=== PATIENT | male | born 1955 | race Two or more races ===

== ENCOUNTER 2024-05-22 17:10 | Inpatient (IN) | payer OTHER ==
[~2024-05-22] VITALS: Ht 193 cm; Wt 73.3 kg
[2024-05-22] MEDS: SODIUM CHLORIDE 0.9% 1,000 ML IV ONE (17:58)
[2024-05-22] MEDS: PANTOPRAZOLE 40 MG/10 ML VIAL INJ IV ONE (18:03)
[2024-05-22 18:17] LABS: Urine Bacteria None Seen /hpf (None Seen)
[2024-05-22 18:29] LABS: Basophils # (auto) 0.1 10 ^3/uL (0-0.2); Eosinophils # (auto) 0.1 10 ^3/uL (0-0.8); Eosinophils % (auto) 1.8 % (0.0-7.0); Hematocrit 46.2 % (41.0-53.0); Hemoglobin 15.9 g/dL (13.5-17.5); Lymphocytes # (auto) 2.6 10 ^3/uL (0.4-5.4); Lymphocytes % (auto) 34.4 % (10.0-50.0); Mean Corpuscular Hemoglobin 32.2 pg (28.0-32.0); Mean Corpuscular Hgb Conc. 34.4 g/dL (32.0-36.0); Mean Corpuscular Volume 93.8 fL (80.0-100.0); Monocytes # (auto) 0.4 10 ^3/uL (0-1.3); Neutrophils # (auto) 4.4 10 ^3/uL (1.6-8.6); Neutrophils % (auto) 57.8 % (37.0-80.0); Nucleated Red Blood Cells % 0.2 %; Platelet Count (auto) 154 10^3/uL (140-450); Red Blood Cells 4.93 10^6/uL (4.5-5.90); Red Cell Distribution Width 13.5 % (11.8-14.3); White Blood Cell 7.6 10^3/uL (4.4-10.8)
[2024-05-22 18:53] LABS: Alanine Aminotransferase 10 U/L (7-40); Albumin 4.5 g/dL (3.2-4.8); Alkaline Phosphatase 85 U/L (46-116); Anion Gap 8 (5-15); Aspartate Aminotransferase 12 U/L (13-40); BUN/Creatinine Ratio 10.8 (10.0-20.0); Blood Urea Nitrogen 8 mg/dL (9-23); Calcium 9.8 mg/dL (8.7-10.4); Carbon Dioxide 28 mmol/L (20-31); Chloride 107 mmol/L (98-107); Glucose 94 mg/dL (74-106); INR 1.11 (0.9-1.15); Lipase 29 U/L (12-53); Partial Thromboplastin Time 28.8 SEC (24.5-34.5); Potassium 3.6 mmol/L (3.5-5.1); Prothrombin Time 11.7 sec (9.3-11.8); Sodium 143 mmol/L (136-145)
[2024-05-22 18:54] LABS: Bilirubin, Total 0.4 mg/dL (0.2-1.0); Total Protein 7.1 g/dL (5.7-8.2)
[2024-05-22 19:06] LABS: Urine Blood Negative /uL (Negative); Urine Clarity Clear (Clear); Urine Color Colorless (Yellow); Urine Protein, UAD Negative (Negative); Urine Specific Gravity 1.003 (1.001-1.035); Urine Urobilinogen Normal (Negative); Urine WBC 1 /hpf (0 - 3); Urine pH 6.5 (5.0-9.0)
[2024-05-22] MEDS: fentaNYL CITRATE 100 MCG/2 ML VL IV ONE (19:30)
[2024-05-22] MEDS ORDERED: MORPHINE SULFATE INJ 2 MG/ml SYRG IV PRN (23:30)
[2024-05-22 23:53] LABS: Amphetamine Screen, Urine Neg (NEGATIVE); Barbiturate Scree,Urine Neg (NEGATIVE); Benzodiazephine Screen, Urine Neg (NEGATIVE); Cocaine Screen, Urine Neg (NEGATIVE); Opiate Scree,Urine Neg (NEGATIVE)
[2024-05-22 23:54] LABS: Cannabinoid Screen, Urine Pos (NEGATIVE); Phencyclidine Screen, Urine Neg (NEGATIVE)
[2024-05-23 03:30] VITALS: RESP 18
[2024-05-23 05:00] VITALS: BP 106/55; PULSE 46; RESP 16; TEMP 98.9; O2SAT 98
[2024-05-23] MEDS: PNEUMOCOCCAL VACC POLYS 25 MCG/0.5 ML VIAL IM ONE (05:12)
[2024-05-23] MEDS ORDERED: DEXTROSE (50%) 50ML SYRG IV PRN (08:45)
[2024-05-23] MEDS: SODIUM CHLORIDE 0.9% 1,000 ML IV SCH (08:45)
[2024-05-23 09:00] VITALS: BP 125/54; PULSE 48; RESP 18; TEMP 97.9; O2SAT 98
[2024-05-23 10:57] LABS: Basophils # (auto) 0 10 ^3/uL (0-0.2); Basophils % (auto) 0.8 % (0.0-2.0); Eosinophils # (auto) 0.1 10 ^3/uL (0-0.8); Hematocrit 39.7 % (41.0-53.0); Hemoglobin 13.7 g/dL (13.5-17.5); Lymphocytes # (auto) 1.7 10 ^3/uL (0.4-5.4); Lymphocytes % (auto) 33.2 % (10.0-50.0); Mean Corpuscular Hemoglobin 32.6 pg (28.0-32.0); Mean Corpuscular Hgb Conc. 34.5 g/dL (32.0-36.0); Mean Corpuscular Volume 94.5 fL (80.0-100.0); Monocytes # (auto) 0.3 10 ^3/uL (0-1.3); Monocytes % (auto) 5.7 % (0.0-12.0); Neutrophils % (auto) 58.3 % (37.0-80.0); Platelet Count (auto) 120 10^3/uL (140-450); Red Cell Distribution Width 13.6 % (11.8-14.3); White Blood Cell 5.1 10^3/uL (4.4-10.8)
[2024-05-23 11:07] LABS: Anion Gap 6 (5-15); Carbon Dioxide 27 mmol/L (20-31); Chloride 110 mmol/L (98-107); Potassium 3.8 mmol/L (3.5-5.1); Sodium 143 mmol/L (136-145)
[2024-05-23 11:09] LABS: Calcium 9.3 mg/dL (8.7-10.4)
[2024-05-23 11:13] LABS: Glucose 80 mg/dL (74-106)
[2024-05-23 11:14] LABS: Triglycerides 102 mg/dL (< 150)
[2024-05-23 11:15] LABS: LDL Cholesterol 72 mg/dL (< 100)
[2024-05-23 11:16] LABS: Cholesterol 128 mg/dL (< 200); HDL Cholesterol 38 mg/dL (40-59)
[2024-05-23 11:17] LABS: BUN/Creatinine Ratio 7.6 (10.0-20.0); Blood Urea Nitrogen < 5 mg/dL (9-23)
[2024-05-23] MEDS: PANTOPRAZOLE 40 MG/10 ML VIAL INJ IV SCH (11:19)
[2024-05-23] MEDS: InsuLIN REG 1unit/0.01ml Soln (100units/ml) SC SCH (12:00)
[2024-05-23] MEDS: ACCU-CHEK COMFORT CURVE STRIP VI SCH (12:29)
[2024-05-23 13:00] VITALS: BP 125/56; PULSE 47; RESP 18; TEMP 97.7; O2SAT 93
[2024-05-23 17:00] VITALS: BP 122/72; PULSE 53; RESP 18; TEMP 97.9; O2SAT 98
[2024-05-23 22:00] VITALS: BP 103/38; PULSE 46; RESP 18; TEMP 97.7; O2SAT 100
[2024-05-24 01:00] VITALS: BP 104/55; PULSE 58; RESP 18; TEMP 97.4; O2SAT 97
[2024-05-24 05:00] VITALS: BP 118/61; PULSE 59; RESP 18; TEMP 97.7; O2SAT 97
[2024-05-24 06:52] LABS: Basophils # (auto) 0.1 10 ^3/uL (0-0.2); Basophils % (auto) 0.9 % (0.0-2.0); Eosinophils # (auto) 0.2 10 ^3/uL (0-0.8); Eosinophils % (auto) 2.4 % (0.0-7.0); Hematocrit 42.8 % (41.0-53.0); Hemoglobin 14.6 g/dL (13.5-17.5); Lymphocytes # (auto) 2.1 10 ^3/uL (0.4-5.4); Lymphocytes % (auto) 32.6 % (10.0-50.0); Mean Corpuscular Hemoglobin 32.2 pg (28.0-32.0); Mean Corpuscular Hgb Conc. 34.1 g/dL (32.0-36.0); Mean Corpuscular Volume 94.4 fL (80.0-100.0); Monocytes # (auto) 0.4 10 ^3/uL (0-1.3); Monocytes % (auto) 5.9 % (0.0-12.0); Neutrophils # (auto) 3.7 10 ^3/uL (1.6-8.6); Neutrophils % (auto) 58.2 % (37.0-80.0); Nucleated Red Blood Cells % 0.1 %; Platelet Count (auto) 140 10^3/uL (140-450); Red Blood Cells 4.53 10^6/uL (4.5-5.90); Red Cell Distribution Width 13.5 % (11.8-14.3); White Blood Cell 6.4 10^3/uL (4.4-10.8)
[2024-05-24 08:52] VITALS: BP 115/67; PULSE 67; RESP 17; TEMP 97.7; O2SAT 97
[2024-05-24 13:00] VITALS: BP 123/60; PULSE 48; RESP 17; TEMP 98.3; O2SAT 99
[2024-05-24 17:00] VITALS: BP 93/49; PULSE 49; RESP 17; TEMP 98.7; O2SAT 100
[2024-05-24 21:00] VITALS: BP 102/52; PULSE 48; RESP 16; TEMP 98.2; O2SAT 97
[2024-05-25 01:00] VITALS: BP 82/36; PULSE 98; RESP 17; TEMP 98.1; O2SAT 50
[2024-05-25 05:00] VITALS: BP 96/46; PULSE 60; RESP 17; O2SAT 96
[2024-05-25 08:10] LABS: Basophils # (auto) 0.1 10 ^3/uL (0-0.2); Basophils % (auto) 0.9 % (0.0-2.0); Eosinophils # (auto) 0.1 10 ^3/uL (0-0.8); Eosinophils % (auto) 2.4 % (0.0-7.0); Hemoglobin 14.6 g/dL (13.5-17.5); Lymphocytes # (auto) 2.4 10 ^3/uL (0.4-5.4); Lymphocytes % (auto) 41.6 % (10.0-50.0); Mean Corpuscular Hgb Conc. 33.9 g/dL (32.0-36.0); Mean Corpuscular Volume 94.5 fL (80.0-100.0); Monocytes # (auto) 0.4 10 ^3/uL (0-1.3); Monocytes % (auto) 6.7 % (0.0-12.0); Neutrophils # (auto) 2.7 10 ^3/uL (1.6-8.6); Neutrophils % (auto) 48.4 % (37.0-80.0); Nucleated Red Blood Cells % 0.1 %; Platelet Count (auto) 132 10^3/uL (140-450); Red Blood Cells 4.55 10^6/uL (4.5-5.90); Red Cell Distribution Width 13.5 % (11.8-14.3); White Blood Cell 5.7 10^3/uL (4.4-10.8)
[2024-05-25 09:00] VITALS: BP 108/68; PULSE 56; RESP 18; TEMP 97.9; O2SAT 98
[2024-05-25 13:00] VITALS: BP 110/63; PULSE 64; RESP 21; TEMP 98.4; O2SAT 98
[2024-05-25 13:40] VITALS: BP 110/63; PULSE 64; RESP 19; TEMP 98.4; O2SAT 98
[2024-05-25] MEDS: INFLUENZA TRIVALENT 2024-2025 0.5 ML INJ IM ONE (16:54)
[2024-05-25 17:00] VITALS: BP 102/64; PULSE 83; RESP 20; TEMP 97.6; O2SAT 98
== END 2024-05-25 17:30 | disposition home or self-care (01) | DRG 393 ==
LOC: EDBD 17:10 → ER 17:19 → OVERFLOW 23:28 → CENTRAL 05-23 03:02
PROVIDERS: ADMIT Internal Medicine; ATTEND Internal Medicine
DX: K64.4 Residual hemorrhoidal skin tags (principal); K57.31 Diverticulosis of large intestine without perforation or abscess with bleeding; A08.39 Other viral enteritis; F31.9 Bipolar disorder, unspecified; E11.9 Type 2 diabetes mellitus without complications; I10 Essential (primary) hypertension; E78.5 Hyperlipidemia, unspecified; K80.20 Calculus of gallbladder without cholecystitis without obstruction; Z83.3 Family history of diabetes mellitus
CPT/HCPCS: 36415; 71045; 74176; 80048; 80053; 80061; 80307; 80320; 81001; 82270; 82962; 83036; 83605; 83690; 84484; 85025; 85610; 85730; 86850; 86900; 86901; 87045; 87427; G0378; J1815; J2470

== ENCOUNTER 2024-11-30 10:54 | Inpatient (IN) | payer OTHER, MEDICARE ==
[~2024-11-30] VITALS: Ht 193 cm; Wt 75.4 kg
--- NOTE | 2024-11-30 10:59 | ED.PDOC ---
GI ASSESSMENT HPI Comments 69 y.o male with PMHx of HTN, DM, hyperlipidemia, and bipolar disorder, presents to the ED via EMS for a chief complaint of lower abdominal pain associated with diarrhea that started 1.5 weeks ago. Patient describes pain as a cramping sensation, states it is constant, and rating a 10/10 on the pain scale. Patient denies any nausea, vomiting, fever, chills, melena, dysuria, hematuria. Patient reports tobacco use. Time Seen by MD: 10:53 Reviewed Notes: Nurses Notes, Video Control Operator Notes, Medications, Allergies Allergies: Coded Allergies: Haloperidol (Verified Allergy, Unknown, 05/22/24) Penicillins (Verified Allergy, Unknown, 05/22/24) Quetiapine (Verified Allergy, Unknown, 05/22/24) Home Meds No Active Prescriptions or Reported Meds Information Source: Patient, Emergency Med Personnel Mode of Arrival: EMS Timing: Weeks (1.5) Duration: Since onset Quality: Cramping Vomitus: None Stool: Loose Severity: Moderate Recent: None Recent Hx of: None Pain Location: Diffuse, RLQ, LLQ, Periumbilical Modifying Factors: Nothing Associated sign and symptoms: Diarrhea, Abdominal Pain Past Medical History PAST MEDICAL HISTORY: DM, High Lipids, HTN Past Medical History (Other): Bipolar disorder Surgical History (Other): catartacts, back and left hip replacement Family History Family History: Reviewed,noncontributory to illness Social History Smoker: Cigarettes Alcohol: Denies ETOH Use Drugs: Denies Drug Use Lives In: Home Constitutional: denies: chills, diaphoresis, fatigue, fever, malaise, sweats, weakness, others EENTM: denies: blurred vision, double vision, ear bleeding, ear discharge, ear drainage, ear pain, ear ringing, eye pain, eye redness, hearing loss, mouth pain, mouth swelling, nasal discharge, nose bleeding, nose congestion, nose pain, photophobia, tearing, throat pain, throat swelling, voice changes, others Respiratory: denies: cough, hemoptysis, orthopnea, SOB at rest, shortness of breath, SOB with excertion, stridor, wheezing, others Cardiovascular: denies: chest pain, dizzy spells, diaphoresis, Dyspnea on exertion, edema, irregular heart beat, left arm pain, lightheadedness, palpitations, PND, syncope, others Gastrointestinal: reports: abdominal pain, diarrhea; denies: abdomen distended, blood streaked bowels, constipated, dysphagia, difficulty swallowing, hematemesis, melena, nausea, poor appetite, poor fluid intake, rectal bleeding, rectal pain, vomiting, others Genitourinary: denies: burning, dysuria, flank pain, frequency, hematuria, incontinence, penile discharge, penile sore, pain, testicle pain, testicle swelling, urgency, others Neurological: denies: dizziness, fainting, headache, left sided numbness, left sided weakness, numbness, paresthesia, pre-existing deficit, right sided numbness, right sided weakness, seizure, speech problems, tingling, tremors, weakness, others Musculoskeletal: denies: back pain, gout, joint pain, joint swelling, muscle pain, muscle stiffness, neck pain, others Integumetry: denies: bruises, change in color, change in hair/nails, dryness, laceration, lesions, lumps, rash, wounds, others Allergic/Immunocompromised: denies: Difficulty Healing, Frequent Infections, Hives, Itching, others Hematologic/Lymphatic: denies: anemia, blood clots, easy bleeding, easy bruising, swollen glands, others Endocrine: denies: excessive hunger, excessive sweating, excessive thirst, excessive urination, flushing, intolerance to cold, intolerance to heat, unexplained weight gain, unexplained weight loss, others Psychiatric: denies: anxiety, bipolar disorder, depression, hopeless, panic disorder, schizophrenia, sleepless, suicidal, others All Other Systems: Reviewed and Negative Physical Exam General Appearance: Moderate Distress HEENT: Normal ENT Inspection, Pharynx Normal, TMs Normal Neck: Full Range of Motion, Non-Tender, Normal, Normal Inspection Respiratory: Chest Non-Tender, Lungs Clear, No Accessory Muscle Use, No Respiratory Distress, Normal Breath Sounds Cardiovascular: No Edema, No JVD, No Murmur, No Gallop, Normal Peripheral Pulses, Regular Rate/Rhythm Breast Exam: Deferred Gastrointestinal: Diffuse, No Organomegaly, No Pulsatile Mass, Normal Bowel Sounds, Soft, Tenderness Genitalia: Deferred Pelvic: Deferred Rectal: Deferred Extremities: No calf tenderness, Normal capillary refill, Normal inspection, Normal range of motion, Non-tender, No pedal edema Musculoskeletal : Apperance: Normal Neurologic: Alert, wound care specialist II-XII nml as Tested, No Motor Deficits, Normal Affect, Normal Mood, No Sensory Deficits Cerebellar Function: Normal Reflexes: Normal Skin: Dry, Normal Color, Warm Lymphatic: No Adenopathy Was a procedure done? Was a procedure done?: No GI differential Dx Differential Diagnosis: Diverticular disease, Esophagitis, Gastritis/PUD, Gastroenteritis, Inflammatory BD X-Ray, Labs, Meds, VS Vital Signs Date Time Temp Pulse Resp B/P (MAP) Pulse Ox O2 Delivery O2 Flow Rate FiO2 11/30/24 11:48 70 17 100/67 11/30/24 11:20 98.0 70 16 95/70 (78) 96 98.0 11/30/24 11:18 70 12 95/70 11/30/24 11:15 70 14 96 Room Air* 0 21 11/30/24 10:58 98.6 88 18 132/70 (90) 95 98.6 Lab Test 11/30/24 12:00 11/30/24 11:11 Range/Units Sodium Level 144 136-145 mmol/L Potassium Level 3.4 L 3.5-5.1 mmol/L Chloride Level 109 H 98-107 mmol/L Carbon Dioxide Level 27 20-31 mmol/L Anion Gap 8 5-15 Blood Urea Nitrogen 11 9-23 mg/dL Creatinine 0.70 0.700-1.30 mg/dL Glomerular Filtration Rate Calc 99 >90 mL/min BUN/Creatinine Ratio 15.7 10.0-20.0 Serum Glucose 97 74-106 mg/dL Calcium Level 8.7 8.7-10.4 mg/dL Total Bilirubin 0.5 0.2-1.0 mg/dL Aspartate Amino Transferase (AST) 11 L 13-40 U/L Alanine Aminotransferase (ALT) < 9 7-40 U/L Alkaline Phosphatase 67 46-116 U/L Total Protein 6.4 5.7-8.2 g/dL Albumin 3.8 3.2-4.8 g/dL Lipase 29 12-53 U/L White Blood Count 7.2 4.4-10.8 10^3/uL Red Blood Count 4.98 4.5-5.90 10^6/uL Hemoglobin 15.6 13.5-17.5 g/dL Hematocrit 46.2 41.0-53.0 % Mean Corpuscular Volume 92.7 80.0-100.0 fL Mean Corpuscular Hemoglobin 31.3 28.0-32.0 pg Mean Corpuscular Hemoglobin Concent 33.7 32.0-36.0 g/dL Red Cell Distribution Width 13.2 11.8-14.3 % Platelet Count 145 140-450 10^3/uL Mean Platelet Volume 10.6 6.9-10.8 fL Neutrophils (%) (Auto) 67.2 37.0-80.0 % Lymphocytes (%) (Auto) 25.9 10.0-50.0 % Monocytes (%) (Auto) 5.0 0.0-12.0 % Eosinophils (%) (Auto) 1.0 0.0-7.0 % Basophils (%) (Auto) 0.9 0.0-2.0 % Neutrophils # (Auto) 4.8 1.6-8.6 10 ^3/uL Lymphocytes # (Auto) 1.9 0.4-5.4 10 ^3/uL Monocytes # (Auto) 0.4 0-1.3 10 ^3/uL Eosinophils # (Auto) 0.1 0-0.8 10 ^3/uL Basophils # (Auto) 0.1 0-0.2 10 ^3/uL Nucleated Red Blood Cells 0.2 % Current Medications Medications (Trade) Dose Ordered Sig/Suma Route Start Time Stop Time Status Last Admin Ondansetron HCl (Zofran) 4 mg ONCE ONCE IV 11/30/24 11:00 11/30/24 11:01 DC 11/30/24 11:14 Sodium Chloride 1,000 ml @ 1,000 mls/hr Q1H ONCE IVB 11/30/24 11:00 11/30/24 11:59 DC 11/30/24 11:15 Morphine Sulfate 4 mg ONCE ONCE IV 11/30/24 11:00 11/30/24 11:01 DC 11/30/24 11:18 Pantoprazole Sodium (Protonix) 40 mg ONCE ONCE IV 11/30/24 11:00 11/30/24 11:01 DC 11/30/24 11:14 Exam: CT CT AB PEL WO CON-NO ORAL OR IV IMPRESSION: 1. No acute abdominal or pelvic findings. 2. Cholelithiasis. No evidence of acute cholecystitis. 3. Colonic diverticulosis without evidence of diverticulitis. The patient was given morphine 4 mg IV push for the pain The patient was given Protonix 40 mg IV push The patient was given Zofran 4 mg IV push for the nausea The patient was given a 1 L bolus of normal saline The patient's CBC is within normal limits The chemistry panel is within normal limits At this time, the patient was being admitted to the hospitalist The patient was still having pain The patient was diagnosis is intractable abdominal pain as well as cholelithiasis The patient understands and agrees with the management. Images Reviewed?: Images reviewed and evaluated by me Time of 1ST Reevaluation: 10:56 Reevaluation 1ST: Unchanged Patient Education/Counseling: Diagnosis, Treatment, Prognosis Family Education/Counseling: No Family Present Departure 1 Departure Time of Disposition: 14:51 Impression: Primary Impression: Intractable abdominal pain Additional Impression: Cholelithiasis Qualified Codes: K80.20 - Calculus of gallbladder without cholecystitis without obstruction Disposition: ADMITTED INPATIENT Admit to: Med Surg Condition: Fair e-Prescriptions No Active Prescriptions or Reported Meds Critical Care Note Critical Care Time?: No Stability Stability form required: Yes Unstable for transfer: ED Physician Assesment (Clinical assesment) I personally scribed for ROSALIA RODRIGUEZ MD ([email or web address]) on 11/30/24 at 10:59. Electronically submitted by Carola Espino ([email or web address]). I personally scribed for ROSALIA RODRIGUEZ MD ([email or web address]) on 11/30/24 at 12:46. Electronically submitted by Carola Espino ([email or web address]). ROSALIA RODRIGUEZ MD Nov 30, 2024 10:59
[2024-11-30] MEDS: ONDANSETRON HCL 4 MG/2 ML VIAL IV ONE (11:14)
[2024-11-30] MEDS: PANTOPRAZOLE 40 MG/10 ML VIAL INJ IV ONE (11:14)
[2024-11-30 11:15] VITALS: PULSE 70; RESP 14; O2SAT 96
[2024-11-30] MEDS: SODIUM CHLORIDE 0.9% 1,000 ML IVB ONE (11:15)
[2024-11-30] MEDS: MORPHINE SULFATE 4 MG/ML SYR/VIAL IV ONE (11:18)
[2024-11-30 11:22] LABS: Basophils # (auto) 0.1 10 ^3/uL (0-0.2); Basophils % (auto) 0.9 % (0.0-2.0); Eosinophils # (auto) 0.1 10 ^3/uL (0-0.8); Hematocrit 46.2 % (41.0-53.0); Hemoglobin 15.6 g/dL (13.5-17.5); Lymphocytes # (auto) 1.9 10 ^3/uL (0.4-5.4); Lymphocytes % (auto) 25.9 % (10.0-50.0); Mean Corpuscular Hemoglobin 31.3 pg (28.0-32.0); Mean Corpuscular Hgb Conc. 33.7 g/dL (32.0-36.0); Mean Corpuscular Volume 92.7 fL (80.0-100.0); Monocytes # (auto) 0.4 10 ^3/uL (0-1.3); Neutrophils # (auto) 4.8 10 ^3/uL (1.6-8.6); Neutrophils % (auto) 67.2 % (37.0-80.0); Nucleated Red Blood Cells % 0.2 %; Platelet Count (auto) 145 10^3/uL (140-450); Red Blood Cells 4.98 10^6/uL (4.5-5.90); Red Cell Distribution Width 13.2 % (11.8-14.3); White Blood Cell 7.2 10^3/uL (4.4-10.8)
--- NOTE | 2024-11-30 12:22 | DVH ---
Exam: CT CT AB PEL WO CON-NO ORAL OR IV History: lower abd pain Comparison Study: CT CT AB PEL WO CON-NO ORAL OR IV on DOS: 05/22/24 Technique: Multidetector spiral CT of the abdomen was performed from lung bases to pubic symphysis. I maging was performed without IV contrast. Axial, coronal and sagittal multiplanar reformats were obta ined from the axial data set by the technologist. Radiation Dose : 1. Abdomen/Pelvis: CTDIvol 5.62 mGy, DLP 319.88 mGy*cm. Findings: Evaluation of solid organs is limited due to lack of intravenous contrast use. Lung Bases: Coronary artery calcifications. Liver: Unremarkable Gallbladder and Biliary Tree: Cholelithiasis noted without secondary findings of cholecystitis or anita iary obstruction. Spleen: Unremarkable Pancreas: Unremarkable Adrenal Glands: Similar left adrenal gland thickening. Kidneys: Unremarkable Bladder: Grossly unremarkable for degree of distention. Bowel: Colonic diverticulosis. Normal appendix is visualized in the right lower quadrant without fin dings of appendicitis. Peritoneum and Retroperitoneum: Unremarkable. Lymphadenopathy: No lymphadenopathy. Abdominal Wall: Unremarkable. Vasculature: The visualized abdominal aorta is normal in size and caliber. There is atherosclerotic calcification of the aorta and its branches. Evaluation of abdominal and pelvic vessels is limited du e to lack of intravenous contrast. Pelvic Organs: Unremarkable Musculoskeletal: Degenerative changes. Partially visualized left femoral fixation hardware. IMPRESSION: 1. No acute abdominal or pelvic findings. 2. Cholelithiasis. No evidence of acute cholecystitis. 3. Colonic diverticulosis without evidence of diverticulitis. Radiation optimization: All CT scans at this facility use at least one of these dose optimization yuli hniques: automated exposure control mA and/or kV adjustment per patient size (includes targeted exam s where dose is matched to clinical indication) or iterative reconstruction.
[2024-11-30 12:43] LABS: Albumin 3.8 g/dL (3.2-4.8); Alkaline Phosphatase 67 U/L (46-116); Anion Gap 8 (5-15); BUN/Creatinine Ratio 15.7 (10.0-20.0); Blood Urea Nitrogen 11 mg/dL (9-23); Carbon Dioxide 27 mmol/L (20-31); Glucose 97 mg/dL (74-106); Lipase 29 U/L (12-53); Sodium 144 mmol/L (136-145); Total Protein 6.4 g/dL (5.7-8.2)
[2024-11-30 12:44] LABS: Bilirubin, Total 0.5 mg/dL (0.2-1.0)
[2024-11-30 12:53] LABS: Alanine Aminotransferase < 9 U/L (7-40); Aspartate Aminotransferase 11 U/L (13-40); Calcium 8.7 mg/dL (8.7-10.4); Chloride 109 mmol/L (98-107); Potassium 3.4 mmol/L (3.5-5.1)
[2024-11-30 15:31] VITALS: PULSE 52; RESP 16; O2SAT 98
[2024-11-30 15:53] LABS: Urine Bacteria None Seen /hpf (None Seen)
[2024-11-30 16:15] LABS: Urine Blood 1+ /uL (Negative); Urine Clarity Clear (Clear); Urine Color Yellow (Yellow); Urine Mucus FEW (None Seen); Urine Protein, UAD TRACE (Negative); Urine Specific Gravity 1.029 (1.001-1.035); Urine Squamous Epithelial Cell FEW /hpf (<5); Urine Urobilinogen 3 mg/dL (Negative); Urine WBC 3 /HPF (0-3); Urine pH 5.5 (5.0-9.0)
[2024-11-30] MEDS ORDERED: HYDROmorphone HCL 2 MG/ML VL/or syr IV PRN (17:15)
[2024-11-30] MEDS ORDERED: ONDANSETRON HCL 4 MG/2 ML VIAL IV PRN (17:15)
[2024-11-30] MEDS ORDERED: ACETAMINOPHEN 325 MG TAB PO PRN (17:15)
[2024-11-30] MEDS ORDERED: DOCUSATE SOD 100 MG CAP PO PRN (17:15)
--- NOTE | 2024-11-30 17:17 | DVHHP2 ---
Admitting Diagnosis: Abdominal pain History of Present Illness 69 y.o male with PMHx of HTN, DM, hyperlipidemia, and bipolar disorder, presents to the ED via EMS for a chief complaint of lower abdominal pain associated with diarrhea that started 1.5 weeks ago. Patient describes pain as a cramping sensation, states it is constant, and rating a 10/10 on the pain scale. Patient denies any nausea, vomiting, fever, chills, melena, dysuria, hematuria. Patient reports tobacco use. PAST MEDICAL HISTORY: DM, High Lipids, HTN Past Medical History (Other): Bipolar disorder Surgical History (Other): catartacts, back and left hip replacement Family History Family History: Reviewed,noncontributory to illness Social History Smoker: Cigarettes Alcohol: Denies ETOH Use Drugs: Denies Drug Use Lives In: Home Patient Family History: Diabetes mellitus G8 MOTHER, FH: bipolar disorder G8 FATHER, Allergies: Coded Allergies: Haloperidol (Verified Allergy, Unknown, 05/22/24) Penicillins (Verified Allergy, Unknown, 05/22/24) Quetiapine (Verified Allergy, Unknown, 05/22/24) Home Meds No Active Prescriptions or Reported Meds Current Medications Current Medications Medications (Trade) Dose Ordered Sig/Suma Route PRN Reason Start Time Stop Time Status Last Admin Pantoprazole Sodium (Protonix Tablet) 40 mg DAILY PO 12/01/24 10:00 UNV Sodium Chloride (Saline Lock Ns) 10 ml Q8HR IV 11/30/24 22:00 UNV Docusate Sodium (Colace Capsule) 100 mg BIDPRN PRN PO FOR CONSTIPATION 11/30/24 17:15 UNV Acetaminophen (Tylenol Tablet) 650 mg Q6HP PRN PO PAIN SCALE 1-3 OR TEMP>100.4 11/30/24 17:15 UNV Acetaminophen/ Hydrocodone Bitart ([place] 5/325MG Tab) 1 tab Q4HP PRN PO MODERATE PAIN (4-6 PAIN SCALE) 11/30/24 17:15 UNV Hydromorphone HCl (Dilaudid Injection) 0.5 mg Q4HP PRN IV SEVERE PAIN (7-10 PAIN SCALE) 11/30/24 17:15 UNV Ondansetron HCl (Zofran) 4 mg Q4HP PRN IV NAUSEA / VOMITING 11/30/24 17:15 UNV Enoxaparin Sodium (Lovenox) 40 mg DAILY SC 12/01/24 10:00 UNV Vital Signs Vital Signs Date Time Temp Pulse Resp B/P (MAP) Pulse Ox O2 Delivery O2 Flow Rate FiO2 11/30/24 15:31 52 16 98 Room Air* 0 21 11/30/24 15:24 114/61 (78) 11/30/24 11:20 98.0 98.0 Physical Exam Generally-69 years old male, well nourished well developed. No apparent distress HEENT-atraumatic, normocephalic Heart-regular rate and rhythm Lungs clear to auscultate bilaterally Abdomen soft nontender nondistended Musculoskeletal-no edema cyanosis Neuro-alert and oriented x3 no focal deficits Results Labs Test 11/30/24 15:30 11/30/24 12:00 11/30/24 11:11 Range/Units Urine Color Yellow Yellow Urine Clarity Clear Clear Urine pH 5.5 5.0-9.0 Urine Specific Wesley 1.029 1.001-1.035 Urine Protein Trace H Negative Urine Ketones 2+ H Negative Urine Blood 1+ H Negative /uL Urine Nitrite Negative Negative Urine Bilirubin Negative Negative Urine Urobilinogen 3 H Negative mg/dL Urine Leukocyte Esterase Negative Negative /uL Urine RBC 1 0 - 3 /hpf Urine Microscopic WBC 3 0-3 /HPF Urine Squamous Epithelial Cells Few <5 /hpf Urine Bacteria None seen None Seen /hpf Urine Mucus Few None Seen Urine Glucose Normal Normal mg/dL Sodium Level 144 136-145 mmol/L Potassium Level 3.4 L 3.5-5.1 mmol/L Chloride Level 109 H 98-107 mmol/L Carbon Dioxide Level 27 20-31 mmol/L Anion Gap 8 5-15 Blood Urea Nitrogen 11 9-23 mg/dL Creatinine 0.70 0.700-1.30 mg/dL Glomerular Filtration Rate Calc 99 >90 mL/min BUN/Creatinine Ratio 15.7 10.0-20.0 Serum Glucose 97 74-106 mg/dL Calcium Level 8.7 8.7-10.4 mg/dL Total Bilirubin 0.5 0.2-1.0 mg/dL Aspartate Amino Transferase (AST) 11 L 13-40 U/L Alanine Aminotransferase (ALT) < 9 7-40 U/L Alkaline Phosphatase 67 46-116 U/L Total Protein 6.4 5.7-8.2 g/dL Albumin 3.8 3.2-4.8 g/dL Lipase 29 12-53 U/L White Blood Count 7.2 4.4-10.8 10^3/uL Red Blood Count 4.98 4.5-5.90 10^6/uL Hemoglobin 15.6 13.5-17.5 g/dL Hematocrit 46.2 41.0-53.0 % Mean Corpuscular Volume 92.7 80.0-100.0 fL Mean Corpuscular Hemoglobin 31.3 28.0-32.0 pg Mean Corpuscular Hemoglobin Concent 33.7 32.0-36.0 g/dL Red Cell Distribution Width 13.2 11.8-14.3 % Platelet Count 145 140-450 10^3/uL Mean Platelet Volume 10.6 6.9-10.8 fL Neutrophils (%) (Auto) 67.2 37.0-80.0 % Lymphocytes (%) (Auto) 25.9 10.0-50.0 % Monocytes (%) (Auto) 5.0 0.0-12.0 % Eosinophils (%) (Auto) 1.0 0.0-7.0 % Basophils (%) (Auto) 0.9 0.0-2.0 % Neutrophils # (Auto) 4.8 1.6-8.6 10 ^3/uL Lymphocytes # (Auto) 1.9 0.4-5.4 10 ^3/uL Monocytes # (Auto) 0.4 0-1.3 10 ^3/uL Eosinophils # (Auto) 0.1 0-0.8 10 ^3/uL Basophils # (Auto) 0.1 0-0.2 10 ^3/uL Nucleated Red Blood Cells 0.2 % Primary Diagnosis Patient due to biliary colic Cholelithiasis Plan IV fluids Pain control Clear liquid diet advance as tolerated Antiemetic Full code Lovenox for DVT prophylaxis PPI for GI prophylaxis Plan discussed with: Patient Problems List: (1) Intractable abdominal pain Status: Acute (2) Cholelithiasis Status: Acute Date of Service: Nov 30, 2024 Billing Provider: NARA ORTIZ MD Common Visit Codes: [id number]-[id number] INP/OBS CARE (MOD) NARA ORTIZ MD Nov 30, 2024 17:17
[2024-11-30] MEDS: LACTATED RINGER'S 1,000 ML IV ONE (18:11)
[2024-11-30 19:39] VITALS: PULSE 53; RESP 20; O2SAT 95
[2024-11-30] MEDS: SODIUM CHLOR 0.9% PF (SALINE LOCK) 10ML VIAL/SYR IV SCH (19:58)
[2024-11-30 21:20] VITALS: BP 90/58; PULSE 53; PULSE 86; RESP 16; RESP 18; TEMP 99; O2SAT 98
[2024-11-30 21:30] VITALS: BP 90/58; PULSE 53; RESP 18; TEMP 99.2; O2SAT 98
[2024-12-01] VITALS (8 sets, daily range): BP systolic 99–129; BP diastolic 48–62; PULSE 41–97; RESP 16–18; TEMP 97.6–98.4; O2SAT 90–99
[2024-12-01] MEDS: HYDROcodone-ACET 5/325MG TAB PO PRN (05:04)
[2024-12-01 08:27] LABS: Basophils # (auto) 0 10 ^3/uL (0-0.2); Basophils % (auto) 0.7 % (0.0-2.0); Eosinophils # (auto) 0.1 10 ^3/uL (0-0.8); Eosinophils % (auto) 1.3 % (0.0-7.0); Hematocrit 43.6 % (41.0-53.0); Hemoglobin 14.6 g/dL (13.5-17.5); Lymphocytes # (auto) 2.3 10 ^3/uL (0.4-5.4); Lymphocytes % (auto) 33.6 % (10.0-50.0); Mean Corpuscular Hgb Conc. 33.4 g/dL (32.0-36.0); Mean Corpuscular Volume 92.9 fL (80.0-100.0); Monocytes # (auto) 0.5 10 ^3/uL (0-1.3); Monocytes % (auto) 7.2 % (0.0-12.0); Neutrophils # (auto) 3.9 10 ^3/uL (1.6-8.6); Neutrophils % (auto) 57.2 % (37.0-80.0); Nucleated Red Blood Cells % 0.1 %; Platelet Count (auto) 137 10^3/uL (140-450); White Blood Cell 6.8 10^3/uL (4.4-10.8)
[2024-12-01 08:47] LABS: Albumin 4.2 g/dL (3.2-4.8); Alkaline Phosphatase 80 U/L (46-116); Anion Gap 9 (5-15); BUN/Creatinine Ratio 13.3 (10.0-20.0); Bilirubin, Total 0.4 mg/dL (0.2-1.0); Blood Urea Nitrogen 11 mg/dL (9-23); Calcium 9.7 mg/dL (8.7-10.4); Carbon Dioxide 28 mmol/L (20-31); Chloride 104 mmol/L (98-107); Potassium 4.1 mmol/L (3.5-5.1); Sodium 141 mmol/L (136-145); Total Protein 6.9 g/dL (5.7-8.2)
[2024-12-01 08:50] LABS: Alanine Aminotransferase < 9 U/L (7-40); Aspartate Aminotransferase 11 U/L (13-40); Glucose 174 mg/dL (74-106)
[2024-12-01] MEDS ORDERED: DOCUSATE SOD 100 MG CAP PO PRN (10:00)
[2024-12-01] MEDS: POLYETHYLENE GLYCOL 17 GM PWDR PO SCH (10:00)
[2024-12-01] MEDS: ENOXAPARIN SOD 40 MG/0.4 ML SYRINGE SC SCH (10:04)
[2024-12-01] MEDS: PRAZOSIN HCL 1 MG CAP PO ONE (10:05)
[2024-12-01] MEDS: SERTRALINE HCL 50 MG TAB PO ONE (10:05)
[2024-12-01] MEDS: PANTOPRAZOLE 40 MG TAB PO SCH (10:05)
[2024-12-01] MEDS: SODIUM CHLORIDE 0.9% 1,000 ML IV ONE (10:06)
[2024-12-01 10:37] LABS: INR 1.13 (0.9-1.15); Partial Thromboplastin Time 30.4 SEC (24.5-34.5); Prothrombin Time 11.8 sec (9.3-11.8)
--- NOTE | 2024-12-01 17:00 | DVHPNRES ---
Progress Note Date Seen: Dec 01, 2024 Resident Creating Document: MANN ROBERT MOMO Has the PT tested + for MRSA If YES, has PT been informed?: No Medical Necessity Reason Pt with a Central, PICC or Fol: No Subjective Review of Systems This is a 69-year-old male with past medical history of hypertension diabetes, bipolar disorder (currently depressed), coronary artery disease (status post stent), came to the hospital due to abdominal pain since 3 days. Pain is localized at lower abdomen, counseled, 10/10, pressure-like, radiating to upper abdomen, with no clear exacerbating or relieving factor. He also reports constipation with last bowel movement 3 days back. He denies fever, chest pain, shortness of breath, or any recent bowel habit changes. Previous hospitalization: Patient admitted on May 2024 at [facility], due to lower GI bleeding. PMHx: hypertension diabetes, bipolar disorder (currently depressed), coronary artery disease (status post stent) PSHx: Left hip and knee surgery, left knee meniscus tear due to mechanical fall Family history: Noncontributory Social history: Patient is wheelchair-bound due to left-sided traumatic injury Home medication: Prazosin, sertraline, aripiprazole, divalproex, metformin, Protonix, and gabapentin. Since August 2024, the patient does not take any medicine. Allergic history: Haloperidol, penicillin, quetiapine Patient seen and examined at bedside. Patient is still complaining of abdominal pain and constipation. Patient reports: No new complaints Changes from previous H/P or p: No Changes Objective vital signs Vital Sign Date Time Temp Pulse Resp B/P (MAP) Pulse Ox O2 Delivery O2 Flow Rate FiO2 12/01/24 13:00 97.8 57 18 115/58 (77) 99 97.8 12/01/24 08:20 Room Air* 0 21 Total Intake and Output 11/30/24 11/30/24 12/01/24 15:00 23:00 07:00 Intake Total 1000 ml 75 ml 240 ml Output Total 200 ml Balance 1000 ml 75 ml 40 ml medications Current Medications Medications Dose Ordered Sig/Suma Route Start Time Stop Time Status Last Admin Dose Admin Pantoprazole Sodium 40 mg DAILY PO 12/01/24 10:00 12/01/24 10:05 40 MG Sodium Chloride 10 ml Q8HR IV 11/30/24 22:00 12/01/24 05:04 10 ML Acetaminophen 650 mg Q6HP PRN PO 11/30/24 17:15 Acetaminophen/ Hydrocodone Bitart 1 tab Q4HP PRN PO 11/30/24 17:15 12/01/24 05:04 1 TAB Hydromorphone HCl 0.5 mg Q4HP PRN IV 11/30/24 17:15 Ondansetron HCl 4 mg Q4HP PRN IV 11/30/24 17:15 Enoxaparin Sodium 40 mg DAILY SC 12/01/24 10:00 12/01/24 10:04 40 MG Prazosin HCl 2 mg Q12HR PO 12/01/24 22:00 Sertraline HCl 100 mg DAILY PO 12/02/24 10:00 Divalproex Sodium 250 mg BID PO 12/01/24 22:00 Docusate Sodium 200 mg BIDPRN PRN PO 12/01/24 10:00 Polyethylene Glycol 17 gm DAILY PO 12/01/24 10:00 Examination General Appearance: Alert, Oriented X3, Cooperative, No acute distress HEENT: Atraumatic, PERRLA, EOMI, Mucous membrane moist/pink Respiratory: Clear to auscultation, Normal air movement Cardiovascular: Regular rate, Normal S1, Normal S2, No murmurs, no chest wall tenderness Abdominal: Lower abdominal tenderness Extremities: No clubbing, No cyanosis, No edema, Normal pulses, No tenderness/swelling Skin: No rashes, No breakdown, No significant lesion Neuro: Normal gait, Normal speech, Strength at 5/5 X4 ext, Normal tone, Sensation intact, Cranial nerves 3-12 NL, Reflexes 2+ Psych/Mental Status: Mental status NL, Mood NL laboratory and microbiology Laboratory Tests 12/01/24 07:35 Test 12/01/24 07:35 Range/Units Serum Glucose 174 H 74-106 mg/dL Labs and/or images reviewed: Labs reviewed by me, Image(s) reviewed by me Problem List/Assessment/Plan Problem List/Assessment/Plan Intractable abdominal pain, likely due to symptomatic cholelithiasis Cholelithiasis Diverticulosis, with no diverticulitis CT scan showed,Cholelithiasis and colonic diverticulosis with no evidence of diverticulitis Consulted surgery IV fluid Pain management Diabetes mellitus type 2 Hypertension Coronary artery disease (status post PCI) Dyslipidemia Continue home meds Current smoker, with 20 pack year history Patient counseled for the smoking cessation for more than 18 minutes Nicotine patch DIET: Diabetic diet DVT PROPHYLAXIS: Lovenox GI PROPHYLAXIS:: Protonix BOWEL REGIMEN: Colace CODE STATUS: Goal of care discussed for more than 18 minutes, full code DISPOSITION: Med/surge Patient's status and plan discussed with the patient. Case discussed with Dr. Jiménez. Plan discussed with: Patient, Other (RN) My Orders My Orders Orders - MANN ROBERT Procedure Category Date Status Time * Surgical Consult CONS 12/01/24 Transmitted Prazosin Hcl Capsule PHA 12/01/24 In Process (Minipres Capsule) 22:[address] Tablet PHA 12/01/24 In Process (Depakote "Dr" Tabl 22:00 Drug Screen LAB 12/01/24 Logged 09:08 Npo (Nothing By DIET 12/01/24 Transmitted Mouth) Diet Breakfast Sodium Chloride 0.9% PHA 12/01/24 In Process 09:15 Sertraline Hcl PHA 12/02/24 In Process (Zoloft) 10:00 Docusate Sodium PHA 12/01/24 In Process Capsule (Colace 10:00 Polyethylene Glycol PHA 12/01/24 In Process 17g Powder (Miralax 10:00 MANN ROBERT RESDIENT Dec 01, 2024 17:00
[2024-12-01] MEDS: PRAZOSIN HCL 1 MG CAP PO SCH (21:45)
[2024-12-02] VITALS (9 sets, daily range): BP systolic 81–126; BP diastolic 43–158; PULSE 54–69; RESP 17–20; TEMP 97.5–98.4; O2SAT 95–99
[2024-12-02 07:58] LABS: Basophils # (auto) 0 10 ^3/uL (0-0.2); Basophils % (auto) 0.6 % (0.0-2.0); Eosinophils # (auto) 0.1 10 ^3/uL (0-0.8); Eosinophils % (auto) 1.5 % (0.0-7.0); Hematocrit 39.1 % (41.0-53.0); Hemoglobin 13.1 g/dL (13.5-17.5); Lymphocytes % (auto) 36.5 % (10.0-50.0); Mean Corpuscular Hemoglobin 31.6 pg (28.0-32.0); Mean Corpuscular Hgb Conc. 33.6 g/dL (32.0-36.0); Monocytes # (auto) 0.4 10 ^3/uL (0-1.3); Neutrophils # (auto) 2.9 10 ^3/uL (1.6-8.6); Neutrophils % (auto) 54.4 % (37.0-80.0); Nucleated Red Blood Cells % 0.3 %; Platelet Count (auto) 116 10^3/uL (140-450); Red Blood Cells 4.16 10^6/uL (4.5-5.90); White Blood Cell 5.4 10^3/uL (4.4-10.8)
[2024-12-02 08:30] LABS: Albumin 3.6 g/dL (3.2-4.8); Alkaline Phosphatase 66 U/L (46-116); Anion Gap 9 (5-15); Calcium 9.4 mg/dL (8.7-10.4); Carbon Dioxide 25 mmol/L (20-31); Chloride 106 mmol/L (98-107); Glucose 85 mg/dL (74-106); Sodium 140 mmol/L (136-145)
[2024-12-02 08:31] LABS: Bilirubin, Total 0.5 mg/dL (0.2-1.0)
[2024-12-02 08:41] LABS: Alanine Aminotransferase < 9 U/L (7-40); Aspartate Aminotransferase 10 U/L (13-40); BUN/Creatinine Ratio 8.2 (10.0-20.0); Blood Urea Nitrogen < 5 mg/dL (9-23)
--- NOTE | 2024-12-02 09:13 | DVH ---
INDICATION: cholelithiasis TECHNIQUE: Multiple real-time sonographic images were obtained of the right upper quadrant. COMPARISON: None FINDINGS: The liver demonstrates heterogenous echotexture without focal mass lesions. The liver measu res 15cm. There is no intrahepatic or extrahepatic ductal dilatation. The common duct measures 0.5 mm. Gallstones are present. Gallbladder sludge noted. The gallbladder wall measures 0.4 mm and is withi n normal limits. The right kidney measures 11 cm. The right kidney is normal in contour, size, and shape. The echogen icity is normal. There is no hydronephrosis. The pancreas is not well visualized due to overlying bowel gas. IMPRESSION: Gallstones/gallbladder sludge Hepatic steatosis
[2024-12-02] MEDS: SERTRALINE HCL 50 MG TAB PO SCH (09:22)
--- NOTE | 2024-12-02 14:30 | DVHPNRES ---
Progress Note Date Seen: Dec 02, 2024 Resident Creating Document: MANN ROBERT MOMO Has the PT tested + for MRSA If YES, has PT been informed?: No Medical Necessity Reason Pt with a Central, PICC or Fol: No Subjective Review of Systems Patient seen and examined at the bedside. Patient is still complaining of abdominal pain and constipation. Patient reports: No new complaints Changes from previous H/P or p: No Changes Objective vital signs Vital Sign Date Time Temp Pulse Resp B/P (MAP) Pulse Ox O2 Delivery O2 Flow Rate FiO2 12/02/24 13:09 97.9 54 20 115/61 (79) 98 97.9 12/02/24 08:00 Room Air* 0 21 Total Intake and Output 12/01/24 12/01/24 12/02/24 15:00 23:00 07:00 Intake Total 700 ml 1790 ml 0 ml Output Total 250 ml Balance 700 ml 1540 ml 0 ml medications Current Medications Medications Dose Ordered Sig/Suma Route Start Time Stop Time Status Last Admin Dose Admin Pantoprazole Sodium 40 mg DAILY PO 12/01/24 10:00 12/02/24 09:22 40 MG Sodium Chloride 10 ml Q8HR IV 11/30/24 22:00 12/02/24 05:59 10 ML Acetaminophen 650 mg Q6HP PRN PO 11/30/24 17:15 Acetaminophen/ Hydrocodone Bitart 1 tab Q4HP PRN PO 11/30/24 17:15 12/01/24 05:04 1 TAB Hydromorphone HCl 0.5 mg Q4HP PRN IV 11/30/24 17:15 Ondansetron HCl 4 mg Q4HP PRN IV 11/30/24 17:15 Enoxaparin Sodium 40 mg DAILY SC 12/01/24 10:00 12/02/24 09:24 40 MG Prazosin HCl 2 mg Q12HR PO 12/01/24 22:00 12/02/24 09:23 2 MG Sertraline HCl 100 mg DAILY PO 12/02/24 10:00 12/02/24 09:22 100 MG Divalproex Sodium 250 mg BID PO 12/01/24 22:00 12/02/24 09:20 250 MG Docusate Sodium 200 mg BIDPRN PRN PO 12/01/24 10:00 Polyethylene Glycol 17 gm DAILY PO 12/01/24 10:00 12/02/24 09:21 17 GM Examination General Appearance: Alert, Oriented X3, Cooperative, No acute distress HEENT: Atraumatic, PERRLA, EOMI, Mucous membrane moist/pink Respiratory: Clear to auscultation, Normal air movement Cardiovascular: Regular rate, Normal S1, Normal S2, No murmurs, no chest wall tenderness Abdominal: Lower abdominal tenderness Extremities: No clubbing, No cyanosis, No edema, Normal pulses, No tenderness/swelling Skin: No rashes, No breakdown, No significant lesion Neuro: Normal gait, Normal speech, Strength at 5/5 X4 ext, Normal tone, Sensation intact, Cranial nerves 3-12 NL, Reflexes 2+ Psych/Mental Status: Mental status NL, Mood NL laboratory and microbiology Laboratory Tests 12/02/24 07:41 Test 12/02/24 07:41 Range/Units Serum Glucose 85 74-106 mg/dL Labs and/or images reviewed: Labs reviewed by me, Image(s) reviewed by me Problem List/Assessment/Plan Problem List/Assessment/Plan Intractable abdominal pain, likely due to symptomatic cholelithiasis Cholelithiasis Diverticulosis, with no diverticulitis Sirs positive with no end-organ damage Precipitous hemoglobin drop, likely inhalation CT scan showed,Cholelithiasis and colonic diverticulosis with no evidence of diverticulitis Consulted surgery, recommended HIDA scan and GI evaluation GI consulted IV fluid Pain management Diabetes mellitus type 2 Hypertension Coronary artery disease (status post PCI) Dyslipidemia Continue home meds Current smoker, with 20 pack year history Patient counseled for the smoking cessation for more than 18 minutes Nicotine patch Thrombocytopenia, likely drug-induced, valproic acid DIET: NPO after midnight DVT PROPHYLAXIS: Lovenox GI PROPHYLAXIS:: Protonix BOWEL REGIMEN: Colace CODE STATUS: Goal of care discussed for more than 18 minutes, full code DISPOSITION: Med/surge Patient's status and plan discussed with the patient. Case discussed with Dr. Jiménez. Plan discussed with: Patient, Other (RN) My Orders My Orders Orders - MANN ROBERT RESDIMAEVE Procedure Category Date Status Time LIVER US 12/02/24 Resulted 07:31 Clear Liq Diet DIET 12/02/24 Transmitted Breakfast MANN ROBERT RESDIENT Dec 02, 2024 14:30
--- NOTE | 2024-12-02 16:52 | DVHINCON2 ---
Consultation - Surgical Date Seen: Dec 02, 2024 Referring Physician Referring Physician er Reason for Consultation abd pain History of Present Illness History of Present Illness 69 y.o male with PMHx of HTN, DM, hyperlipidemia, and bipolar disorder, presents to the ED via EMS for a chief complaint of lower abdominal pain associated with diarrhea that started 1.5 weeks ago. Patient describes pain as a cramping sensation, states it is constant, and rating a 10/10 on the pain scale. Patient denies any nausea, vomiting, fever, chills, melena, dysuria, hematuria. Patient reports tobacco use. Past Medical/Surgical History Past Medical/Surgical History HTN, DM, hyperlipidemia, and bipolar disorder, Family and Social History Family and Social History non smoker Allergies and medications Allergies: Coded Allergies: Haloperidol (Verified Allergy, Unknown, 05/22/24) Penicillins (Verified Allergy, Unknown, 05/22/24) Quetiapine (Verified Allergy, Unknown, 05/22/24) Home Meds Unable to Obtain Active Prescriptions or Reported Meds Review of systems Review of Systems: HEENT:Normal, CVS:Normal, RESPIRATORY:Normal, GI:Normal, :Normal (diahrea/constipation), MSK:Normal, NEURO:Normal Examination Vital signs Vital Signs Date Time Temp Pulse Resp B/P (MAP) Pulse Ox O2 Delivery O2 Flow Rate FiO2 12/02/24 13:09 97.9 54 20 115/61 (79) 98 97.9 12/02/24 08:00 Room Air* 0 21 Medications Current Medications Medications (Trade) Dose Ordered Sig/Suma Route PRN Reason Start Time Stop Time Status Last Admin Prazosin HCl (Minipres Capsule) 2 mg Q12HR PO 12/01/24 22:00 12/02/24 09:23 Sertraline HCl (Zoloft) 100 mg DAILY PO 12/02/24 10:00 12/02/24 09:22 Divalproex Sodium (Depakote "Dr" Tablet) 250 mg BID PO 12/01/24 22:00 12/02/24 09:20 Laboratory Labs Test 12/02/24 07:41 12/01/24 10:00 11/30/24 15:30 11/30/24 12:00 Range/Units White Blood Count 5.4 4.4-10.8 10^3/uL Red Blood Count 4.16 L 4.5-5.90 10^6/uL Hemoglobin 13.1 L 13.5-17.5 g/dL Hematocrit 39.1 #L 41.0-53.0 % Mean Corpuscular Volume 94.0 80.0-100.0 fL Mean Corpuscular Hemoglobin 31.6 28.0-32.0 pg Mean Corpuscular Hemoglobin Concent 33.6 32.0-36.0 g/dL Red Cell Distribution Width 13.0 11.8-14.3 % Platelet Count 116 L 140-450 10^3/uL Mean Platelet Volume 10.5 6.9-10.8 fL Neutrophils (%) (Auto) 54.4 37.0-80.0 % Lymphocytes (%) (Auto) 36.5 10.0-50.0 % Monocytes (%) (Auto) 7.0 0.0-12.0 % Eosinophils (%) (Auto) 1.5 0.0-7.0 % Basophils (%) (Auto) 0.6 0.0-2.0 % Neutrophils # (Auto) 2.9 1.6-8.6 10 ^3/uL Lymphocytes # (Auto) 2.0 0.4-5.4 10 ^3/uL Monocytes # (Auto) 0.4 0-1.3 10 ^3/uL Eosinophils # (Auto) 0.1 0-0.8 10 ^3/uL Basophils # (Auto) 0 0-0.2 10 ^3/uL Nucleated Red Blood Cells 0.3 % Sodium Level 140 136-145 mmol/L Potassium Level 4.0 3.5-5.1 mmol/L Chloride Level 106 98-107 mmol/L Carbon Dioxide Level 25 20-31 mmol/L Anion Gap 9 5-15 Blood Urea Nitrogen < 5 L 9-23 mg/dL Creatinine 0.61 L 0.700-1.30 mg/dL Glomerular Filtration Rate Calc 103 >90 mL/min BUN/Creatinine Ratio 8.2 L 10.0-20.0 Serum Glucose 85 74-106 mg/dL Calcium Level 9.4 8.7-10.4 mg/dL Total Bilirubin 0.5 0.2-1.0 mg/dL Aspartate Amino Transferase (AST) 10 L 13-40 U/L Alanine Aminotransferase (ALT) < 9 7-40 U/L Alkaline Phosphatase 66 46-116 U/L Total Protein 6.0 5.7-8.2 g/dL Albumin 3.6 3.2-4.8 g/dL Prothrombin Time 11.8 9.3-11.8 sec Prothrombin Time INR 1.13 0.9-1.15 Activated Partial Thromboplast Time 30.4 24.5-34.5 SEC Urine Color Yellow Yellow Urine Clarity Clear Clear Urine pH 5.5 5.0-9.0 Urine Specific [place] 1.029 1.001-1.035 Urine Protein Trace H Negative Urine Ketones 2+ H Negative Urine Blood 1+ H Negative /uL Urine Nitrite Negative Negative Urine Bilirubin Negative Negative Urine Urobilinogen 3 H Negative mg/dL Urine Leukocyte Esterase Negative Negative /uL Urine RBC 1 0 - 3 /hpf Urine Microscopic WBC 3 0-3 /HPF Urine Squamous Epithelial Cells Few <5 /hpf Urine Bacteria None seen None Seen /hpf Urine Mucus Few None Seen Urine Glucose Normal Normal mg/dL Lipase 29 12-53 U/L Exam: CT CT AB PEL WO CON-NO ORAL OR IV History: lower abd pain Comparison Study: CT CT AB PEL WO CON-NO ORAL OR IV on DOS: 05/22/24 Technique: Multidetector spiral CT of the abdomen was performed from lung bases to pubic symphysis. Imaging was performed without IV contrast. Axial, coronal and sagittal multiplanar reformats were obtained from the axial data set by the technologist. Radiation Dose : 1. Abdomen/Pelvis: CTDIvol 5.62 mGy, DLP 319.88 mGy*cm. Findings: Evaluation of solid organs is limited due to lack of intravenous contrast use. Lung Bases: Coronary artery calcifications. Liver: Unremarkable Gallbladder and Biliary Tree: Cholelithiasis noted without secondary findings of cholecystitis or biliary obstruction. Spleen: Unremarkable Pancreas: Unremarkable Adrenal Glands: Similar left adrenal gland thickening. Kidneys: Unremarkable Bladder: Grossly unremarkable for degree of distention. Bowel: Colonic diverticulosis. Normal appendix is visualized in the right lower quadrant without findings of appendicitis. Peritoneum and Retroperitoneum: Unremarkable. Lymphadenopathy: No lymphadenopathy. Abdominal Wall: Unremarkable. Vasculature: The visualized abdominal aorta is normal in size and caliber. There is atherosclerotic calcification of the aorta and its branches. Evaluation of abdominal and pelvic vessels is limited due to lack of intravenous contrast. Pelvic Organs: Unremarkable Musculoskeletal: Degenerative changes. Partially visualized left femoral fixation hardware. IMPRESSION: 1. No acute abdominal or pelvic findings. 2. Cholelithiasis. No evidence of acute cholecystitis. 3. Colonic diverticulosis without evidence of diverticulitis. Examination: GENERAL:Normal, HEENT:Normal, NECK:Normal, LUNGS:Normal, CVS:Normal, ABDOMEN:Abnormal (Abdominal tenderness left lower quadrant), MSK:Normal, SKIN:Normal, NEURO:Normal, :Normal Problem List/Assessment/Plan Problems: (1) Abdominal pain Assessment and Plan 69-year-old male with abnormal bowel habits with diarrhea/constipation and lower quadrant abdominal pain. Has also a gallstone. Recommend GI consultation Recommend HIDA scan Continue to follow Plan discussed with Plan discussed with: Patient Visit Coding Surgery Date of Service if different f: Dec 02, 2024 Billing Provider: SOL BORJAS Jr., MD Surgery Visit Codes: 02218 - INP CONSULT <80 MIN SOL BORJAS Jr., MD Dec 02, 2024 16:52
--- NOTE | 2024-12-02 21:44 | DVHINCON2 ---
Date of service: Dec 02, [address] Mcdaniels Reason for Consultation Abdominal pain History of Present Illness This is a 68-year-old male with a past medical history of diabetes, bipolar, presented to the ED with a 1 day history of rectal bleed. According to the patient, 2 weeks ago, he started having loose bowel and was unable to hold any in his stomach. Yesterday, patient had 5 bowel movement and each stool was mixed with blood. Patient estimated loosing half a cup of blood. Patient expressed fatigue, dizziness but no palpitation or chest pain. He denies any vomiting or any blood in his urine. Patient is currently not on any blood thinning medication. He takes atorvastatin and medication for bipolar. For the diabetes, patient said he is not been compliant.Patient wants to eat food. He has had about three soft bowel movements recorded. Stool for culture were negative. H&H is stable. Stool for occult blood was negative. H&H is stable. Tox screen is positive for marijuana use Patient was admitted with similar symptoms in May 29 and at that time his symptoms resolved spontaneously. Patient had been advised to follow up in my office as an outpatient for elective colonoscopy and my contact information was given however I do not believe the pt made an appointment Past Medical History HTN, DM, hyperlipidemia, and bipolar disorder, Past Surgical History Left hip surgery Family History: Diabetes mellitus G8 MOTHER, FH: bipolar disorder G8 FATHER, Allergies: Coded Allergies: Haloperidol (Verified Allergy, Unknown, 05/22/24) Penicillins (Verified Allergy, Unknown, 05/22/24) Quetiapine (Verified Allergy, Unknown, 05/22/24) Home Meds Unable to Obtain Active Prescriptions or Reported Meds Current Medications Current Medications Medications (Trade) Dose Ordered Sig/Suma Route PRN Reason Start Time Stop Time Status Last Admin Prazosin HCl (Minipres Capsule) 2 mg Q12HR PO 12/01/24 22:00 Hold 12/02/24 09:23 Sertraline HCl (Zoloft) 100 mg DAILY PO 12/02/24 10:00 12/02/24 09:22 Divalproex Sodium (Depakote "Dr" Tablet) 250 mg BID PO 12/01/24 22:00 12/02/24 09:20 Vital Signs Vital Signs Date Time Temp Pulse Resp B/P (MAP) Pulse Ox O2 Delivery O2 Flow Rate FiO2 12/02/24 21:00 97.7 66 18 81/47 (58) 98 97.7 12/02/24 20:00 Room Air* 0 21 Physical Exam GENERAL:Normal, HEENT:Normal, NECK:Normal, LUNGS:Normal, CVS:Normal, ABDOMEN:Abnormal (Abdominal tenderness left lower quadrant), MSK:Normal, SKIN:Normal, NEURO:Normal, :Normal Labs/Diagnostic Data Labs Test 12/02/24 07:41 12/01/24 10:00 11/30/24 15:30 11/30/24 12:00 Range/Units White Blood Count 5.4 4.4-10.8 10^3/uL Red Blood Count 4.16 L 4.5-5.90 10^6/uL Hemoglobin 13.1 L 13.5-17.5 g/dL Hematocrit 39.1 #L 41.0-53.0 % Mean Corpuscular Volume 94.0 80.0-100.0 fL Mean Corpuscular Hemoglobin 31.6 28.0-32.0 pg Mean Corpuscular Hemoglobin Concent 33.6 32.0-36.0 g/dL Red Cell Distribution Width 13.0 11.8-14.3 % Platelet Count 116 L 140-450 10^3/uL Mean Platelet Volume 10.5 6.9-10.8 fL Neutrophils (%) (Auto) 54.4 37.0-80.0 % Lymphocytes (%) (Auto) 36.5 10.0-50.0 % Monocytes (%) (Auto) 7.0 0.0-12.0 % Eosinophils (%) (Auto) 1.5 0.0-7.0 % Basophils (%) (Auto) 0.6 0.0-2.0 % Neutrophils # (Auto) 2.9 1.6-8.6 10 ^3/uL Lymphocytes # (Auto) 2.0 0.4-5.4 10 ^3/uL Monocytes # (Auto) 0.4 0-1.3 10 ^3/uL Eosinophils # (Auto) 0.1 0-0.8 10 ^3/uL Basophils # (Auto) 0 0-0.2 10 ^3/uL Nucleated Red Blood Cells 0.3 % Sodium Level 140 136-145 mmol/L Potassium Level 4.0 3.5-5.1 mmol/L Chloride Level 106 98-107 mmol/L Carbon Dioxide Level 25 20-31 mmol/L Anion Gap 9 5-15 Blood Urea Nitrogen < 5 L 9-23 mg/dL Creatinine 0.61 L 0.700-1.30 mg/dL Glomerular Filtration Rate Calc 103 >90 mL/min BUN/Creatinine Ratio 8.2 L 10.0-20.0 Serum Glucose 85 74-106 mg/dL Calcium Level 9.4 8.7-10.4 mg/dL Total Bilirubin 0.5 0.2-1.0 mg/dL Aspartate Amino Transferase (AST) 10 L 13-40 U/L Alanine Aminotransferase (ALT) < 9 7-40 U/L Alkaline Phosphatase 66 46-116 U/L Total Protein 6.0 5.7-8.2 g/dL Albumin 3.6 3.2-4.8 g/dL Prothrombin Time 11.8 9.3-11.8 sec Prothrombin Time INR 1.13 0.9-1.15 Activated Partial Thromboplast Time 30.4 24.5-34.5 SEC Urine Color Yellow Yellow Urine Clarity Clear Clear Urine pH 5.5 5.0-9.0 Urine Specific [place] 1.029 1.001-1.035 Urine Protein Trace H Negative Urine Ketones 2+ H Negative Urine Blood 1+ H Negative /uL Urine Nitrite Negative Negative Urine Bilirubin Negative Negative Urine Urobilinogen 3 H Negative mg/dL Urine Leukocyte Esterase Negative Negative /uL Urine RBC 1 0 - 3 /hpf Urine Microscopic WBC 3 0-3 /HPF Urine Squamous Epithelial Cells Few <5 /hpf Urine Bacteria None seen None Seen /hpf Urine Mucus Few None Seen Urine Glucose Normal Normal mg/dL Lipase 29 12-53 U/L CT SCAN ABD PELVIS IMPRESSION: 1. No acute abdominal or pelvic findings. 2. Cholelithiasis. No evidence of acute cholecystitis. 3. Colonic diverticulosis without evidence of diverticulitis. Problems(with codes): (1) Abdominal pain (2) Intractable abdominal pain (3) Cholelithiasis (4) Rectal bleeding Plan/Recommendation Plan Surgical consult is appreciated, awaiting HIDA scan Protonix 40 mg IV daily Continue to monitor labs Stool for WBC and bacterial culture This patient will likely benefit from an elective panendoscopy If discharged patient will be advised to follow up in my office as an outpatient to arrange the same I will follow up patient with you Plan discussed with: Other (None) JUD DAS MD Dec 02, 2024 21:44
[2024-12-02] MEDS: SODIUM CHLORIDE 0.9% 500 ML IV ONE (22:10)
[2024-12-03 01:00] VITALS: BP 97/49; PULSE 53; RESP 18; TEMP 98; O2SAT 98
[2024-12-03 05:00] VITALS: BP 120/55; PULSE 63; RESP 18; TEMP 98; O2SAT 97
[2024-12-03 07:37] LABS: Basophils # (auto) 0 10 ^3/uL (0-0.2); Basophils % (auto) 0.9 % (0.0-2.0); Eosinophils # (auto) 0.1 10 ^3/uL (0-0.8); Eosinophils % (auto) 1.8 % (0.0-7.0); Hematocrit 37.2 % (41.0-53.0); Hemoglobin 12.8 g/dL (13.5-17.5); Lymphocytes # (auto) 1.9 10 ^3/uL (0.4-5.4); Lymphocytes % (auto) 40.5 % (10.0-50.0); Mean Corpuscular Hemoglobin 31.3 pg (28.0-32.0); Mean Corpuscular Hgb Conc. 34.2 g/dL (32.0-36.0); Mean Corpuscular Volume 91.5 fL (80.0-100.0); Monocytes # (auto) 0.3 10 ^3/uL (0-1.3); Monocytes % (auto) 6.7 % (0.0-12.0); Neutrophils # (auto) 2.3 10 ^3/uL (1.6-8.6); Neutrophils % (auto) 50.1 % (37.0-80.0); Nucleated Red Blood Cells % 0.1 %; Platelet Count (auto) 109 10^3/uL (140-450); Red Blood Cells 4.07 10^6/uL (4.5-5.90); White Blood Cell 4.6 10^3/uL (4.4-10.8)
[2024-12-03 07:49] LABS: Albumin 3.5 g/dL (3.2-4.8); Alkaline Phosphatase 64 U/L (46-116); Anion Gap 7 (5-15); Calcium 9.4 mg/dL (8.7-10.4); Carbon Dioxide 27 mmol/L (20-31); Glucose 81 mg/dL (74-106); Potassium 3.8 mmol/L (3.5-5.1); Sodium 143 mmol/L (136-145); Total Protein 5.8 g/dL (5.7-8.2)
[2024-12-03 07:50] LABS: Bilirubin, Total 0.4 mg/dL (0.2-1.0)
[2024-12-03 07:55] LABS: Alanine Aminotransferase < 9 U/L (7-40); Aspartate Aminotransferase 10 U/L (13-40); BUN/Creatinine Ratio 8.3 (10.0-20.0); Blood Urea Nitrogen < 5 mg/dL (9-23); Chloride 109 mmol/L (98-107)
[2024-12-03 08:30] VITALS: PULSE 63; RESP 20; O2SAT 96
--- NOTE | 2024-12-03 09:51 | DVH ---
CLINICAL INFORMATION: 69 years old, Male; Cholelithiasis. TECHNIQUE: 5 mCi of Choletec were administered intravenously. Images of the upper abdomen were obta ined at 1 minute intervals up to a total time of 40 minutes. COMPARISON: None FINDINGS: There is prompt gallbladder visualization. There is prompt excretion of activity from the biliary ductal system into the small bowel. There is no evidence of acute cholecystitis. IMPRESSION: No scintigraphic evidence of acute cholecystitis.
[2024-12-03] MEDS ORDERED: ARIP10TA29 PO (11:44)
[2024-12-03] MEDS ORDERED: GABA300T4 PO (11:44)
[2024-12-03] MEDS ORDERED: PANT40TA2 PO (11:44)
[2024-12-03] MEDS ORDERED: PRAZ1CAP48 PO (11:44)
[2024-12-03] MEDS ORDERED: METF-929 PO (11:44)
--- NOTE | 2024-12-03 11:50 | DVHDSRES ---
Discharge Summary Date of Admission Resident Creating Document: MANN ROBERT RESDIENT Nov 30, 2024 at 17:10 Date of Discharge: Dec 03, 2024 Admitting Diagnosis Abdominal pain Labs/Diagnostic Data: Laboratory Results Test 12/03/24 06:45 12/01/24 10:00 11/30/24 15:30 11/30/24 12:00 White Blood Count 4.6 10^3/uL (4.4-10.8) Red Blood Count 4.07 10^6/uL (4.5-5.90) Hemoglobin 12.8 g/dL (13.5-17.5) Hematocrit 37.2 % (41.0-53.0) Mean Corpuscular Volume 91.5 fL (80.0-100.0) Mean Corpuscular Hemoglobin 31.3 pg (28.0-32.0) Mean Corpuscular Hemoglobin Concent 34.2 g/dL (32.0-36.0) Red Cell Distribution Width 13.0 % (11.8-14.3) Platelet Count 109 10^3/uL (140-450) Mean Platelet Volume 10.6 fL (6.9-10.8) Neutrophils (%) (Auto) 50.1 % (37.0-80.0) Lymphocytes (%) (Auto) 40.5 % (10.0-50.0) Monocytes (%) (Auto) 6.7 % (0.0-12.0) Eosinophils (%) (Auto) 1.8 % (0.0-7.0) Basophils (%) (Auto) 0.9 % (0.0-2.0) Neutrophils # (Auto) 2.3 10 ^3/uL (1.6-8.6) Lymphocytes # (Auto) 1.9 10 ^3/uL (0.4-5.4) Monocytes # (Auto) 0.3 10 ^3/uL (0-1.3) Eosinophils # (Auto) 0.1 10 ^3/uL (0-0.8) Basophils # (Auto) 0 10 ^3/uL (0-0.2) Nucleated Red Blood Cells 0.1 % Sodium Level 143 mmol/L (136-145) Potassium Level 3.8 mmol/L (3.5-5.1) Chloride Level 109 mmol/L (98-107) Carbon Dioxide Level 27 mmol/L (20-31) Anion Gap 7 (5-15) Blood Urea Nitrogen < 5 mg/dL (9-23) Creatinine 0.60 mg/dL (0.700-1.30) Glomerular Filtration Rate Calc 103 mL/min (>90) BUN/Creatinine Ratio 8.3 (10.0-20.0) Serum Glucose 81 mg/dL (74-106) Calcium Level 9.4 mg/dL (8.7-10.4) Total Bilirubin 0.4 mg/dL (0.2-1.0) Aspartate Amino Transferase (AST) 10 U/L (13-40) Alanine Aminotransferase (ALT) < 9 U/L (7-40) Alkaline Phosphatase 64 U/L (46-116) Total Protein 5.8 g/dL (5.7-8.2) Albumin 3.5 g/dL (3.2-4.8) Prothrombin Time 11.8 sec (9.3-11.8) Prothrombin Time INR 1.13 (0.9-1.15) Activated Partial Thromboplast Time 30.4 SEC (24.5-34.5) Urine Color Yellow (Yellow) Urine Clarity Clear (Clear) Urine pH 5.5 (5.0-9.0) Urine Specific [place] 1.029 (1.001-1.035) Urine Protein Trace (Negative) Urine Ketones 2+ (Negative) Urine Blood 1+ /uL (Negative) Urine Nitrite Negative (Negative) Urine Bilirubin Negative (Negative) Urine Urobilinogen 3 mg/dL (Negative) Urine Leukocyte Esterase Negative /uL (Negative) Urine RBC 1 /hpf (0 - 3) Urine Microscopic WBC 3 /HPF (0-3) Urine Squamous Epithelial Cells Few /hpf (<5) Urine Bacteria None seen /hpf (None Seen) Urine Mucus Few (None Seen) Urine Glucose Normal mg/dL (Normal) Lipase 29 U/L (12-53) Other Laboratory Tests 12/03/24 06:45 Brief Hx & Hospital Course: This is a 69-year-old male with past medical history of hypertension diabetes, bipolar disorder (currently depressed), coronary artery disease (status post stent), came to the hospital due to abdominal pain since 3 days. Pain is localized at lower abdomen, counseled, 10, pressure-like, radiating to upper abdomen, with no clear exacerbating or relieving factor. He also reports constipation with last bowel movement 3 days back. He denies fever, chest pain, shortness of breath, or any recent bowel habit changes. Previous hospitalization: Patient admitted on May 2024 at [facility], due to lower GI bleeding. PMHx: hypertension diabetes, bipolar disorder (currently depressed), coronary artery disease (status post stent) PSHx: Left hip and knee surgery, left knee meniscus tear due to mechanical fall Family history: Noncontributory Social history: Patient is wheelchair-bound due to left-sided traumatic injury Home medication: Prazosin, sertraline, aripiprazole, divalproex, metformin, Protonix, and gabapentin. Since August 2024, the patient does not take any medicine. Allergic history: Haloperidol, penicillin, quetiapine Hospital course: Patient admitted on the line of intractable abdominal pain likely due to symptomatic cholelithiasis. CT scan showed,Cholelithiasis and colonic diverticulosis with no evidence of diverticulitis. Patient was given IV fluid, Protonix and pain medicine. Surgery consulted, recommended HIDA scan and GI evaluation. HIDA scan showed normal studies. GI evaluated the patient, recommended symptomatic treatment. During hospital with patient patient on medicine for bipolar, hypertension and diabetes were restarted. On 12/03/24, the patient was feeling better since admission. Discharge plan discussed with the patient the patient discharged home. Discharge plan: Follow up with the PCP within 1 week of the discharge. Follow up with the GI doctor on outpatient basis. Follow up with the surgery on outpatient basis. Continue home meds. Operations or Procedures [place] [address] Ph: [phone] DIAGNOSTIC IMAGING Diagnostic Imaging Report : [id number] Signed PATIENT: YONATHAN SANDY ACCT: [id number] UNIT: [id number] : 1955 LOC: [facility] ([place], [place]) ROOM / BED: [facility] / A AGE / SEX: 69 / M ADM STATUS: ADM IN SERVICE 58 ORDERING PHYSICIAN: MANN ROBERT PROCEDURE(s): [facility] - NM HIDA SCAN REASON: Cholelithiasis ORDER NUMBER(s): [id number], ACCESSION NUMBER(s): [id number] CLINICAL INFORMATION: 69 years old, Male; Cholelithiasis. TECHNIQUE: 5 mCi of Choletec were administered intravenously. Images of the upper abdomen were obtained at 1 minute intervals up to a total time of 40 minutes. COMPARISON: None FINDINGS: There is prompt gallbladder visualization. There is prompt excretion of activity from the biliary ductal system into the small bowel. There is no evidence of acute cholecystitis. IMPRESSION: No scintigraphic evidence of acute cholecystitis. ATED BY: NIDHI SANCHEZ DO DICTATED DATE/TIME: 12/03/24947 SIGNED BY: NIDHI SANCHEZ DO SIGNED DATE/TIME: 12/03/24947 CC: Condition at Discharge: Stable Final Diagnosis/Problems List Intractable abdominal pain, likely due to symptomatic cholelithiasis Cholelithiasis Diverticulosis, with no diverticulitis Sirs positive with no end-organ damage Precipitous hemoglobin drop, likely inhalation Diabetes mellitus type 2 Hypertension Coronary artery disease (status post PCI) Dyslipidemia Hypokalemia History of bipolar disease, currently depressed Current smoker, with 20 pack year history Thrombocytopenia, likely drug-induced, valproic History history of bleeding 1 year back Discharge Disposition: Home Discharge Instruct/Medications Diet: Cardiac 2g Na,low cholest Activity: No Restrictions, As Tolerated Follow Up/Referral: followw up with the PCP within one week after discharge follow up with the surgery on outpatient basis follow up with GI on outpatient basis Medications: continue home meds Discharge Statement: "Patient was advised to return to the ER or call 911 if any headaches, dizziness, shortness of breath, chest pain, abdominal pain, bleeding, fevers, or worsening of medical condition. Patient was counseled about treatment plan, medications, possible side effects, patientverbalized understanding. All questions were answered to the best of my ability. This discharge took greater then 30 minutes in planning, reviewing documentation, counseling the patient, and discussing with other team members." ASSESSMENT ASSESSMENT Assessment Cholelithiasis MANN ROBERT Dec 03, 2024 11:50
[2024-12-03 13:09] VITALS: BP_SYST 117; BP_SYST 118; BP_DIAS 61; BP_DIAS 63; PULSE 49; PULSE 63; RESP 18; RESP 20; TEMP 97.8; TEMP 97.9; O2SAT 97; O2SAT 99
[2024-12-03 13:47] VITALS: BP 120/63; PULSE 79; RESP 18; TEMP 36.6; O2SAT 99
== END 2024-12-03 15:45 | disposition home or self-care (01) | DRG 445 ==
LOC: ER 10:54 → EDBD 10:54 → OVERFLOW 17:10 → WEST WING 21:14
PROVIDERS: ADMIT Student in an Organized Health Care Education/Training Program; ATTEND Emergency Medicine
DX: K80.20 Calculus of gallbladder without cholecystitis without obstruction (principal); R65.10 Systemic inflammatory response syndrome (SIRS) of non-infectious origin without acute organ dysfunction; R71.0 Precipitous drop in hematocrit; E11.9 Type 2 diabetes mellitus without complications; D69.59 Other secondary thrombocytopenia; F31.9 Bipolar disorder, unspecified; I10 Essential (primary) hypertension; E78.5 Hyperlipidemia, unspecified; K57.30 Diverticulosis of large intestine without perforation or abscess without bleeding; E87.6 Hypokalemia; K59.00 Constipation, unspecified; F17.210 Nicotine dependence, cigarettes, uncomplicated; I25.10 Atherosclerotic heart disease of native coronary artery without angina pectoris; T42.6X5A Adverse effect of other antiepileptic and sedative-hypnotic drugs, initial encounter; Z96.642 Presence of left artificial hip joint; Z88.8 Allergy status to other drugs, medicaments and biological substances; Z88.0 Allergy status to penicillin; Z83.3 Family history of diabetes mellitus; Y92.89 Other specified places as the place of occurrence of the external cause
CPT/HCPCS: 36415; 74176; 76705; 78226; 80053; 81001; 83690; 85025; 85610; 85730; 96361; 96374; 96375; G0378; J2405; J2470

== ENCOUNTER 2025-04-05 19:53 | Inpatient (IN) | payer OTHER, MEDICARE ==
[~2025-04-05] VITALS: Ht 193 cm; Wt 63.7 kg
[2025-04-05] MEDS: PIPERACILLIN-TAZOB 3.375GM 100 ML IV ONE (03:45)
[~2025-04-05 19:53] MED LIST: ARIP10TA29 PO; GABA300T4 PO; METF-929 PO; PANT40TA2 PO; PRAZ1CAP48 PO
--- NOTE | 2025-04-05 20:57 | ED.PDOC ---
History of Present Illness HPI Comments 69 y/o M is BIBA for c/c syncope. Per EMS report, patient was smoking weed and consuming alcohol beverages with his friend when he, suddenly, passed out. Patient was found unconscious, responsive to only painful stimuli in addition to being hypotensive, pale, clammy, and diaphoretic. Patient responded with IV fluids en route. Denial of any further acute symptoms at this time. Chief Complaint: Syncope Time Seen by MD: 20:15 Reviewed Notes: Nurses Notes, Medications, Allergies Allergies: Coded Allergies: Haloperidol (Verified Allergy, Unknown, 05/22/24) Penicillins (Verified Allergy, Unknown, 05/22/24) Quetiapine (Verified Allergy, Unknown, 05/22/24) Home Meds Active Scripts Gabapentin (Once-Daily) (Gabapentin) 300 Mg Tab, 300 MG PO BID for 20 Days, #40 TAB Prov:HEMANN HUFF RESDIENT 12/03/24 Prazosin HCl (Prazosin Hydrochloride) 1 Mg Cap, 1 MG PO HS for 20 Days, #20 CAP Prov:HEMANN HUFF RESDIENT 12/03/24 Pantoprazole Sodium Sesquihydr (Protonix) 40 Mg Tab, 40 MG PO DAILY for 20 Days, #20 TAB Prov:HEMANN HUFF RESDIENT 25 Metformin HCl (Metformin Hydrochloride) 1,000 Mg Tab, 1000 MG PO BID for 20 Days, #40 TAB Prov:HEMANN HUFF RESDIENT 12/03/24 Aripiprazole (Aripiprazole) 10 Mg Tab, 10 MG PO DAILY for 20 Days, #20 TAB Prov:MANN ROBERT RESDIENT 25 Information Source: Patient Mode of Arrival: EMS Severity: Moderate Past Medical History PAST MEDICAL HISTORY: AFIB, Depression, DM, High Lipids, HTN, PR, Schizophrenia Surgical History: PTCA Family History Family History: Reviewed,noncontributory to illness Social History Smoker: Cigarettes Alcohol: Denies ETOH Use Drugs: Denies Drug Use Lives In: Home All Other Systems: Reviewed and Negative (Comprehensive systems review obtained and negative except for what is stated in the HPI.) Physical Exam General Appearance: No Apparent Distress, Normal, Other (elderly appearing ) HEENT: Normal ENT Inspection, Pharynx Normal, TMs Normal Neck: Full Range of Motion, Non-Tender, Normal, Normal Inspection Respiratory: Chest Non-Tender, Lungs Clear, No Accessory Muscle Use, No Respiratory Distress, Normal Breath Sounds Cardiovascular: No Edema, No JVD, No Murmur, No Gallop, Normal Peripheral Pulses, Regular Rate/Rhythm Breast Exam: Deferred Gastrointestinal: No Organomegaly, Non Tender, No Pulsatile Mass, Normal Bowel Sounds, Soft Genitalia: Deferred Pelvic: Deferred Rectal: Deferred Extremities: No calf tenderness, Normal capillary refill, Normal inspection, Normal range of motion, Non-tender, No pedal edema Musculoskeletal : Apperance: Normal Neurologic: Alert, juvenile detention officer II-XII nml as Tested, No Motor Deficits, Normal Mood, No Sensory Deficits, Other (abnormal affect ) Cerebellar Function: Normal Reflexes: Normal Skin: Dry, Normal Color, Warm Lymphatic: No Adenopathy Was a procedure done? Was a procedure done?: No EKG EKG : Pulse Rate (adult): 72 [place]: Normal Cardiac Rhythm: NSR Block: None Hypertrophy: None ST: Normal Differential Dx Considerations may include: Vasovagal response, dehydration, electrolyte imbalance, encephalopathy, substance abuse, among others X-Ray, Labs, Meds, VS Vital Signs Date Time Temp Pulse Resp B/P (MAP) Pulse Ox O2 Delivery O2 Flow Rate FiO2 04/05/25 20:57 72 04/05/25 20:09 97.8 15 14 93/60 97 97.8 04/05/25 19:53 72 Lab Test 04/05/25 20:42 Range/Units White Blood Count 7.9 4.4-10.8 10^3/uL Red Blood Count 4.54 4.5-5.90 10^6/uL Hemoglobin 14.7 13.5-17.5 g/dL Hematocrit 42.6 41.0-53.0 % Mean Corpuscular Volume 93.9 80.0-100.0 fL Mean Corpuscular Hemoglobin 32.3 H 28.0-32.0 pg Mean Corpuscular Hemoglobin Concent 34.4 32.0-36.0 g/dL Red Cell Distribution Width 13.3 11.8-14.3 % Platelet Count 142 140-450 10^3/uL Mean Platelet Volume 9.8 6.9-10.8 fL Neutrophils (%) (Auto) 75.5 37.0-80.0 % Lymphocytes (%) (Auto) 19.1 10.0-50.0 % Monocytes (%) (Auto) 4.2 0.0-12.0 % Eosinophils (%) (Auto) 0.3 0.0-7.0 % Basophils (%) (Auto) 0.9 0.0-2.0 % Neutrophils # (Auto) 6.0 1.6-8.6 10 ^3/uL Lymphocytes # (Auto) 1.5 0.4-5.4 10 ^3/uL Monocytes # (Auto) 0.3 0-1.3 10 ^3/uL Eosinophils # (Auto) 0 0-0.8 10 ^3/uL Basophils # (Auto) 0.1 0-0.2 10 ^3/uL Nucleated Red Blood Cells 0.0 % Sodium Level 137 136-145 mmol/L Potassium Level 3.6 3.5-5.1 mmol/L Chloride Level 102 98-107 mmol/L Carbon Dioxide Level 26 20-31 mmol/L Anion Gap 9 5-15 Blood Urea Nitrogen 7 L 9-23 mg/dL Creatinine 0.86 0.700-1.30 mg/dL Glomerular Filtration Rate Calc 93 >90 mL/min BUN/Creatinine Ratio 8.1 L 10.0-20.0 Serum Glucose 100 74-106 mg/dL Calcium Level 8.8 8.7-10.4 mg/dL Magnesium Level 1.7 1.6-2.6 mg/dL Total Bilirubin 0.5 0.2-1.0 mg/dL Aspartate Amino Transferase (AST) 15 13-40 U/L Alanine Aminotransferase (ALT) < 9 7-40 U/L Alkaline Phosphatase 67 46-116 U/L Total Protein 7.1 5.7-8.2 g/dL Albumin 4.2 3.2-4.8 g/dL Time of 1ST Reevaluation: 20:45 Reevaluation 1ST: Unchanged Patient Education/Counseling: Diagnosis, Treatment Family Education/Counseling: No Family Present SEPSIS Sepsis Screen Date sepsis recognized/suspect: Apr 05, 2025 Time Sepsis recognized/suspect: 2016 Recent Procedure: No On Antibiotic Therapy: No Respiratory Rate >20: No Heart Rate >90: No Temp<36 C (96.8 F) or >38.3 C: No SBP <90 or MAP <65 mmHG: No New Acute Mental Status Change: No Is the patient on CPAP, BIPAP,: No Physician Orders Troponin-I Hs (04/06/25 00:00) Troponin-I Hs (04/06/25 03:00) Troponin-I Hs (04/06/25 06:00) Cake Knocker (04/05/25 20:16) Electrocardigram (04/05/25 20:16) Chest Xray 1 View (04/05/25 21:21) Vital Signs Date Time Temp Pulse Resp B/P (MAP) Pulse Ox O2 Delivery O2 Flow Rate FiO2 04/05/25 20:57 72 04/05/25 20:09 97.8 15 14 93/60 97 97.8 04/05/25 19:53 72 Laboratory Tests Test 04/05/25 20:42 White Blood Count 7.9 10^3/uL (4.4-10.8) Departure 1 Departure Time of Disposition: 22:12 Impression: Primary Impression: Syncope and collapse Additional Impressions: Atrial fibrillation Hypotension Disposition: ADMITTED INPATIENT Admit to: Tele Condition: Guarded Discharged With: Self Comments 69-year-old male with a history of atrial fibrillation now with syncopal episode. Apparently patient was quite hypotensive and diaphoretic when the ambulance arrived. His blood pressure is improved but his systolic is still in the the 90s. Patient states he feels better. Lab results reviewed. Patient will need admission for atrial fibrillation, syncope and hypotension Critical Care Note Critical Care Time?: Yes (35 min-critical care time only) Critical care comment: Total critical care time: Approximately 36 minutes Due to a high probability of clinically significant, life threatening deterioration, the patient required my highest level of preparedness to intervene emergently and I personally spent this critical care time directly and personally managing the patient. This critical care time included obtaining a history; examining the patient; pulse oximetry; ordering and review of studies; arranging urgent treatment with development of a management plan; evaluation of patient's response to treatment; frequent reassessment; and, discussions with other providers. This critical care time was performed to assess and manage the high probability of imminent, life-threatening deterioration that could result in multi-organ failure. It was exclusive of separately billable procedures and treating other patients. Stability Stability form required: No Heart Score Heart Score: Heart Score Response (Comments) Value History Slightly Suspicious 0 EKG Repolarization Disturb 1 Age >65 2 Risk Factors 1 or 2 risk factors 1 Troponin Normal limit 0 Total 4 I personally scribed for ESTHER MERINO MD ([email or web address]) on 04/05/25 at 20:57. Electronically submitted by Kofi Hart ([email or web address]). ESTHER MERINO MD Apr 05, 2025 20:57
[2025-04-05 21:01] LABS: Hematocrit 42.6 % (41.0-53.0); Hemoglobin 14.7 g/dL (13.5-17.5); Mean Corpuscular Hemoglobin 32.3 pg (28.0-32.0); Mean Corpuscular Volume 93.9 fL (80.0-100.0); Nucleated Red Blood Cells % 0.0 %
[2025-04-05 21:18] LABS: Albumin 4.2 g/dL (3.2-4.8); Alkaline Phosphatase 67 U/L (46-116); Anion Gap 9 (5-15); BUN/Creatinine Ratio 8.1 (10.0-20.0); Bilirubin, Total 0.5 mg/dL (0.2-1.0); Calcium 8.8 mg/dL (8.7-10.4); Carbon Dioxide 26 mmol/L (20-31); Chloride 102 mmol/L (98-107); Glucose 100 mg/dL (74-106); Magnesium 1.7 mg/dL (1.6-2.6); Potassium 3.6 mmol/L (3.5-5.1); Sodium 137 mmol/L (136-145); Total Protein 7.1 g/dL (5.7-8.2)
--- NOTE | 2025-04-05 21:54 | DVH ---
CHEST RADIOGRAPH Indication: SOB Technique: Single frontal view of the chest was obtained COMPARISON: XY CHEST PORTABLE on DOS: 05/22/24 FINDINGS: Lines and Tubes: None Lungs: Clear Pleura: No pleural effusion or pneumothorax. Cardiomediastinal contours: Unremarkable IMPRESSION: No acute abnormality demonstrated.
[2025-04-05 21:55] LABS: Alanine Aminotransferase < 9 U/L (7-40); Blood Urea Nitrogen 7 mg/dL (9-23)
[2025-04-05 23:34] LABS: Lactic Acid w/Reflex 2.3 mmol/L (0.4-2.0)
[2025-04-06] MEDS ORDERED: ONDANSETRON HCL 4 MG/2 ML VIAL IV PRN
[2025-04-06] MEDS ORDERED: DEXTROSE (50%) 50ML SYRG IV PRN
[2025-04-06] MEDS: SODIUM CHLORIDE 0.9% 500 ML IV ONE
--- NOTE | 2025-04-06 00:30 | DVHHP2 ---
History of Present Illness Reason for Visit: Syncope History of Present Illness 69-year-old male presents for evaluation of syncopal episode. Patient reports being with friends consuming alcohol and marijuana when he passed out. Last thing he remembers is waking up in the ambulance and feeling dizzy. Denies any chest pain or palpitations. No headache or blurred vision. Patient was hypotensive in route. Currently blood pressures in the 90s. Denies fever or chills. No other acute complaints. Past Medical History Diabetes mellitus, hypertension, mi, AFib, schizophrenia Past Surgical History PTCA Family History Noncontributory Smoke: <1 pack per day ALCOHOL: heavy Drugs: Marijuana Lives: with Family Review of Systems Review of Systems Review of systems are currently negative otherwise addressed in HPI. Allergies: Coded Allergies: Haloperidol (Verified Allergy, Unknown, 05/22/24) Penicillins (Verified Allergy, Unknown, 05/22/24) Quetiapine (Verified Allergy, Unknown, 05/22/24) Medications Current Medications Medications Dose Ordered Sig/Suma Route Start Time Stop Time Status Last Admin Dose Admin Gabapentin 300 mg BID PO 04/06/25 10:00 Divalproex Sodium 250 mg BID PO 04/06/25 10:00 Diagnostic Test (Pha) 1 strip ACHS 04/06/25 07:00 Insulin Human Regular ACHS SC 04/06/25 07:00 Dextrose 50 ml UD PRN IV 04/06/25 00:00 Ondansetron HCl 4 mg Q4HP PRN IV 04/06/25 00:00 Acetaminophen 650 mg Q6HP PRN PO 04/06/25 00:00 Exam Vital Signs Vital Signs Date Time Temp Pulse Resp B/P (MAP) Pulse Ox O2 Delivery O2 Flow Rate FiO2 04/05/25 20:57 72 04/05/25 20:09 97.8 14 93/60 97 97.8 Exam Gen: 69-year-old male in no apparent distress Skin: Warm, dry, normal color and texture, no rash. HEENT: Normocephalic atraumatic, mucous membranes moist and pink. Neck: Cervical and supraclavicular nodes normal without enlargement, trachea is midline, thyroid gland is normal without masses. Pulmonary: Clear to auscultation and percussion bilaterally. Cardiac: Regular rate and rhythm. No murmur Abdomen: Soft, nontender, nondistended, bowel sounds present all 4 quadrants, no guarding, no rigidity, no organomegaly. Extremities: No cyanosis, clubbing, no edema Neuro: Cranial nerves II through XII grossly intact, normal affect and speech, no focal motor deficits. Labs/Xrays ORDERING PHYSICIAN: ESTHER MERINO MD PROCEDURE(s): CXR1 - CHEST XRAY 1 VIEW REASON: SOB ORDER NUMBER(s): [id number], ACCESSION NUMBER(s): [id number] CHEST RADIOGRAPH Indication: SOB Technique: Single frontal view of the chest was obtained COMPARISON: XY CHEST PORTABLE on DOS: 05/22/24 FINDINGS: Lines and Tubes: None Lungs: Clear Pleura: No pleural effusion or pneumothorax. Cardiomediastinal contours: Unremarkable IMPRESSION: No acute abnormality demonstrated. Labs Test 04/05/25 22:25 04/05/25 20:42 Range/Units Lactic Acid Level 2.3 *H 0.4-2.0 mmol/L White Blood Count 7.9 4.4-10.8 10^3/uL Red Blood Count 4.54 4.5-5.90 10^6/uL Hemoglobin 14.7 13.5-17.5 g/dL Hematocrit 42.6 41.0-53.0 % Mean Corpuscular Volume 93.9 80.0-100.0 fL Mean Corpuscular Hemoglobin 32.3 H 28.0-32.0 pg Mean Corpuscular Hemoglobin Concent 34.4 32.0-36.0 g/dL Red Cell Distribution Width 13.3 11.8-14.3 % Platelet Count 142 140-450 10^3/uL Mean Platelet Volume 9.8 6.9-10.8 fL Neutrophils (%) (Auto) 75.5 37.0-80.0 % Lymphocytes (%) (Auto) 19.1 10.0-50.0 % Monocytes (%) (Auto) 4.2 0.0-12.0 % Eosinophils (%) (Auto) 0.3 0.0-7.0 % Basophils (%) (Auto) 0.9 0.0-2.0 % Neutrophils # (Auto) 6.0 1.6-8.6 10 ^3/uL Lymphocytes # (Auto) 1.5 0.4-5.4 10 ^3/uL Monocytes # (Auto) 0.3 0-1.3 10 ^3/uL Eosinophils # (Auto) 0 0-0.8 10 ^3/uL Basophils # (Auto) 0.1 0-0.2 10 ^3/uL Nucleated Red Blood Cells 0.0 % Sodium Level 137 136-145 mmol/L Potassium Level 3.6 3.5-5.1 mmol/L Chloride Level 102 98-107 mmol/L Carbon Dioxide Level 26 20-31 mmol/L Anion Gap 9 5-15 Blood Urea Nitrogen 7 L 9-23 mg/dL Creatinine 0.86 0.700-1.30 mg/dL Glomerular Filtration Rate Calc 93 >90 mL/min BUN/Creatinine Ratio 8.1 L 10.0-20.0 Serum Glucose 100 74-106 mg/dL Calcium Level 8.8 8.7-10.4 mg/dL Magnesium Level 1.7 1.6-2.6 mg/dL Total Bilirubin 0.5 0.2-1.0 mg/dL Aspartate Amino Transferase (AST) 15 13-40 U/L Alanine Aminotransferase (ALT) < 9 7-40 U/L Alkaline Phosphatase 67 46-116 U/L Total Protein 7.1 5.7-8.2 g/dL Albumin 4.2 3.2-4.8 g/dL SEPSIS Sepsis Screen Date sepsis recognized/suspect: Apr 05, 2025 Time Sepsis recognized/suspect: 2016 Recent Procedure: No On Antibiotic Therapy: No Respiratory Rate >20: No Heart Rate >90: No Temp<36 C (96.8 F) or >38.3 C: No SBP <90 or MAP <65 mmHG: No New Acute Mental Status Change: No Is the patient on CPAP, BIPAP,: No Physician Orders Troponin-I Hs (04/06/25 00:00) Troponin-I Hs (04/06/25 03:00) Troponin-I Hs (04/06/25 06:00) Hand Spring Former (04/05/25 20:16) Electrocardigram (04/05/25 20:16) Chest Xray 1 View (04/05/25 21:21) Blood Culture (04/05/25 22:14) Admit (04/05/25 23:54) Sodium Chloride 0.9% (04/06/25 00:00) Gabapentin Capsule (Neurontin Capsule) (04/06/25 10:00) Divalproex Dr Tablet (Depakote "Dr" Tabl (04/06/25 10:00) Basic Metabolic Panel (04/06/25 04:00) Glucose Blood (Accu-Chek Comfort Curve T (04/06/25 07:00) Insulin R (Human) (Insulin R) (04/06/25 07:00) Dextrose 50% Syringe (04/06/25 00:00) Ondansetron Hcl (Zofran) (04/06/25 00:00) Cardiac Diet-2gna,Lofat,Lochol (04/06/25 Breakfast) Echo 2d Mode Cardiac Dop (04/05/25 23:55) Condition: Stable (04/05/25 23:55) Acetaminophen Tablet (Tylenol Tablet) (04/06/25 00:00) Bedrest With Bathroom Privileg (04/05/25 23:55) Vital Signs Date Time Temp Pulse Resp B/P (MAP) Pulse Ox O2 Delivery O2 Flow Rate FiO2 04/05/25 20:57 72 04/05/25 20:09 97.8 15 14 93/60 97 97.8 04/05/25 19:53 72 Laboratory Tests Test 04/05/25 20:42 04/05/25 22:25 White Blood Count 7.9 10^3/uL (4.4-10.8) Lactic Acid Level 2.3 mmol/L (0.4-2.0) *H Assessment/Plan Assessment/Plan Assessment Symptomatic hypotension Diabetes mellitus Alcohol abuse Plan Admit the patient to [facility] to the hospitalist Echocardiogram pending Maintenance IV fluids Continue treatment per orders. Plan discussed with: Patient My Orders Orders - CAIT ROBB AGACNGay Procedure Category Date Status Time Admit ADMIT 04/05/25 Transmitted 23:54 Sodium Chloride 0.9% PHA 04/06/25 In Process 00:00 Gabapentin Capsule PHA 04/06/25 In Process (Neurontin Capsule) 10:[address] Tablet PHA 04/06/25 In Process (Depakote "Dr" Tabl 10:00 Basic Metabolic Panel LAB 04/06/25 Logged 04:00 Glucose Blood PHA 04/06/25 In Process (Accu-Chek Comfort 07:00 Insulin R (Human) PHA 04/06/25 In Process (Insulin R) 07:00 Dextrose 50% Syringe PHA 04/06/25 In Process 00:00 Ondansetron Hcl PHA 04/06/25 In Process (Zofran) 00:00 Cardiac DIET 04/06/25 Transmitted Diet-2gna,Lofat,Lochol Breakfast Echo 2d Mode Cardiac US 04/05/25 Logged DOP 23:55 Condition: Stable STEVEN 04/05/25 In Process 23:55 Acetaminophen Tablet PHA 04/06/25 In Process (Tylenol Tablet) 00:00 Bedrest With Bathroom STEVEN 04/05/25 In Process Privileg 23:55 Date of Service: Apr 05, 2025 Billing Provider: CAIT ROBB Common Visit Codes: [id number] INP/OBS CARE (HIGH) CAIT ROBB Apr 06, 2025 00:30
[2025-04-06 02:30] LABS: Chloride 101 mmol/L (98-107); Potassium 3.8 mmol/L (3.5-5.1); Sodium 137 mmol/L (136-145)
[2025-04-06 02:31] LABS: Anion Gap 8 (5-15); Carbon Dioxide 28 mmol/L (20-31)
[2025-04-06 02:33] LABS: Calcium 8.5 mg/dL (8.7-10.4)
[2025-04-06 02:37] LABS: BUN/Creatinine Ratio 12.0 (10.0-20.0); Blood Urea Nitrogen 9 mg/dL (9-23)
[2025-04-06 02:42] LABS: Glucose 188 mg/dL (74-106)
[2025-04-06 04:00] VITALS: BP 101/56; PULSE 51; RESP 18; TEMP 97.8; O2SAT 98
--- NOTE | 2025-04-06 04:14 | ECG ---
[facility] Test Date: 2025-04-05 Test Time: 19:53:39 Pat Name: YONATHAN SANDY Department: Room: 0278T Gender: M [employer] Consultant: NOREEN : 1955 Requested By: ESTHER MERINO Order Number: [id number] Reading MD: Chance Jose Measurements Intervals [place] Rate: 72 P: 86 OK: 169 QRS: 219 QRSD: 145 T: 61 QT: 464 QTc: 508 Interpretive Statements Sinus rhythm Nonspecific intraventricular conduction delay Electronically Signed On 04-09-2025 15:03:12 PDT by Chance Jose Please click the below link to view image of tracing.
[2025-04-06 06:00] VITALS: BP 91/48; PULSE 49; RESP 17; TEMP 98.4
[2025-04-06] MEDS: ACCU-CHEK COMFORT CURVE STRIP VI SCH (06:59)
[2025-04-06] MEDS: InsuLIN REG 1unit/0.01ml Soln (100units/ml) SC SCH (06:59)
[2025-04-06] MEDS: SODIUM CHLORIDE 0.9% 1,000 ML IV ONE (07:58)
[2025-04-06 08:29] VITALS: PULSE 48; RESP 13; O2SAT 100
[2025-04-06] MEDS: GABAPENTIN 300 MG CAP PO SCH (10:10)
--- NOTE | 2025-04-06 18:34 | DVHSR ---
APPROVED REPORT EXAM: Two-dimensional and M-mode echocardiogram with Doppler and color Doppler. Blood Pressure: 91/48 mmHg INDICATION Hypotension RISK FACTORS Height: 6'4", Weight: 149 DIMENSIONS LVDd6.2 (3.8-5.7cm)LA (2D)5.6 (1.9-4.0cm)Aortic Root (2.0-3.7cm) LVDs5.0 (2.5-4.0cm)LA (MM) (1.9-4.0cm)Aortic Cusp Exc (1.5-2.0cm) EF (%) 40.0 (55-70%)Rt. Atrium3.7 (1.9-4.0cm)Asc. Aorta cm Mitral Valve MitralMitral Stenosis E wave0.50m/sMV Mean GR.mmHg A wave0.30m/sMV Peak GR.mmHg E/A ratio1.72D MVAcm2 DECEL [id number] 1/2 Timems Aortic Valve Aortic ValveAortic Stenosis V10.48m/Nikhil Mean GR.2mmHg V21.13m/Nikhil Peak GR.5mmHg LVOT Diameter2.0 (1.8-2.4cm)Doppler AVA1.33cm2 Other Information Quality : Technically LimitedRhythm : Technically limited study due to body habitus and patient position. Conclusion Technically difficult study. Off axis views. Sinus bradycardia. There appears to be left atrial enlargement with concentric LVH. Valves appear to be structurally normal from the views obtained. Left ventricular systolic performance is diminished. EF is approximately 30% with global hypokinesis . Right ventricular function is diminished as well. Mild mitral insufficiency.
[2025-04-06 22:07] VITALS: BP 117/61; PULSE 48; RESP 17; TEMP 98.3; O2SAT 100
[2025-04-06 23:36] VITALS: BP 117/61; PULSE 45; RESP 17; TEMP 98.3; O2SAT 99
[2025-04-07] VITALS (9 sets, daily range): BP systolic 82–152; BP diastolic 44–72; PULSE 40–55; RESP 14–19; TEMP 98–98.7; O2SAT 96–100
--- NOTE | 2025-04-07 11:03 | DVHCONRES ---
Date Seen: Apr 07, 2025 Resident Creating Document: CARLA RICE RESIDENT Referring Physician Robert [email or web address] Reason for Consultation Bradycardia History of Present Illness The patient is a 69-year-old male admitted after a syncopal episode following alcohol and marijuana consumption. He reports dizziness and weakness prior to loss of consciousness. On regaining consciousness, he was confused but recovered quickly. He denies chest pain, palpitations, dyspnea, diaphoresis, or seizure- like activity at this time. No recent exertional chest pain. Reports a remote history of IL with PCI in the and history of atrial fibrillation, though currently in sinus rhythm. He acknowledges intermittent alcohol and marijuana use. No orthopnea, paroxysmal nocturnal dyspnea, or lower extremity edema. Interval Events / Treatment * Telemetry: Persistent sinus bradycardia with HR fluctuating 30s50s, ava 38 bpm during sleep. * Blood pressure stable, ranging 94/56 to 117/65 mmHg. * Troponins: Flat trend (11 - 10 ng/L). * Labs: Normal electrolytes, creatinine 0.75, GFR >90, lactate slightly elevated 2.02.3 mmol/L, glucose variable 124410 mg/dL. CBC within normal limits, platelets mildly low (142K). * Chest X-ray: No acute abnormality. * Echocardiogram: EF ~30% with global hypokinesia, concentric LV hypertrophy, left atrial enlargement, mild mitral insufficiency, diminished RV function. Valves structurally normal. * No pedal edema, lungs clear. Past Medical History * Coronary artery disease, prior IL with PCI (). * Atrial fibrillation (not on anticoagulation currently). * Hypertension. * Type 2 diabetes mellitus. * Dyslipidemia. * Schizophrenia, depression. * History of bipolar disorder. Past Surgical History * PTCA/stent. * Left hip and knee surgery. Family History: Diabetes mellitus G8 MOTHER, FH: bipolar disorder G8 FATHER, FH: cancer G8 FATHER, Family History * Noncontributory. Social History * Smokes (<1 pack/day). * Alcohol: Intermittent heavy use. * Marijuana: Recent use. * Lives with family. Allergies: Coded Allergies: Haloperidol (Verified Allergy, Unknown, 05/22/24) Penicillins (Verified Allergy, Unknown, 05/22/24) Quetiapine (Verified Allergy, Unknown, 05/22/24) Home Meds Active Scripts Gabapentin (Once-Daily) (Gabapentin) 300 Mg Tab, 300 MG PO BID for 20 Days, #40 TAB Prov:MANN ROBERT RESDIENT 12/03/24 Prazosin HCl (Prazosin Hydrochloride) 1 Mg Cap, 1 MG PO HS for 20 Days, #20 CAP Prov:MANN ROBERT RESDIENT 12/03/24 Pantoprazole Sodium Sesquihydr (Protonix) 40 Mg Tab, 40 MG PO DAILY for 20 Days, #20 TAB Prov:MANN ROBERT RESDIENT 12/03/24 Metformin HCl (Metformin Hydrochloride) 1,000 Mg Tab, 1000 MG PO BID for 20 Days, #40 TAB Prov:MANN ROBERT RESDIENT 12/03/24 Aripiprazole (Aripiprazole) 10 Mg Tab, 10 MG PO DAILY for 20 Days, #20 TAB Prov:MANN ROBERT RESDIENT 12/03/24 Review of Systems * Cardiac: Dizziness, prior syncope. No current chest pain or palpitations. * Respiratory: No dyspnea or orthopnea. * Neurologic: Confusion at time of syncope, no focal deficits. * General: No fevers, chills, or weight changes. Vital Signs Vital Signs Date Time Temp Pulse Resp B/P (MAP) Pulse Ox O2 Delivery O2 Flow Rate FiO2 04/07/25 08:29 Room Air* 0 21 04/07/25 04:41 98.0 51 17 111/63 (79) 99 98.0 Physical Exam * General: Alert, oriented, no acute distress. * Vital Signs: BP 250749/5765 mmHg; HR 3852 bpm; afebrile; SpO? >95% RA. * Cardiac: Bradycardic, regular rhythm. No murmurs, rubs, or gallops. No JVD. * Respiratory: Lungs clear bilaterally, no crackles/wheezes. * Abdomen: Soft, nontender, no hepatomegaly. * Extremities: No pedal edema, pulses 2+. * Neuro: Nonfocal, grossly intact. Labs/Diagnostic Data Labs Test 04/07/25 10:48 04/06/25 02:04 04/06/25 00:33 04/05/25 20:42 Range/Units POC Glucose 99 70-106 mg/dl Sodium Level 137 136-145 mmol/L Potassium Level 3.8 3.5-5.1 mmol/L Chloride Level 101 98-107 mmol/L Carbon Dioxide Level 28 20-31 mmol/L Anion Gap 8 5-15 Blood Urea Nitrogen 9 9-23 mg/dL Creatinine 0.75 0.700-1.30 mg/dL Glomerular Filtration Rate Calc 96 >90 mL/min BUN/Creatinine Ratio 12.0 10.0-20.0 Serum Glucose 188 H 74-106 mg/dL Calcium Level 8.5 L 8.7-10.4 mg/dL Troponin I High Sensitivity 10 </=54 ng/L Lactic Acid Level 2.0 0.4-2.0 mmol/L White Blood Count 7.9 4.4-10.8 10^3/uL Red Blood Count 4.54 4.5-5.90 10^6/uL Hemoglobin 14.7 13.5-17.5 g/dL Hematocrit 42.6 41.0-53.0 % Mean Corpuscular Volume 93.9 80.0-100.0 fL Mean Corpuscular Hemoglobin 32.3 H 28.0-32.0 pg Mean Corpuscular Hemoglobin Concent 34.4 32.0-36.0 g/dL Red Cell Distribution Width 13.3 11.8-14.3 % Platelet Count 142 140-450 10^3/uL Mean Platelet Volume 9.8 6.9-10.8 fL Neutrophils (%) (Auto) 75.5 37.0-80.0 % Lymphocytes (%) (Auto) 19.1 10.0-50.0 % Monocytes (%) (Auto) 4.2 0.0-12.0 % Eosinophils (%) (Auto) 0.3 0.0-7.0 % Basophils (%) (Auto) 0.9 0.0-2.0 % Neutrophils # (Auto) 6.0 1.6-8.6 10 ^3/uL Lymphocytes # (Auto) 1.5 0.4-5.4 10 ^3/uL Monocytes # (Auto) 0.3 0-1.3 10 ^3/uL Eosinophils # (Auto) 0 0-0.8 10 ^3/uL Basophils # (Auto) 0.1 0-0.2 10 ^3/uL Nucleated Red Blood Cells 0.0 % Magnesium Level 1.7 1.6-2.6 mg/dL Total Bilirubin 0.5 0.2-1.0 mg/dL Aspartate Amino Transferase (AST) 15 13-40 U/L Alanine Aminotransferase (ALT) < 9 7-40 U/L Alkaline Phosphatase 67 46-116 U/L Total Protein 7.1 5.7-8.2 g/dL Albumin 4.2 3.2-4.8 g/dL Microbiology Date/Time Source Procedure Growth Status 04/05/25 22:25 Blood Blood Culture - Preliminary NO GROWTH AFTER 24 HOURS OF INCUBATION. Resulted Assessment 1. Symptomatic Sinus Bradycardia with Syncope * Persistent bradycardia (HR 30s50s) with syncopal episode. * EKG: Sinus bradycardia, nonspecific IVCD. * Possible contribution from alcohol/marijuana, but underlying conduction disease and chronotropic incompetence likely. 2. Dilated Cardiomyopathy with reduced EF of 30% probable ischemic cause * EF ~30%, global hypokinesia, LAE, LVH, diminished RV function. * Prior CAD with PCI. Planned coronary angiography for ischemic evaluation. 3. Coronary Artery Disease * Prior PCI (). * Troponin flat, no evidence of ACS currently. 4. Hypertension / Dyslipidemia / Diabetes Mellitus Type 2 * Chronic comorbidities, stable. 5. Psychiatric Comorbidities * Schizophrenia, depression, bipolar disorder. On multiple psychotropics that may contribute to autonomic side effects. Plan/Recommendation Cardiac: * Admit to telemetry monitoring. Persistent sinus bradycardia with heart rate between 38-50 to 62 with a dizziness on standing. Stress test scheduled tomorrow to evaluate for ischemia and chronotropic response with pharmacological stress test. * Orthostatic vitals negative for hypotension, but dizziness present possible chronotropic incompetence. * unable to complete Chronotropic competence evaluation due to patient's inability to walk due to mobility limitations. * Keep transcutaneous pacing pads at bedside. * If recurrent symptomatic bradycardia (HR <40) persists despite reversible cause correction electrophysiology consult for permanent pacemaker evaluation. * Hold AV yvette blocking agents. Dilated Cardiomyopathy with reduced EF of 30% probable ischemic cause * Optimize guideline-directed medical therapy (GDMT) * Continue/consider: ACEi/ARB/ARNI, statin, aspirin (if not contraindicated), SGLT2 inhibitor, spironolactone. * Hold beta-sandra until bradycardia resolves or PPM considered. * Strict I/Os, daily weights, low sodium diet. Ischemic Disease / CAD: Stress test scheduled tomorrow to evaluate for ischemia and chronotropic response pharmacological stress test * Troponin flat no evidence of ACS. * Continue statin therapy. * Antiplatelet therapy: aspirin unless contraindicated. Diabetes: * Hold metformin post-contrast. * SSI protocol. Psych: * Psychiatry consult to review psychotropic regimen (valproate, sertraline, aripiprazole, prazosin, gabapentin) for cardiac side effects. Prophylaxis: * DVT prophylaxis with SQ heparin. * GI prophylaxis with pantoprazole. Plan discussed with: Patient Visit Coding Cardiology RES Date of Service: Apr 07, 2025 Billing Provider: JAYNE SAVAGE Sr., MD Cardiology Common Codes: [id number] INP/OBS CARE (High) CARLA RICE RESIDENT Apr 07, 2025 11:03
--- NOTE | 2025-04-07 12:32 | DVHPN2 ---
Subjective NOTE FOR 04/06/25 patint doing well. no further dizziness or falls. endorses "doesnt feel well" Reviewed: Care Plan Changes from previous H/P or p: No Changes General: Per HPI Objective Vitals Vital Signs Date Time Temp Pulse Resp B/P (MAP) Pulse Ox O2 Delivery O2 Flow Rate FiO2 04/07/25 11:19 40 18 147/63 (91) 96 48 148/57 (87) 47 152/62 (92) 04/07/25 08:29 Room Air* 0 21 04/07/25 04:41 98.0 98.0 Intake/Output Intake and Output 04/07/25 07:00 Intake Total 1800 ml Output Total 1100 ml Balance 700 ml Intake Oral 300 ml IV Total 1500 ml Output Urine Total 1100 ml Exam GEN: Healthy appearing, well-developed, NAD. HEENT: NC/AT; MMM. CV: RRR, no m/r/g. LUNGS: CTAB, no w/r/c. ABD: Soft, NT/ND, NBS, no masses or organomegaly. EXT: skin Warm, well perfused. no rashes. No clubbing, cyanosis, or edema. NEURO: Ambulating with no limitations. No focal deficits. Medications Current Medications Medications Dose Ordered Sig/Suma Route Start Time Stop Time Status Last Admin Dose Admin Gabapentin 300 mg BID PO 04/06/25 10:00 04/07/25 09:04 300 MG Divalproex Sodium 250 mg BID PO 04/06/25 10:00 04/07/25 09:05 250 MG Diagnostic Test (Pha) 1 strip ACHS 04/06/25 07:00 04/07/25 11:52 1 STRIP Insulin Human Regular ACHS SC 04/06/25 07:00 04/06/25 06:59 3 UNITS Dextrose 50 ml UD PRN IV 04/06/25 00:00 Ondansetron HCl 4 mg Q4HP PRN IV 04/06/25 00:00 Acetaminophen 650 mg Q6HP PRN PO 04/06/25 00:00 Sacubitril/ Valsartan 0.5 tab BID PO 04/07/25 22:00 Spironolactone 12.5 mg DAILY PO 04/07/25 11:45 Enoxaparin Sodium 30 mg DAILY SC 04/08/25 10:00 UNV Empaglifozin 10 mg DAILY PO 04/07/25 12:30 UNV Laboratory Results Laboratory Tests 04/05/25 20:42 04/06/25 02:04 HgA1c, TSH Test 04/07/25 12:00 Thyroid Stimulating Hormone (TSH) Pending Microbiology Microbiology Date/Time Source Procedure Growth Status 04/05/25 22:25 Blood Blood Culture - Preliminary NO GROWTH AFTER 24 HOURS OF INCUBATION. Resulted Labs and/or images reviewed: Labs reviewed by me, Image(s) reviewed by me Assessment/Plan Assessment/Plan NOTE 04/06/2504/06: paitnet "doesnt feel well". noting bradycardia, cards consulted ?chronotropic incompetence? will have to r/o, PT eval, orthostatics, med rec. until then tele, echo. ivf and diet. lovenox SQ daily dvt px syncope orthostasis rule out BPH DM HTN Hx SD hx? Afib? schizophrenia plan: cards PT eval, orthostatics, med rec. tele, echo. ivf and diet. lovenox SQ daily dvt px tele full code NOTE FOR 04/06/25 Plan discussed with: Patient My Orders Orders - HEBER RAMIREZ MD Procedure Category Date Status Time Orthostatic Vital ORDERS 04/07/25 Transmitted Signs 10:36 Date of Service: Apr 06, 2025 Billing Provider: HEBER RAMIREZ MD Common Visit Codes: [id number] INP/OBS CARE(HIGH) HEBER RAMIREZ MD Apr 07, 2025 12:32
[2025-04-07] MEDS: SPIRONOLACTONE 25 MG TAB PO SCH (12:37)
[2025-04-07] MEDS: EMPAGLIFLOZIN 10 MG TAB PO SCH (12:37)
--- NOTE | 2025-04-07 12:41 | DVHPN2 ---
Subjective patint doing well. no further dizziness or falls. endorses "doesnt feel well Reviewed: Care Plan Changes from previous H/P or p: No Changes General: Per HPI Objective Vitals Vital Signs Date Time Temp Pulse Resp B/P (MAP) Pulse Ox O2 Delivery O2 Flow Rate FiO2 04/07/25 11:19 40 18 147/63 (91) 96 48 148/57 (87) 47 152/62 (92) 04/07/25 08:29 Room Air* 0 21 04/07/25 04:41 98.0 98.0 Intake/Output Intake and Output 04/07/25 07:00 Intake Total 1800 ml Output Total 1100 ml Balance 700 ml Intake Oral 300 ml IV Total 1500 ml Output Urine Total 1100 ml Exam GEN: Healthy appearing, well-developed, NAD. HEENT: NC/AT; MMM. CV: RRR, no m/r/g. LUNGS: CTAB, no w/r/c. ABD: Soft, NT/ND, NBS, no masses or organomegaly. EXT: skin Warm, well perfused. no rashes. No clubbing, cyanosis, or edema. NEURO: Ambulating with no limitations. No focal deficits. Medications Current Medications Medications Dose Ordered Sig/Suma Route Start Time Stop Time Status Last Admin Dose Admin Gabapentin 300 mg BID PO 04/06/25 10:00 04/07/25 09:04 300 MG Divalproex Sodium 250 mg BID PO 04/06/25 10:00 04/07/25 09:05 250 MG Diagnostic Test (Pha) 1 strip ACHS 04/06/25 07:00 04/07/25 11:52 1 STRIP Insulin Human Regular ACHS SC 04/06/25 07:00 04/06/25 06:59 3 UNITS Dextrose 50 ml UD PRN IV 04/06/25 00:00 Ondansetron HCl 4 mg Q4HP PRN IV 04/06/25 00:00 Acetaminophen 650 mg Q6HP PRN PO 04/06/25 00:00 Sacubitril/ Valsartan 0.5 tab BID PO 04/07/25 22:00 Spironolactone 12.5 mg DAILY PO 04/07/25 11:45 Enoxaparin Sodium 30 mg DAILY SC 04/08/25 10:00 UNV Empaglifozin 10 mg DAILY PO 04/07/25 12:30 UNV Laboratory Results Laboratory Tests 04/05/25 20:42 04/06/25 02:04 HgA1c, TSH Test 04/07/25 12:00 Thyroid Stimulating Hormone (TSH) Pending Microbiology Microbiology Date/Time Source Procedure Growth Status 04/05/25 22:25 Blood Blood Culture - Preliminary NO GROWTH AFTER 24 HOURS OF INCUBATION. Resulted Labs and/or images reviewed: Labs reviewed by me, Image(s) reviewed by me Assessment/Plan Assessment/Plan 04/06: paitnet "doesnt feel well". noting bradycardia, cards consulted ?chronotropic incompetence? will have to r/o, PT eval, orthostatics, med rec. until then tele, echo. ivf and diet. lovenox SQ daily dvt px 04/07: orthostatics neg. echo pending. card eval today. otherwise stable. tolerating diet. syncope orthostasis rule out bradycardia, r/o ?symptomatic BPH DM HTN Hx AR hx? Afib? schizophrenia plan: cards PT eval, orthostatics, med rec. tele, echo. ivf and diet. lovenox SQ daily dvt px tele full code Plan discussed with: Patient My Orders Orders - HEBER RAMIREZ MD Procedure Category Date Status Time Orthostatic Vital ORDERS 04/07/25 Transmitted Signs 10:36 Date of Service: Apr 07, 2025 Billing Provider: HEBER RAMIREZ MD Common Visit Codes: [id number] INP/OBS CARE(HIGH) HEBER RAMIREZ MD Apr 07, 2025 12:41
--- NOTE | 2025-04-07 12:53 | ECG ---
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
[2025-04-07 13:00] LABS: Hematocrit 44.2 % (41.0-53.0); Hemoglobin 15.0 g/dL (13.5-17.5); Mean Corpuscular Hemoglobin 32.2 pg (28.0-32.0); Mean Corpuscular Volume 94.6 fL (80.0-100.0); Nucleated Red Blood Cells % 0.1 %
[2025-04-07 13:34] LABS: Albumin 4.2 g/dL (3.2-4.8); Alkaline Phosphatase 69 U/L (46-116); Anion Gap 10 (5-15); BUN/Creatinine Ratio 13.0 (10.0-20.0); Bilirubin, Total 0.4 mg/dL (0.2-1.0); Calcium 9.1 mg/dL (8.7-10.4); Carbon Dioxide 29 mmol/L (20-31); Chloride 103 mmol/L (98-107); Glucose 101 mg/dL (74-106); Potassium 4.3 mmol/L (3.5-5.1); Sodium 142 mmol/L (136-145); Total Protein 6.9 g/dL (5.7-8.2)
[2025-04-07 13:35] LABS: Alanine Aminotransferase < 9 U/L (7-40); Blood Urea Nitrogen 9 mg/dL (9-23)
[2025-04-07] MEDS: SACUBITRIL-VALSARTAN 24mg/26mg TAB PO SCH (21:45)
[2025-04-07 22:31] LABS: Urine Protein, UAD Negative (Negative)
[2025-04-07 22:44] LABS: Cannabinoid Screen, Urine Pos (NEGATIVE)
[2025-04-07 22:58] LABS: Amphetamine Screen, Urine Neg (NEGATIVE); Barbiturate Scree,Urine Neg (NEGATIVE); Benzodiazephine Screen, Urine Neg (NEGATIVE); Cocaine Screen, Urine Neg (NEGATIVE); Opiate Scree,Urine Neg (NEGATIVE); Phencyclidine Screen, Urine Neg (NEGATIVE)
[2025-04-08] VITALS (9 sets, daily range): BP systolic 80–118; BP diastolic 43–101; PULSE 51–96; RESP 16–19; TEMP 97.7–98.9; O2SAT 92–99
[2025-04-08 06:29] LABS: Hematocrit 45.1 % (41.0-53.0); Hemoglobin 15.6 g/dL (13.5-17.5); Mean Corpuscular Hemoglobin 32.6 pg (28.0-32.0); Mean Corpuscular Volume 94.1 fL (80.0-100.0); Nucleated Red Blood Cells % 0.1 %
[2025-04-08 06:39] LABS: Albumin 4.1 g/dL (3.2-4.8); Alkaline Phosphatase 69 U/L (46-116); Anion Gap 9 (5-15); BUN/Creatinine Ratio 9.1 (10.0-20.0); Calcium 9.1 mg/dL (8.7-10.4); Carbon Dioxide 27 mmol/L (20-31); Chloride 103 mmol/L (98-107); Potassium 4.3 mmol/L (3.5-5.1); Sodium 139 mmol/L (136-145); Total Protein 7.1 g/dL (5.7-8.2)
[2025-04-08 06:40] LABS: Bilirubin, Total 0.4 mg/dL (0.2-1.0)
[2025-04-08 06:42] LABS: Alanine Aminotransferase < 9 U/L (7-40); Blood Urea Nitrogen 7 mg/dL (9-23); Glucose 123 mg/dL (74-106)
[2025-04-08] MEDS: REGADENOSON 0.4 MG/5 ML SYRG IV ONE ×2 (09:12)
--- NOTE | 2025-04-08 09:13 | DVHPN2 ---
Subjective patint doing well. no further dizziness or falls. endorses "doesnt feel well Reviewed: Care Plan Changes from previous H/P or p: No Changes General: Per HPI Objective Vitals Vital Signs Date Time Temp Pulse Resp B/P (MAP) Pulse Ox O2 Delivery O2 Flow Rate FiO2 04/08/25 07:34 Room Air* 0 21 04/08/25 05:00 97.7 51 17 80/51 (61) 98 97.7 Intake/Output Intake and Output 04/08/25 07:00 Intake Total 2740 ml Balance 2740 ml Intake Oral 2740 ml # Voids 18 # Bowel Movements 1 Exam GEN: Healthy appearing, well-developed, NAD. HEENT: NC/AT; MMM. CV: RRR, no m/r/g. LUNGS: CTAB, no w/r/c. ABD: Soft, NT/ND, NBS, no masses or organomegaly. EXT: skin Warm, well perfused. no rashes. No clubbing, cyanosis, or edema. NEURO: Ambulating with no limitations. No focal deficits. Medications Current Medications Medications Dose Ordered Sig/Suma Route Start Time Stop Time Status Last Admin Dose Admin Gabapentin 300 mg BID PO 04/06/25 10:00 04/07/25 21:45 300 MG Divalproex Sodium 250 mg BID PO 04/06/25 10:00 04/07/25 21:45 250 MG Diagnostic Test (Pha) 1 strip ACHS 04/06/25 07:00 04/08/25 06:28 1 STRIP Insulin Human Regular ACHS SC 04/06/25 07:00 04/06/25 06:59 3 UNITS Dextrose 50 ml UD PRN IV 04/06/25 00:00 Ondansetron HCl 4 mg Q4HP PRN IV 04/06/25 00:00 Acetaminophen 650 mg Q6HP PRN PO 04/06/25 00:00 Sacubitril/ Valsartan 0.5 tab BID PO 04/07/25 22:00 04/07/25 21:45 0.5 TAB Spironolactone 12.5 mg DAILY PO 04/07/25 11:45 04/07/25 12:37 12.5 MG Enoxaparin Sodium 30 mg DAILY SC 04/08/25 10:00 Empaglifozin 10 mg DAILY PO 04/07/25 12:30 04/07/25 12:37 10 MG Laboratory Results Laboratory Tests 04/08/25 04:43 Chemistry Test 04/07/25 12:00 04/08/25 04:43 Albumin 4.2 g/dL (3.2-4.8) 4.1 g/dL (3.2-4.8) Calcium Level 9.1 mg/dL (8.7-10.4) 9.1 mg/dL (8.7-10.4) Total Protein 6.9 g/dL (5.7-8.2) 7.1 g/dL (5.7-8.2) LFT Test 04/07/25 12:00 04/08/25 04:43 Alanine Aminotransferase (ALT) < 9 U/L (7-40) < 9 U/L (7-40) Alkaline Phosphatase 69 U/L (46-116) 69 U/L (46-116) Aspartate Amino Transferase (AST) 15 U/L (13-40) 15 U/L (13-40) Total Bilirubin 0.4 mg/dL (0.2-1.0) 0.4 mg/dL (0.2-1.0) HgA1c, TSH Test 04/07/25 12:00 Thyroid Stimulating Hormone (TSH) 1.32 uIU/mL (0.55-4.78) Urinalysis Test 04/07/25 21:53 Urine Color Colorless (Yellow) Urine Clarity Clear (Clear) Urine pH 7.5 (5.0-9.0) Urine Specific [place] 1.010 (1.001-1.035) Urine Protein Negative (Negative) Urine Ketones Negative (Negative) Urine Blood Negative /uL (Negative) Urine Nitrite Negative (Negative) Urine Bilirubin Negative (Negative) Urine Urobilinogen Normal mg/dL (Negative) Urine Leukocyte Esterase Negative /uL (Negative) Urine RBC 1 /hpf (0 - 3) Urine Microscopic WBC < 1 /HPF (0-3) Urine Squamous Epithelial Cells None seen /hpf (<5) Urine Bacteria None seen /hpf (None Seen) Urine Glucose 4+ mg/dL (Normal) H Microbiology Microbiology Date/Time Source Procedure Growth Status 04/05/25 22:25 Blood Blood Culture - Preliminary NO GROWTH AFTER 48 HOURS OF INCUBATION. Resulted Labs and/or images reviewed: Labs reviewed by me, Image(s) reviewed by me Assessment/Plan Assessment/Plan 04/06: paitnet "doesnt feel well". noting bradycardia, cards consulted ?chronotropic incompetence? will have to r/o, PT eval, orthostatics, med rec. until then tele, echo. ivf and diet. lovenox SQ daily dvt px 04/07: orthostatics neg. echo pending. card eval today. otherwise stable. tolerating diet. 04/08: Patient getting stress test today, this will test chronotropic incompetence, also patient is FF 30%, stress test will check for reversible ischemia as well. No significant findings on tele. Orthostasis negative. PT ordered. syncope orthostasis rule out bradycardia, r/o ?symptomatic BPH DM HTN Hx [place] hx? Afib? schizophrenia plan: cards PT eval, orthostatics, med rec. tele, echo. ivf and diet. lovenox SQ daily dvt px tele full code Plan discussed with: Patient My Orders Orders - HEBER RAMIREZ MD Procedure Category Date Status Time Orthostatic Vital ORDERS 04/07/25 Transmitted Signs 10:36 Cardiac DIET 04/08/25 Transmitted Diet-2gna,Lofat,Lochol Breakfast Date of Service: Apr 08, 2025 Billing Provider: EHBER RAMIREZ MD Common Visit Codes: [id number] INP/OBS CARE(HIGH) HEBER RAMIREZ MD Apr 08, 2025 09:13
[2025-04-08] MEDS: ENOXAPARIN SOD 30 MG/0.3 ML SYRINGE SC SCH (09:52)
[2025-04-08] MEDS ORDERED: EMPAGLIFLOZIN 10 MG TAB PO SCH (10:00)
--- NOTE | 2025-04-08 14:45 | DVHPNRES ---
Progress Note Date Seen: Apr 08, 2025 Resident Creating Document: CARLA RICE RESIDENT Has the PT tested + for MRSA If YES, has PT been informed?: No Medical Necessity Reason Pt with a Central, PICC or Fol: No Subjective Review of Systems The patient is a 69-year-old male admitted for evaluation of symptomatic bradycardia and recurrent syncope in the setting of cardiomyopathy with ejection fraction of 30%. He was scheduled for a Cardiolite Lexiscan stress test today but could not undergo the procedure due to hypotension systolic blood pressure less than 80 mmHg, map less than 65 and bradycardia while asleep and at rest. Medication review revealed the patient received- Entresto 0.5 tab p.o. at 9:00 p.m. yesterday Spironolactone 12.5 mg p.o. yesterday at 12:30 p.m. Jardiance 10 mg p.o. yesterday at 12:30 p.m. and again at 10:00 a.m. today. Following this doses, the patient's BP dropped into 80s systolic and symptomatic dizziness. Aldactone and Entresto were discontinued. He remains on Jardiance 10 mg daily. Today the patient reports severe dizziness on prolonged standing, SBP dropping from 119 to 80s on standing. While supine and sitting he feels stable. No chest pain, palpitation or SOB reported at this time. Echo-EF of 30%, global hypokinesia, LVH, LAE, diminished RV function, mild MR. Patient is scheduled for Lexiscan again tomorrow. Cardiac: Dizziness, prior syncope. No current chest pain or palpitations. * Respiratory: No dyspnea or orthopnea. * Neurologic: Confusion at time of syncope, no focal deficits. * General: No fevers, chills, or weight changes. Objective vital signs Vital Sign Date Time Temp Pulse Resp B/P (MAP) Pulse Ox O2 Delivery O2 Flow Rate FiO2 04/08/25 13:00 98.1 56 19 106/61 (76) 99 98.1 04/08/25 07:34 Room Air* 0 21 Total Intake and Output 04/07/25 04/07/25 04/08/25 15:00 23:00 07:00 Intake Total 1800 ml 940 ml Balance 1800 ml 940 ml medications Current Medications Medications Dose Ordered Sig/Suma Route Start Time Stop Time Status Last Admin Dose Admin Gabapentin 300 mg BID PO 04/06/25 10:00 04/08/25 09:51 300 MG Divalproex Sodium 250 mg BID PO 04/06/25 10:00 04/08/25 09:51 250 MG Diagnostic Test (Pha) 1 strip ACHS 04/06/25 07:00 04/08/25 11:17 1 STRIP Insulin Human Regular ACHS SC 04/06/25 07:00 04/06/25 06:59 3 UNITS Dextrose 50 ml UD PRN IV 04/06/25 00:00 Ondansetron HCl 4 mg Q4HP PRN IV 04/06/25 00:00 Acetaminophen 650 mg Q6HP PRN PO 04/06/25 00:00 Sacubitril/ Valsartan 0.5 tab BID PO 04/07/25 22:00 04/07/25 21:45 0.5 TAB Spironolactone 12.5 mg DAILY PO 04/07/25 11:45 04/07/25 12:37 12.5 MG Enoxaparin Sodium 30 mg DAILY SC 04/08/25 10:00 04/08/25 09:52 30 MG Empaglifozin 10 mg DAILY PO 04/07/25 12:30 04/08/25 10:06 10 MG Examination General: Alert, oriented, no acute distress. * Vital Signs: BP 771370/5765 mmHg; HR 3852 bpm; afebrile; SpO? >95% RA. * Cardiac: Bradycardic, regular rhythm. No murmurs, rubs, or gallops. No JVD. * Respiratory: Lungs clear bilaterally, no crackles/wheezes. * Abdomen: Soft, nontender, no hepatomegaly. * Extremities: No pedal edema, pulses 2+. * Neuro: Nonfocal, grossly intact. laboratory and microbiology Laboratory Tests 04/08/25 04:43 Test 04/08/25 04:43 Range/Units Serum Glucose 123 H 74-106 mg/dL Microbiology Date/Time Source Procedure Growth Status 04/05/25 22:25 Blood Blood Culture - Preliminary NO GROWTH AFTER 48 HOURS OF INCUBATION. Resulted Problem List/Assessment/Plan Problem List/Assessment/Plan Assessment 1. Symptomatic Sinus Bradycardia with Syncope * Persistent bradycardia (HR 30s50s) with syncopal episode. * EKG: Sinus bradycardia, nonspecific IVCD. * Possible contribution from alcohol/marijuana, but underlying conduction disease and chronotropic incompetence likely. 2. Dilated Cardiomyopathy with reduced EF of 30% probable ischemic cause * EF ~30%, global hypokinesia, LAE, LVH, diminished RV function. * Prior CAD with PCI. Planned coronary angiography for ischemic evaluation. 3. Coronary Artery Disease * Prior PCI (). * Troponin flat, no evidence of ACS currently. 4. Hypertension / Dyslipidemia / Diabetes Mellitus Type 2 * Chronic comorbidities, stable. 5. Psychiatric Comorbidities * Schizophrenia, depression, bipolar disorder. On multiple psychotropics that may contribute to autonomic side effects. Plan/Recommendation Cardiac: * Admit to telemetry monitoring. Persistent sinus bradycardia with heart rate between 38-50 to 62 with a dizziness on standing. Stress test scheduled tomorrow to evaluate for ischemia and chronotropic response with pharmacological stress test. * Orthostatic vitals negative for hypotension, but dizziness present possible chronotropic incompetence. * unable to complete Chronotropic competence evaluation due to patient's inability to walk due to mobility limitations. * Keep transcutaneous pacing pads at bedside. * If recurrent symptomatic bradycardia (HR <40) persists despite reversible cause correction electrophysiology consult for permanent pacemaker evaluation. * Hold AV yvette blocking agents. Dilated Cardiomyopathy with reduced EF of 30% probable ischemic cause * (GDMT) optimization limited by hypotension. Discontinue Entresto and spironolactone for now. * Continue statin, aspirin , SGLT2 inhibitor monitor BP. * Hold beta-sandra until bradycardia resolves or PPM considered. * Strict I/Os, daily weights, low sodium diet. Ischemic Disease / CAD: Stress test scheduled tomorrow to evaluate for ischemia and chronotropic response pharmacological stress test * Troponin flat no evidence of ACS. * Continue statin therapy. * Antiplatelet therapy: aspirin unless contraindicated. Diabetes: * Hold metformin post-contrast. * SSI protocol. Psych: * Psychiatry consult to review psychotropic regimen (valproate, sertraline, aripiprazole, prazosin, gabapentin) for cardiac side effects. Prophylaxis: * DVT prophylaxis with SQ heparin. * GI prophylaxis with pantoprazole. Plan discussed with: Patient Plan discussed with: Patient Visit Coding Cardiology RES Date of Service: Apr 08, 2025 Billing Provider: JAYNE SAVAGE Sr., MD, RAGHAVA RAO RESIDENT Apr 08, 2025 14:45
[2025-04-08] MEDS: ATORVASTATIN 20 MG TAB PO SCH (21:30)
[2025-04-09] VITALS (8 sets, daily range): BP systolic 96–127; BP diastolic 53–77; PULSE 45–65; RESP 16–20; TEMP 97.7–98; O2SAT 96–100
[2025-04-09 06:44] LABS: Hematocrit 42.2 % (41.0-53.0); Hemoglobin 14.7 g/dL (13.5-17.5); Mean Corpuscular Hemoglobin 32.3 pg (28.0-32.0); Mean Corpuscular Volume 93.0 fL (80.0-100.0); Nucleated Red Blood Cells % 0.1 %
[2025-04-09 07:04] LABS: Albumin 3.8 g/dL (3.2-4.8); Alkaline Phosphatase 64 U/L (46-116); Anion Gap 7 (5-15); BUN/Creatinine Ratio 15.9 (10.0-20.0); Blood Urea Nitrogen 13 mg/dL (9-23); Calcium 9.1 mg/dL (8.7-10.4); Carbon Dioxide 30 mmol/L (20-31); Chloride 104 mmol/L (98-107); Potassium 4.7 mmol/L (3.5-5.1); Sodium 141 mmol/L (136-145); Total Protein 6.3 g/dL (5.7-8.2)
[2025-04-09 07:05] LABS: Bilirubin, Total 0.4 mg/dL (0.2-1.0)
[2025-04-09 07:06] LABS: Alanine Aminotransferase < 9 U/L (7-40); Glucose 80 mg/dL (74-106)
[2025-04-09] MEDS: REGADENOSON 0.4 MG/5 ML SYRG IV ONE ×2 (09:14)
--- NOTE | 2025-04-09 11:11 | DVHPNRES ---
Progress Note Date Seen: Apr 09, 2025 Resident Creating Document: CARLA RICE RESIDENT Has the PT tested + for MRSA If YES, has PT been informed?: No Medical Necessity Reason Pt with a Central, PICC or Fol: No Subjective Review of Systems Patient is a 69-year-old male with fussy with ejection fraction of 30%, CAD s/p BC admitted for evaluation of bradycardia and recurrent syncope He underwent a stress test today and tolerated the procedure. Following the test, the pulse increased into 70s and is currently at 84. Previously fluctuating between 56-65 beats per minute. He reports persistent dizziness prolonged standing but no chest pain, palpitation or dyspnea at present. Blood pressure remains variable, ranging from systolics 0s down to 85 mmHg. Additional evaluation for syncope has been initiated with head CT without contrast and carotid Doppler ultrasound. Objective vital signs Vital Sign Date Time Temp Pulse Resp B/P (MAP) Pulse Ox O2 Delivery O2 Flow Rate FiO2 04/09/25 09:48 98.0 64 18 118/53 (74) 99 98.0 04/09/25 07:51 Room Air* 0 21 Total Intake and Output 04/08/25 04/08/25 04/09/25 15:00 23:00 07:00 Intake Total 950 ml 1000 ml Output Total 1200 ml Balance 950 ml -200 ml medications Current Medications Medications Dose Ordered Sig/Suma Route Start Time Stop Time Status Last Admin Dose Admin Gabapentin 300 mg BID PO 04/06/25 10:00 04/08/25 21:30 300 MG Divalproex Sodium 250 mg BID PO 04/06/25 10:00 04/08/25 21:30 250 MG Diagnostic Test (Pha) 1 strip ACHS 04/06/25 07:00 04/09/25 06:49 1 STRIP Insulin Human Regular ACHS SC 04/06/25 07:00 04/08/25 21:37 2 UNITS Dextrose 50 ml UD PRN IV 04/06/25 00:00 Ondansetron HCl 4 mg Q4HP PRN IV 04/06/25 00:00 Acetaminophen 650 mg Q6HP PRN PO 04/06/25 00:00 Enoxaparin Sodium 30 mg DAILY SC 04/08/25 10:00 04/09/25 08:40 30 MG Empaglifozin 10 mg DAILY PO 04/07/25 12:30 04/08/25 10:06 10 MG Aspirin 81 mg DAILY PO 04/09/25 10:00 Atorvastatin Calcium 20 mg HS PO 04/08/25 22:00 04/08/25 21:30 20 MG Examination General: Alert, oriented, no acute distress. * Cardiac: Bradycardic, regular rhythm. No murmurs, rubs, or gallops. No JVD. * Respiratory: Lungs clear bilaterally, no crackles/wheezes. * Abdomen: Soft, nontender, no hepatomegaly. * Extremities: No pedal edema, pulses 2+. * Neuro: Nonfocal, grossly intact. laboratory and microbiology Laboratory Tests 04/09/25 06:04 Test 04/09/25 06:04 Range/Units Serum Glucose 80 74-106 mg/dL Microbiology Date/Time Source Procedure Growth Status 04/05/25 22:25 Blood Blood Culture - Preliminary NO GROWTH AFTER 72 HOURS OF INCUBATION. Resulted Problem List/Assessment/Plan Problem List/Assessment/Plan Assessment 1. Symptomatic Sinus Bradycardia with Syncope * Persistent bradycardia (HR 30s50s) with syncopal episode. * EKG: Sinus bradycardia, nonspecific IVCD. * Possible contribution from alcohol/marijuana, but underlying conduction disease and chronotropic incompetence likely. 2. Dilated Cardiomyopathy with reduced EF of 30% probable ischemic cause * EF ~30%, global hypokinesia, LAE, LVH, diminished RV function. * Prior CAD with PCI. Planned coronary angiography for ischemic evaluation. 3. Coronary Artery Disease * Prior PCI (). * Troponin flat, no evidence of ACS currently. 4. Hypertension / Dyslipidemia / Diabetes Mellitus Type 2 * Chronic comorbidities, stable. 5. Psychiatric Comorbidities * Schizophrenia, depression, bipolar disorder. On multiple psychotropics that may contribute to autonomic side effects. Plan/Recommendation Cardiac: * Admit to telemetry monitoring. Stress test done today, pending results. Persistent sinus bradycardia with heart rate between 38-50 to 62 with a dizziness on standing prove to 70s to 80s post-stress test. * Orthostatic vitals negative for hypotension, but dizziness present possible chronotropic incompetence. * Keep transcutaneous pacing pads at bedside. * If recurrent symptomatic bradycardia (HR <40) persists despite reversible cause correction electrophysiology consult for permanent pacemaker evaluation. * Hold AV yvette blocking agents. Dilated Cardiomyopathy with reduced EF of 30% probable ischemic cause * (GDMT) optimization limited by hypotension. Discontinue Entresto and spironolactone for now. * Continue statin, aspirin , SGLT2 inhibitor monitor BP. * Hold beta-sandra until bradycardia resolves or PPM considered. * Strict I/Os, daily weights, low sodium diet. Ischemic Disease / CAD: Stress test scheduled tomorrow to evaluate for ischemia and chronotropic response pharmacological stress test * Troponin flat no evidence of ACS. * Continue statin therapy. * Antiplatelet therapy: aspirin unless contraindicated. Diabetes: * Hold metformin post-contrast. * SSI protocol. Psych: * Psychiatry consult to review psychotropic regimen (valproate, sertraline, aripiprazole, prazosin, gabapentin) for cardiac side effects. Prophylaxis: * DVT prophylaxis with SQ heparin. * GI prophylaxis with pantoprazole. Plan discussed with: Patient Plan discussed with: Patient My Orders My Orders Orders - CARLA RICE Procedure Category Date Status Time Cardiolite Multiple NM 04/08/25 Logged 16:01 Aspirin Tablet PHA 04/09/25 In Process 10:00 Atorvastatin (Lipitor) PHA 04/08/25 In Process 22:00 Cardiac DIET 04/09/25 Transmitted Diet-2gna,Lofat,Lochol Lunch Carotid Duplx W Color US 04/09/25 Transmitted DOP 10:[address] 04/09/25 Transmitted 10:58 Visit Coding Cardiology RES Date of Service: Apr 09, 2025 Billing Provider: JAYNE SAVAGE Sr., MD Cardiology Common Codes: [id number] CARE(High CARLA RICE RESIDENT Apr 09, 2025 11:11
--- NOTE | 2025-04-09 13:34 | DVH ---
CAROTID DOPPLER ULTRASOUND HISTORY: Evaluation for syncope COMPARISON: None TECHNIQUE: Real time mackay scale, color Doppler, and spectral duplex images are obtained through the c arotid and vertebral arteries. Findings: Peak systolic velocity right internal carotid artery is 95 cm/s and right common carotid artery is 72 cm/s. Ratio is 1.3. Right vertebral artery not visualized. No significant atherosclerotic plaque not ed within the right carotid arterial system. Peak systolic velocity left internal carotid artery is 93 cm/s and left common carotid artery is 84 c m/s. Ratio is 1.1. Antegrade flow noted in left vertebral artery. Mild atherosclerotic plaque noted w ithin the left carotid arterial system. Impression: 1. No evidence of hemodynamically significant stenosis within the bilateral carotid arterial systems. 2. Antegrade flow within bilateral vertebral arteries.
--- NOTE | 2025-04-09 13:42 | DVHPN2 ---
Subjective patint doing well. no further dizziness or falls. endorses "doesnt feel well Reviewed: Care Plan Changes from previous H/P or p: No Changes General: Per HPI Objective Vitals Vital Signs Date Time Temp Pulse Resp B/P (MAP) Pulse Ox O2 Delivery O2 Flow Rate FiO2 04/09/25 09:48 98.0 64 18 118/53 (74) 99 98.0 04/09/25 07:51 Room Air* 0 21 Intake/Output Intake and Output 04/09/25 07:00 Intake Total 1950 ml Output Total 1200 ml Balance 750 ml Intake Oral 1950 ml Output Urine Total 1200 ml # Voids 8 # Bowel Movements 4 Exam GEN: Healthy appearing, well-developed, NAD. HEENT: NC/AT; MMM. CV: RRR, no m/r/g. LUNGS: CTAB, no w/r/c. ABD: Soft, NT/ND, NBS, no masses or organomegaly. EXT: skin Warm, well perfused. no rashes. No clubbing, cyanosis, or edema. NEURO: Ambulating with no limitations. No focal deficits. Medications Current Medications Medications Dose Ordered Sig/Suma Route Start Time Stop Time Status Last Admin Dose Admin Gabapentin 300 mg BID PO 04/06/25 10:00 04/08/25 21:30 300 MG Divalproex Sodium 250 mg BID PO 04/06/25 10:00 04/08/25 21:30 250 MG Diagnostic Test (Pha) 1 strip ACHS 04/06/25 07:00 04/09/25 11:05 1 STRIP Insulin Human Regular ACHS SC 04/06/25 07:00 04/08/25 21:37 2 UNITS Dextrose 50 ml UD PRN IV 04/06/25 00:00 Ondansetron HCl 4 mg Q4HP PRN IV 04/06/25 00:00 Acetaminophen 650 mg Q6HP PRN PO 04/06/25 00:00 Enoxaparin Sodium 30 mg DAILY SC 04/08/25 10:00 04/09/25 08:40 30 MG Empaglifozin 10 mg DAILY PO 04/07/25 12:30 04/08/25 10:06 10 MG Aspirin 81 mg DAILY PO 04/09/25 10:00 Atorvastatin Calcium 20 mg HS PO 04/08/25 22:00 04/08/25 21:30 20 MG Laboratory Results Laboratory Tests 04/09/25 06:04 Chemistry Test 04/09/25 06:04 Albumin 3.8 g/dL (3.2-4.8) Calcium Level 9.1 mg/dL (8.7-10.4) Total Protein 6.3 g/dL (5.7-8.2) Cardiac Markers Test 04/09/25 06:04 B-Type Natriuretic Peptide 28.91 pg/mL (0-100) LFT Test 04/09/25 06:04 Alanine Aminotransferase (ALT) < 9 U/L (7-40) Alkaline Phosphatase 64 U/L (46-116) Aspartate Amino Transferase (AST) 12 U/L (13-40) L Total Bilirubin 0.4 mg/dL (0.2-1.0) Urinalysis Test 04/07/25 21:53 Urine Color Colorless (Yellow) Urine Clarity Clear (Clear) Urine pH 7.5 (5.0-9.0) Urine Specific [place] 1.010 (1.001-1.035) Urine Protein Negative (Negative) Urine Ketones Negative (Negative) Urine Blood Negative /uL (Negative) Urine Nitrite Negative (Negative) Urine Bilirubin Negative (Negative) Urine Urobilinogen Normal mg/dL (Negative) Urine Leukocyte Esterase Negative /uL (Negative) Urine RBC 1 /hpf (0 - 3) Urine Microscopic WBC < 1 /HPF (0-3) Urine Squamous Epithelial Cells None seen /hpf (<5) Urine Bacteria None seen /hpf (None Seen) Urine Glucose 4+ mg/dL (Normal) H Microbiology Microbiology Date/Time Source Procedure Growth Status 04/05/25 22:25 Blood Blood Culture - Preliminary NO GROWTH AFTER 72 HOURS OF INCUBATION. Resulted Labs and/or images reviewed: Labs reviewed by me, Image(s) reviewed by me Assessment/Plan Assessment/Plan 04/06: paitnet "doesnt feel well". noting bradycardia, cards consulted ?chronotropic incompetence? will have to r/o, PT eval, orthostatics, med rec. until then tele, echo. ivf and diet. lovenox SQ daily dvt px 04/07: orthostatics neg. echo pending. card eval today. otherwise stable. tolerating diet. 04/08: Patient getting stress test today, this will test chronotropic incompetence, also patient is FF 30%, stress test will check for reversible ischemia as well. No significant findings on tele. Orthostasis negative. PT ordered. 04/09: Patient unable to do stress test yesterday due to blood pressure being low. Cardiology held Entresto and spironolactone. Only continuing Jardiance for HFrEF now. Patient will get stress test today. We will continue to keep patient on tele and follow up. Patient has history of meth use, now HFrEF, defer angiogram to Cardiology, defer AICD to Cardiology, although will likely not qualify due to drug history. Diagnosis syncope HFrEF, on history of meth abuse orthostasis rule out bradycardia, r/o ?symptomatic BPH History of methamphetamine abuse Current use THC cannabis DM HTN Hx [place] hx? Afib? schizophrenia plan: cards PT eval, orthostatics, med rec. tele, Stress test echo. ivf and diet. lovenox SQ daily dvt px tele full code Plan discussed with: Patient Date of Service: Apr 09, 2025 Billing Provider: HEBER RAMIREZ MD Common Visit Codes: [id number] INP/OBS CARE(HIGH) HEBER RAMIREZ MD Apr 09, 2025 13:42
--- NOTE | 2025-04-09 14:36 | DVH ---
Exam: CT HEAD WITHOUT CONTRAST History: Evaluation for syncope Technique: [address] images through the posterior fossa and the supratentorial compart ment were acquired without contrast and imaged using soft tissue and bone algorithms. RADIATION DOSE: DLP 1151.1 mGy.cm; CTDI vol 58.41 mGy. Comparison: None Findings: There is no evidence of an intracranial hemorrhage, acute large vessel infarct, mass effect, or midli ne shift. There is mild cerebral atrophy. Moderate calcification of the carotid siphons. The calvarium, orbits, paranasal sinuses, sella, middle ears, and mastoids are unremarkable. The superficial soft tissues are within normal limits. Right occipital soft tissue lipoma. Impression: 1. No acute intracranial abnormality.
[2025-04-10] VITALS (7 sets, daily range): BP systolic 84–114; BP diastolic 48–70; PULSE 50–68; RESP 17–18; TEMP 97.6–98.3; O2SAT 97–100
--- NOTE | 2025-04-10 10:13 | DVHPN2 ---
Subjective patint doing well. no further dizziness or falls. endorses "doesnt feel well Reviewed: Care Plan Changes from previous H/P or p: No Changes General: Per HPI Objective Vitals Vital Signs Date Time Temp Pulse Resp B/P (MAP) Pulse Ox O2 Delivery O2 Flow Rate FiO2 04/10/25 08:46 97.7 51 18 112/70 (84) 99 97.7 04/09/25 20:00 Room Air* 0 21 Intake/Output Intake and Output 04/10/25 06:59 Intake Total 2300 ml Balance 2300 ml Intake Oral 2300 ml # Voids 14 # Bowel Movements 5 Exam GEN: Healthy appearing, well-developed, NAD. HEENT: NC/AT; MMM. CV: RRR, no m/r/g. LUNGS: CTAB, no w/r/c. ABD: Soft, NT/ND, NBS, no masses or organomegaly. EXT: skin Warm, well perfused. no rashes. No clubbing, cyanosis, or edema. NEURO: Ambulating with no limitations. No focal deficits. Medications Current Medications Medications Dose Ordered Sig/Suma Route Start Time Stop Time Status Last Admin Dose Admin Gabapentin 300 mg BID PO 04/06/25 10:00 04/10/25 09:53 300 MG Divalproex Sodium 250 mg BID PO 04/06/25 10:00 04/10/25 09:53 250 MG Diagnostic Test (Pha) 1 strip ACHS 04/06/25 07:00 04/10/25 06:09 1 STRIP Insulin Human Regular ACHS SC 04/06/25 07:00 04/09/25 21:24 2 UNITS Dextrose 50 ml UD PRN IV 04/06/25 00:00 Ondansetron HCl 4 mg Q4HP PRN IV 04/06/25 00:00 Acetaminophen 650 mg Q6HP PRN PO 04/06/25 00:00 Enoxaparin Sodium 30 mg DAILY SC 04/08/25 10:00 04/10/25 09:54 30 MG Empaglifozin 10 mg DAILY PO 04/07/25 12:30 04/10/25 09:53 10 MG Aspirin 81 mg DAILY PO 04/09/25 10:00 04/10/25 09:53 81 MG Atorvastatin Calcium 20 mg HS PO 04/08/25 22:00 04/09/25 21:24 20 MG Laboratory Results Laboratory Tests 04/09/25 06:04 Urinalysis Test 04/07/25 21:53 Urine Color Colorless (Yellow) Urine Clarity Clear (Clear) Urine pH 7.5 (5.0-9.0) Urine Specific [place] 1.010 (1.001-1.035) Urine Protein Negative (Negative) Urine Ketones Negative (Negative) Urine Blood Negative /uL (Negative) Urine Nitrite Negative (Negative) Urine Bilirubin Negative (Negative) Urine Urobilinogen Normal mg/dL (Negative) Urine Leukocyte Esterase Negative /uL (Negative) Urine RBC 1 /hpf (0 - 3) Urine Microscopic WBC < 1 /HPF (0-3) Urine Squamous Epithelial Cells None seen /hpf (<5) Urine Bacteria None seen /hpf (None Seen) Urine Glucose 4+ mg/dL (Normal) H Microbiology Microbiology Date/Time Source Procedure Growth Status 04/05/25 22:25 Blood Blood Culture - Preliminary NO GROWTH AFTER 72 HOURS OF INCUBATION. Resulted Labs and/or images reviewed: Labs reviewed by me, Image(s) reviewed by me Assessment/Plan Assessment/Plan 04/06: paitnet "doesnt feel well". noting bradycardia, cards consulted ?chronotropic incompetence? will have to r/o, PT eval, orthostatics, med rec. until then tele, echo. ivf and diet. lovenox SQ daily dvt px 04/07: orthostatics neg. echo pending. card eval today. otherwise stable. tolerating diet. 04/08: Patient getting stress test today, this will test chronotropic incompetence, also patient is FF 30%, stress test will check for reversible ischemia as well. No significant findings on tele. Orthostasis negative. PT ordered. 04/09: Patient unable to do stress test yesterday due to blood pressure being low. Cardiology held Entresto and spironolactone. Only continuing Jardiance for HFrEF now. Patient will get stress test today. We will continue to keep patient on tele and follow up. Patient has history of meth use, now HFrEF, defer angiogram to Cardiology, defer AICD to Cardiology, although will likely not qualify due to drug history. 04/10: Waiting for read on Cardiolite test, deferring restarting of Aldactone Entresto to cardiology. PT ordered. We will assess PT evaluation over weekend and develop a discharge plan by Sunday. labs stable, defer checks to card/weekend provider Diagnosis syncope HFrEF, on history of meth abuse orthostasis rule out bradycardia, r/o ?symptomatic BPH History of methamphetamine abuse Current use THC cannabis DM HTN Hx [place] hx? Afib? schizophrenia plan: cards PT eval, orthostatics, med rec. tele, Stress test echo. ivf and diet. lovenox SQ daily dvt px tele full code Plan discussed with: Patient My Orders Orders - HEBER RAMIREZ MD Procedure Category Date Status Time Pt Request For Service PT 04/10/25 Logged 09:33 Date of Service: Apr 10, 2025 Billing Provider: HEBER RAMIREZ MD Common Visit Codes: [id number] INP/OBS CARE(HIGH) HEBER RAMIREZ MD Apr 10, 2025 10:13
--- NOTE | 2025-04-10 13:58 | DVHSR ---
APPROVED REPORT Exam: Nuclear Stress Test BMI: 0 Stress Test Details HR Max Heart Rate (APMHR): 149.330501 bpm Target HR (85% APMHR): 126.470755 bpm BP ECG Stress ECG Conclusion lvef 33% moderate LV dysfunction dilated LV inferior wall fixed defect no major ischemia ecg shows SR, PACs and PVCs NM EXAM: Myocardial Perfusion REST/STRESS Imaging Protocol: Rest Tc-99m/Stress Tc-99m 2 days Resting Data Rest SPECT myocardial perfusion imaging was performed in supine position 60 minutes following the int ravenous injection of 20.3 mCi of Tc-99m Sestamibi. Time of rest injection: 1430 Time of rest imagin Administration Route: IV Administration Site: Left AC Pharmacologic Stress Pharmacologic stress test was performed by injecting Regadenoson 0.4 mg IV push followed by the intra venous injection of 24.6 mCi of Tc-99m Sestamibi. Time of stress injection: 0930 Time of stress imagin Administration Route: IV Administration Site: Left Hand Gated Stress SPECT was performed 120 minutes after stress injection. The images were gated to evaluate regional wall motion and calculate left ventricular ejection fracti on. Nuclear Conclusion Nuclear Findings: negative for ischemia lvef 33% moderate LV dysfunction dilated LV inferior wall fixed defect no major ischemia ecg shows SR, PACs and PVCs
--- NOTE | 2025-04-10 18:00 | DVHPNRES ---
Progress Note Date Seen: Apr 10, 2025 Resident Creating Document: CARLA RICE RESIDENT Has the PT tested + for MRSA If YES, has PT been informed?: No Medical Necessity Reason Pt with a Central, PICC or Fol: No Subjective Review of Systems TODAY, HE CONTINUES TO REPORT DIZZINESS, PARTICULARLY WHEN STANDING. HE IS UNABLE TO TOLERATE PROLONGED STANDING DUE TO IMMEDIATE ONSET OF DIZZINESS. NO CHEST PAIN, PALPITATION OR DYSPNEA REPORTED TODAY HE UNDERWENT A NUCLEAR MEDICINE STRESS TEST, WHICH SHOWED- NO INDUCIBLE ISCHEMIA FIXED ANTERIOR WALL DEFECT DILATED LEFT VENTRICLE MODERATE LEFT VENTRICULAR DYSFUNCTION WITH EJECTION FRACTION OF 33 Interval events/treatment- Telemetry-sinus rhythm with frequent PACs and PVCs, heart rate 49-58 beats per minute supine, occasionally rising to 70s. BP fluctuating sitting 94 x 38 mmHg, occasionally [place] of 84/48 mmHg. Patient meets criteria for ICD placement due to cardiomyopathy with ejection fraction of less than equal to 35% and NYHA functional symptoms. Electrophysiology consultation placed for ICD evaluation with Dr. Matthew Objective vital signs Vital Sign Date Time Temp Pulse Resp B/P (MAP) Pulse Ox O2 Delivery O2 Flow Rate FiO2 04/10/25 17:00 97.6 54 18 96/54 (68) 97 97.6 04/10/25 08:00 Room Air* 0 21 Total Intake and Output 04/09/25 04/09/25 04/10/25 15:00 23:00 07:00 Intake Total 800 ml 1500 ml Balance 800 ml 1500 ml medications Current Medications Medications Dose Ordered Sig/Suma Route Start Time Stop Time Status Last Admin Dose Admin Gabapentin 300 mg BID PO 04/06/25 10:00 04/10/25 09:53 300 MG Divalproex Sodium 250 mg BID PO 04/06/25 10:00 04/10/25 09:53 250 MG Diagnostic Test (Pha) 1 strip ACHS 04/06/25 07:00 04/10/25 16:59 1 STRIP Insulin Human Regular ACHS SC 04/06/25 07:00 04/09/25 21:24 2 UNITS Dextrose 50 ml UD PRN IV 04/06/25 00:00 Ondansetron HCl 4 mg Q4HP PRN IV 04/06/25 00:00 Acetaminophen 650 mg Q6HP PRN PO 04/06/25 00:00 Enoxaparin Sodium 30 mg DAILY SC 04/08/25 10:00 04/10/25 09:54 30 MG Empaglifozin 10 mg DAILY PO 04/07/25 12:30 04/10/25 09:53 10 MG Aspirin 81 mg DAILY PO 04/09/25 10:00 04/10/25 09:53 81 MG Atorvastatin Calcium 20 mg HS PO 04/08/25 22:00 04/09/25 21:24 20 MG Examination General: Alert, oriented, no acute distress. * Cardiac: Bradycardic, regular rhythm. No murmurs, rubs, or gallops. No JVD. * Respiratory: Lungs clear bilaterally, no crackles/wheezes. * Abdomen: Soft, nontender, no hepatomegaly. * Extremities: No pedal edema, pulses 2+. * Neuro: Nonfocal, grossly intact. laboratory and microbiology Laboratory Tests 04/09/25 06:04 Test 04/09/25 06:04 Range/Units Serum Glucose 80 74-106 mg/dL Microbiology Date/Time Source Procedure Growth Status 04/05/25 22:25 Blood Blood Culture - Preliminary NO GROWTH AFTER 72 HOURS OF INCUBATION. Resulted Problem List/Assessment/Plan Problem List/Assessment/Plan Assessment 1. Symptomatic Sinus Bradycardia with Syncope * Persistent bradycardia (HR 30s50s) with syncopal episode. * EKG: Sinus bradycardia, nonspecific IVCD. * Possible contribution from alcohol/marijuana, but underlying conduction disease and chronotropic incompetence likely. 2. Dilated Cardiomyopathy with reduced EF of 30% probable ischemic cause * EF ~30%, global hypokinesia, LAE, LVH, diminished RV function. * Prior CAD with PCI. Planned coronary angiography for ischemic evaluation. 3. Coronary Artery Disease * Prior PCI (). * Troponin flat, no evidence of ACS currently. 4. Hypertension / Dyslipidemia / Diabetes Mellitus Type 2 * Chronic comorbidities, stable. 5. Psychiatric Comorbidities * Schizophrenia, depression, bipolar disorder. On multiple psychotropics that may contribute to autonomic side effects. Plan/Recommendation Cardiac: Meets criteria for ICD placement With cardiomyopathy with ejection fraction of less than equal to 35% Symptomatic NYHA class 2-3 equivalent EP consultation with Dr. matthew was replaced for ICD evaluation and placement. * Admit to telemetry monitoring. Persistent sinus bradycardia with heart rate between 38-50 to 62 with a dizziness on standing * Orthostatic vitals negative for hypotension, but dizziness present possible chronotropic incompetence. * Keep transcutaneous pacing pads at bedside. * If recurrent symptomatic bradycardia (HR <40) persists despite reversible cause correction electrophysiology consult for permanent pacemaker evaluation. * Hold AV yvette blocking agents. Dilated Cardiomyopathy with reduced EF of 30% probable ischemic cause * (GDMT) optimization limited by hypotension. Discontinue Entresto and spironolactone for now. * Continue statin, aspirin , SGLT2 inhibitor monitor BP. * Hold beta-sandra until bradycardia resolves or PPM considered. * Strict I/Os, daily weights, low sodium diet. Ischemic Disease / CAD: Stress test scheduled tomorrow to evaluate for ischemia and chronotropic response pharmacological stress test * Troponin flat no evidence of ACS. * Continue statin therapy. * Antiplatelet therapy: aspirin unless contraindicated. Diabetes: * Hold metformin post-contrast. * SSI protocol. Psych: * Psychiatry consult to review psychotropic regimen (valproate, sertraline, aripiprazole, prazosin, gabapentin) for cardiac side effects. Prophylaxis: * DVT prophylaxis with SQ heparin. * GI prophylaxis with pantoprazole. Plan discussed with: Patient Plan discussed with: Patient My Orders My Orders Orders - CARLA RICE RESIDENT Procedure Category Date Status Time *Consult Dr. Lyon CONS 04/10/25 Verified 17:44 Dietary Evaluation Review Comments: Nutrition Recommendation 1) CCHO 75gm + cardiac diet 2) Refer Documentation Improvement Specialist for diabetes education 3) Monitor PO intake, lab values, weight trend, and I/O Expected Outcomes/Goals: To meet >75% estimated needs Fu 3-5 days Visit Coding Cardiology RES Date of Service: Apr 10, 2025 Billing Provider: JAYNE SAVAGE Sr., MD Cardiology Common Codes: [id number] HOSP CARE([facility] CARLA RICE RESIDENT Apr 10, 2025 18:00
[2025-04-11] VITALS (7 sets, daily range): BP systolic 95–111; BP diastolic 52–71; PULSE 50–64; RESP 16–18; TEMP 97.6–98.3; O2SAT 96–99
--- NOTE | 2025-04-11 11:05 | DVHPN2 ---
Consult Progress Note Subjective Patient reports: No new complaints, Feels better Objective vital signs Vital Sign Date Time Temp Pulse Resp B/P (MAP) Pulse Ox O2 Delivery O2 Flow Rate FiO2 04/11/25 09:00 97.6 51 18 105/71 (82) 98 97.6 04/11/25 08:00 Room Air* 0 21 Total Intake and Output 04/10/25 04/10/25 04/11/25 15:00 23:00 07:00 Intake Total 1300 ml 1625 ml Output Total 1600 ml Balance 1300 ml 25 ml medications Current Medications Medications Dose Ordered Sig/Suma Route Start Time Stop Time Status Last Admin Dose Admin Gabapentin 300 mg BID PO 04/06/25 10:00 04/11/25 08:49 300 MG Divalproex Sodium 250 mg BID PO 04/06/25 10:00 04/11/25 08:49 250 MG Diagnostic Test (Pha) 1 strip ACHS 04/06/25 07:00 04/11/25 04:46 1 STRIP Insulin Human Regular ACHS SC 04/06/25 07:00 04/09/25 21:24 2 UNITS Dextrose 50 ml UD PRN IV 04/06/25 00:00 Ondansetron HCl 4 mg Q4HP PRN IV 04/06/25 00:00 Acetaminophen 650 mg Q6HP PRN PO 04/06/25 00:00 Enoxaparin Sodium 30 mg DAILY SC 04/08/25 10:00 04/11/25 08:50 30 MG Empaglifozin 10 mg DAILY PO 04/07/25 12:30 04/11/25 08:49 10 MG Aspirin 81 mg DAILY PO 04/09/25 10:00 04/11/25 08:49 81 MG Atorvastatin Calcium 20 mg HS PO 04/08/25 22:00 04/10/25 22:05 20 MG Examination: CVS:Abnormal (Telemetry reviewed consistent with sinus rhythm with PACs at 73 beats per minute, episodes of bradycardia overnight dropping to 42 beats per minute.) laboratory and microbiology Laboratory Tests 04/09/25 06:04 Test 04/09/25 06:04 Range/Units Serum Glucose 80 74-106 mg/dL Problem List/Assessment/Plan Problem List/Assessment/Plan Problem List/Assessment/Plan Assessment 1. Symptomatic Sinus Bradycardia with Syncope * Persistent bradycardia (HR 30s50s) with syncopal episode. * EKG: Sinus bradycardia, nonspecific IVCD. * Possible contribution from alcohol/marijuana, but underlying conduction disease and chronotropic incompetence likely. 2. Dilated Cardiomyopathy with reduced EF of 30% probable ischemic cause * EF ~30%, global hypokinesia, LAE, LVH, diminished RV function. * Prior CAD with PCI. Planned coronary angiography for ischemic evaluation. 3. Coronary Artery Disease * Prior PCI (). * Troponin flat, no evidence of ACS currently. 4. Hypertension / Dyslipidemia / Diabetes Mellitus Type 2 * Chronic comorbidities, stable. 5. Psychiatric Comorbidities * Schizophrenia, depression, bipolar disorder. On multiple psychotropics that may contribute to autonomic side effects. Plan/Recommendation Cardiac: Meets criteria for ICD placement With cardiomyopathy with ejection fraction of less than equal to 35% Symptomatic NYHA class 2-3 equivalent EP consultation with Dr. matthew was replaced for ICD evaluation and placement. * Admit to telemetry monitoring. Persistent sinus bradycardia with heart rate between 38-50 to 62 with a dizziness on standing * Orthostatic vitals negative for hypotension, but dizziness present possible chronotropic incompetence. * Keep transcutaneous pacing pads at bedside. * If recurrent symptomatic bradycardia (HR <40) persists despite reversible cause correction electrophysiology consult for permanent pacemaker evaluation. * Hold AV yvette blocking agents. Dilated Cardiomyopathy with reduced EF of 30% probable ischemic cause * (GDMT) optimization limited by hypotension. Discontinue Entresto and spironolactone for now. * Continue statin, aspirin , SGLT2 inhibitor monitor BP. * Hold beta-sandra until bradycardia resolves or PPM considered. * Strict I/Os, daily weights, low sodium diet. Ischemic Disease / CAD: Stress test scheduled tomorrow to evaluate for ischemia and chronotropic response pharmacological stress test * Troponin flat no evidence of ACS. * Continue statin therapy. * Antiplatelet therapy: aspirin unless contraindicated. Diabetes: * Hold metformin post-contrast. * SSI protocol. Psych: * Psychiatry consult to review psychotropic regimen (valproate, sertraline, aripiprazole, prazosin, gabapentin) for cardiac side effects. Prophylaxis: * DVT prophylaxis with SQ heparin. * GI prophylaxis with pantoprazole. Plan discussed with: Patient Dietary Evaluation Review Comments: Nutrition Recommendation 1) CCHO 75gm + cardiac diet 2) Refer Garage Door Technician for diabetes education 3) Monitor PO intake, lab values, weight trend, and I/O Expected Outcomes/Goals: To meet >75% estimated needs Fu 3-5 days Date of Service: Apr 11, 2025 Billing Provider: CALLIE FAIR Common Visit Codes: [id number] INP/OBS CARE(HIGH) CALLIE FAIR Apr 11, 2025 11:05
--- NOTE | 2025-04-11 19:09 | DVHPN2 ---
Subjective pending ICD Reviewed: Care Plan Changes from previous H/P or p: No Changes General: Per HPI Objective Vitals Vital Signs Date Time Temp Pulse Resp B/P (MAP) Pulse Ox O2 Delivery O2 Flow Rate FiO2 04/11/25 16:34 98.0 60 17 95/55 (68) 97 98.0 04/11/25 08:00 Room Air* 0 21 Intake/Output Intake and Output 04/11/25 07:00 Intake Total 2925 ml Output Total 1600 ml Balance 1325 ml Intake Oral 2925 ml Output Urine Total 1600 ml # Voids 8 # Bowel Movements 6 Medications Current Medications Medications Dose Ordered Sig/Suma Route Start Time Stop Time Status Last Admin Dose Admin Gabapentin 300 mg BID PO 04/06/25 10:00 04/11/25 08:49 300 MG Divalproex Sodium 250 mg BID PO 04/06/25 10:00 04/11/25 08:49 250 MG Diagnostic Test (Pha) 1 strip ACHS 04/06/25 07:00 04/11/25 17:26 1 STRIP Insulin Human Regular ACHS SC 04/06/25 07:00 04/09/25 21:24 2 UNITS Dextrose 50 ml UD PRN IV 04/06/25 00:00 Ondansetron HCl 4 mg Q4HP PRN IV 04/06/25 00:00 Acetaminophen 650 mg Q6HP PRN PO 04/06/25 00:00 Enoxaparin Sodium 30 mg DAILY SC 04/08/25 10:00 04/11/25 08:50 30 MG Empaglifozin 10 mg DAILY PO 04/07/25 12:30 04/11/25 08:49 10 MG Aspirin 81 mg DAILY PO 04/09/25 10:00 04/11/25 08:49 81 MG Atorvastatin Calcium 20 mg HS PO 04/08/25 22:00 04/10/25 22:05 20 MG Laboratory Results Laboratory Tests 04/09/25 06:04 Urinalysis Test 04/07/25 21:53 Urine Color Colorless (Yellow) Urine Clarity Clear (Clear) Urine pH 7.5 (5.0-9.0) Urine Specific [place] 1.010 (1.001-1.035) Urine Protein Negative (Negative) Urine Ketones Negative (Negative) Urine Blood Negative /uL (Negative) Urine Nitrite Negative (Negative) Urine Bilirubin Negative (Negative) Urine Urobilinogen Normal mg/dL (Negative) Urine Leukocyte Esterase Negative /uL (Negative) Urine RBC 1 /hpf (0 - 3) Urine Microscopic WBC < 1 /HPF (0-3) Urine Squamous Epithelial Cells None seen /hpf (<5) Urine Bacteria None seen /hpf (None Seen) Urine Glucose 4+ mg/dL (Normal) H Microbiology Microbiology Date/Time Source Procedure Growth Status 04/05/25 22:25 Blood Blood Culture - Final NO GROWTH AFTER 5 DAYS OF INCUBATION. Complete Assessment/Plan Assessment/Plan 04/06: paitnet "doesnt feel well". noting bradycardia, cards consulted ?chronotropic incompetence? will have to r/o, PT eval, orthostatics, med rec. until then tele, echo. ivf and diet. lovenox SQ daily dvt px 04/07: orthostatics neg. echo pending. card eval today. otherwise stable. tolerating diet. 04/08: Patient getting stress test today, this will test chronotropic incompetence, also patient is FF 30%, stress test will check for reversible ischemia as well. No significant findings on tele. Orthostasis negative. PT ordered. 04/09: Patient unable to do stress test yesterday due to blood pressure being low. Cardiology held Entresto and spironolactone. Only continuing Jardiance for HFrEF now. Patient will get stress test today. We will continue to keep patient on tele and follow up. Patient has history of meth use, now HFrEF, defer angiogram to Cardiology, defer AICD to Cardiology, although will likely not qualify due to drug history. 04/10: Waiting for read on Cardiolite test, deferring restarting of Aldactone Entresto to cardiology. PT ordered. We will assess PT evaluation over weekend and develop a discharge plan by Sunday. labs stable, defer checks to card/weekend provider 04/11 good, but pending ICD placement Diagnosis syncope HFrEF, on history of meth abuse orthostasis rule out bradycardia, r/o ?symptomatic BPH History of methamphetamine abuse Current use THC cannabis DM HTN Hx OR hx? Afib? schizophrenia plan: cards PT eval, orthostatics, med rec. tele, Stress test echo. ivf and diet. lovenox SQ daily dvt px tele full code Plan discussed with: Patient Date of Service: Apr 11, 2025 Billing Provider: MITCHELL ESPINOZA MD Common Visit Codes: [id number] INP/OBS CARE(HIGH) MITCHELL ESPINOZA MD Apr 11, 2025 19:09
[2025-04-12] VITALS (8 sets, daily range): BP systolic 95–108; BP diastolic 51–67; PULSE 52–60; RESP 16–20; TEMP 97.6–97.9; O2SAT 95–100
[2025-04-12 07:43] LABS: Hematocrit 41.5 % (41.0-53.0); Hemoglobin 14.3 g/dL (13.5-17.5); Mean Corpuscular Hemoglobin 32.6 pg (28.0-32.0); Mean Corpuscular Volume 94.3 fL (80.0-100.0); Nucleated Red Blood Cells % 0.0 %
[2025-04-12 08:05] LABS: Calcium 9.1 mg/dL (8.7-10.4); Chloride 103 mmol/L (98-107); Potassium 4.3 mmol/L (3.5-5.1); Sodium 140 mmol/L (136-145)
[2025-04-12 08:06] LABS: Anion Gap 9 (5-15); Carbon Dioxide 28 mmol/L (20-31)
[2025-04-12 08:11] LABS: BUN/Creatinine Ratio 13.6 (10.0-20.0); Blood Urea Nitrogen 11 mg/dL (9-23)
[2025-04-12 08:13] LABS: Glucose 154 mg/dL (74-106)
--- NOTE | 2025-04-12 14:57 | DVHPN2 ---
Subjective pending ICD tomorrow, hold lovenox, moving to comode Reviewed: Care Plan Changes from previous H/P or p: No Changes General: Per HPI Objective Vitals Vital Signs Date Time Temp Pulse Resp B/P (MAP) Pulse Ox O2 Delivery O2 Flow Rate FiO2 04/12/25 13:13 97.9 54 20 103/64 (77) 100 97.9 04/12/25 08:00 Room Air* 0 21 Intake/Output Intake and Output 04/12/25 07:00 Intake Total 3280 ml Output Total 901 ml Balance 2379 ml Intake Oral 3280 ml Output Urine Total 900 ml Stool Total 1 ml # Voids 7 # Bowel Movements 3 Medications Current Medications Medications Dose Ordered Sig/Suma Route Start Time Stop Time Status Last Admin Dose Admin Gabapentin 300 mg BID PO 04/06/25 10:00 04/12/25 10:26 300 MG Divalproex Sodium 250 mg BID PO 04/06/25 10:00 04/12/25 10:26 250 MG Diagnostic Test (Pha) 1 strip ACHS 04/06/25 07:00 04/12/25 06:33 1 STRIP Insulin Human Regular ACHS SC 04/06/25 07:00 04/09/25 21:24 2 UNITS Dextrose 50 ml UD PRN IV 04/06/25 00:00 Ondansetron HCl 4 mg Q4HP PRN IV 04/06/25 00:00 Acetaminophen 650 mg Q6HP PRN PO 04/06/25 00:00 Enoxaparin Sodium 30 mg DAILY SC 04/08/25 10:00 04/11/25 08:50 30 MG Empaglifozin 10 mg DAILY PO 04/07/25 12:30 04/12/25 10:26 10 MG Aspirin 81 mg DAILY PO 04/09/25 10:00 04/12/25 10:26 81 MG Atorvastatin Calcium 20 mg HS PO 04/08/25 22:00 04/11/25 21:29 20 MG Laboratory Results Laboratory Tests 04/12/25 05:12 Chemistry Test 04/12/25 05:12 Calcium Level 9.1 mg/dL (8.7-10.4) Urinalysis Test 04/07/25 21:53 Urine Color Colorless (Yellow) Urine Clarity Clear (Clear) Urine pH 7.5 (5.0-9.0) Urine Specific [place] 1.010 (1.001-1.035) Urine Protein Negative (Negative) Urine Ketones Negative (Negative) Urine Blood Negative /uL (Negative) Urine Nitrite Negative (Negative) Urine Bilirubin Negative (Negative) Urine Urobilinogen Normal mg/dL (Negative) Urine Leukocyte Esterase Negative /uL (Negative) Urine RBC 1 /hpf (0 - 3) Urine Microscopic WBC < 1 /HPF (0-3) Urine Squamous Epithelial Cells None seen /hpf (<5) Urine Bacteria None seen /hpf (None Seen) Urine Glucose 4+ mg/dL (Normal) H Microbiology Microbiology Date/Time Source Procedure Growth Status 04/05/25 22:25 Blood Blood Culture - Final NO GROWTH AFTER 5 DAYS OF INCUBATION. Complete Assessment/Plan Assessment/Plan 04/06: paitnet "doesnt feel well". noting bradycardia, cards consulted ?chronotropic incompetence? will have to r/o, PT eval, orthostatics, med rec. until then tele, echo. ivf and diet. lovenox SQ daily dvt px 04/07: orthostatics neg. echo pending. card eval today. otherwise stable. tolerating diet. 04/08: Patient getting stress test today, this will test chronotropic incompetence, also patient is FF 30%, stress test will check for reversible ischemia as well. No significant findings on tele. Orthostasis negative. PT ordered. 04/09: Patient unable to do stress test yesterday due to blood pressure being low. Cardiology held Entresto and spironolactone. Only continuing Jardiance for HFrEF now. Patient will get stress test today. We will continue to keep patient on tele and follow up. Patient has history of meth use, now HFrEF, defer angiogram to Cardiology, defer AICD to Cardiology, although will likely not qualify due to drug history. 04/10: Waiting for read on Cardiolite test, deferring restarting of Aldactone Entresto to cardiology. PT ordered. We will assess PT evaluation over weekend and develop a discharge plan by Sunday. labs stable, defer checks to card/weekend provider 04/11 good, but pending ICD placement Diagnosis syncope HFrEF, on history of meth abuse orthostasis rule out bradycardia, r/o ?symptomatic BPH History of methamphetamine abuse Current use THC cannabis DM HTN Hx VA hx? Afib? schizophrenia plan: cards PT eval, orthostatics, med rec. tele, Stress test echo. ivf and diet. lovenox SQ daily dvt px tele full code Plan discussed with: Patient Date of Service: Apr 12, 2025 Billing Provider: MITCHELL ESPINOZA MD Common Visit Codes: [id number] INP/OBS CARE(HIGH) MITCHELL ESPINOZA MD Apr 12, 2025 14:57
[2025-04-13] VITALS (7 sets, daily range): BP systolic 93–109; BP diastolic 51–75; PULSE 16–65; RESP 16–18; TEMP 97.9–98.8; O2SAT 94–99
[2025-04-13 06:23] LABS: Urine Protein, UAD Negative (Negative)
--- NOTE | 2025-04-13 06:36 | DVH ---
CHEST RADIOGRAPH Indication: Procedure Technique: Single frontal view of the chest was obtained Comparison: XY CHEST XRAY 1 VIEW on DOS: 04/05/25 FINDINGS: Lines and Tubes: None Lungs: No focal consolidation. Pleura: No effusion. There is a right apical lucency suspicious for pneumothorax. Cardiomediastinal contours: Unremarkable Bones: No acute osseous abnormality. IMPRESSION: 1. Findings suspicious for right apical pneumothorax.
[2025-04-13 07:18] LABS: Hematocrit 42.6 % (41.0-53.0); Hemoglobin 14.6 g/dL (13.5-17.5); Mean Corpuscular Hemoglobin 32.3 pg (28.0-32.0); Mean Corpuscular Volume 94.5 fL (80.0-100.0); Nucleated Red Blood Cells % 0.0 %
[2025-04-13 07:19] LABS: Albumin 4.0 g/dL (3.2-4.8); Alkaline Phosphatase 67 U/L (46-116); Anion Gap 6 (5-15); BUN/Creatinine Ratio 12.5 (10.0-20.0); Bilirubin, Total 0.5 mg/dL (0.2-1.0); Blood Urea Nitrogen 10 mg/dL (9-23); Calcium 8.9 mg/dL (8.7-10.4); Carbon Dioxide 31 mmol/L (20-31); Chloride 104 mmol/L (98-107); Glucose 85 mg/dL (74-106); Potassium 4.4 mmol/L (3.5-5.1); Sodium 141 mmol/L (136-145); Total Protein 6.8 g/dL (5.7-8.2)
[2025-04-13 07:23] LABS: INR 1.03 (0.9-1.15); Partial Thromboplastin Time 31.0 SEC (24.5-34.5); Prothrombin Time 10.9 sec (9.3-11.8)
[2025-04-13 07:28] LABS: Alanine Aminotransferase 9 U/L (7-40)
--- NOTE | 2025-04-13 08:15 | ECG ---
[facility] Test Date: 2025-04-13 Test Time: 06:28:25 Pat Name: YONATHAN SANDY Department: Room: 0278T B Gender: M Costume Designer: [place] : 1955 Requested By: HEBER ROCKWELL Order Number: [id number] Reading MD: Chance Jose Measurements Intervals [place] Rate: 44 P: 87 SD: 178 QRS: 261 QRSD: 145 T: 81 QT: 520 QTc: 445 Interpretive Statements Sinus bradycardia Nonspecific IVCD with LAD Electronically Signed On 04-13-2025 10:13:58 PDT by Chance Jose Please click the below link to view image of tracing.
--- NOTE | 2025-04-13 10:46 | DVHPN2 ---
Subjective patint doing well. no further dizziness or falls. endorses "doesnt feel well Reviewed: Care Plan Changes from previous H/P or p: No Changes General: Per HPI Objective Vitals Vital Signs Date Time Temp Pulse Resp B/P (MAP) Pulse Ox O2 Delivery O2 Flow Rate FiO2 04/13/25 08:38 98.8 52 16 93/51 (65) 97 98.8 04/13/25 08:00 Room Air* 0 21 Intake/Output Intake and Output 04/13/25 07:00 Intake Total 1250 ml Output Total 357 ml Balance 893 ml Intake Oral 1250 ml Output Urine Total 355 ml Stool Total 2 ml # Voids 7 # Bowel Movements 3 Exam GEN: Healthy appearing, well-developed, NAD. HEENT: NC/AT; MMM. CV: RRR, no m/r/g. LUNGS: CTAB, no w/r/c. ABD: Soft, NT/ND, NBS, no masses or organomegaly. EXT: skin Warm, well perfused. no rashes. No clubbing, cyanosis, or edema. NEURO: Ambulating with no limitations. No focal deficits. Medications Current Medications Medications Dose Ordered Sig/Suma Route Start Time Stop Time Status Last Admin Dose Admin Gabapentin 300 mg BID PO 04/06/25 10:00 04/13/25 09:05 300 MG Divalproex Sodium 250 mg BID PO 04/06/25 10:00 04/13/25 09:05 250 MG Diagnostic Test (Pha) 1 strip ACHS 04/06/25 07:00 04/13/25 07:03 1 STRIP Insulin Human Regular ACHS SC 04/06/25 07:00 04/09/25 21:24 2 UNITS Dextrose 50 ml UD PRN IV 04/06/25 00:00 Ondansetron HCl 4 mg Q4HP PRN IV 04/06/25 00:00 Acetaminophen 650 mg Q6HP PRN PO 04/06/25 00:00 Enoxaparin Sodium 30 mg DAILY SC 04/08/25 10:00 04/11/25 08:50 30 MG Empaglifozin 10 mg DAILY PO 04/07/25 12:30 04/13/25 09:05 10 MG Aspirin 81 mg DAILY PO 04/09/25 10:00 04/12/25 10:26 81 MG Atorvastatin Calcium 20 mg HS PO 04/08/25 22:00 04/12/25 20:59 20 MG Laboratory Results Laboratory Tests 04/13/25 06:00 Chemistry Test 04/13/25 06:00 Albumin 4.0 g/dL (3.2-4.8) Calcium Level 8.9 mg/dL (8.7-10.4) Total Protein 6.8 g/dL (5.7-8.2) Coagulation Test 04/13/25 06:00 Prothrombin Time 10.9 sec (9.3-11.8) Prothrombin Time INR 1.03 (0.9-1.15) Activated Partial Thromboplast Time 31.0 SEC (24.5-34.5) LFT Test 04/13/25 06:00 Alanine Aminotransferase (ALT) 9 U/L (7-40) Alkaline Phosphatase 67 U/L (46-116) Aspartate Amino Transferase (AST) 13 U/L (13-40) Total Bilirubin 0.5 mg/dL (0.2-1.0) Urinalysis Test 04/13/25 05:00 Urine Color Light-yellow (Yellow) Urine Clarity Clear (Clear) Urine pH 6.0 (5.0-9.0) Urine Specific [place] 1.017 (1.001-1.035) Urine Protein Negative (Negative) Urine Ketones Negative (Negative) Urine Blood Negative /uL (Negative) Urine Nitrite Negative (Negative) Urine Bilirubin Negative (Negative) Urine Urobilinogen Normal mg/dL (Negative) Urine Leukocyte Esterase Negative /uL (Negative) Urine RBC None seen /hpf (0 - 3) Urine Microscopic WBC < 1 /HPF (0-3) Urine Squamous Epithelial Cells None seen /hpf (<5) Urine Bacteria None seen /hpf (None Seen) Urine Glucose 4+ mg/dL (Normal) H Microbiology Microbiology Date/Time Source Procedure Growth Status 04/05/25 22:25 Blood Blood Culture - Final NO GROWTH AFTER 5 DAYS OF INCUBATION. Complete Labs and/or images reviewed: Labs reviewed by me, Image(s) reviewed by me Assessment/Plan Assessment/Plan 04/06: paitnet "doesnt feel well". noting bradycardia, cards consulted ?chronotropic incompetence? will have to r/o, PT eval, orthostatics, med rec. until then tele, echo. ivf and diet. lovenox SQ daily dvt px 04/07: orthostatics neg. echo pending. card eval today. otherwise stable. tolerating diet. 04/08: Patient getting stress test today, this will test chronotropic incompetence, also patient is FF 30%, stress test will check for reversible ischemia as well. No significant findings on tele. Orthostasis negative. PT ordered. 04/09: Patient unable to do stress test yesterday due to blood pressure being low. Cardiology held Entresto and spironolactone. Only continuing Jardiance for HFrEF now. Patient will get stress test today. We will continue to keep patient on tele and follow up. Patient has history of meth use, now HFrEF, defer angiogram to Cardiology, defer AICD to Cardiology, although will likely not qualify due to drug history. 04/10: Waiting for read on Cardiolite test, deferring restarting of Aldactone Entresto to cardiology. PT ordered. We will assess PT evaluation over weekend and develop a discharge plan by Sunday. labs stable, defer checks to card/weekend provider 04/11-04/12 - weekend, didnt work with PT, card wants ICD 04/13 - will f/u with cards, unclear when ICD will be done yet. patient npo mn from last night. no rehab potential, wc bound. Diagnosis syncope HFrEF, on history of meth abuse orthostasis rule out bradycardia, r/o ?symptomatic BPH History of methamphetamine abuse Current use THC cannabis DM HTN Hx NV hx? Afib? schizophrenia plan: cards PT eval, orthostatics neg med rec neg tele, Stress test done echo done ivf and diet. lovenox SQ daily dvt px tele full code Plan discussed with: Patient My Orders Orders - HEBER RAMIREZ MD Procedure Category Date Status Time Electrocardigram EKG 04/12/25 Resulted 22:52 Chest Xray 1 View XY 04/13/25 Resulted 08:00 Date of Service: Apr 13, 2025 Billing Provider: HEBER RAMIREZ MD Common Visit Codes: [id number] INP/OBS CARE(HIGH) HEBER RAMIREZ MD Apr 13, 2025 10:45
--- NOTE | 2025-04-13 14:04 | DVHPNRES ---
Progress Note Date Seen: Apr 13, 2025 Resident Creating Document: CARLA RICE RESIDENT Has the PT tested + for MRSA If YES, has PT been informed?: No Medical Necessity Reason Pt with a Central, PICC or Fol: No Subjective Review of Systems TODAY, HE REPORTS NO CHEST PAIN, PALPITATION OR DYSPNEA. HE CONTINUES TO EXPERIENCE INTERMITTENT DIZZINESS, PARTICULARLY WITH POSITIONAL CHANGES. HE IS BREATHING COMFORTABLY ON ROOM AIR. NO ORTHOPNEA, PND OR LEG SWELLING REPORTED. Telemetry-sinus bradycardia with heart rate in 48 to 60s beats per minute, occasional PACs, PVCs. BP stable but on the lower side, fluctuating 90s to 100 systolic while supine. He EKGs sinus bradycardia EP consult placed for ICD implantation evaluation, meets criteria. Chest x-ray reveals right apical pneumothorax, patient remained stable on room air, no respiratory distress. Objective vital signs Vital Sign Date Time Temp Pulse Resp B/P (MAP) Pulse Ox O2 Delivery O2 Flow Rate FiO2 04/13/25 13:26 98.7 52 16 109/75 (86) 98 98.7 04/13/25 08:00 Room Air* 0 21 Total Intake and Output 04/12/25 04/12/25 04/13/25 15:00 23:00 07:00 Intake Total 1020 ml 230 ml Output Total 357 ml Balance 663 ml 230 ml medications Current Medications Medications Dose Ordered Sig/Suma Route Start Time Stop Time Status Last Admin Dose Admin Gabapentin 300 mg BID PO 04/06/25 10:00 04/13/25 09:05 300 MG Divalproex Sodium 250 mg BID PO 04/06/25 10:00 04/13/25 09:05 250 MG Diagnostic Test (Pha) 1 strip ACHS 04/06/25 07:00 04/13/25 11:30 1 STRIP Insulin Human Regular ACHS SC 04/06/25 07:00 04/09/25 21:24 2 UNITS Dextrose 50 ml UD PRN IV 04/06/25 00:00 Ondansetron HCl 4 mg Q4HP PRN IV 04/06/25 00:00 Acetaminophen 650 mg Q6HP PRN PO 04/06/25 00:00 Enoxaparin Sodium 30 mg DAILY SC 04/08/25 10:00 04/11/25 08:50 30 MG Empaglifozin 10 mg DAILY PO 04/07/25 12:30 04/13/25 09:05 10 MG Aspirin 81 mg DAILY PO 04/09/25 10:00 04/12/25 10:26 81 MG Atorvastatin Calcium 20 mg HS PO 04/08/25 22:00 04/12/25 20:59 20 MG Examination General: Alert, oriented, no acute distress. * Cardiac: Bradycardic, regular rhythm. No murmurs, rubs, or gallops. No JVD. * Respiratory: Lungs clear bilaterally, no crackles/wheezes. * Abdomen: Soft, nontender, no hepatomegaly. * Extremities: No pedal edema, pulses 2+. * Neuro: Nonfocal, grossly intact. laboratory and microbiology Laboratory Tests 04/13/25 06:00 Test 04/13/25 06:00 Range/Units Serum Glucose 85 74-106 mg/dL Microbiology Date/Time Source Procedure Growth Status 04/05/25 22:25 Blood Blood Culture - Final NO GROWTH AFTER 5 DAYS OF INCUBATION. Complete Problem List/Assessment/Plan Problem List/Assessment/Plan Assessment 1. Symptomatic Sinus Bradycardia with Syncope * Persistent bradycardia (HR 30s50s) with syncopal episode. * EKG: Sinus bradycardia, nonspecific IVCD. * Possible contribution from alcohol/marijuana, but underlying conduction disease and chronotropic incompetence likely. 2. Dilated Cardiomyopathy with reduced EF of 30% probable ischemic cause * EF ~30%, global hypokinesia, LAE, LVH, diminished RV function. * Prior CAD with PCI. Planned coronary angiography for ischemic evaluation. 3. Coronary Artery Disease * Prior PCI (). * Troponin flat, no evidence of ACS currently. 4. Hypertension / Dyslipidemia / Diabetes Mellitus Type 2 * Chronic comorbidities, stable. 5. Psychiatric Comorbidities * Schizophrenia, depression, bipolar disorder. On multiple psychotropics that may contribute to autonomic side effects. Plan/Recommendation Cardiac: Meets criteria for ICD placement Cardiomyopathy with ejection fraction of less than equal to 35% Symptomatic NYHA class 2-3 equivalent EP consultation with Dr. matthew was replaced for ICD evaluation and placement. * Admit to telemetry monitoring. Persistent sinus bradycardia with heart rate between 38-50 to 62 with a dizziness on standing * Orthostatic vitals negative for hypotension, but dizziness present possible chronotropic incompetence. * Keep transcutaneous pacing pads at bedside. * If recurrent symptomatic bradycardia (HR <40) persists despite reversible cause correction electrophysiology consult for permanent pacemaker evaluation. * Hold AV yvette blocking agents. Dilated Cardiomyopathy with reduced EF of 30% probable ischemic cause * (GDMT) optimization limited by hypotension. Discontinue Entresto and spironolactone for now. * Continue statin, aspirin , SGLT2 inhibitor monitor BP. * Hold beta-sandra until bradycardia resolves or PPM considered. * Strict I/Os, daily weights, low sodium diet. Ischemic Disease / CAD: Stress test scheduled tomorrow to evaluate for ischemia and chronotropic response pharmacological stress test * Troponin flat no evidence of ACS. * Continue statin therapy. * Antiplatelet therapy: aspirin unless contraindicated. Diabetes: * Hold metformin post-contrast. * SSI protocol. Psych: * Psychiatry consult to review psychotropic regimen (valproate, sertraline, aripiprazole, prazosin, gabapentin) for cardiac side effects. Prophylaxis: * DVT prophylaxis with SQ heparin. * GI prophylaxis with pantoprazole. Plan discussed with: Patient Plan discussed with: Patient Dietary Evaluation Review Comments: Nutrition Recommendation 1) CCHO 75gm + cardiac diet 2) Refer [employer] for diabetes education 3) Monitor PO intake, lab values, weight trend, and I/O Expected Outcomes/Goals: To meet >75% estimated needs Fu 3-5 days Visit Coding Cardiology RES Date of Service: Apr 13, 2025 Billing Provider: JAYNE SAVAGE Sr., MD Cardiology Common Codes: [id number] HOSP CARE(CARLA Dixon RESIDENT Apr 13, 2025 14:04
--- NOTE | 2025-04-13 19:21 | DVHINCON2 ---
Date of service: Apr 13, 2025 Reason for Consultation Evaluation for Potential AICD Implantation History of Present Illness This is a 69-year old male who initially presented 04/05/2025 with reported syncope following alcohol consumption and use of marijuana. Patient himself reports just prior to the event he had experienced an onset of dizziness/weakness. Due to the above, EMS was called, and patient was later transported to ED for further medical evaluation/management. Throughout course of present admission, patient has been found to have evidence for persistent s inus bradycardia with lowest documented heart rates notably observed within the 30's as confirmed by rhythm strip/EKG tracings which bradycardia itself has been assessed to corroborate with transient episodes of hemodynamic instability provoking hypotension with reports of ongoing dizziness/weakness. Serial high sensitive troponin levels have been found negative (11, 11, 10). Electrolytes (magnesium/potassium) have been found within normal range. TSH level was found normal at 1.32. UDS revealed presence of THC. CT of the Brain revealed no evidence for acute intracranial abnormalities. Subsequent bilateral carotid duplex revealed no evidence for obstructive disease. Echocardiogram 04/06/2025 was performed and had revealed a reduced LVEF of 30% with no evidence for significant valvular abnormalities. Subsequent Cardiolite Stress Test 04/08/2025 had reported negative for ischemia, LVEF of 33%, moderate LV dysfunction, LV dilation, with a fixed defect involving the inferior wall. 12-lead electrocardiogram had revealed sinus bradycardia at 39bpm, non-specific intraventricular conduction delay with a QRS of 147 milliseconds. Of note, chart mentions previous history of atrial fibrillation however there has been no objective evidence (rhythm strips/EKG tracings) to date confirming its diagnosis. Patient himself denies any previous history of atrial fibrillation and furthermore denies use of anti-coagulation therapy on an outpatient basis. Denies use of AV yvette blocking agents. As the patient presented and was found to have evidence for symptomatic bradycardia in addition to a reduced LV function of 30% with no evidence for reversible ischemia by Cardiolite Stress Test findings, Electrophysiology services were involving by Interventional Cardiology request for to evaluate patient candidacy for potential AICD implantation. Reported past medical history includes coronary artery disease s/p previous PCI (), hypertension, hyperlipidemia, diabetes mellitus II, bipolar disorder, schizophrenia, depression, osteoarthritis, and status post previous left hip and left knee surgery Cardiolite Stress Test: (04/08/2025) Nuclear Conclusion. Nuclear Findings: negative for ischemia. lvef 33%. moderate LV dysfunction. dilated LV. inferior wall fixed defect. no major ischemia. ecg shows SR, PACs and PVCs Echocardiogram: ([facility] 04/06/2025) Technically difficult study. Off axis views. Sinus bradycardia. There appears to be left atrial enlargement with concentric LVH. Valves appear to be structurally normal from the views obtained. Left ventricular systolic performance is diminished. EF is approximately 30% with global hypokinesis. Right ventricular function is diminished as well. Mild mitral insufficiency. Past Medical History Reviewed Past Surgical History Reviewed Family History: Diabetes mellitus G8 MOTHER, FH: bipolar disorder G8 FATHER, FH: cancer G8 FATHER, Allergies: Coded Allergies: Haloperidol (Verified Allergy, Unknown, 05/22/24) Penicillins (Verified Allergy, Unknown, 05/22/24) Quetiapine (Verified Allergy, Unknown, 05/22/24) Home Meds Active Scripts Gabapentin (Once-Daily) (Gabapentin) 300 Mg Tab, 300 MG PO BID for 20 Days, #40 TAB Prov:MANN ROBERT RESDIENT 12/03/24 Prazosin HCl (Prazosin Hydrochloride) 1 Mg Cap, 1 MG PO HS for 20 Days, #20 CAP Prov:MANN ROBERT RESDIENT 12/03/24 Pantoprazole Sodium Sesquihydr (Protonix) 40 Mg Tab, 40 MG PO DAILY for 20 Days, #20 TAB Prov:MANN ROBERT RESDIENT 12/03/24 Metformin HCl (Metformin Hydrochloride) 1,000 Mg Tab, 1000 MG PO BID for 20 Days, #40 TAB Prov:MANN ROBERT RESDIENT 12/03/24 Aripiprazole (Aripiprazole) 10 Mg Tab, 10 MG PO DAILY for 20 Days, #20 TAB Prov:MANN ROBERT RESDIENT 12/03/24 Review of Systems A 14-point review of systems is negative unless otherwise noted above Vital Signs Vital Signs Date Time Temp Pulse Resp B/P (MAP) Pulse Ox O2 Delivery O2 Flow Rate FiO2 04/13/25 16:55 98.4 60 16 104/71 (82) 94 98.4 04/13/25 08:00 Room Air* 0 21 Physical Exam Heart: S1 and S2 regular. Bradycardic Lungs: Clear to auscultation Abdomen: Benign. Extremities: Distal pulses palpable, 2+. No evidence for peripheral edema Labs/Diagnostic Data Labs Test 04/13/25 12:13 04/13/25 06:00 04/13/25 05:00 04/09/25 06:04 Range/Units POC Glucose 101 70-106 mg/dl White Blood Count 6.6 4.4-10.8 10^3/uL Red Blood Count 4.51 4.5-5.90 10^6/uL Hemoglobin 14.6 13.5-17.5 g/dL Hematocrit 42.6 41.0-53.0 % Mean Corpuscular Volume 94.5 80.0-100.0 fL Mean Corpuscular Hemoglobin 32.3 H 28.0-32.0 pg Mean Corpuscular Hemoglobin Concent 34.2 32.0-36.0 g/dL Red Cell Distribution Width 13.2 11.8-14.3 % Platelet Count 123 L 140-450 10^3/uL Mean Platelet Volume 10.3 6.9-10.8 fL Neutrophils (%) (Auto) 54.9 37.0-80.0 % Lymphocytes (%) (Auto) 35.5 10.0-50.0 % Monocytes (%) (Auto) 6.2 0.0-12.0 % Eosinophils (%) (Auto) 2.5 0.0-7.0 % Basophils (%) (Auto) 0.9 0.0-2.0 % Neutrophils # (Auto) 3.6 1.6-8.6 10 ^3/uL Lymphocytes # (Auto) 2.4 0.4-5.4 10 ^3/uL Monocytes # (Auto) 0.4 0-1.3 10 ^3/uL Eosinophils # (Auto) 0.2 0-0.8 10 ^3/uL Basophils # (Auto) 0.1 0-0.2 10 ^3/uL Nucleated Red Blood Cells 0.0 % Prothrombin Time 10.9 9.3-11.8 sec Prothrombin Time INR 1.03 0.9-1.15 Activated Partial Thromboplast Time 31.0 24.5-34.5 SEC Sodium Level 141 136-145 mmol/L Potassium Level 4.4 3.5-5.1 mmol/L Chloride Level 104 98-107 mmol/L Carbon Dioxide Level 31 20-31 mmol/L Anion Gap 6 5-15 Blood Urea Nitrogen 10 9-23 mg/dL Creatinine 0.80 0.700-1.30 mg/dL Glomerular Filtration Rate Calc 95 >90 mL/min BUN/Creatinine Ratio 12.5 10.0-20.0 Serum Glucose 85 74-106 mg/dL Calcium Level 8.9 8.7-10.4 mg/dL Total Bilirubin 0.5 0.2-1.0 mg/dL Aspartate Amino Transferase (AST) 13 13-40 U/L Alanine Aminotransferase (ALT) 9 7-40 U/L Alkaline Phosphatase 67 46-116 U/L Total Protein 6.8 5.7-8.2 g/dL Albumin 4.0 3.2-4.8 g/dL Urine Color Light-yellow Yellow Urine Clarity Clear Clear Urine pH 6.0 5.0-9.0 Urine Specific [place] 1.017 1.001-1.035 Urine Protein Negative Negative Urine Ketones Negative Negative Urine Blood Negative Negative /uL Urine Nitrite Negative Negative Urine Bilirubin Negative Negative Urine Urobilinogen Normal Negative mg/dL Urine Leukocyte Esterase Negative Negative /uL Urine RBC None seen 0 - 3 /hpf Urine Microscopic WBC < 1 0-3 /HPF Urine Squamous Epithelial Cells None seen <5 /hpf Urine Bacteria None seen None Seen /hpf Urine Glucose 4+ H Normal mg/dL B-Type Natriuretic Peptide 28.91 0-100 pg/mL Test 04/07/25 21:53 04/07/25 12:00 04/06/25 02:04 04/06/25 00:33 Range/Units Urine Opiates Screen Neg NEGATIVE Urine Fentanyl Screen Neg NEGATIVE Urine Barbiturates Screen Neg NEGATIVE Urine Phencyclidine Screen Neg NEGATIVE Urine Amphetamines Screen Neg NEGATIVE Urine Benzodiazepines Screen Neg NEGATIVE Urine Cocaine Screen Neg NEGATIVE Urine Cannabinoids Screen Pos NEGATIVE Thyroid Stimulating Hormone (TSH) 1.32 0.55-4.78 uIU/mL Troponin I High Sensitivity 10 </=54 ng/L Lactic Acid Level 2.0 0.4-2.0 mmol/L Test 04/05/25 20:42 Range/Units Magnesium Level 1.7 1.6-2.6 mg/dL Microbiology Date/Time Source Procedure Growth Status 04/05/25 22:25 Blood Blood Culture - Final NO GROWTH AFTER 5 DAYS OF INCUBATION. Complete Plan/Recommendation ASSESSMENT: This is a 69-year old male who initially presented 04/05/2025 with reported syncope following alcohol consumption and use of marijuana. Patient himself reports just prior to the event he had experienced an onset of dizziness/weakness. Due to the above, EMS was called, and patient was later transported to ED for further medical evaluation/management. Throughout course of present admission, patient has been found to have evidence for persistent sinus bradycardia with lowest documented heart rates notably observed within the 30's as confirmed by rhythm strip/EKG tracings which bradycardia itself has been assessed to corroborate with transient episodes of hemodynamic instability provoking hypotension with reports of ongoing dizziness/weakness. Serial high sensitive troponin levels have been found negative (11, 11, 10). Electrolytes (magnesium/potassium) have been found within normal range. TSH level was found normal at 1.32. UDS revealed presence of THC. CT of the Brain revealed no evidence for acute intracranial abnormalities. Subsequent bilateral carotid duplex revealed no evidence for obstructive disease. Echocardiogram 04/06/2025 was performed and had revealed a reduced LVEF of 30% with no evidence for significant valvular abnormalities. Subsequent Cardiolite Stress Test 04/08/2025 had reported negative for myocardial ischemia, LVEF of 33%, moderate LV dysfunction, LV dilation, with a fixed defect involving the inferior wall. 12- lead electrocardiogram had revealed sinus bradycardia at 39bpm, non-specific in traventricular conduction delay with a QRS of 147 milliseconds. Of note, chart mentions previous history of atrial fibrillation however there has been no objective evidence (rhythm strips/EKG tracings) to date confirming its diagnosis. Patient himself denies any previous history of atrial fibrillation and furthermore denies use of anti-coagulation therapy on an outpatient basis. Denies use of AV yvette blocking agents. As the patient presented and was found to have evidence for symptomatic bradycardia in addition to a reduced LV function of 30% with no evidence for reversible ischemia by Cardiolite Stress Test findings, Electrophysiology services were involving by Interventional Cardiology request for to evaluate patient candidacy for potential AICD implanta tion. Reported past medical history includes coronary artery disease s/p previous PCI (), hypertension, hyperlipidemia, diabetes mellitus II, bipolar disorder, schizophrenia, depression, osteoarthritis, and status post previous left hip and left knee surgery Cardiolite Stress Test: (04/08/2025) Nuclear Conclusion. Nuclear Findings: negative for ischemia. lvef 33%. moderate LV dysfunction. dilated LV. inferior wall fixed defect. no major ischemia. ecg shows SR, PACs and PVCs Echocardiogram: ([facility] 04/06/2025) Technically difficult study. Off axis views. Sinus bradycardia. There appears to be left atrial enlargement with concentric LVH. Valves appear to be structurally normal from the views obtained. Left ventricular systolic performance is diminished. EF is approximately 30% with global hypokinesis. Right ventricular function is diminished as well. Mild mitral insufficiency. Syncope, likely bradycardia mediated Symptomatic sinus bradycardia, lowest HR's within 30's Ischemic cardiomyopathy, LVEF of 30% per Echocardiogram 04/06/2025, NYHA class II Coronary artery disease, status post previous PCI () QRS greater than 120 milliseconds Primary prevention ELECTROPHYSIOLOGY SUGGESTIONS FOR MANAGEMENT: As the patient presented and was found to have evidence for symptomatic bradycardia with lowest documented heart rates notably observed within the 30's as confirmed by rhythm strip/EKG tracings in addition to a reduced LV function of 30% with no evidence for reversible myocardial ischemia by Cardiolite Stress Test findings, Electrophysiology services were involving by Interventional Cardiology request to evaluate patient candidacy for potential AICD implantation. Recognizing symptomatic nature, patient himself benefits from undergoing device implantation however as LVEF was found to be 30% with no evidence for reversible myocardial ischemia in a patient with a wide QRS > 120 milliseconds, patient benefits from undergoing biventricular AICD implantation for primary prevention against SCD and cardiac resynchronization therapy. The above mentioned was discussed at length including benefits, risks, and alternatives which patient is agreeable to the plan of care. Therefore, will plan for tentative AICD implantation this upcoming Sunday04/15/[address] Lyon. Patient to be consented and NPO status at midnight 04/15/2025. To hold all anticoagulation/anti-platelet therapy during the interim. Proceed with avoidance of AV yvette blocking agents. Proceed with use of Atropine as warranted for rate support. Remainder of cardiac management as per Interventional Cardiology services. Will proceed to follow from an EP perspective. Plan for tentative biventricular AICD implantation 04/15/[address] Lyon Patient to be consented and NPO status at midnight 04/15/2025 for tentative procedure To hold all anticoagulation/anti-platelet therapy for tentative procedure To proceed with use of Atropine as warranted for rate support Proceed with avoidance of AV yvette blocking agents Will proceed to follow from an EP perspective GDMT for systolic heart failure as concurrent conditions permit Proceed with close rate and rhythm surveillance Proceed with close hemodynamic surveillance Proceed with optimized blood pressure control Transfuse to sustain HGB level above 7.0 Sustain Magnesium level greater than 2.0 Sustain Potassium level greater than 4.0 Follow up renal function and electrolytes Management in telemetry Follow up chain sales consultant recommendations Will proceed to follow from an EP perspective Further recommendations per clinical progression All available diagnostic labs, EKG's, and images were personally reviewed Patient's status, findings, and plan of care was reviewed and discussed with supervising physician Dr. Lyon, who is in agreement with current plan of care. Plan of care discussed with and agreed upon by patient / primary RN Prognosis: Guarded Thank you for allowing me to participate in the care of this patient. Further recommendations based on patients clinical course and progression, primary attending, and other consultants. Will continue to follow with primary attending. If you have any questions or concerns, please do not hesitate to contact me. A total of 75 minutes was spent reviewing the patient record, examining the patient, making a diagnostic and therapeutic plan, discussing this plan with medical personnel, following up on diagnostic studies and following the patient for clinical stability excluding any and all procedures. At least 50% of this time was spent in direct, [id number] contact. Plan discussed with: Patient (patient and primary RN ) NETTIE ECHEVARRIA Apr 13, 2025 19:21
[2025-04-14] VITALS (10 sets, daily range): BP systolic 96–110; BP diastolic 42–73; PULSE 46–100; RESP 16–20; TEMP 97.9–98.6; O2SAT 97–100
--- NOTE | 2025-04-14 06:48 | DVHPN2 ---
Progress Note - Dictate Date Seen: Apr 14, 2025 Has the PT tested + for MRSA If YES, has PT been informed?: No Medical Necessity Reason Pt with a Central, PICC or Fol: No vital signs Vital Sign Date Time Temp Pulse Resp B/P (MAP) Pulse Ox O2 Delivery O2 Flow Rate FiO2 04/14/25 05:00 98.1 100 18 110/64 (79) 97 98.1 04/13/25 20:00 Room Air* 0 21 Total Intake and Output 04/13/25 04/13/25 04/14/25 14:59 22:59 06:59 Intake Total 500 ml 300 ml Balance 500 ml 300 ml medications Current Medications Medications Dose Ordered Sig/Suma Route Start Time Stop Time Status Last Admin Dose Admin Gabapentin 300 mg BID PO 04/06/25 10:00 04/13/25 21:34 300 MG Divalproex Sodium 250 mg BID PO 04/06/25 10:00 04/13/25 21:34 250 MG Diagnostic Test (Pha) 1 strip ACHS 04/06/25 07:00 04/14/25 05:33 1 STRIP Insulin Human Regular ACHS SC 04/06/25 07:00 04/13/25 21:35 2 UNITS Dextrose 50 ml UD PRN IV 04/06/25 00:00 Ondansetron HCl 4 mg Q4HP PRN IV 04/06/25 00:00 Acetaminophen 650 mg Q6HP PRN PO 04/06/25 00:00 Enoxaparin Sodium 30 mg DAILY SC 04/08/25 10:00 04/11/25 08:50 30 MG Empaglifozin 10 mg DAILY PO 04/07/25 12:30 04/13/25 09:05 10 MG Aspirin 81 mg DAILY PO 04/09/25 10:00 04/12/25 10:26 81 MG Atorvastatin Calcium 20 mg HS PO 04/08/25 22:00 04/13/25 21:34 20 MG laboratory and microbiology Laboratory Tests 04/13/25 06:00 Test 04/13/25 06:00 Range/Units Serum Glucose 85 74-106 mg/dL Assessment/Plan ASSESSMENT: This is a 69-year old male who initially presented 04/05/2025 with reported syncope following alcohol consumption and use of marijuana. Patient himself reports just prior to the event he had experienced an onset of dizziness/weakness. Due to the above, EMS was called, and patient was later transported to ED for further medical evaluation/management. Throughout course of present admission, patient has been found to have evidence for persistent sinus bradycardia with lowest documented heart rates notably observed within the 30's as confirmed by rhythm strip/EKG tracings which bradycardia itself has been assessed to corroborate with transient episodes of hemodynamic instability provoking hypotension with reports of ongoing dizziness/weakness. Serial high sensitive troponin levels have been found negative (11, 11, 10). Electrolytes (magnesium/potassium) have been found within normal range. TSH level was found normal at 1.32. UDS revealed presence of THC. CT of the Brain revealed no evidence for acute intracranial abnormalities. Subsequent bilateral carotid duplex revealed no evidence for obstructive disease. Echocardiogram 04/06/2025 was performed and had revealed a reduced LVEF of 30% with no evidence for significant valvular abnormalities. Subsequent Cardiolite Stress Test 04/08/2025 had reported negative for myocardial ischemia, LVEF of 33%, moderate LV dysfunction, LV dilation, with a fixed defect involving the inferior wall. 12- lead electrocardiogram had revealed sinus bradycardia at 39bpm, non-specific intraventricular conduction delay with a QRS of 147 milliseconds. Of note, chart mentions previous history of atrial fibrillation however there has been no objective evidence (rhythm strips/EKG tracings) to date confirming its diagnosis. Patient himself denies any previous history of atrial fibrillation and furthermore denies use of anti-coagulation therapy on an outpatient basis. Denies use of AV yvette blocking agents. As the patient presented and was found to have evidence for symptomatic bradycardia in addition to a reduced LV function of 30% with no evidence for reversible ischemia by Cardiolite Stress Test findings, Electrophysiology services were involving by Interventional Cardiology request for to evaluate patient candidacy for potential AICD implantation. Reported past medical history includes coronary artery disease s/p previous PCI (), hypertension, hyperlipidemia, diabetes mellitus II, bipolar disorder, schizophrenia, depression, osteoarthritis, and status post previous left hip and left knee surgery Cardiolite Stress Test: (04/08/2025) Nuclear Conclusion. Nuclear Findings: negative for ischemia. lvef 33%. moderate LV dysfunction. dilated LV. inferior wall fixed defect. no major ischemia. ecg shows SR, PACs and PVCs Echocardiogram: ([facility] 04/06/2025) Technically difficult study. Off axis views. Sinus bradycardia. There appears to be left atrial enlargement with concentric LVH. Valves appear to be structurally normal from the views obtained. Left ventricular systolic performance is diminished. EF is approximately 30% with global hypokinesis. Right ventricular function is diminished as well. Mild mitral insufficiency. Syncope, likely bradycardia mediated Symptomatic sinus bradycardia, lowest HR's within 30's Ischemic cardiomyopathy, LVEF of 30% per Echocardiogram 04/06/2025, NYHA class II Coronary artery disease, status post previous PCI () QRS greater than 120 milliseconds Primary prevention ELECTROPHYSIOLOGY SUGGESTIONS FOR MANAGEMENT: As the patient presented and was found to have evidence for symptomatic bradycardia with lowest documented heart rates notably observed within the 30's as confirmed by rhythm strip/EKG tracings in addition to a reduced LV function of 30% with no evidence for reversible myocardial ischemia by Cardiolite Stress Test findings, Electrophysiology services were involving by Interventional Cardiology request to evaluate patient candidacy for potential AICD implantation. Recognizing symptomatic nature, patient himself benefits from undergoing device implantation however as LVEF was found to be 30% with no evidence for reversible myocardial ischemia in a patient with a wide QRS > 120 milliseconds, patient benefits from undergoing biventricular AICD implantation for primary prevention against SCD and cardiac resynchronization therapy. The above mentioned was discussed at length including benefits, risks, and alternatives which patient is agreeable to the plan of care. Therefore, will plan for tentative AICD implantation this upcoming Sunday04/15/[address] Lyon. Patient to be consented and NPO status at midnight 04/15/2025. To hold all anticoagulation/anti-platelet therapy during the interim. Proceed with avoidance of AV yvette blocking agents. Proceed with use of Atropine as warranted for rate support. Remainder of cardiac management as per Interventional Cardiology services. Will proceed to follow from an EP perspective. Plan for tentative biventricular AICD implantation 04/15/[address] Lyon Patient to be consented and NPO status at midnight 04/15/2025 for tentative procedure To hold all anticoagulation/anti-platelet therapy for tentative procedure To proceed with use of Atropine as warranted for rate support Proceed with avoidance of AV yvette blocking agents Will proceed to follow from an EP perspective GDMT for systolic heart failure as concurrent conditions permit Proceed with close rate and rhythm surveillance Proceed with close hemodynamic surveillance Proceed with optimized blood pressure control Transfuse to sustain HGB level above 7.0 Sustain Magnesium level greater than 2.0 Sustain Potassium level greater than 4.0 Follow up renal function and electrolytes Management in telemetry Follow up cardiology consultant recommendations Will proceed to follow from an EP perspective Further recommendations per clinical progression All available diagnostic labs, EKG's, and images were personally reviewed Patient's status, findings, and plan of care was reviewed and discussed with supervising physician Dr. Lyon, who is in agreement with current plan of care. Plan of care discussed with and agreed upon by patient / primary RN Prognosis: Guarded Thank you for allowing me to participate in the care of this patient. Further recommendations based on patients clinical course and progression, primary attending, and other consultants. Will continue to follow with primary attending. If you have any questions or concerns, please do not hesitate to contact me. A total of 75 minutes was spent reviewing the patient record, examining the patient, making a diagnostic and therapeutic plan, discussing this plan with medical personnel, following up on diagnostic studies and following the patient for clinical stability excluding any and all procedures. At least 50% of this time was spent in direct, [id number] contact. Plan discussed with: Patient (patient and primary RN ) Dietary Evaluation Review Comments: Nutrition Recommendation 1[facility] 2) Refer [employer] for diabetes education 3) Monitor PO intake, lab values, weight trend, and I/O Expected Outcomes/Goals: To meet >75% estimated needs Fu 3-5 days Plan discussed with: Patient (patient and primary rn ) NETTIE ECHEVARRIA Apr 14, 2025 06:48
--- NOTE | 2025-04-14 15:17 | DVHPN2 ---
Subjective patint doing well. no further dizziness or falls. endorses "doesnt feel well Reviewed: Care Plan Changes from previous H/P or p: No Changes General: Per HPI Objective Vitals Vital Signs Date Time Temp Pulse Resp B/P (MAP) Pulse Ox O2 Delivery O2 Flow Rate FiO2 04/14/25 13:25 98.6 59 16 103/42 (62) 99 98.6 04/14/25 08:05 Room Air* 0 21 Intake/Output Intake and Output 04/14/25 07:00 Intake Total 800 ml Balance 800 ml Intake Oral 800 ml # Voids 9 # Bowel Movements 3 Exam GEN: Healthy appearing, well-developed, NAD. HEENT: NC/AT; MMM. CV: RRR, no m/r/g. LUNGS: CTAB, no w/r/c. ABD: Soft, NT/ND, NBS, no masses or organomegaly. EXT: skin Warm, well perfused. no rashes. No clubbing, cyanosis, or edema. NEURO: Ambulating with no limitations. No focal deficits. Medications Current Medications Medications Dose Ordered Sig/Suma Route Start Time Stop Time Status Last Admin Dose Admin Gabapentin 300 mg BID PO 04/06/25 10:00 04/14/25 08:37 300 MG Divalproex Sodium 250 mg BID PO 04/06/25 10:00 04/14/25 08:37 250 MG Diagnostic Test (Pha) 1 strip ACHS 04/06/25 07:00 04/14/25 11:30 1 STRIP Insulin Human Regular ACHS SC 04/06/25 07:00 04/14/25 12:22 3 UNITS Dextrose 50 ml UD PRN IV 04/06/25 00:00 Ondansetron HCl 4 mg Q4HP PRN IV 04/06/25 00:00 Acetaminophen 650 mg Q6HP PRN PO 04/06/25 00:00 Enoxaparin Sodium 30 mg DAILY SC 04/08/25 10:00 04/11/25 08:50 30 MG Empaglifozin 10 mg DAILY PO 04/07/25 12:30 04/14/25 08:37 10 MG Aspirin 81 mg DAILY PO 04/09/25 10:00 04/12/25 10:26 81 MG Atorvastatin Calcium 20 mg HS PO 04/08/25 22:00 04/13/25 21:34 20 MG Laboratory Results Laboratory Tests 04/13/25 06:00 Urinalysis Test 04/13/25 05:00 Urine Color Light-yellow (Yellow) Urine Clarity Clear (Clear) Urine pH 6.0 (5.0-9.0) Urine Specific Dwight 1.017 (1.001-1.035) Urine Protein Negative (Negative) Urine Ketones Negative (Negative) Urine Blood Negative /uL (Negative) Urine Nitrite Negative (Negative) Urine Bilirubin Negative (Negative) Urine Urobilinogen Normal mg/dL (Negative) Urine Leukocyte Esterase Negative /uL (Negative) Urine RBC None seen /hpf (0 - 3) Urine Microscopic WBC < 1 /HPF (0-3) Urine Squamous Epithelial Cells None seen /hpf (<5) Urine Bacteria None seen /hpf (None Seen) Urine Glucose 4+ mg/dL (Normal) H Microbiology Microbiology Date/Time Source Procedure Growth Status 04/05/25 22:25 Blood Blood Culture - Final NO GROWTH AFTER 5 DAYS OF INCUBATION. Complete Labs and/or images reviewed: Labs reviewed by me, Image(s) reviewed by me Assessment/Plan Assessment/Plan 04/06: paitnet "doesnt feel well". noting bradycardia, cards consulted ?chronotropic incompetence? will have to r/o, PT eval, orthostatics, med rec. until then tele, echo. ivf and diet. lovenox SQ daily dvt px 04/07: orthostatics neg. echo pending. card eval today. otherwise stable. tolerating diet. 04/08: Patient getting stress test today, this will test chronotropic incompetence, also patient is FF 30%, stress test will check for reversible ischemia as well. No significant findings on tele. Orthostasis negative. PT ordered. 04/09: Patient unable to do stress test yesterday due to blood pressure being low. Cardiology held Entresto and spironolactone. Only continuing Jardiance for HFrEF now. Patient will get stress test today. We will continue to keep patient on tele and follow up. Patient has history of meth use, now HFrEF, defer angiogram to Cardiology, defer AICD to Cardiology, although will likely not qualify due to drug history. 04/10: Waiting for read on Cardiolite test, deferring restarting of Aldactone Entresto to cardiology. PT ordered. We will assess PT evaluation over weekend and develop a discharge plan by Sunday. labs stable, defer checks to card/weekend provider 04/11-04/12 - weekend, didnt work with PT, card wants ICD 04/13 - will f/u with cards, unclear when ICD will be done yet. patient npo mn from last night. no rehab potential, wc bound. 04/14- patient planned for icd tomorrow with EP physician. npo mn. otherwise stable. Diagnosis syncope HFrEF, on history of meth abuse orthostasis rule out bradycardia, r/o ?symptomatic BPH History of methamphetamine abuse Current use THC cannabis DM HTN Hx [place] hx? Afib? schizophrenia plan: cards PT eval, orthostatics neg med rec neg tele, Stress test done echo done ivf and diet. lovenox SQ daily dvt px tele full code Plan discussed with: Patient Date of Service: Apr 14, 2025 Billing Provider: HEBER RAMIREZ MD Common Visit Codes: [id number] INP/OBS CARE(HIGH) HEBER RAMIREZ MD Apr 14, 2025 15:17
--- NOTE | 2025-04-14 18:10 | DVHPNRES ---
Progress Note Date Seen: Apr 14, 2025 Resident Creating Document: CARLA RICE RESIDENT Has the PT tested + for MRSA If YES, has PT been informed?: No Medical Necessity Reason Pt with a Central, PICC or Fol: No Subjective Review of Systems TODAY, HE REPORTS NO CHEST PAIN, PALPITATION OR DYSPNEA. HE CONTINUES TO EXPERIENCE INTERMITTENT DIZZINESS, PARTICULARLY WITH POSITIONAL CHANGES. HE IS BREATHING COMFORTABLY ON ROOM AIR. NO ORTHOPNEA, PND OR LEG SWELLING REPORTED. Telemetry-sinus bradycardia with heart rate in 48 to 60s beats per minute, occasional PACs, PVCs. BP stable but on the lower side, fluctuating 90s to 100 systolic while supine. He EKGs sinus bradycardia EP consult placed for ICD implantation evaluation, meets criteria. Chest x-ray reveals right apical pneumothorax, patient remained stable on room air, no respiratory distress. Objective vital signs Vital Sign Date Time Temp Pulse Resp B/P (MAP) Pulse Ox O2 Delivery O2 Flow Rate FiO2 04/14/25 16:46 98.1 60 16 104/73 (83) 98 98.1 04/14/25 08:05 Room Air* 0 21 Total Intake and Output 04/13/25 04/13/25 04/14/25 15:00 23:00 07:00 Intake Total 500 ml 300 ml Balance 500 ml 300 ml medications Current Medications Medications Dose Ordered Sig/Suma Route Start Time Stop Time Status Last Admin Dose Admin Gabapentin 300 mg BID PO 04/06/25 10:00 04/14/25 08:37 300 MG Divalproex Sodium 250 mg BID PO 04/06/25 10:00 04/14/25 08:37 250 MG Diagnostic Test (Pha) 1 strip ACHS 04/06/25 07:00 04/14/25 17:00 1 STRIP Insulin Human Regular ACHS SC 04/06/25 07:00 04/14/25 12:22 3 UNITS Dextrose 50 ml UD PRN IV 04/06/25 00:00 Ondansetron HCl 4 mg Q4HP PRN IV 04/06/25 00:00 Acetaminophen 650 mg Q6HP PRN PO 04/06/25 00:00 Enoxaparin Sodium 30 mg DAILY SC 04/08/25 10:00 04/11/25 08:50 30 MG Empaglifozin 10 mg DAILY PO 04/07/25 12:30 04/14/25 08:37 10 MG Aspirin 81 mg DAILY PO 04/09/25 10:00 04/12/25 10:26 81 MG Atorvastatin Calcium 20 mg HS PO 04/08/25 22:00 04/13/25 21:34 20 MG Examination General: Alert, oriented, no acute distress. * Cardiac: Bradycardic, regular rhythm. No murmurs, rubs, or gallops. No JVD. * Respiratory: Lungs clear bilaterally, no crackles/wheezes. * Abdomen: Soft, nontender, no hepatomegaly. * Extremities: No pedal edema, pulses 2+. * Neuro: Nonfocal, grossly intact. laboratory and microbiology Laboratory Tests 04/13/25 06:00 Test 04/13/25 06:00 Range/Units Serum Glucose 85 74-106 mg/dL Microbiology Date/Time Source Procedure Growth Status 04/05/25 22:25 Blood Blood Culture - Final NO GROWTH AFTER 5 DAYS OF INCUBATION. Complete Problem List/Assessment/Plan Problem List/Assessment/Plan Assessment 1. Symptomatic Sinus Bradycardia with Syncope * Persistent bradycardia (HR 30s50s) with syncopal episode. * EKG: Sinus bradycardia, nonspecific IVCD. * Possible contribution from alcohol/marijuana, but underlying conduction disease and chronotropic incompetence likely. 2. Dilated Cardiomyopathy with reduced EF of 30% probable ischemic cause * EF ~30%, global hypokinesia, LAE, LVH, diminished RV function. * Prior CAD with PCI. Planned coronary angiography for ischemic evaluation. 3. Coronary Artery Disease * Prior PCI (). * Troponin flat, no evidence of ACS currently. 4. Hypertension / Dyslipidemia / Diabetes Mellitus Type 2 * Chronic comorbidities, stable. 5. Psychiatric Comorbidities * Schizophrenia, depression, bipolar disorder. On multiple psychotropics that may contribute to autonomic side effects. Plan/Recommendation Cardiac: Meets criteria for ICD placement Cardiomyopathy with ejection fraction of less than equal to 35% Symptomatic NYHA class 2-3 equivalent Patient is scheduled for ICD placement tomorrow by Dr. Lyon * Admit to telemetry monitoring. Persistent sinus bradycardia with heart rate between 38-50 to 62 with a dizziness on standing * Orthostatic vitals negative for hypotension, but dizziness present possible chronotropic incompetence. * Keep transcutaneous pacing pads at bedside. * If recurrent symptomatic bradycardia (HR <40) persists despite reversible cause correction electrophysiology consult for permanent pacemaker evaluation. * Hold AV yvette blocking agents. Dilated Cardiomyopathy with reduced EF of 30% probable ischemic cause * (GDMT) optimization limited by hypotension. Discontinue Entresto and spironolactone for now. * Continue statin, aspirin , SGLT2 inhibitor monitor BP. * Hold beta-sandra until bradycardia resolves or PPM considered. * Strict I/Os, daily weights, low sodium diet. Ischemic Disease / CAD: Stress test scheduled tomorrow to evaluate for ischemia and chronotropic response pharmacological stress test * Troponin flat no evidence of ACS. * Continue statin therapy. * Antiplatelet therapy: aspirin unless contraindicated. Diabetes: * Hold metformin post-contrast. * SSI protocol. Psych: * Psychiatry consult to review psychotropic regimen (valproate, sertraline, aripiprazole, prazosin, gabapentin) for cardiac side effects. Prophylaxis: * DVT prophylaxis with SQ heparin. * GI prophylaxis with pantoprazole. Plan discussed with: Patient Plan discussed with: Patient Dietary Evaluation Review Comments: Nutrition Recommendation 1) CCHO 75gm + cardiac diet 2) Refer Pulp Cooker for diabetes education 3) Monitor PO intake, lab values, weight trend, and I/O Expected Outcomes/Goals: To meet >75% estimated needs Fu 3-5 days Visit Coding Cardiology RES Date of Service: Apr 14, 2025 Billing Provider: JAYNE SAVAGE Sr., MD Cardiology Common Codes: [id number] INP/OBS CARE(Low), [id number] INP/OBS CARE(Mod), [id number] HOSP CARE(High CARLA RICE RESIDENT Apr 14, 2025 18:10
[2025-04-15] VITALS (11 sets, daily range): BP systolic 95–143; BP diastolic 46–90; PULSE 47–75; RESP 16–18; TEMP 97.4–98.3; O2SAT 96–98
[2025-04-15] MEDS: SODIUM CHLORIDE 0.9% 1,000 ML IV SCH ×2 (00:18→08:45)
--- NOTE | 2025-04-15 07:29 | DVHPN2 ---
Progress Note - Dictate Date Seen: Apr 15, 2025 Has the PT tested + for MRSA If YES, has PT been informed?: No Medical Necessity Reason Pt with a Central, PICC or Fol: No vital signs Vital Sign Date Time Temp Pulse Resp B/P (MAP) Pulse Ox O2 Delivery O2 Flow Rate FiO2 04/15/25 05:00 98.3 50 16 102/56 (71) 98 98.3 04/14/25 20:00 Room Air* 0 21 Total Intake and Output 04/14/25 04/14/25 04/15/25 15:00 23:00 07:00 Intake Total 1200 ml 0 ml Output Total 550 ml Balance 1200 ml -550 ml medications Current Medications Medications Dose Ordered Sig/Suma Route Start Time Stop Time Status Last Admin Dose Admin Gabapentin 300 mg BID PO 04/06/25 10:00 04/14/25 21:59 300 MG Divalproex Sodium 250 mg BID PO 04/06/25 10:00 04/14/25 21:59 250 MG Diagnostic Test (Pha) 1 strip ACHS 04/06/25 07:00 04/14/25 22:03 1 STRIP Insulin Human Regular ACHS SC 04/06/25 07:00 04/14/25 12:22 3 UNITS Dextrose 50 ml UD PRN IV 04/06/25 00:00 Ondansetron HCl 4 mg Q4HP PRN IV 04/06/25 00:00 Acetaminophen 650 mg Q6HP PRN PO 04/06/25 00:00 Enoxaparin Sodium 30 mg DAILY SC 04/08/25 10:00 04/11/25 08:50 30 MG Empaglifozin 10 mg DAILY PO 04/07/25 12:30 04/14/25 08:37 10 MG Aspirin 81 mg DAILY PO 04/09/25 10:00 04/12/25 10:26 81 MG Atorvastatin Calcium 20 mg HS PO 04/08/25 22:00 04/14/25 21:59 20 MG Sodium Chloride 1,000 ml @ 50 mls/hr Q20H IV 04/15/25 00:00 04/15/25 00:18 50 MLS/HR laboratory and microbiology Laboratory Tests 04/13/25 06:00 Test 04/13/25 06:00 Range/Units Serum Glucose 85 74-106 mg/dL Assessment/Plan ASSESSMENT: This is a 69-year old male who initially presented 04/05/2025 with reported syncope following alcohol consumption and use of marijuana. Patient himself reports just prior to the event he had experienced an onset of dizziness/weakness. Due to the above, EMS was called, and patient was later transported to ED for further medical evaluation/management. Throughout course of present admission, patient has been found to have evidence for persistent sinus bradycardia with lowest documented heart rates notably observed within the 30's as confirmed by rhythm strip/EKG tracings which bradycardia itself has been assessed to corroborate with transient episodes of hemodynamic instability provoking hypotension with reports of ongoing dizziness/weakness. Serial high sensitive troponin levels have been found negative (11, 11, 10). Electrolytes (magnesium/potassium) have been found within normal range. TSH level was found normal at 1.32. UDS revealed presence of THC. CT of the Brain revealed no evidence for acute intracranial abnormalities. Subsequent bilateral carotid duplex revealed no evidence for obstructive disease. Echocardiogram 04/06/2025 was performed and had revealed a reduced LVEF of 30% with no evidence for significant valvular abnormalities. Subsequent Cardiolite Stress Test 04/08/2025 had reported negative for myocardial ischemia, LVEF of 33%, moderate LV dysfunction, LV dilation, with a fixed defect involving the inferior wall. 12- lead electrocardiogram had revealed sinus bradycardia at 39bpm, non-specific intraventricular conduction delay with a QRS of 147 milliseconds. Of note, chart mentions previous history of atrial fibrillation however there has been no objective evidence (rhythm strips/EKG tracings) to date confirming its diagnosis. Patient himself denies any previous history of atrial fibrillation and furthermore denies use of anti-coagulation therapy on an outpatient basis. Denies use of AV yvette blocking agents. As the patient presented and was found to have evidence for symptomatic bradycardia in addition to a reduced LV function of 30% with no evidence for reversible ischemia by Cardiolite Stress Test findings, Electrophysiology services were involving by Interventional Cardiology request for to evaluate patient candidacy for potential AICD implantation. Reported past medical history includes coronary artery disease s/p previous PCI (), hypertension, hyperlipidemia, diabetes mellitus II, bipolar disorder, schizophrenia, depression, osteoarthritis, and status post previous left hip and left knee surgery Cardiolite Stress Test: (04/08/2025) Nuclear Conclusion. Nuclear Findings: negative for ischemia. lvef 33%. moderate LV dysfunction. dilated LV. inferior wall fixed defect. no major ischemia. ecg shows SR, PACs and PVCs Echocardiogram: ([facility] 04/06/2025) Technically difficult study. Off axis views. Sinus bradycardia. There appears to be left atrial enlargement with concentric LVH. Valves appear to be structurally normal from the views obtained. Left ventricular systolic performance is diminished. EF is approximately 30% with global hypokinesis. Right ventricular function is diminished as well. Mild mitral insufficiency. Syncope, likely bradycardia mediated Symptomatic sinus bradycardia, lowest HR's within 30's Ischemic cardiomyopathy, LVEF of 30% per Echocardiogram 04/06/2025, NYHA class II Coronary artery disease, status post previous PCI () QRS greater than 120 milliseconds Primary prevention ELECTROPHYSIOLOGY SUGGESTIONS FOR MANAGEMENT: As the patient presented and was found to have evidence for symptomatic bradycardia with lowest documented heart rates notably observed within the 30's as confirmed by rhythm strip/EKG tracings in addition to a reduced LV function of 30% with no evidence for reversible myocardial ischemia by Cardiolite Stress Test findings, Electrophysiology services were involving by Interventional Cardiology request to evaluate patient candidacy for potential AICD implantation. Recognizing symptomatic nature, patient himself benefits from undergoing device implantation however as LVEF was found to be 30% with no evidence for reversible myocardial ischemia in a patient with a wide QRS > 120 milliseconds, patient benefits from undergoing biventricular AICD implantation for primary prevention against SCD and cardiac resynchronization therapy. The above mentioned was discussed at length including benefits, risks, and alternatives which patient is agreeable to the plan of care. Planned for AICD implantation later today with Dr. Lyon. To proceed with NPO status. o hold all anticoagulation/anti-platelet therapy during the interim. Proceed with avoidance of AV yvette blocking agents. Proceed with use of Atropine as warranted for rate support. Remainder of cardiac management as per Interventional Cardiology services. Will proceed to follow from an EP perspective. Plan for tentative biventricular AICD implantation 04/15/[address] Lyon Patient to be consented and NPO status at midnight 04/15/2025 for tentative procedure To hold all anticoagulation/anti-platelet therapy for tentative procedure To proceed with use of Atropine as warranted for rate support Proceed with avoidance of AV yvette blocking agents Will proceed to follow from an EP perspective GDMT for systolic heart failure as concurrent conditions permit Proceed with close rate and rhythm surveillance Proceed with close hemodynamic surveillance Proceed with optimized blood pressure control Transfuse to sustain HGB level above 7.0 Sustain Magnesium level greater than 2.0 Sustain Potassium level greater than 4.0 Follow up renal function and electrolytes Management in telemetry Follow up [employer] soa consultant recommendations Will proceed to follow from an EP perspective Further recommendations per clinical progression All available diagnostic labs, EKG's, and images were personally reviewed Patient's status, findings, and plan of care was reviewed and discussed with supervising physician Dr. Lyon, who is in agreement with current plan of care. Plan of care discussed with and agreed upon by patient / primary RN Prognosis: Guarded Thank you for allowing me to participate in the care of this patient. Further recommendations based on patients clinical course and progression, primary attending, and other consultants. Will continue to follow with primary attending. If you have any questions or concerns, please do not hesitate to contact me. A total of 75 minutes was spent reviewing the patient record, examining the patient, making a diagnostic and therapeutic plan, discussing this plan with medical personnel, following up on diagnostic studies and following the patient for clinical stability excluding any and all procedures. At least 50% of this time was spent in direct, [id number] contact. Plan discussed with: Patient (patient and primary RN ) Dietary Evaluation Review Comments: Nutrition Recommendation 1) [facility] + cardiac diet 2) Refer Airport Engineer for diabetes education 3) Monitor PO intake, lab values, weight trend, and I/O Expected Outcomes/Goals: To meet >75% estimated needs Fu 3-5 days Plan discussed with: Patient (patient and primary rn ) NETTIE ECHEVARRIA Apr 15, 2025 07:29
[2025-04-15 10:34] LABS: Hematocrit 43.4 % (41.0-53.0); Hemoglobin 14.8 g/dL (13.5-17.5); Mean Corpuscular Hemoglobin 32.0 pg (28.0-32.0); Mean Corpuscular Volume 94.0 fL (80.0-100.0); Nucleated Red Blood Cells % 0.2 %
[2025-04-15 10:36] LABS: Albumin 3.9 g/dL (3.2-4.8); Alkaline Phosphatase 66 U/L (46-116); Anion Gap 7 (5-15); BUN/Creatinine Ratio 16.9 (10.0-20.0); Bilirubin, Total 0.6 mg/dL (0.2-1.0); Blood Urea Nitrogen 12 mg/dL (9-23); Calcium 9.0 mg/dL (8.7-10.4); Carbon Dioxide 31 mmol/L (20-31); Chloride 102 mmol/L (98-107); Glucose 80 mg/dL (74-106); Potassium 4.3 mmol/L (3.5-5.1); Sodium 140 mmol/L (136-145); Total Protein 6.7 g/dL (5.7-8.2)
[2025-04-15 10:38] LABS: Alanine Aminotransferase < 9 U/L (7-40); INR 1.06 (0.9-1.15); Prothrombin Time 11.2 sec (9.3-11.8)
[2025-04-15] MEDS ORDERED: fentaNYL CITRATE 100 MCG/2 ML VL ONE (10:44)
[2025-04-15] MEDS ORDERED: MIDAZOLAM HCL 2MG/2ML 2ml VIAL (1mg/ml) ONE (10:45)
[2025-04-15] MEDS ORDERED: IODIXANOL 320MG/ML 100ML BTL IV ONE (10:45)
[2025-04-15] MEDS ORDERED: LIDOCAINE 2%HCL (LOCAL ANESTH.) INJ 20ML MDV ONE (10:47)
[2025-04-15] MEDS ORDERED: VANCOMYCIN HCL 1000 MG VL ONE (10:51)
[2025-04-15] MEDS ORDERED: VANCOMYCIN 1GM/250ML KIT 250 ML IV ONE (10:52)
--- NOTE | 2025-04-15 12:26 | DVHPNRES ---
Progress Note Date Seen: Apr 15, 2025 Resident Creating Document: CARLA RICE RESIDENT Has the PT tested + for MRSA If YES, has PT been informed?: No Medical Necessity Reason Pt with a Central, PICC or Fol: No Subjective Review of Systems Today, the patient is scheduled to undergo biventricular AICD implantation with Dr. Lyon He continues to report intermittent dizziness but denies chest pain, palpitation or dyspnea. No orthopnea or PND. Telemetry-sinus rhythm with bradycardia, heart rate fluctuating 48-62 beats per minute. Blood pressure eyes at low normal systolic blood pressure fluctuating in 98-102 mmHg, DBP at 56-59 mmHg Objective vital signs Vital Sign Date Time Temp Pulse Resp B/P (MAP) Pulse Ox O2 Delivery O2 Flow Rate FiO2 04/15/25 09:00 98.3 47 18 103/55 (71) 97 98.3 04/15/25 08:00 Room Air* 0 21 Total Intake and Output 04/14/25 04/14/25 04/15/25 15:00 23:00 07:00 Intake Total 1200 ml 0 ml Output Total 550 ml Balance 1200 ml -550 ml medications Current Medications Medications Dose Ordered Sig/Suma Route Start Time Stop Time Status Last Admin Dose Admin Gabapentin 300 mg BID PO 04/06/25 10:00 04/14/25 21:59 300 MG Divalproex Sodium 250 mg BID PO 04/06/25 10:00 04/14/25 21:59 250 MG Diagnostic Test (Pha) 1 strip ACHS 04/06/25 07:00 04/14/25 22:03 1 STRIP Insulin Human Regular ACHS SC 04/06/25 07:00 04/14/25 12:22 3 UNITS Dextrose 50 ml UD PRN IV 04/06/25 00:00 Ondansetron HCl 4 mg Q4HP PRN IV 04/06/25 00:00 Acetaminophen 650 mg Q6HP PRN PO 04/06/25 00:00 Enoxaparin Sodium 30 mg DAILY SC 04/08/25 10:00 04/11/25 08:50 30 MG Empaglifozin 10 mg DAILY PO 04/07/25 12:30 04/14/25 08:37 10 MG Aspirin 81 mg DAILY PO 04/09/25 10:00 04/12/25 10:26 81 MG Atorvastatin Calcium 20 mg HS PO 04/08/25 22:00 04/14/25 21:59 20 MG Sodium Chloride 1,000 ml @ 150 mls/hr Q6H40M IV 04/15/25 08:45 04/15/25 08:45 150 MLS/HR Examination General: Alert, oriented, no acute distress. * Cardiac: Bradycardic, regular rhythm. No murmurs, rubs, or gallops. No JVD. * Respiratory: Lungs clear bilaterally, no crackles/wheezes. * Abdomen: Soft, nontender, no hepatomegaly. * Extremities: No pedal edema, pulses 2+. * Neuro: Nonfocal, grossly intact. laboratory and microbiology Laboratory Tests 04/15/25 09:30 Test 04/15/25 09:30 Range/Units Serum Glucose 80 74-106 mg/dL Microbiology Date/Time Source Procedure Growth Status 04/05/25 22:25 Blood Blood Culture - Final NO GROWTH AFTER 5 DAYS OF INCUBATION. Complete Problem List/Assessment/Plan Problem List/Assessment/Plan Assessment 1. Symptomatic Sinus Bradycardia with Syncope * Persistent bradycardia (HR 30s50s) with syncopal episode. * EKG: Sinus bradycardia, nonspecific IVCD. * Possible contribution from alcohol/marijuana, but underlying conduction disease and chronotropic incompetence likely. 2. Dilated Cardiomyopathy with reduced EF of 30% probable ischemic cause * EF ~30%, global hypokinesia, LAE, LVH, diminished RV function. * Prior CAD with PCI. Planned coronary angiography for ischemic evaluation. 3. Coronary Artery Disease * Prior PCI (). * Troponin flat, no evidence of ACS currently. 4. Hypertension / Dyslipidemia / Diabetes Mellitus Type 2 * Chronic comorbidities, stable. 5. Psychiatric Comorbidities * Schizophrenia, depression, bipolar disorder. On multiple psychotropics that may contribute to autonomic side effects. Plan/Recommendation Cardiac: Meets criteria for ICD placement Cardiomyopathy with ejection fraction of less than equal to 35% Symptomatic NYHA class 2-3 equivalent Scheduled for biventricular ICD implantation today. * Admit to telemetry monitoring. Persistent sinus bradycardia with heart rate between 38-50 to 62 with a dizziness on standing * Orthostatic vitals negative for hypotension, but dizziness present possible chronotropic incompetence. * Keep transcutaneous pacing pads at bedside. * If recurrent symptomatic bradycardia (HR <40) persists despite reversible cause correction electrophysiology consult for permanent pacemaker evaluation. * Hold AV yvette blocking agents. Dilated Cardiomyopathy with reduced EF of 30% probable ischemic cause * (GDMT) optimization limited by hypotension. Discontinue Entresto and spironolactone for now. * Continue statin, aspirin , SGLT2 inhibitor monitor BP. * Hold beta-sandra until bradycardia resolves or PPM considered. * Strict I/Os, daily weights, low sodium diet. Ischemic Disease / CAD: Stress test scheduled tomorrow to evaluate for ischemia and chronotropic response pharmacological stress test * Troponin flat no evidence of ACS. * Continue statin therapy. * Antiplatelet therapy: aspirin unless contraindicated. Diabetes: * Hold metformin post-contrast. * SSI protocol. Psych: * Psychiatry consult to review psychotropic regimen (valproate, sertraline, aripiprazole, prazosin, gabapentin) for cardiac side effects. Prophylaxis: * DVT prophylaxis with SQ heparin. * GI prophylaxis with pantoprazole. Plan discussed with: Patient Plan discussed with: Patient Dietary Evaluation Review Comments: Nutrition Recommendation 1) CCHO 75gm + cardiac diet 2) Refer Business Education Instructor for diabetes education 3) Monitor PO intake, lab values, weight trend, and I/O Expected Outcomes/Goals: To meet >75% estimated needs Fu 3-5 days Visit Coding Cardiology RES Date of Service: Apr 15, 2025 Billing Provider: JAYNE SAVAGE Sr., MD Cardiology Common Codes: [id number] [facility](CARLA Dixon RESIDENT Apr 15, 2025 12:26
--- NOTE | 2025-04-15 14:07 | DVH ---
CHEST RADIOGRAPH REASON FOR EXAM: s/p aicd implantation COMPARISON: XY CHEST XRAY 1 VIEW on DOS: 04/13/25, XY CHEST XRAY 1 VIEW on DOS: 04/05/25, XY CHEST LANIE BLE on DOS: 05/22/24 TECHNIQUE: One view of the chest is provided FINDINGS: The cardiomediastinal silhouette is within normal limits for technique. There is an AICD. T here is no pneumothorax. The lungs are hyperinflated. There is no focal airspace disease. There is no significant pleural effusion. No acute bony abnormality is identified. IMPRESSION: No radiographic evidence of acute cardiopulmonary process. No pneumothorax.
--- NOTE | 2025-04-15 14:51 | DVH ---
XY CHEST PORTABLE, HISTORY: S/P PACEMAKER COMPARISON: XY CHEST PORTABLE on DOS: 04/15/25, XY CHEST XRAY 1 VIEW on DOS: 04/13/25, XY CHEST XRAY 1 V IEW on DOS: 04/05/25 XY CHEST PORTABLE on DOS: 04/15/25, XY CHEST XRAY 1 VIEW on DOS: 04/13/25, XY CHEST XRAY 1 VIEW on DOS: 04/05/25 TECHNICAL DATA: 1 view of the chest was obtained. FINDINGS: Lines and tubes: A cardiac pacemaker is seen. Cardiomediastinal silhouette: normal Pulmonary vasculature: normal Lung expansion: normal Lung airspace: normal Lung interstitium: normal Pleura: normal Pneumothorax: no Bones: Unremarkable Other: no IMPRESSION: Stable lung aeration. No interval changes.
--- NOTE | 2025-04-15 15:30 | DVHPN2 ---
Subjective patint doing well. no further dizziness or falls. endorses "doesnt feel well Reviewed: Care Plan Changes from previous H/P or p: No Changes General: Per HPI Objective Vitals Vital Signs Date Time Temp Pulse Resp B/P (MAP) Pulse Ox O2 Delivery O2 Flow Rate FiO2 04/15/25 14:43 97.4 75 18 143/90 (107) 98 97.4 04/15/25 08:00 Room Air* 0 21 Intake/Output Intake and Output 04/15/25 07:00 Intake Total 1200 ml Output Total 550 ml Balance 650 ml Intake Oral 1200 ml Output Urine Total 550 ml # Voids 13 # Bowel Movements 4 Exam GEN: Healthy appearing, well-developed, NAD. HEENT: NC/AT; MMM. CV: RRR, no m/r/g. LUNGS: CTAB, no w/r/c. ABD: Soft, NT/ND, NBS, no masses or organomegaly. EXT: skin Warm, well perfused. no rashes. No clubbing, cyanosis, or edema. NEURO: Ambulating with no limitations. No focal deficits. Medications Current Medications Medications Dose Ordered Sig/Suma Route Start Time Stop Time Status Last Admin Dose Admin Gabapentin 300 mg BID PO 04/06/25 10:00 04/14/25 21:59 300 MG Divalproex Sodium 250 mg BID PO 04/06/25 10:00 04/14/25 21:59 250 MG Diagnostic Test (Pha) 1 strip ACHS 04/06/25 07:00 04/14/25 22:03 1 STRIP Insulin Human Regular ACHS SC 04/06/25 07:00 04/14/25 12:22 3 UNITS Dextrose 50 ml UD PRN IV 04/06/25 00:00 Ondansetron HCl 4 mg Q4HP PRN IV 04/06/25 00:00 Acetaminophen 650 mg Q6HP PRN PO 04/06/25 00:00 Enoxaparin Sodium 30 mg DAILY SC 04/08/25 10:00 04/11/25 08:50 30 MG Empaglifozin 10 mg DAILY PO 04/07/25 12:30 04/14/25 08:37 10 MG Aspirin 81 mg DAILY PO 04/09/25 10:00 04/12/25 10:26 81 MG Atorvastatin Calcium 20 mg HS PO 04/08/25 22:00 04/14/25 21:59 20 MG Sodium Chloride 1,000 ml @ 150 mls/hr Q6H40M IV 04/15/25 08:45 04/15/25 08:45 150 MLS/HR Vancomycin HCl 250 ml @ 250 mls/hr Q12H IV 04/15/25 21:00 UNV Doxycycline Monohydrate 100 mg Q12HR PO 04/16/25 10:00 Laboratory Results Laboratory Tests 04/15/25 09:30 Chemistry Test 04/15/25 09:30 Albumin 3.9 g/dL (3.2-4.8) Calcium Level 9.0 mg/dL (8.7-10.4) Total Protein 6.7 g/dL (5.7-8.2) Coagulation Test 04/15/25 09:30 Prothrombin Time 11.2 sec (9.3-11.8) Prothrombin Time INR 1.06 (0.9-1.15) LFT Test 04/15/25 09:30 Alanine Aminotransferase (ALT) < 9 U/L (7-40) Alkaline Phosphatase 66 U/L (46-116) Aspartate Amino Transferase (AST) 15 U/L (13-40) Total Bilirubin 0.6 mg/dL (0.2-1.0) Urinalysis Test 04/13/25 05:00 Urine Color Light-yellow (Yellow) Urine Clarity Clear (Clear) Urine pH 6.0 (5.0-9.0) Urine Specific Osteen 1.017 (1.001-1.035) Urine Protein Negative (Negative) Urine Ketones Negative (Negative) Urine Blood Negative /uL (Negative) Urine Nitrite Negative (Negative) Urine Bilirubin Negative (Negative) Urine Urobilinogen Normal mg/dL (Negative) Urine Leukocyte Esterase Negative /uL (Negative) Urine RBC None seen /hpf (0 - 3) Urine Microscopic WBC < 1 /HPF (0-3) Urine Squamous Epithelial Cells None seen /hpf (<5) Urine Bacteria None seen /hpf (None Seen) Urine Glucose 4+ mg/dL (Normal) H Microbiology Microbiology Date/Time Source Procedure Growth Status 04/05/25 22:25 Blood Blood Culture - Final NO GROWTH AFTER 5 DAYS OF INCUBATION. Complete Labs and/or images reviewed: Labs reviewed by me, Image(s) reviewed by me Assessment/Plan Assessment/Plan 04/06: paitnet "doesnt feel well". noting bradycardia, cards consulted ?chronotropic incompetence? will have to r/o, PT eval, orthostatics, med rec. until then tele, echo. ivf and diet. lovenox SQ daily dvt px 04/07: orthostatics neg. echo pending. card eval today. otherwise stable. tolerating diet. 04/08: Patient getting stress test today, this will test chronotropic incompetence, also patient is FF 30%, stress test will check for reversible ischemia as well. No significant findings on tele. Orthostasis negative. PT ordered. 04/09: Patient unable to do stress test yesterday due to blood pressure being low. Cardiology held Entresto and spironolactone. Only continuing Jardiance for HFrEF now. Patient will get stress test today. We will continue to keep patient on tele and follow up. Patient has history of meth use, now HFrEF, defer angiogram to Cardiology, defer AICD to Cardiology, although will likely not qualify due to drug history. 04/10: Waiting for read on Cardiolite test, deferring restarting of Aldactone Entresto to cardiology. PT ordered. We will assess PT evaluation over weekend and develop a discharge plan by Sunday. labs stable, defer checks to card/weekend provider 04/11-04/12 - weekend, didnt work with PT, card wants ICD /8 - will f/u with cards, unclear when ICD will be done yet. patient npo mn from last night. no rehab potential, wc bound. 04/14- patient planned for icd tomorrow with EP physician. npo mn. otherwise stable. 04/15 - patient taken today for biV AICD placement by EP physician. will keep overnight, L arm stablized 24hr. if cbc ok tomorrow, will get clearance by cards for likely dc tomorrow am. Diagnosis syncope due to symptomatic bradycardia and/or automotic disorder and/or ventricular arrythmia HFrEF, on history of meth abuse orthostasis ruled out bradycardia, symptomatic BPH History of methamphetamine abuse Current use THC cannabis DM HTN Hx MN hx? Afib? schizophrenia plan: cards PT eval, orthostatics neg med rec neg aicd placement - done tele, - stopped Stress test done echo done ivf and diet. lovenox SQ daily dvt px medsurg full code Plan discussed with: Patient My Orders Orders - HEBER RAMIREZ MD Procedure Category Date Status Time Discontinue Tele STEVEN 04/15/25 In Process 12:40 Transfer Orders XFER 04/15/25 Transmitted 12:40 Complete Blood Count LAB 04/16/25 Verified 04:00 Date of Service: Apr 15, 2025 Billing Provider: HEBER RAMIREZ MD Common Visit Codes: [id number] INP/OBS CARE(HIGH) HEBER RAMIREZ MD Apr 15, 2025 15:30
[2025-04-15] MEDS: HYDROcodone-ACET 5/325MG TAB PO PRN (17:16)
--- NOTE | 2025-04-15 21:03 | DVHOP2 ---
Operative Report 04/15/25 Dictated By: Girma Lyon MD INDICATIONS: 1. Symptomatic bradycardia with lowest documented heart rates within 30 Bpm 2. LV function of 30% with no evidence for reversible myocardial ischemia by Cardiolite Stress Test, 3. Ischemic cardiomyopathy with prior coronary stenting 4. Sinus rhythm, LBBB, QRS more than 120 ms, QRS 145 ms, PLAN: Proceed with implantation of BIVAICD for primary prevention of sudden cardiac d eath and resynchronization therapy PROCEDURES: 1. Right ventricular AICD lead placement [employer] MRI conditional, active fixation, 2. Implantation of Left ventricular lead implantation, passive fixation 3. Implantation of right atrial lead, active fixation 4. Implantation of the BIVAICD generator from [employer], MRI. 5. Fluoroscopy images and interpretation. 6. Interrogation and programming of the device. 7. Conscious sedation with fentanyl and Versed for one hour 8. Left subclavian venogram, three axillary accesses obtained 9. Coronary Sinus angiogram PROCEDURE IN DETAILS: 1. After obtaining informed consent with explanation of risks, benefits and alternatives, the patient agreed upon the planned procedure, implantation of BIV AICD for primary prevention of SCD due to ischemic cardiomyopathy. Patient understood and agreed to have [employer] device. Under a standard fashion, local and systemic anesthetic, conscious sedation with fentanyl and Versed, supervised by myself, Lt deltopectoral area was prepped and draped. Lt deltopectoral pocket was made, three axillary accesses were obtained 2 Through the first access, RV AICD lead was advanced into the right interventricular septum. Sensing was 12 mv with pacing threshold 0.5 v at 0.5 ms. Impedance of 649 ohms. 3. Through the second access, Left ventricle delivery system was advanced into right heart, using 0.035 inch wire, inner sheet was advanced into coronary sinus, venogram was done, the best available vein was mid lateral, LV lead was advanced over 0.014 inch into that vein. Pacing threshold a 0.9 V at 0.5 ms 4. Through the third access the atrial lead was advanced into right atrium and attached in the RA actively, sensing A is 2.8 mv, pacing threshold 0.6 v at 0.4 ms, impedance 576 ohms. 5. New BIV AICD lead from [employer] was connected to the leads. . The pocket was irrigated with antibiotic solution. Antibiotic powder was poured into the pocket. The skin was closed in 2 layers and at the end was stapled. CONCLUSION: 1. Status post successful implantation of BIV AICD, Device was programmed into DDDR lower rate of 60 bpm 2. There was no immediate complication. GIRMA LYON MD Apr 15, 2025 21:03
[2025-04-15] MEDS: ACETAMINOPHEN 325 MG TAB PO PRN (22:00)
[2025-04-15] MEDS: VANCOMYCIN 1GM/250ML KIT 250 ML IV SCH (22:01)
[2025-04-16 01:00] VITALS: BP 98/47; PULSE 67; RESP 17; TEMP 99.1; O2SAT 97
[2025-04-16] MEDS: MORPHINE SULFATE INJ 2 MG/ml SYRG IV PRN (03:20)
[2025-04-16 05:00] VITALS: BP 113/84; PULSE 58; RESP 17; TEMP 97.6; O2SAT 100
[2025-04-16 06:55] LABS: Hematocrit 39.8 % (41.0-53.0); Hemoglobin 13.7 g/dL (13.5-17.5); Mean Corpuscular Hemoglobin 32.6 pg (28.0-32.0); Mean Corpuscular Volume 94.7 fL (80.0-100.0); Nucleated Red Blood Cells % 0.1 %
--- NOTE | 2025-04-16 07:14 | ECG ---
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
--- NOTE | 2025-04-16 07:24 | DVHPN2 ---
Progress Note - Dictate Date Seen: Apr 16, 2025 Has the PT tested + for MRSA If YES, has PT been informed?: No Medical Necessity Reason Pt with a Central, PICC or Fol: No vital signs Vital Sign Date Time Temp Pulse Resp B/P (MAP) Pulse Ox O2 Delivery O2 Flow Rate FiO2 04/16/25 05:00 97.6 58 17 113/84 (94) 100 97.6 04/15/25 20:00 Room Air* 0 21 Total Intake and Output 04/15/25 04/15/25 04/16/25 15:00 23:00 07:00 Intake Total 150 ml 950 ml 650 ml Output Total 400 ml 1700 ml Balance 150 ml 550 ml -1050 ml medications Current Medications Medications Dose Ordered Sig/Suma Route Start Time Stop Time Status Last Admin Dose Admin Gabapentin 300 mg BID PO 04/06/25 10:00 04/15/25 22:00 300 MG Divalproex Sodium 250 mg BID PO 04/06/25 10:00 04/15/25 22:00 250 MG Diagnostic Test (Pha) 1 strip ACHS 04/06/25 07:00 04/16/25 06:47 1 STRIP Insulin Human Regular ACHS SC 04/06/25 07:00 04/15/25 17:00 3 UNITS Dextrose 50 ml UD PRN IV 04/06/25 00:00 Ondansetron HCl 4 mg Q4HP PRN IV 04/06/25 00:00 Acetaminophen 650 mg Q6HP PRN PO 04/06/25 00:00 04/15/25 22:00 650 MG Enoxaparin Sodium 30 mg DAILY SC 04/08/25 10:00 04/11/25 08:50 30 MG Empaglifozin 10 mg DAILY PO 04/07/25 12:30 04/14/25 08:37 10 MG Aspirin 81 mg DAILY PO 04/09/25 10:00 04/12/25 10:26 81 MG Atorvastatin Calcium 20 mg HS PO 04/08/25 22:00 04/15/25 22:00 20 MG Sodium Chloride 1,000 ml @ 150 mls/hr Q6H40M IV 04/15/25 08:45 04/16/25 03:30 150 MLS/HR Vancomycin HCl 250 ml @ 250 mls/hr Q12H IV 04/15/25 21:00 04/16/25 09:59 04/15/25 22:01 250 MLS/HR Doxycycline Monohydrate 100 mg Q12HR PO 04/16/25 10:00 Acetaminophen/ Hydrocodone Bitart 1 tab Q6HPRN PRN PO 04/15/25 16:00 04/15/25 17:16 1 TAB Morphine Sulfate 1 mg Q4HP PRN IV 04/15/25 16:00 04/16/25 03:20 1 MG laboratory and microbiology Laboratory Tests 04/15/25 09:30 Test 04/15/25 09:30 Range/Units Serum Glucose 80 74-106 mg/dL Assessment/Plan ASSESSMENT: This is a 69-year old male who initially presented 04/05/2025 with reported syncope following alcohol consumption and use of marijuana. Patient himself reports just prior to the event he had experienced an onset of dizziness/weakness. Due to the above, EMS was called, and patient was later transported to ED for further medical evaluation/management. Throughout course of present admission, patient has been found to have evidence for persistent sinus bradycardia with lowest documented heart rates notably observed within the 30's as confirmed by rhythm strip/EKG tracings which bradycardia itself has been assessed to corroborate with transient episodes of hemodynamic instability provoking hypotension with reports of ongoing dizziness/weakness. Serial high sensitive troponin levels have been found negative (11, 11, 10). Electrolytes (magnesium/potassium) have been found within normal range. TSH level was found normal at 1.32. UDS revealed presence of THC. CT of the Brain revealed no evidence for acute intracranial abnormalities. Subsequent bilateral carotid duplex revealed no evidence for obstructive disease. Echocardiogram 04/06/2025 was performed and had revealed a reduced LVEF of 30% with no evidence for significant valvular abnormalities. Subsequent Cardiolite Stress Test 04/08/2025 had reported negative for myocardial ischemia, LVEF of 33%, moderate LV dysfunction, LV dilation, with a fixed defect involving the inferior wall. 12- lead electrocardiogram had revealed sinus bradycardia at 39bpm, non-specific intraventricular conduction delay with a QRS of 147 milliseconds. Of note, chart mentions previous history of atrial fibrillation however there has been no objective evidence (rhythm strips/EKG tracings) to date confirming its diagnosis. Patient himself denies any previous history of atrial fibrillation and furthermore denies use of anti-coagulation therapy on an outpatient basis. Denies use of AV yvette blocking agents. As the patient presented and was found to have evidence for symptomatic bradycardia in addition to a reduced LV function of 30% with no evidence for reversible ischemia by Cardiolite Stress Test findings, Electrophysiology services were involving by Interventional Cardiology request for to evaluate patient candidacy for potential AICD implantation. Reported past medical history includes coronary artery disease s/p previous PCI (), hypertension, hyperlipidemia, diabetes mellitus II, bipolar disorder, schizophrenia, depression, osteoarthritis, and status post previous left hip and left knee surgery Cardiolite Stress Test: (04/08/2025) Nuclear Conclusion. Nuclear Findings: negative for ischemia. lvef 33%. moderate LV dysfunction. dilated LV. inferior wall fixed defect. no major ischemia. ecg shows SR, PACs and PVCs Echocardiogram: ([facility] 04/06/2025) Technically difficult study. Off axis views. Sinus bradycardia. There appears to be left atrial enlargement with concentric LVH. Valves appear to be structurally normal from the views obtained. Left ventricular systolic performance is diminished. EF is approximately 30% with global hypokinesis. Right ventricular function is diminished as well. Mild mitral insufficiency. Syncope, likely bradycardia mediated Symptomatic sinus bradycardia, lowest HR's within 30's Ischemic cardiomyopathy, LVEF of 30% per Echocardiogram 04/06/2025, NYHA class II Coronary artery disease, status post previous PCI () QRS greater than 120 milliseconds Primary prevention ELECTROPHYSIOLOGY SUGGESTIONS FOR MANAGEMENT: Seen and examined at the bedside. Status post successful Biotronik biventricular AICD implantation 04/15/2025. Post operative chest imaging reveals no evidence for pneumothorax. Subsequent device interrogation reveals adequate sensing/pacing parameters, overall appropriate functioning device. Dressing to implantation site remains CDI. Dressing to implantation site is to remain CDI. To proceed with use of sling to LUE. Proceed to hold anti-platelet/anti-coagulation therapy for approximately seven days post device implantation. Continue Doxycycline 100mg po twice daily for a total of 14 doses. Patient will need to follow up with outpatient cardiology services within seven days post device implantation for wound check/staple removal. Ok to resume beta- sandra therapy for GDMT as hemodynamics permit. The above mentioned was discussed at length which the patient remains agreeable to the plan of care. Remains stable from an EP perspective. Remainder of cardiac management as per Interventional Cardiology services. GDMT for systolic heart failure as concurrent conditions permit Proceed with close rate and rhythm surveillance Proceed with close hemodynamic surveillance Proceed with optimized blood pressure control Transfuse to sustain HGB level above 7.0 Sustain Magnesium level greater than 2.0 Sustain Potassium level greater than 4.0 Follow up renal function and electrolytes Management in telemetry Follow up delivery consultant recommendations Will proceed to follow from an EP perspective Further recommendations per clinical progression All available diagnostic labs, EKG's, and images were personally reviewed Patient's status, findings, and plan of care was reviewed and discussed with supervising physician Dr. Lyon, who is in agreement with current plan of care. Plan of care discussed with and agreed upon by patient / primary RN Prognosis: Guarded Thank you for allowing me to participate in the care of this patient. Further recommendations based on patients clinical course and progression, primary attending, and other consultants. Will continue to follow with primary attending. If you have any questions or concerns, please do not hesitate to contact me. A total of 75 minutes was spent reviewing the patient record, examining the patient, making a diagnostic and therapeutic plan, discussing this plan with medical personnel, following up on diagnostic studies and following the patient for clinical stability excluding any and all procedures. At least 50% of this time was spent in direct, [id number] contact. Plan discussed with: Patient (patient and primary RN ) Dietary Evaluation Review Comments: Nutrition Recommendation 1) CCHO 75gm + cardiac diet 2) Refer Life Scientist for diabetes education 3) Monitor PO intake, lab values, weight trend, and I/O Expected Outcomes/Goals: To meet >75% estimated needs Fu 3-5 days Plan discussed with: Patient (patient and primary rn ) NETTIE ECHEVARRIA Apr 16, 2025 07:24
[2025-04-16 08:00] VITALS: PULSE 62; RESP 16; O2SAT 97
[2025-04-16 08:20] VITALS: BP 127/74; PULSE 62; RESP 18; TEMP 97.5; O2SAT 100
[2025-04-16] MEDS: DOXYCYCLINE 100 MG TAB/CAP PO SCH (09:39)
--- NOTE | 2025-04-16 10:46 | DVH ---
CHEST RADIOGRAPH Indication: CXR FOR PACEMAKER/ICD LEAD PLACEMENT Technique: XY CHEST XRAY 1 VIEW Comparison: None FINDINGS: Left chest triple lead cardiac pacer device. The cardiac silhouette is unremarkable. The lungs demonstrate right infrahilar, right basilar airspac e opacities. The pulmonary vasculature is unremarkable. There is no pleural effusion. There is no pne umothorax. Aortic atherosclerotic disease IMPRESSION: As above
[2025-04-16] MEDS: IBUPROFEN 600 MG TAB PO ONE (11:16)
[2025-04-16] MEDS: methylPREDNISolone SOD SUCC 40 MG/ML VL IV ONE (11:16)
[2025-04-16 12:00] VITALS: BP 117/73; PULSE 64; RESP 17; TEMP 98.2; O2SAT 96
[2025-04-16] MEDS ORDERED: TAMS0.4C39 PO (12:03)
[2025-04-16] MEDS ORDERED: CEPH250C PO (12:03)
[2025-04-16] MEDS ORDERED: METF-929 PO (12:03)
[2025-04-16] MEDS ORDERED: EMPA1TAB PO (12:03)
[2025-04-16] MEDS ORDERED: GABA300T4 PO (12:03)
[2025-04-16] MEDS ORDERED: HYDR-4902 PO (12:03)
[2025-04-16] MEDS ORDERED: ARIP10TA29 PO (12:03)
[2025-04-16] MEDS ORDERED: PANT40TA2 PO (12:03)
--- NOTE | 2025-04-16 12:06 | DVHDS2 ---
Discharge Summary Date of Admission Apr 05, 2025 at 23:54 Date of Discharge: Apr 16, 2025 Labs/Diagnostic Data: Laboratory Results Test 04/16/25 11:12 04/16/25 05:34 04/15/25 09:30 04/13/25 06:00 POC Glucose 146 mg/dl (70-106) White Blood Count 6.3 10^3/uL (4.4-10.8) Red Blood Count 4.20 10^6/uL (4.5-5.90) Hemoglobin 13.7 g/dL (13.5-17.5) Hematocrit 39.8 % (41.0-53.0) Mean Corpuscular Volume 94.7 fL (80.0-100.0) Mean Corpuscular Hemoglobin 32.6 pg (28.0-32.0) Mean Corpuscular Hemoglobin Concent 34.4 g/dL (32.0-36.0) Red Cell Distribution Width 13.0 % (11.8-14.3) Platelet Count 93 10^3/uL (140-450) Mean Platelet Volume 10.6 fL (6.9-10.8) Neutrophils (%) (Auto) 62.9 % (37.0-80.0) Lymphocytes (%) (Auto) 27.2 % (10.0-50.0) Monocytes (%) (Auto) 7.7 % (0.0-12.0) Eosinophils (%) (Auto) 1.7 % (0.0-7.0) Basophils (%) (Auto) 0.5 % (0.0-2.0) Neutrophils # (Auto) 4.0 10 ^3/uL (1.6-8.6) Lymphocytes # (Auto) 1.7 10 ^3/uL (0.4-5.4) Monocytes # (Auto) 0.5 10 ^3/uL (0-1.3) Eosinophils # (Auto) 0.1 10 ^3/uL (0-0.8) Basophils # (Auto) 0 10 ^3/uL (0-0.2) Nucleated Red Blood Cells 0.1 % Platelet Estimate Decreased Prothrombin Time 11.2 sec (9.3-11.8) Prothrombin Time INR 1.06 (0.9-1.15) Sodium Level 140 mmol/L (136-145) Potassium Level 4.3 mmol/L (3.5-5.1) Chloride Level 102 mmol/L (98-107) Carbon Dioxide Level 31 mmol/L (20-31) Anion Gap 7 (5-15) Blood Urea Nitrogen 12 mg/dL (9-23) Creatinine 0.71 mg/dL (0.700-1.30) Glomerular Filtration Rate Calc 98 mL/min (>90) BUN/Creatinine Ratio 16.9 (10.0-20.0) Serum Glucose 80 mg/dL (74-106) Calcium Level 9.0 mg/dL (8.7-10.4) Total Bilirubin 0.6 mg/dL (0.2-1.0) Aspartate Amino Transferase (AST) 15 U/L (13-40) Alanine Aminotransferase (ALT) < 9 U/L (7-40) Alkaline Phosphatase 66 U/L (46-116) Total Protein 6.7 g/dL (5.7-8.2) Albumin 3.9 g/dL (3.2-4.8) Activated Partial Thromboplast Time 31.0 SEC (24.5-34.5) Test 04/13/25 05:00 04/09/25 06:04 04/07/25 21:53 04/07/25 12:00 Urine Color Light-yellow (Yellow) Urine Clarity Clear (Clear) Urine pH 6.0 (5.0-9.0) Urine Specific [place] 1.017 (1.001-1.035) Urine Protein Negative (Negative) Urine Ketones Negative (Negative) Urine Blood Negative /uL (Negative) Urine Nitrite Negative (Negative) Urine Bilirubin Negative (Negative) Urine Urobilinogen Normal mg/dL (Negative) Urine Leukocyte Esterase Negative /uL (Negative) Urine RBC None seen /hpf (0 - 3) Urine Microscopic WBC < 1 /HPF (0-3) Urine Squamous Epithelial Cells None seen /hpf (<5) Urine Bacteria None seen /hpf (None Seen) Urine Glucose 4+ mg/dL (Normal) B-Type Natriuretic Peptide 28.91 pg/mL (0-100) Urine Opiates Screen Neg (NEGATIVE) Urine Fentanyl Screen Neg (NEGATIVE) Urine Barbiturates Screen Neg (NEGATIVE) Urine Phencyclidine Screen Neg (NEGATIVE) Urine Amphetamines Screen Neg (NEGATIVE) Urine Benzodiazepines Screen Neg (NEGATIVE) Urine Cocaine Screen Neg (NEGATIVE) Urine Cannabinoids Screen Pos (NEGATIVE) Thyroid Stimulating Hormone (TSH) 1.32 uIU/mL (0.55-4.78) Test 04/06/25 02:04 04/06/25 00:33 04/05/25 20:42 Troponin I High Sensitivity 10 ng/L (</=54) Lactic Acid Level 2.0 mmol/L (0.4-2.0) Magnesium Level 1.7 mg/dL (1.6-2.6) Other Laboratory Tests 04/16/25 05:34 04/15/25 09:30 Brief Hx & Hospital Course: hpi: 69-year-old male presents for evaluation of syncopal episode. Patient reports being with friends consuming alcohol and marijuana when he passed out. Last thing he remembers is waking up in the ambulance and feeling dizzy. Denies any chest pain or palpitations. No headache or blurred vision. Patient was hypotensive in route. Currently blood pressures in the 90s. Denies fever or chills. No other acute complaints. 04/06: paitnet "doesnt feel well". noting bradycardia, cards consulted ?chronotropic incompetence? will have to r/o, PT eval, orthostatics, med rec. until then tele, echo. ivf and diet. lovenox SQ daily dvt px 04/07: orthostatics neg. echo pending. card eval today. otherwise stable. tolerating diet. 04/08: Patient getting stress test today, this will test chronotropic incompetence, also patient is FF 30%, stress test will check for reversible ischemia as well. No significant findings on tele. Orthostasis negative. PT ordered. 04/09: Patient unable to do stress test yesterday due to blood pressure being low. Cardiology held Entresto and spironolactone. Only continuing Jardiance for HFrEF now. Patient will get stress test today. We will continue to keep patient on tele and follow up. Patient has history of meth use, now HFrEF, defer angiogram to Cardiology, defer AICD to Cardiology, although will likely not qualify due to drug history. 04/10: Waiting for read on Cardiolite test, deferring restarting of Aldactone Entresto to cardiology. PT ordered. We will assess PT evaluation over weekend and develop a discharge plan by Sunday. labs stable, defer checks to card/weekend provider 04/11-04/12 - weekend, didnt work with PT, card wants ICD 04/13 - will f/u with cards, unclear when ICD will be done yet. patient npo mn from last night. no rehab potential, wc bound. 04/14- patient planned for icd tomorrow with EP physician. npo mn. otherwise stable. 04/15 - patient taken today for biV AICD placement by EP physician. will keep overnight, L arm stablized 24hr. if cbc ok tomorrow, will get clearance by cards for likely dc tomorrow am. 04/16-hemoglobin stable, patient is doing well, site of AICD without any significant drainage of erythema. Vitals stable. Serum for discharge has been plan below. Symptomatic bradycardia status post biventricular AICD HFrEF,new diagnosis, history of methamphetamine abuse wheelchair-bound syncope due to symptomatic bradycardia and/or autonomic disorder and/or ventricular arrythmia possible orthostasis ruled out BPH History of methamphetamine abuse Current use THC cannabis plan: - continue taking Jardiance -guarding transferred to home, no rehab potential, continue wheelchair for ambulation - continue other home medications ( Abilify, gabapentin, metformin, Protonix, -Stop prazosin, instead start Flomax - for pain okay to take OTC Tylenol for sign, second-line ibuprofen, 3rd line take prescription [place] 5, upto 3 times daily as needed - Take Keflex 500 mg (2 capsules), twice daily for five days - Follow up with Dr. jean-baptiste, EP Corporate Responsibility Officer - Found with PCP to review discharge Condition at Discharge: Fair Final Diagnosis/Problems List Symptomatic bradycardia status post biventricular AICD HFrEF,new diagnosis, history of methamphetamine abuse wheelchair-bound syncope due to symptomatic bradycardia and/or autonomic disorder and/or ventricular arrythmia possible orthostasis ruled out BPH History of methamphetamine abuse Current use THC cannabis Discharge Disposition: Home Discharge Instruct/Medications Diet: Cardiac 2g Na,low cholest Activity: No Restrictions, As Tolerated Follow Up/Referral: Below Medications: Below Scheduled Aripiprazole (Aripiprazole), 10 MG PO DAILY Cephalexin (Keflex Capsule), 2 CAP PO BID Empagliflozin (Jardiance), 10 MG PO DAILY Gabapentin (Once-Daily) (Gabapentin), 300 MG PO BID Metformin HCl (Metformin Hydrochloride), 1,000 MG PO BID Pantoprazole Sodium Sesquihydr (Protonix), 40 MG PO DAILY Tamsulosin Hcl (Tamsulosin Hcl), 1 CAP PO DAILY Scheduled PRN Hydrocodone-Acetaminophen (Hydrocodone Bitartrate/AC 5-325 mg), 1 TAB PO TIDP PRN Discontinued Medications Prazosin HCl (Prazosin Hydrochloride), 1 MG PO HS Discharge Statement: "Patient was advised to return to the ER or call 911 if any headaches, dizziness, shortness of breath, chest pain, abdominal pain, bleeding, fevers, or worsening of medical condition. Patient was counseled about treatment plan, medications, possible side effects, patientverbalized understanding. All questions were answered to the best of my ability. This discharge took greater then 30 minutes in planning, reviewing documentation, counseling the patient, and discussing with other team members." Date of Service: Apr 16, 2025 Billing Provider: HEBER RAMIREZ MD Common Visit Codes: 52305-DDC/OBS DISCH DAY >30min HEBER RAMIREZ MD Apr 16, 2025 12:06
--- NOTE | 2025-04-16 16:39 | DVHPNRES ---
Progress Note Date Seen: Apr 16, 2025 Resident Creating Document: CARLA RICE RESIDENT Has the PT tested + for MRSA If YES, has PT been informed?: No Medical Necessity Reason Pt with a Central, PICC or Fol: No Subjective Review of Systems He is now postoperative day 1 following successful Biotronik biventricular AICD implantation. Today, he reports no chest pain, palpitation dyspnea or wound site discomfort. He is ambulating with assistance. Dizziness have improved compared to prior days. Post AICD chest x-ray no evidence of pneumothorax or hemothorax. Device interaction-adequate sensing and pacing thresholds, appropriate device function. Dressing at implantation-clean, dry intact. Sling in place to the left upper extremity. Telemetry-stable sinus rhythm, HR in 60s to 70s. Blood pressure stable at 1 13/84 mmHg. CBC and CMP unremarkable. Initiated complete GDM T4 HFrEF, including resumption of beta-sandra therapy. Doxycycline 100 mg p.o. b.i.d. prescribed for prophylaxis. Antiplatelets and anticoagulation therapy held for 7 days post implantation. Objective vital signs Vital Sign Date Time Temp Pulse Resp B/P (MAP) Pulse Ox O2 Delivery O2 Flow Rate FiO2 04/16/25 12:00 98.2 64 17 117/73 (88) 96 98.2 04/16/25 08:00 Room Air* 0 21 Total Intake and Output 04/15/25 04/15/25 04/16/25 15:00 23:00 07:00 Intake Total 150 ml 950 ml 650 ml Output Total 400 ml 1700 ml Balance 150 ml 550 ml -1050 ml medications Current Medications Medications Dose Ordered Sig/Suma Route Start Time Stop Time Status Last Admin Dose Admin Gabapentin 300 mg BID PO 04/06/25 10:00 04/16/25 09:38 300 MG Divalproex Sodium 250 mg BID PO 04/06/25 10:00 04/16/25 09:39 250 MG Diagnostic Test (Pha) 1 strip ACHS 04/06/25 07:00 04/16/25 11:16 1 STRIP Insulin Human Regular ACHS SC 04/06/25 07:00 04/16/25 11:30 2 UNITS Dextrose 50 ml UD PRN IV 04/06/25 00:00 Ondansetron HCl 4 mg Q4HP PRN IV 04/06/25 00:00 Acetaminophen 650 mg Q6HP PRN PO 04/06/25 00:00 04/15/25 22:00 650 MG Empaglifozin 10 mg DAILY PO 04/07/25 12:30 04/16/25 09:39 10 MG Atorvastatin Calcium 20 mg HS PO 04/08/25 22:00 04/15/25 22:00 20 MG Sodium Chloride 1,000 ml @ 150 mls/hr Q6H40M IV 04/15/25 08:45 04/16/25 10:53 150 MLS/HR Doxycycline Monohydrate 100 mg Q12HR PO 04/16/25 10:00 04/16/25 09:39 100 MG Acetaminophen/ Hydrocodone Bitart 1 tab Q6HPRN PRN PO 04/15/25 16:00 04/16/25 09:39 1 TAB Morphine Sulfate 1 mg Q4HP PRN IV 04/15/25 16:00 04/16/25 03:20 1 MG Examination General: Alert, oriented, no acute distress. * Cardiac: Heart rate 60s to 70s beats per minute, BP is 113/80 mmhg, regular rhythm. No murmurs, rubs, or gallops. No JVD. * Respiratory: Lungs clear bilaterally, no crackles/wheezes. * Abdomen: Soft, nontender, no hepatomegaly. * Extremities: No pedal edema, pulses 2+. * Neuro: Nonfocal, grossly intact laboratory and microbiology Laboratory Tests 04/16/25 05:34 04/15/25 09:30 Test 04/15/25 09:30 Range/Units Serum Glucose 80 74-106 mg/dL Microbiology Date/Time Source Procedure Growth Status 04/05/25 22:25 Blood Blood Culture - Final NO GROWTH AFTER 5 DAYS OF INCUBATION. Complete Problem List/Assessment/Plan Problem List/Assessment/Plan Assessment 1. Symptomatic Sinus Bradycardia with Syncope * Persistent bradycardia (HR 30s50s) with syncopal episode. * EKG: Sinus bradycardia, nonspecific IVCD. * Possible contribution from alcohol/marijuana, but underlying conduction disease and chronotropic incompetence likely. 2. Dilated Cardiomyopathy with reduced EF of 30% probable ischemic cause * EF ~30%, global hypokinesia, LAE, LVH, diminished RV function. * Prior CAD with PCI. Planned coronary angiography for ischemic evaluation. 3. Coronary Artery Disease * Prior PCI (). * Troponin flat, no evidence of ACS currently. 4. Hypertension / Dyslipidemia / Diabetes Mellitus Type 2 * Chronic comorbidities, stable. 5. Psychiatric Comorbidities * Schizophrenia, depression, bipolar disorder. On multiple psychotropics that may contribute to autonomic side effects. Plan/Recommendation Cardiac: Upper extremity sling for 7 days. Wound care-keep dressing clean, dry, intact, outpatient wound check with Cardiology in 7 days. Hold anticoagulation, antiplatelet therapy for 7 days post implantation. Resume EGD MT, including beta-sandra. Dilated Cardiomyopathy with reduced EF of 30% probable ischemic cause * (GDMT) optimization .continue Entresto and spironolactone, sodium glucose 2 inhibitor, beta-sandra * Continue statin now, aspirin after 7 days * Strict I/Os, daily weights, low sodium diet. Psych: * Psychiatry consult to review psychotropic regimen (valproate, sertraline, aripiprazole, prazosin, gabapentin) for cardiac side effects. Prophylaxis: * DVT prophylaxis with SQ heparin. * GI prophylaxis with pantoprazole. Patient is cleared for discharge from Cardiology standpoint. Her signing off on the patient thank you for the consult. Outpatient follow-up with Cardiology with Dr. Mahajan within 7 days Plan discussed with: Patient Plan discussed with: Patient My Orders My Orders Orders - CARLA RICE RESIDENT Procedure Category Date Status Time Carvedilol Tablet PHA 04/16/25 Transmitted (Coreg Tablet) 22:00 Spironolactone PHA 04/17/25 Transmitted (Aldactone) 10:00 Sacubitril-Valsartan PHA 04/16/25 Transmitted (Entresto 24-26 Mg 22:00 Dietary Evaluation Review Comments: Nutrition Recommendation 1) [facility] 2) Refer Screen Examiner for diabetes education 3) Monitor PO intake, lab values, weight trend, and I/O Expected Outcomes/Goals: To meet >75% estimated needs Fu 3-5 days Visit Coding Cardiology RES Date of Service: Apr 16, 2025 Billing Provider: JAYNE SAVAGE Sr., MD Cardiology Common Codes: 27708-[id number] INP/OBS CARE(Mod), 51695-[id number] HOSP CARE(High CARLA RICE RESIDENT Apr 16, 2025 16:39
[2025-04-16 17:00] VITALS: BP 112/71; PULSE 71; RESP 17; TEMP 98.3; O2SAT 97
[2025-04-16] MEDS ORDERED: CARVEDILOL 3.125 MG TAB PO SCH (22:00)
[2025-04-16] MEDS ORDERED: SACUBITRIL-VALSARTAN 24mg/26mg TAB PO SCH (22:00)
[2025-04-17] MEDS ORDERED: SPIRONOLACTONE 25 MG TAB PO SCH (10:00)
== END 2025-04-16 18:10 | disposition home or self-care (01) | DRG 277 ==
LOC: EDBD 19:53 → EDUNIT# 19:53 → ER 19:53 → OVERFLOW 23:54 → TELE-WESTW 04-06 22:09 → WEST WING 04-15 23:34
PROVIDERS: ADMIT Student in an Organized Health Care Education/Training Program; ATTEND Student in an Organized Health Care Education/Training Program
PROC: 0JH608Z Insertion of Defibrillator Generator into Chest Subcutaneous Tissue and Fascia, Open Approach (ICD-10-PCS; principal; 2025-04-15)
PROC: 02H63KZ Insertion of Defibrillator Lead into Right Atrium, Percutaneous Approach (ICD-10-PCS; 2025-04-15)
PROC: 02HK3KZ Insertion of Defibrillator Lead into Right Ventricle, Percutaneous Approach (ICD-10-PCS; 2025-04-15)
PROC: B517YZZ Fluoroscopy of Left Subclavian Vein using Other Contrast (ICD-10-PCS; 2025-04-15)
DX: I49.8 Other specified cardiac arrhythmias (principal); I50.22 Chronic systolic (congestive) heart failure; G90.89 Other disorders of autonomic nervous system; I42.0 Dilated cardiomyopathy; I45.89 Other specified conduction disorders; F20.9 Schizophrenia, unspecified; E11.9 Type 2 diabetes mellitus without complications; F10.10 Alcohol abuse, uncomplicated; E78.5 Hyperlipidemia, unspecified; I25.10 Atherosclerotic heart disease of native coronary artery without angina pectoris; N40.0 Benign prostatic hyperplasia without lower urinary tract symptoms; I48.91 Unspecified atrial fibrillation; F17.210 Nicotine dependence, cigarettes, uncomplicated; I11.0 Hypertensive heart disease with heart failure; I25.5 Ischemic cardiomyopathy; Z99.3 Dependence on wheelchair; Z95.5 Presence of coronary angioplasty implant and graft; Z88.8 Allergy status to other drugs, medicaments and biological substances; Z88.0 Allergy status to penicillin; Z79.84 Long term (current) use of oral hypoglycemic drugs; Z79.899 Other long term (current) drug therapy; Z83.3 Family history of diabetes mellitus; I25.2 Old myocardial infarction
CPT/HCPCS: 33249; 36012; 36415; 70450; 71045; 78452; 80048; 80053; 80307; 81001; 82962; 83605; 83735; 83880; 84443; 84484; 85025; 85610; 85730; 86850; 86900; 86901; 87040; 93005; 93017; 93306; 93886; 96365; 97110; 97163; 99291; G0378; J1815; J2250; J2543; Q9967

== ENCOUNTER 2025-06-24 18:42 | Emergency (ER) | payer OTHER, MEDICARE ==
[~2025-06-24] VITALS: Ht 193 cm; Wt 81.8 kg
[~2025-06-24 18:42] MED LIST changes: +CEPH250C PO; +EMPA1TAB PO; +HYDR-4902 PO; -PRAZ1CAP48 PO; +TAMS0.4C39 PO
--- NOTE | 2025-06-24 19:05 | ECG ---
[facility] Test Date: 2025-06-24 Test Time: 18:49:00 Pat Name: YONATHAN SANDY Department: ED Room: Gender: M Educational Assistant: ER : [id number] Requested By: MORRO REEDER Order Number: [id number] Reading MD: Chance Jose Measurements Intervals [place] Rate: 90 P: -85 AK: 41 QRS: -72 QRSD: 138 T: 58 QT: 411 QTc: 503 Interpretive Statements Ventricular-paced complexes No further analysis attempted due to paced rhythm Baseline wander in lead(s) V3 Electronically Signed On 06-25-2025 11:45:31 PST by Chance Jose Please click the below link to view image of tracing.
--- NOTE | 2025-06-24 19:26 | ED.PDOC ---
History of Present Illness HPI Comments 69 year old male with PMHx a-fib, depression, DM, HLD, HTN, ID, schizophrenia, pacemaker, cardiac stents presents to the ED with a chief complaint of nausea,vomiting onset 1 month. Patient states he has been experiencing nausea, vomiting, diarrhea for the past month. He had a pacemaker placed at [facility] 1 month ago, since then has been experiencing nausea, vomiting, diarrhea. He states he feels hungry but is not able to keep anything down. Upon EMS arrival, patient's HR was ranging from 60-120. Patient began experiencing dizziness since this morning, called 911. Denies fever, chills, chest pain, shortness of breath, dizziness, numbness/tingling. No other symptoms or modifying factors present at this time. PHYSICAL EXAM: General: Awake, alert and oriented. thin appearing. Skin: Skin in warm, dry and intact. Appropriate color for ethnicity. HEENT: The head is normocephalic and atraumatic. Conjunctivae are clear without exudates or hemorrhage. Sclera is non-icteric. Eyelids are normal in appearance without swelling or lesions. Oral mucosa is pink and moist Neck: The neck is supple with normal range of motion. No JVD. Cardiac: Heart rate and rhythm are normal. No murmurs, gallops, or rubs are auscultated. Pacemaker Lt upper chest Respiratory: No signs of respiratory distress. Lung sounds are clear in all lobes bilaterally without rales, rhonchi, or wheezes. Abdominal: suprapubic tenderness. Bowel sounds are present and normoactive in all four quadrants. Extremities: Lower extremities without edema. Neurological: The patient is awake, alert and oriented to person, place, and time with normal speech. Speech is clear. There is no facial asymmetry. Psychiatric: Appropriate mood and affect. Good judgement and insight. REVIEW OF SYSTEMS: General: No fever, no chills, or fatigue HEENT: No sore throat, no earache, no congestion, no neck pain. Cardiac: No chest pain. No palpitations. Lungs: No shortness of breath, no cough. GI: nausea, vomiting, diarrhea. Poor appetite. no constipation, no abdominal pain : No dysuria, frequency, or urgency. No hematuria. Musculoskeletal: No joint pain , no joint swelling, no extremity edema. Skin: No rash, no itching. Neuro: dizziness. No headache, no weakness (And as sated in HPI) Chief Complaint: Nausea/Vomiting Time Seen by MD: 19:06 Reviewed Notes: Medications, Allergies Allergies: Coded Allergies: Haloperidol (Verified Allergy, Unknown, 05/22/24) Penicillins (Verified Allergy, Unknown, 05/22/24) Quetiapine (Verified Allergy, Unknown, 05/22/24) Home Meds Active Scripts Pantoprazole Sodium Sesquihydr (Protonix) 40 Mg Tab, 40 MG PO DAILY for 15 Days, #15 TAB Prov:MORRO REEDER MD 06/24/25 Ondansetron Odt 4MG Tab (ZOFRAN PO) 4 Mg Tb, 4 MG PO BIDPRN PRN for 3 Days, #6 TAB ODT TAB-DISSOLVE IN MOUTH, THEN SWALLOW Prov:MORRO REEDER MD 06/24/25 Hydrocodone-Acetaminophen (Hydrocodone Bitartrate/AC 5-325 mg) 1 Tab Tab, 1 TAB PO TIDP PRN for 7 Days, #21 TAB 0 Refills Prov:HEBER RAMIREZ MD 04/16/25 Tamsulosin Hcl (Tamsulosin Hcl) 0.4 Mg Cap, 1 CAP PO DAILY, #30 CAP 1 Refill Prov:HEBER RAMIREZ MD 04/16/25 Cephalexin (KEFLEX CAPSULE) 250 Mg Cp, 2 CAP PO BID for 5 Days, #28 CAP 0 Refills Prov:HEBER RAMIREZ MD 04/16/25 Empagliflozin (Jardiance) 10 Mg Tab, 10 MG PO DAILY for 30 Days, #30 TAB 0 Refills Prov:HEBER RAMIREZ MD 04/16/25 Gabapentin (Once-Daily) (Gabapentin) 300 Mg Tab, 300 MG PO BID for 20 Days, #40 TAB Prov:HEBER RAMIREZ MD 04/16/25 Pantoprazole Sodium Sesquihydr (Protonix) 40 Mg Tab, 40 MG PO DAILY for 20 Days, #20 TAB Prov:HEBER RAMIREZ MD 04/16/25 Metformin HCl (Metformin Hydrochloride) 1,000 Mg Tab, 1000 MG PO BID for 20 Days, #40 TAB Prov:HEBER RAMIREZ MD 04/16/25 Aripiprazole (Aripiprazole) 10 Mg Tab, 10 MG PO DAILY for 20 Days, #20 TAB Prov:HEBER RAMIREZ MD 04/16/25 Information Source: Patient, Emergency Med Personnel Mode of Arrival: EMS Severity: Moderate Timing: Months Duration: Since onset Prehospital treatment: None Past Medical History PAST MEDICAL HISTORY: AFIB, Depression, DM, High Lipids, HTN, ID, Schizophrenia Surgical History: Pacemaker, PTCA Family History Family History: Reviewed,noncontributory to illness Social History Smoker: Cigarettes Alcohol: Denies ETOH Use Drugs: Denies Drug Use Lives In: Home Was a procedure done? Was a procedure done?: No EKG EKG : Pulse Rate (adult): 90 Cardiac Rhythm: Paced Differential Dx Considerations may include: Differential diagnoses considered include: Abdominal aortic aneurysm, ID, esophageal rupture, intestinal obstruction, mesenteric ischemia, perforated viscus or solid organ rupture, CHF with hepatomegaly, pneumonia, abscess, appendicitis, biliary disease, diverticulitis, gastritis, gastroenteritis, hepatitis, hernia, inflammatory bowel disease, pancreatitis, peptic ulcer disease, urinary tract infection, ureteral colic, constipation, GERD, irritable syndrome, abdominal wall pain, nonspecific abdominal pain, herpes zoster, nephrolithiasis. X-Ray, Labs, Meds, VS Vital Signs Date Time Temp Pulse Resp B/P (MAP) Pulse Ox O2 Delivery O2 Flow Rate FiO2 06/24/25 23:15 97.8 85 16 119/86 (97) 98 97.8 06/24/25 22:00 98.1 82 16 95/41 (59) 95 98.1 06/24/25 19:25 90 06/24/25 18:49 90 06/24/25 18:46 98.2 90 20 148/88 98 98.2 Lab Test 06/24/25 20:49 06/24/25 20:02 Range/Units Urine Color Colorless Yellow Urine Clarity Clear Clear Urine pH 7.0 5.0-9.0 Urine Specific [place] 1.017 1.001-1.035 Urine Protein Negative Negative Urine Ketones Negative Negative Urine Blood Negative Negative /uL Urine Nitrite Negative Negative Urine Bilirubin Negative Negative Urine Urobilinogen Normal Negative mg/dL Urine Leukocyte Esterase Negative Negative /uL Urine RBC <1 0 - 3 /hpf Urine Microscopic WBC 0-3 /HPF Urine Squamous Epithelial Cells None seen <5 /hpf Urine Bacteria None seen None Seen /hpf Urine Glucose Normal Normal mg/dL White Blood Count 7.1 4.4-10.8 10^3/uL Red Blood Count 4.89 4.5-5.90 10^6/uL Hemoglobin 15.5 13.5-17.5 g/dL Hematocrit 45.3 41.0-53.0 % Mean Corpuscular Volume 92.5 80.0-100.0 fL Mean Corpuscular Hemoglobin 31.6 28.0-32.0 pg Mean Corpuscular Hemoglobin Concent 34.2 32.0-36.0 g/dL Red Cell Distribution Width 13.7 11.8-14.3 % Platelet Count 123 L 140-450 10^3/uL Mean Platelet Volume 10.0 6.9-10.8 fL Neutrophils (%) (Auto) 60.4 37.0-80.0 % Lymphocytes (%) (Auto) 32.3 10.0-50.0 % Monocytes (%) (Auto) 5.2 0.0-12.0 % Eosinophils (%) (Auto) 1.1 0.0-7.0 % Basophils (%) (Auto) 1.0 0.0-2.0 % Neutrophils # (Auto) 4.3 1.6-8.6 10 ^3/uL Lymphocytes # (Auto) 2.3 0.4-5.4 10 ^3/uL Monocytes # (Auto) 0.4 0-1.3 10 ^3/uL Eosinophils # (Auto) 0.1 0-0.8 10 ^3/uL Basophils # (Auto) 0.1 0-0.2 10 ^3/uL Nucleated Red Blood Cells 0.1 % Sodium Level 141 136-145 mmol/L Potassium Level 3.6 3.5-5.1 mmol/L Chloride Level 102 98-107 mmol/L Carbon Dioxide Level 30 20-31 mmol/L Anion Gap 9 5-15 Blood Urea Nitrogen 6 L 9-23 mg/dL Creatinine 0.70 0.700-1.30 mg/dL Glomerular Filtration Rate Calc 99 >90 mL/min BUN/Creatinine Ratio 8.6 L 10.0-20.0 Serum Glucose 79 74-106 mg/dL Calcium Level 9.4 8.7-10.4 mg/dL Current Medications Medications (Trade) Dose Ordered Sig/Suma Route Start Time Stop Time Status Last Admin Sodium Chloride 1,000 ml @ 1,000 mls/hr Q1H ONCE IV 06/24/25 22:15 06/24/25 23:14 DC 06/24/25 22:[address] [address] Ph: [phone] DIAGNOSTIC IMAGING Diagnostic Imaging Report : [id number] Signed PATIENT: YONATHAN SANDY ACCT: [id number] UNIT: [id number] : 1955 LOC: ER ROOM / BED: / AGE / SEX: 69 / M ADM STATUS: REG ER SERVICE 20 ORDERING PHYSICIAN: MORRO REEDER MD PROCEDURE(s): ABPLIV - CT AB PEL WITH IV CON ONLY REASON: N/V with meals. suprapubic tenderness ORDER NUMBER(s): [id number], ACCESSION NUMBER(s): [id number] Exam: CT CT AB PEL WITH IV CON ONLY History: N/V with meals. suprapubic tenderness Comparison Study: CT CT AB PEL WO CON-NO ORAL OR IV on DOS: 11/30/24 Exam Date: 06/24/2025 07:43 PM Radiation Dose Information: CT Dose: CTDI volume is 6.42 mGy. Dose-length product is 394.39 mGy*cm TECHNIQUE: During the uneventful, intravenous administration of contrast material, multislice data acquisition was obtained through the abdomen and pelvis. The data set was subsequently reconstructed into axial images. Images were reviewed on a work station using a combination of axial and multiplanar using a variety of window levels and settings. Findings: Lower chest: Emphysema. Liver: Unremarkable Biliary system: Cholelithiasis Spleen: Unremarkable Pancreas: Unremarkable. Adrenals: Mild nodular thickening bilaterally. Kidneys and ureters: No hydronephrosis. Subcentimeter renal hypodensities too small to characterize but likely cysts Bowel: No obstruction. Appendix not visualized, but no inflammatory changes present in the right lower quadrant. Bladder: Unremarkable Reproductive organs: Prostatomegaly. Lymph nodes: Unremarkable. Peritoneum: Unremarkable Vessels: Moderate atherosclerosis. Moderate ostial narrowing of the SMA. Bones and soft tissue: No aggressive osseous lesion. Left hip fixation hardware. IMPRESSION: No acute CT findings in the abdomen and pelvis. ATED BY: NORA MENDOZA MD DICTATED DATE/TIME: 06/24/252054 SIGNED BY: NORA MENDOZA MD SIGNED DATE/TIME: 06/24/252054 CC: Time of 1ST Reevaluation: 19:21 Reevaluation 1ST: Unchanged Patient Education/Counseling: Need For Follow Up Family Education/Counseling: No Family Present SEPSIS Sepsis Screen Date sepsis recognized/suspect: Jun 24, 2025 Time Sepsis recognized/suspect: 1845 Recent Procedure: Yes (1 MONTH AGO) On Antibiotic Therapy: No Respiratory Rate >20: No Heart Rate >90: No Temp<36 C (96.8 F) or >38.3 C: No SBP <90 or MAP <65 mmHG: No New Acute Mental Status Change: No Is the patient on CPAP, BIPAP,: No Physician Orders Electrocardigram (06/24/25 19:03) Ct Ab Pel With Iv Con Only (06/24/25 19:21) Po Trial (06/24/25 ) Vital Signs Date Time Temp Pulse Resp B/P (MAP) Pulse Ox O2 Delivery O2 Flow Rate FiO2 06/24/25 23:15 97.8 85 16 119/86 (97) 98 97.8 06/24/25 22:00 98.1 82 16 95/41 (59) 95 98.1 06/24/25 19:25 90 06/24/25 18:49 90 06/24/25 18:46 98.2 90 20 148/88 98 98.2 Laboratory Tests Test 06/24/25 20:02 White Blood Count 7.1 10^3/uL (4.4-10.8) Departure 1 Departure Time of Disposition: 21:20 Impression: Primary Impression: Nausea and vomiting Disposition: 01 HOME / SELF CARE / HOMELESS Condition: Stable Additional Instructions: ED DISCHARGE INSTRUCTIONS Instructions: Please read all instructions provided in this packet carefully. Although you have been discharged from the Emergency Department, this does not mean that you have a "clean bill of health". No definitive diagnosis for your symptoms has been made today. It is possible that you are in the process of dev eloping a serious illness. This is why you must return to the ED without fail if any new or worsening symptoms (especially if your symptoms include chest pain, trouble breathing, abdominal pain, fever, headache, confusion, trouble seeing, or trouble walking) It is also very important that you see a primary care provider (PCP) within the next 3-5 days to follow up. If you are unable to get an appointment, return to the ED for re-evaluation. e-Prescriptions Pantoprazole Sodium Sesquihydr (Protonix) 40 Mg Tab 40 MG PO DAILY for 15 Days, #15 TAB Prov: MORRO REEDER MD 06/24/25 Ondansetron Odt 4MG Tab (ZOFRAN PO) 4 Mg Tb 4 MG PO BIDPRN PRN for 3 Days, #6 TAB ODT TAB-DISSOLVE IN MOUTH, THEN SWALLOW Prov: MORRO REEDER MD 06/24/25 Comments Patient well-appearing, nontoxic. Advised prompt follow-up with PCP, return to the ED with any new, worsening or concerning symptoms. Critical Care Note Critical Care Time?: No Stability Stability form required: No Heart Score Heart Score: Heart Score Response (Comments) Value History N/A 0 EKG N/A 0 Age N/A 0 Risk Factors N/A 0 Troponin N/A 0 Total 0 I personally scribed for MORRO REEDER MD ([email or web address]) on 06/24/25 at 19:25. Electronically submitted by Alyssa Malcolm ([email or web address]). I personally scribed for MORRO REEDER MD ([email or web address]) on 06/24/25 at 19:30. Electronically submitted by Alyssa Malcolm ([email or web address]). MORRO REEDER MD Jun 24, 2025 19:25
[2025-06-24 20:13] LABS: Hematocrit 45.3 % (41.0-53.0); Hemoglobin 15.5 g/dL (13.5-17.5); Mean Corpuscular Hemoglobin 31.6 pg (28.0-32.0); Mean Corpuscular Volume 92.5 fL (80.0-100.0); Nucleated Red Blood Cells % 0.1 %
[2025-06-24 20:18] LABS: Chloride 102 mmol/L (98-107); Potassium 3.6 mmol/L (3.5-5.1); Sodium 141 mmol/L (136-145)
[2025-06-24 20:19] LABS: Anion Gap 9 (5-15); Calcium 9.4 mg/dL (8.7-10.4); Carbon Dioxide 30 mmol/L (20-31)
[2025-06-24 20:24] LABS: BUN/Creatinine Ratio 8.6 (10.0-20.0); Glucose 79 mg/dL (74-106)
[2025-06-24 20:42] LABS: Blood Urea Nitrogen 6 mg/dL (9-23)
--- NOTE | 2025-06-24 20:58 | DVH ---
Exam: CT CT AB PEL WITH IV CON ONLY History: N/V with meals. suprapubic tenderness Comparison Study: CT CT AB PEL WO CON-NO ORAL OR IV on DOS: 11/30/24 Exam Date: 06/24/2025 07:43 PM Radiation Dose Information: CT Dose: CTDI volume is 6.42 mGy. Dose-length product is 394.39 mGy*cm TECHNIQUE: During the uneventful, intravenous administration of contrast material, multislice data acquisition was obtained through the abdomen and pelvis. The data set was subsequently reconstructed into axial images. Images were reviewed on a work station using a combination of axial and multiplanar using a variety of window levels and settings. Findings: Lower chest: Emphysema. Liver: Unremarkable Biliary system: Cholelithiasis Spleen: Unremarkable Pancreas: Unremarkable. Adrenals: Mild nodular thickening bilaterally. Kidneys and ureters: No hydronephrosis. Subcentimeter renal hypodensities too small to characterize but likely cysts Bowel: No obstruction. Appendix not visualized, but no inflammatory changes present in the right lower quadrant. Bladder: Unremarkable Reproductive organs: Prostatomegaly. Lymph nodes: Unremarkable. Peritoneum: Unremarkable Vessels: Moderate atherosclerosis. Moderate ostial narrowing of the SMA. Bones and soft tissue: No aggressive osseous lesion. Left hip fixation hardware. IMPRESSION: No acute CT findings in the abdomen and pelvis.
[2025-06-24 21:11] LABS: Urine Protein, UAD Negative (Negative)
[2025-06-24] MEDS ORDERED: PANT40TA2 PO (21:21)
[2025-06-24] MEDS ORDERED: ZOFR4T PO (21:21)
[2025-06-24] MEDS: IOHEXOL 300 MG/ML 100ML BOTTLE IJ ONE (22:12)
[2025-06-24] MEDS: SODIUM CHLORIDE 0.9% 1,000 ML IV ONE (22:12)
[2025-06-24] MEDS: PANTOPRAZOLE 40 MG/10 ML VIAL INJ IV ONE (22:12)
[2025-06-24] MEDS: METOCLOPRAMIDE HCL 5MG/ml INJ 2ml VIAL IV ONE (22:12)
[2025-06-24 23:15] VITALS: BP 119/86; PULSE 85; RESP 16; TEMP 97.8; O2SAT 98
== END 2025-06-25 00:22 | disposition home or self-care (01) ==
LOC: ER 18:42 → EDBD 18:42 → ER 06-25 00:22
DX: E78.5 Hyperlipidemia, unspecified (principal); E11.9 Type 2 diabetes mellitus without complications; F17.210 Nicotine dependence, cigarettes, uncomplicated; F20.9 Schizophrenia, unspecified; F32.A Depression, unspecified; I10 Essential (primary) hypertension; I25.2 Old myocardial infarction; I48.91 Unspecified atrial fibrillation; Z79.899 Other long term (current) drug therapy; Z95.5 Presence of coronary angioplasty implant and graft; Z88.0 Allergy status to penicillin; Z79.84 Long term (current) use of oral hypoglycemic drugs; Z95.0 Presence of cardiac pacemaker
CPT/HCPCS: 36415; 74177; 80048; 81001; 85025; 93005; 96361; 96374; 96375; 99285; J2470; J2765; J7030; Q9967

== ENCOUNTER 2025-07-09 10:08 | Inpatient (IN) | payer MEDICARE, OTHER ==
[~2025-07-09] VITALS: Ht 193 cm; Wt 76.0 kg
[~2025-07-09 10:08] MED LIST changes: +ZOFR4T PO
--- NOTE | 2025-07-09 10:21 | ED.PDOC ---
HPI Comments This is a 69 year old male NUBIA presenting to the ED with chief complaint of AICD discharge. EMS reports patient had been woken up this morning with his AICD defibrillator discharging, but had attempted to go back to sleep before 911 was called. EMS relays patient had his AICD placed in [facility] a month ago. EMS states while en route to the ED, patient was noted to be in V-Tach in [facility] and his ACID had discharged again. EMS notes patient's HR is now going between the 80s a nd 120s. Patient reports that he is currently experiencing abdominal cramping at this time. Patient denies any chest pain, SOB, dizziness, headache, or N/V. Time Seen by MD: 10:17 Reviewed Notes: Nurses Notes, Conditioner Tumbler Operator Notes, Medications, Allergies Allergies: Coded Allergies: Haloperidol (Verified Allergy, Unknown, 05/22/24) Penicillins (Verified Allergy, Unknown, 05/22/24) Quetiapine (Verified Allergy, Unknown, 05/22/24) Home Meds Active Scripts Pantoprazole Sodium Sesquihydr (Protonix) 40 Mg Tab, 40 MG PO DAILY for 15 Days, #15 TAB Prov:MORRO REEDER MD 06/24/25 Ondansetron Odt 4MG Tab (ZOFRAN PO) 4 Mg Tb, 4 MG PO BIDPRN PRN for 3 Days, #6 TAB ODT TAB-DISSOLVE IN MOUTH, THEN SWALLOW Prov:MORRO REEDER MD 06/24/25 Hydrocodone-Acetaminophen (Hydrocodone Bitartrate/AC 5-325 mg) 1 Tab Tab, 1 TAB PO TIDP PRN for 7 Days, #21 TAB 0 Refills Prov:HEBER RAMIREZ MD 04/16/25 Tamsulosin Hcl (Tamsulosin Hcl) 0.4 Mg Cap, 1 CAP PO DAILY, #30 CAP 1 Refill Prov:HEBER RAMIREZ MD 04/16/25 Cephalexin (KEFLEX CAPSULE) 250 Mg Cp, 2 CAP PO BID for 5 Days, #28 CAP 0 R efills Prov:HEBER RAMIREZ MD 04/16/25 Empagliflozin (Jardiance) 10 Mg Tab, 10 MG PO DAILY for 30 Days, #30 TAB 0 Refills Prov:HEBER RAMIREZ MD 04/16/25 Gabapentin (Once-Daily) (Gabapentin) 300 Mg Tab, 300 MG PO BID for 20 Days, #40 TAB Prov:HEBER RAMIREZ MD 04/16/25 Pantoprazole Sodium Sesquihydr (Protonix) 40 Mg Tab, 40 MG PO DAILY for 20 Days, #20 TAB Prov:HEBER RAMIREZ MD 04/16/25 Metformin HCl (Metformin Hydrochloride) 1,000 Mg Tab, 1000 MG PO BID for 20 Days, #40 TAB Prov:HEBER RAMIREZ MD 04/16/25 Aripiprazole (Aripiprazole) 10 Mg Tab, 10 MG PO DAILY for 20 Days, #20 TAB Prov:HEBER RAMIREZ MD 04/16/25 Information Source: Patient, Emergency Med Personnel Mode of Arrival: EMS Severity: Moderate Timing: Hours Duration: Since onset Prehospital treatment: 12 Lead EKG Onset: At Rest Cardiac Risk Factors: Hyperlipidemia, HTN, Diabetes History of: UT Associated Signs and Symptoms: Abdominal Pain Past Medical History PAST MEDICAL HISTORY: AFIB, Depression, DM, Gallstones, High Lipids, HTN, Kidney Stones, UT, Schizophrenia Surgical History: Pacemaker (AICD placement), PTCA Surgical History (Other): Back surgery, Right hand surgery, Left Hip surgery, Cataract surgery Family History Family History: Reviewed,noncontributory to illness Social History Smoker: Non-Smoker Alcohol: Denies ETOH Use Drugs: Denies Drug Use Lives In: Home Constitutional: denies: chills, diaphoresis, fatigue, fever, malaise, sweats, weakness, others EENTM: denies: blurred vision, double vision, ear bleeding, ear discharge, ear drainage, ear pain, ear ringing, eye pain, eye redness, hearing loss, mouth pain, mouth swelling, nasal discharge, nose bleeding, nose congestion, nose pain, photophobia, tearing, throat pain, throat swelling, voice changes, others Respiratory: denies: cough, hemoptysis, orthopnea, SOB at rest, shortness of breath, SOB with excertion, stridor, wheezing, others Cardiovascular: denies: chest pain, dizzy spells, diaphoresis, Dyspnea on exertion, edema, irregular heart beat, left arm pain, lightheadedness, palpitations, PND, syncope, others Gastrointestinal: reports: abdominal pain; denies: abdomen distended, blood streaked bowels, constipated, diarrhea, dysphagia, difficulty swallowing, hematemesis, melena, nausea, poor appetite, poor fluid intake, rectal bleeding, rectal pain, vomiting, others Genitourinary: denies: burning, dysuria, flank pain, frequency, hematuria, incontinence, penile discharge, penile sore, pain, testicle pain, testicle s welling, urgency, others Neurological: denies: dizziness, fainting, headache, left sided numbness, left sided weakness, numbness, paresthesia, pre-existing deficit, right sided numbness, right sided weakness, seizure, speech problems, tingling, tremors, weakness, others Musculoskeletal: denies: back pain, gout, joint pain, joint swelling, muscle pain, muscle stiffness, neck pain, others Integumetry: denies: bruises, change in color, change in hair/nails, dryness, laceration, lesions, lumps, rash, wounds, others Allergic/Immunocompromised: denies: Difficulty Healing, Frequent Infections, Hives, Itching, others Hematologic/Lymphatic: denies: anemia, blood clots, easy bleeding, easy bruising, swollen glands, others Endocrine: denies: excessive hunger, excessive sweating, excessive thirst, excessive urination, flushing, intolerance to cold, intolerance to heat, unexplained weight gain, unexplained weight loss, others Psychiatric: denies: anxiety, bipolar disorder, depression, hopeless, panic disorder, schizophrenia, sleepless, suicidal, others All Other Systems: Reviewed and Negative Physical Exam General Appearance: Moderate Distress HEENT: Normal ENT Inspection, Pharynx Normal, TMs Normal Neck: Full Range of Motion, Non-Tender, Normal, Normal Inspection Respiratory: Chest Non-Tender, Lungs Clear, No Accessory Muscle Use, No Respiratory Distress, Normal Breath Sounds Cardiovascular: Irregular, No Edema, No JVD, No Murmur, No Gallop, Other (AICD to the left chest) Breast Exam: Deferred Gastrointestinal: No Organomegaly, Non Tender, No Pulsatile Mass, Normal Bowel Sounds, Soft Genitalia: Deferred Pelvic: Deferred Rectal: Deferred Extremities: No calf tenderness, Normal capillary refill, Normal inspection, Normal range of motion, Non-tender, No pedal edema Musculoskeletal : Apperance: Normal Neurologic: Alert, chicken picker II-XII nml as Tested, No Motor Deficits, Normal Affect, Normal Mood, No Sensory Deficits Cerebellar Function: Normal Reflexes: Normal Skin: Dry, Normal Color, Warm Lymphatic: No Adenopathy EKG EKG : Pulse Rate (adult): 81 [place]: Normal Cardiac Rhythm: NSR, PVC's Block: None Hypertrophy: None ST: Normal Was a procedure done? Was a procedure done?: No CP Differential Dx Differential Diagnosis: Angina, UT Differential Diagnosis: CHF Differential Diagnosis: Pericarditis X-Ray, Labs, Meds, VS Vital Signs Date Time Temp Pulse Resp B/P (MAP) Pulse Ox O2 Delivery O2 Flow Rate FiO2 07/09/25 11:57 71 07/09/25 11:24 98.5 110 18 185/146 98 98.5 07/09/25 11:12 105 07/09/25 10:25 104 17 98 Room Air* 0 21 07/09/25 10:25 99.5 104 17 145/111 (122) 98 99.5 07/09/25 10:21 81 07/09/25 10:12 81 Lab Test 07/09/25 11:46 07/09/25 10:41 07/09/25 10:40 Range/Units Total Bilirubin 0.6 0.2-1.0 mg/dL Direct Bilirubin 0.2 <0.3 mg/dL Aspartate Amino Transferase (AST) 18 13-40 U/L Alanine Aminotransferase (ALT) 11 7-40 U/L Alkaline Phosphatase 70 46-116 U/L Troponin I High Sensitivity 21 20 </=54 ng/L Total Protein 6.4 5.7-8.2 g/dL Albumin 3.8 3.2-4.8 g/dL White Blood Count 6.6 4.4-10.8 10^3/uL Red Blood Count 4.37 L 4.5-5.90 10^6/uL Hemoglobin 13.7 13.5-17.5 g/dL Hematocrit 40.1 L 41.0-53.0 % Mean Corpuscular Volume 91.7 80.0-100.0 fL Mean Corpuscular Hemoglobin 31.4 28.0-32.0 pg Mean Corpuscular Hemoglobin Concent 34.3 32.0-36.0 g/dL Red Cell Distribution Width 13.5 11.8-14.3 % Platelet Count 114 L 140-450 10^3/uL Mean Platelet Volume 9.1 6.9-10.8 fL Neutrophils (%) (Auto) 63.2 37.0-80.0 % Lymphocytes (%) (Auto) 29.7 10.0-50.0 % Monocytes (%) (Auto) 5.2 0.0-12.0 % Eosinophils (%) (Auto) 0.6 0.0-7.0 % Basophils (%) (Auto) 1.3 0.0-2.0 % Neutrophils # (Auto) 4.2 1.6-8.6 10 ^3/uL Lymphocytes # (Auto) 2.0 0.4-5.4 10 ^3/uL Monocytes # (Auto) 0.3 0-1.3 10 ^3/uL Eosinophils # (Auto) 0 0-0.8 10 ^3/uL Basophils # (Auto) 0.1 0-0.2 10 ^3/uL Nucleated Red Blood Cells 0.0 % Sodium Level 142 136-145 mmol/L Potassium Level 3.5 3.5-5.1 mmol/L Chloride Level 105 98-107 mmol/L Carbon Dioxide Level 27 20-31 mmol/L Anion Gap 10 5-15 Blood Urea Nitrogen < 5 L 9-23 mg/dL Creatinine 0.74 0.700-1.30 mg/dL Glomerular Filtration Rate Calc 97 >90 mL/min BUN/Creatinine Ratio 6.8 L 10.0-20.0 Serum Glucose 104 74-106 mg/dL Hemoglobin A1c 6.0 H <5.7 % A1C Calcium Level 9.1 8.7-10.4 mg/dL Magnesium Level 1.8 1.6-2.6 mg/dL POC Glucose 105 70-106 mg/dl Current Medications Medications (Trade) Dose Ordered Sig/Smua Route Start Time Stop Time Status Last Admin Aspirin 162 mg ONCE ONCE PO 07/09/25 10:30 07/09/25 10:33 DC 07/09/25 10:45 Amiodarone HCl 100 ml @ 600 mls/hr ONCE ONCE IV 07/09/25 12:15 07/09/25 12:24 DC 07/09/25 14:04 Amiodarone HCl 250 ml @ 33.33 mls/ hr Q7H31M ONCE IV 07/09/25 12:15 07/09/25 19:45 12/4/25 14:26 Magnesium Sulfate/ Dextrose 100 ml @ 100 mls/hr Q1HR IV 07/09/25 13:00 07/09/25 14:59 07/09/25 14:17 Pantoprazole Sodium (Protonix) 40 mg BID IV 07/09/25 12:45 07/09/25 14:10 Sacubitril/ Valsartan (Entresto 24-26 Mg tab) 1 tab BID PO 07/09/25 12:45 07/09/25 14:10 Empaglifozin (Jardiance) 10 mg DAILY PO 07/09/25 12:45 07/09/25 14:10 Metoprolol Succinate (Toprol Xl) 25 mg DAILY PO 07/09/25 12:45 07/09/25 14:11 IV Hep-Lock was established. The patient has had runs of V-tach and so the patient was started on amiodarone. The patient did have one other incident where the AICD discharged in the emergency department's. The CBC and chemistry panel are within normal limits. The magnesium level is within normal limits. The patient is being admitted at this time The patient understands and agrees with the management. The patient did have the AICD interrogated Images Reviewed?: Images reviewed and evaluated by me Time of 1ST Reevaluation: 12:43 Reevaluation 1ST: Unchanged Patient Education/Counseling: Diagnosis, Treatment, Prognosis Family Education/Counseling: No Family Present SEPSIS Sepsis Screen Physician Orders Chest Portable (07/09/25 10:28) Heplock Iv (07/09/25 10:28) Process Development Engineer (07/09/25 10:28) Blood Pressure (07/09/25 10:28) Pulse Oximetry (07/09/25 10:28) Code Status (07/09/25 12:04) Vital Signs .PER UNIT PROTOCOL (07/09/25 12:04) Review Orders With Adm. (07/09/25 12:04) Notify Md Of Changes From Base (07/09/25 12:04) Advance Directive (07/09/25 12:04) Patient Condition (07/09/25 12:04) Allergies (07/09/25 12:04) Enoxaparin Sodium (Lovenox) (07/10/25 10:00) Nitroglycerin Sublingual (Ntrostat Subli (07/09/25 12:15) Morphine Sulfate Injection (07/09/25 12:15) Oxygen By Nasal Cannula (07/09/25 12:04) Stat Ekg For Chest Pain (07/09/25 12:04) Notify Of Changes From Base (07/09/25 12:04) Mini Bar Attendant For 24 Hours (07/09/25 12:04) Emergency Dysrhythmia Protocol (07/09/25 12:04) Rhythm Strips Once Every Shift (07/09/25 12:04) Assess Pacemaker Function (07/09/25 12:04) *Consult Dr. Lyon (07/09/25 12:04) Amiodarone 450mg/250ml Ae (Cordarone) (07/09/25 12:15) Amiodarone 450mg/250ml Ae (Cordarone) (07/09/25 18:15) Magnesium Sulfate 1gm/100ml (07/09/25 13:00) Cardiac Diet-2gna,Lofat,Lochol (07/09/25 Lunch) Pantoprazole (Protonix) (07/09/25 12:45) Sacubitril-Valsartan (Entresto 24-26 Mg (07/09/25 12:45) Empagliflozin (Jardiance) (07/09/25 12:45) Metoprolol Xl Succinate (Toprol Xl) (07/09/25 12:45) Spironolactone (Aldactone) (07/10/25 10:00) Vital Signs Date Time Temp Pulse Resp B/P (MAP) Pulse Ox O2 Delivery O2 Flow Rate FiO2 07/09/25 11:57 71 07/09/25 11:24 98.5 110 18 185/146 98 98.5 07/09/25 11:12 105 07/09/25 10:25 104 17 98 Room Air* 0 21 07/09/25 10:25 99.5 104 17 145/111 (122) 98 99.5 07/09/25 10:21 81 07/09/25 10:12 81 Laboratory Tests Test 07/09/25 10:41 White Blood Count 6.6 10^3/uL (4.4-10.8) Medications Medications Dose Ordered Sig/Suma Route Start Time Stop Time Status Last Admin Dose Admin Amiodarone HCl 100 ml @ 600 mls/hr ONCE ONCE IV 07/09/25 12:15 07/09/25 12:24 DC 07/09/25 14:04 Amiodarone HCl 250 ml @ 33.33 mls/ hr Q7H31M ONCE IV 07/09/25 12:15 07/09/25 19:45 07/09/25 14:26 Aspirin 162 mg ONCE ONCE PO 07/09/25 10:30 07/09/25 10:33 DC 07/09/25 10:45 Empaglifozin 10 mg DAILY PO 07/09/25 12:45 07/09/25 14:10 Magnesium Sulfate/ Dextrose 100 ml @ 100 mls/hr Q1HR IV 07/09/25 13:00 07/09/25 14:59 07/09/25 14:17 Metoprolol Succinate 25 mg DAILY PO 07/09/25 12:45 07/09/25 14:11 Pantoprazole Sodium 40 mg BID IV 07/09/25 12:45 07/09/25 14:10 Sacubitril/ Valsartan 1 tab BID PO 07/09/25 12:45 07/09/25 14:10 Departure 1 Departure Time of Disposition: 12:50 Impression: Primary Impression: AICD discharge Additional Impression: Ventricular tachycardia Disposition: 09 ADMITTED INPATIENT Admit to: ICU Condition: Fair Critical Care Note Critical Care Time?: Yes (35 min-critical care time only) Stability Stability form required: Yes Unstable for transfer: ICU, CCU, PCU, ARPIT (Intensive VS monitoring), ED Physician Assesment (Clinical assesment) Heart Score Heart Score: Heart Score Response (Comments) Value History Highly Suspicious 2 EKG Repolarization Disturb 1 Age >65 2 Risk Factors >3 or Hx ASHD 2 Troponin N/A 0 Total 7 I personally scribed for ROSALIA RODRIGUEZ MD ([email or web address]) on 07/09/25 at 10:21. Electronically submitted by Ruiz Cuadra ([email or web address]). ROSALIA RODRIGUEZ MD Jul 09, 2025 10:21
[2025-07-09 10:25] VITALS: PULSE 104; RESP 17; O2SAT 98
--- NOTE | 2025-07-09 10:31 | ECG ---
[facility] Test Date: 2025-07-09 Test Time: 10:12:33 Pat Name: YONATHAN SANDY Department: ED Room: [address] [place] [address] Gender: M Global Account Executive: TITI : 1955 Requested By: ROSALIA RODRIGUEZ Order Number: [id number] Reading MD: Chance Jose Measurements Intervals [place] Rate: 81 P: 99 WY: 146 QRS: -100 QRSD: 137 T: 85 QT: 415 QTc: 482 Interpretive Statements Sinus rhythm Multiple premature complexes, vent & supraven RBBB and LAFB Baseline wander in lead(s) V3 Electronically Signed On 07-09-2025 17:07:52 PST by Chance Jose Please click the below link to view image of tracing.
[2025-07-09 10:58] LABS: Hematocrit 40.1 % (41.0-53.0); Hemoglobin 13.7 g/dL (13.5-17.5); Mean Corpuscular Hemoglobin 31.4 pg (28.0-32.0); Mean Corpuscular Volume 91.7 fL (80.0-100.0); Nucleated Red Blood Cells % 0.0 %
[2025-07-09 11:11] LABS: Chloride 105 mmol/L (98-107); Sodium 142 mmol/L (136-145)
[2025-07-09 11:12] LABS: Anion Gap 10 (5-15); Carbon Dioxide 27 mmol/L (20-31)
[2025-07-09 11:13] LABS: Calcium 9.1 mg/dL (8.7-10.4)
--- NOTE | 2025-07-09 11:14 | ECG ---
[facility] Test Date: 2025-07-09 Test Time: 11:12:54 Pat Name: YONATHAN SANDY Department: ED Room: [address] [place] [address] Gender: M Nail Setter: raghavendra : 1955 Requested By: ROSALIA RODRIGUEZ Order Number: [id number] Reading MD: Chance Jose Measurements Intervals [place] Rate: 105 P: 84 RI: 140 QRS: 238 QRSD: 146 T: 78 QT: 415 QTc: 549 Interpretive Statements A-V dual-paced complexes w/ some inhibition No further analysis attempted due to paced rhythm Baseline wander in lead(s) V4 Electronically Signed On 07-09-2025 17:08:24 PST by Chance Jose Please click the below link to view image of tracing.
[2025-07-09 11:17] LABS: Glucose 104 mg/dL (74-106)
[2025-07-09 11:18] LABS: Magnesium 1.8 mg/dL (1.6-2.6)
[2025-07-09 11:43] LABS: BUN/Creatinine Ratio 6.8 (10.0-20.0); Blood Urea Nitrogen < 5 mg/dL (9-23); Potassium 3.5 mmol/L (3.5-5.1)
[2025-07-09] MEDS ORDERED: MORPHINE SULFATE INJ 2 MG/ml SYRG IV PRN (12:15)
[2025-07-09] MEDS ORDERED: NITROGLYCERIN 0.4 MG SL TAB SL PRN (12:15)
--- NOTE | 2025-07-09 13:13 | ECG ---
[facility] Test Date: 2025-07-09 Test Time: 13:12:36 Pat Name: YONATHAN SANDY Department: [facility] ED Room: [address] [place] [address] Gender: M Second Grade Teacher: VALENTIN : 1955 Requested By: ROSALIA RODRIGUEZ Order Number: [id number] Reading MD: Chance Jose Measurements Intervals [place] Rate: 87 P: 104 CO: 121 QRS: 235 QRSD: 138 T: 88 QT: 414 QTc: 498 Interpretive Statements Atrial-ventricular dual-paced complexes No further analysis attempted due to paced rhythm Electronically Signed On 07-09-2025 17:08:58 PST by Chance Jose Please click the below link to view image of tracing.
[2025-07-09 13:30] LABS: Alanine Aminotransferase 11.0 U/L (7-40); Albumin 3.8 g/dL (3.2-4.8); Alkaline Phosphatase 70.0 U/L (46-116); Bilirubin, Direct 0.2 mg/dL (<0.3); Bilirubin, Total 0.6 mg/dL (0.2-1.0); Total Protein 6.4 g/dL (5.7-8.2)
[2025-07-09 13:43] LABS: Urine Protein, UAD Negative (Negative)
--- NOTE | 2025-07-09 13:43 | DVHHP2 ---
History of Present Illness History of Present Illness This is a 69-year-old male with past medical history of coronary artery disease s/p stent in the , hypertension, hyperlipidemia, type 2 diabetes, bipolar disorder, schizophrenia, depression, osteoarthritis, and prior left hip and knee surgery. He recently underwent RESIDENTIAL COORDINATOR-D implantation on April [address] Lyon for symptomatic bradycardia (lowest HR ~30s), QRS 145 ms, and ischemic cardiomyopathy with EF 30%. He reports a shock around 3 a.m. today while sleeping and a second episode en route per EMS, though device interrogation confirms one ATP and one shock, lasting ~11 seconds. His device thresholds are 171 bpm for ATP and 214 bpm for shock. He complains of chest and abdominal discomfort afterward but attributes abdominal discomfort mainly to not eating for 24 hours. He endorses medication non-compliance. Recent urine drug screening was positive for cannabis on previous admission and clinical records [place]. [place] [address], BP 185/146, RR 18, SpO2 98%. CBC, BMP, and troponins are normal. Past Medical History Coronary artery disease, hypertension, hyperlipidemia, type 2 diabetes, bipolar disorder, schizophrenia, depression, osteoarthritis, ischemic cardiomyopathy. Past Surgical History Left hip and knee surgeries, cataract surgery, RESIDENTIAL COORDINATOR-D placement on April 15. Social History Lives at home, non-compliant with medications. Recent alcohol use and cannabis detected. No other information available. Allergies Haloperidol, penicillin, quetiapine. ROS No additional ROS provided. Review of Systems Allergies: Coded Allergies: Haloperidol (Verified Allergy, Unknown, 05/22/24) Penicillins (Verified Allergy, Unknown, 05/22/24) Quetiapine (Verified Allergy, Unknown, 05/22/24) Medications Current Medications Medications Dose Ordered Sig/Suma Route Start Time Stop Time Status Last Admin Dose Admin Enoxaparin Sodium 40 mg DAILY SC 07/10/25 10:00 Nitroglycerin 0.4 mg Q5MINP PRN SL 07/09/25 12:15 Morphine Sulfate 2 mg Q30M PRN IV 07/09/25 12:15 Amiodarone HCl 250 ml @ 16.66 mls/ hr Q15H1M IV 07/09/25 18:15 Magnesium Sulfate/ Dextrose 100 ml @ 100 mls/hr Q1HR IV 07/09/25 13:00 07/09/25 14:59 Pantoprazole Sodium 40 mg BID IV 07/09/25 12:45 Sacubitril/ Valsartan 1 tab BID PO 07/09/25 12:45 Empaglifozin 10 mg DAILY PO 07/09/25 12:45 Metoprolol Succinate 25 mg DAILY PO 07/09/25 12:45 Spironolactone 25 mg DAILY PO 07/10/25 10:00 Exam Vital Signs Vital Signs Date Time Temp Pulse Resp B/P (MAP) Pulse Ox O2 Delivery O2 Flow Rate FiO2 07/09/25 13:12 87 07/09/25 11:24 98.5 18 185/146 98 98.5 07/09/25 10:25 Room Air* 0 21 Exam General: Alert, cooperative, no acute distress. HEENT: Normal, cataract surgery scars noted. Cardiac: Regular rhythm, no murmurs. Lungs: Clear to auscultation. Abdomen: Soft, non-tender. Extremities: No edema. Neuro: Nonfocal, moves all extremities. Labs/Xrays Labs Test 07/09/25 13:27 07/09/25 11:46 07/09/25 10:41 07/09/25 10:40 Range/Units Total Bilirubin 0.6 0.2-1.0 mg/dL Direct Bilirubin 0.2 <0.3 mg/dL Aspartate Amino Transferase (AST) 18 13-40 U/L Alanine Aminotransferase (ALT) 11 7-40 U/L Alkaline Phosphatase 70 46-116 U/L Troponin I High Sensitivity 21 </=54 ng/L Total Protein 6.4 5.7-8.2 g/dL Albumin 3.8 3.2-4.8 g/dL White Blood Count 6.6 4.4-10.8 10^3/uL Red Blood Count 4.37 L 4.5-5.90 10^6/uL Hemoglobin 13.7 13.5-17.5 g/dL Hematocrit 40.1 L 41.0-53.0 % Mean Corpuscular Volume 91.7 80.0-100.0 fL Mean Corpuscular Hemoglobin 31.4 28.0-32.0 pg Mean Corpuscular Hemoglobin Concent 34.3 32.0-36.0 g/dL Red Cell Distribution Width 13.5 11.8-14.3 % Platelet Count 114 L 140-450 10^3/uL Mean Platelet Volume 9.1 6.9-10.8 fL Neutrophils (%) (Auto) 63.2 37.0-80.0 % Lymphocytes (%) (Auto) 29.7 10.0-50.0 % Monocytes (%) (Auto) 5.2 0.0-12.0 % Eosinophils (%) (Auto) 0.6 0.0-7.0 % Basophils (%) (Auto) 1.3 0.0-2.0 % Neutrophils # (Auto) 4.2 1.6-8.6 10 ^3/uL Lymphocytes # (Auto) 2.0 0.4-5.4 10 ^3/uL Monocytes # (Auto) 0.3 0-1.3 10 ^3/uL Eosinophils # (Auto) 0 0-0.8 10 ^3/uL Basophils # (Auto) 0.1 0-0.2 10 ^3/uL Nucleated Red Blood Cells 0.0 % Sodium Level 142 136-145 mmol/L Potassium Level 3.5 3.5-5.1 mmol/L Chloride Level 105 98-107 mmol/L Carbon Dioxide Level 27 20-31 mmol/L Anion Gap 10 5-15 Blood Urea Nitrogen < 5 L 9-23 mg/dL Creatinine 0.74 0.700-1.30 mg/dL Glomerular Filtration Rate Calc 97 >90 mL/min BUN/Creatinine Ratio 6.8 L 10.0-20.0 Serum Glucose 104 74-106 mg/dL Hemoglobin A1c 6.0 H <5.7 % A1C Calcium Level 9.1 8.7-10.4 mg/dL Magnesium Level 1.8 1.6-2.6 mg/dL POC Glucose 105 70-106 mg/dl SEPSIS Sepsis Screen Date sepsis recognized/suspect: Jul 09, 2025 Time Sepsis recognized/suspect: 1010 Recent Procedure: No On Antibiotic Therapy: No Respiratory Rate >20: No Heart Rate >90: No Temp<36 C (96.8 F) or >38.3 C: No SBP <90 or MAP <65 mmHG: No New Acute Mental Status Change: No Is the patient on CPAP, BIPAP,: No Physician Orders Chest Portable (07/09/25 10:28) Heplock Iv (07/09/25 10:28) Rigging Slinger (07/09/25 10:28) Blood Pressure (07/09/25 10:28) Pulse Oximetry (07/09/25 10:28) Urinalysis (07/09/25 10:28) Troponin-I Hs (07/09/25 13:28) Admit (07/09/25 12:04) Code Status (07/09/25 12:04) Vital Signs .PER UNIT PROTOCOL (07/09/25 12:04) Review Orders With Adm.Md (07/09/25 12:04) Notify Md Of Changes From Base (07/09/25 12:04) Advance Directive (07/09/25 12:04) Patient Condition (07/09/25 12:04) Allergies (07/09/25 12:04) Enoxaparin Sodium (Lovenox) (07/10/25 10:00) Nitroglycerin Sublingual (Ntrostat Subli (07/09/25 12:15) Morphine Sulfate Injection (07/09/25 12:15) Oxygen By Nasal Cannula (07/09/25 12:04) Stat Ekg For Chest Pain (07/09/25 12:04) Notify Md Of Changes From Base (07/09/25 12:04) Platinumsmith For 24 Hours (07/09/25 12:04) Emergency Dysrhythmia Protocol (07/09/25 12:04) Rhythm Strips Once Every Shift (07/09/25 12:04) Assess Pacemaker Function (07/09/25 12:04) *Consult Dr. Lyon (07/09/25 12:04) Amiodarone 450mg/250ml Ae (Cordarone) (07/09/25 12:15) Amiodarone 450mg/250ml Ae (Cordarone) (07/09/25 18:15) Magnesium Sulfate 1gm/100ml (07/09/25 13:00) Drug Screen (07/09/25 12:30) Cardiac Diet-2gna,Lofat,Lochol (07/09/25 Lunch) Pantoprazole (Protonix) (07/09/25 12:45) Sacubitril-Valsartan (Entresto 24-26 Mg (07/09/25 12:45) Empagliflozin (Jardiance) (07/09/25 12:45) Metoprolol Xl Succinate (Toprol Xl) (07/09/25 12:45) Spironolactone (Aldactone) (07/10/25 10:00) Vital Signs Date Time Temp Pulse Resp B/P (MAP) Pulse Ox O2 Delivery O2 Flow Rate FiO2 07/09/25 13:12 87 07/09/25 11:57 71 07/09/25 11:24 98.5 110 18 185/146 98 98.5 07/09/25 11:12 105 07/09/25 10:25 104 17 98 Room Air* 0 21 07/09/25 10:25 99.5 104 17 145/111 (122) 98 99.5 07/09/25 10:21 81 07/09/25 10:12 81 Laboratory Tests Test 07/09/25 10:41 White Blood Count 6.6 10^3/uL (4.4-10.8) Medications Medications Dose Ordered Sig/Suma Route Start Time Stop Time Status Last Admin Dose Admin Aspirin 162 mg ONCE ONCE PO 07/09/25 10:30 07/09/25 10:33 DC 07/09/25 10:45 162 MG Assessment/Plan Assessment/Plan ASSESSMENT & PLAN # Ventricular tachycardia Device interrogation confirms one ATP and one shock for ventricular arrhythmia. Initiated amiodarone drip and magnesium repletion; continue telemetry and repeat device interrogation after stabilization. Case discussed with Dr Lyon: after stabilization, patient can be DC with amiodarone 200 mg BID # Ischemic cardiomyopathy Chronic condition with reduced EF status post RESIDENTIAL COORDINATOR-D placement, now presenting after an appropriate device shock. Continue GDMT as tolerated and reinforce strict medication adherence; monitor hemodynamics and electrolytes closely. # Heart failure with reduced ejection fraction History of HFrEF with recent RESIDENTIAL COORDINATOR-D upgrade for guideline-directed indications. Maintain GDMT including beta-sandra and ACEI/ARB/ARNI as blood pressure allows and provide education regarding adherence. # Hypertensive urgency Presented with BP 185/146 likely related to medication non-adherence. Gradual blood pressure control with oral agents while avoiding rapid drops # Alcohol use disorder Provide counseling and consider CIWA monitoring if withdrawal risk emerges; engage social work for support resources. # Cannabis use UDS positive for cannabis in previous admission, which may contribute to non-adherence. [employer] And Skin Classer on cessation and screen for co-use patterns. # Type 2 diabetes mellitus ISS # Bipolar disorder and schizophrenia Case discussed with Dr Porter Full code Plan discussed with: Patient, Other (rn) My Orders Orders - SILVIA BUCIO RESIDENT Procedure Category Date Status Time Admit ADMIT 07/09/25 Transmitted 12:04 Code Status CODE 07/09/25 Transmitted 12:04 Vital Signs STEVEN 07/09/25 In Process 12:04 Review Orders With STEVEN 07/09/25 In Process Adm. 12:04 Notify Of Changes [facility] 07/09/25 In Process From Base 12:04 Advance Directive STEVEN 07/09/25 In Process 12:04 Patient Condition ORDERS 07/09/25 Transmitted 12:04 Allergies STEVEN 07/09/25 In Process 12:04 Enoxaparin Sodium PHA 07/10/25 In Process (Lovenox) 10:00 Nitroglycerin PHA 07/09/25 In Process Sublingual (Ntrostat 12:15 Morphine Sulfate PHA 07/09/25 In Process Injection 12:15 Oxygen By Nasal RT 07/09/25 Transmitted Cannula 12:04 Stat Ekg For Chest STEVEN 07/09/25 In Process Pain 12:04 Notify Of Changes [facility] 07/09/25 In Process From Base 12:04 Platinumsmith For [facility] 07/09/25 In Process 24 Hours 12:04 Emergency Dysrhythmia [facility] 07/09/25 In Process Protocol 12:04 Rhythm Strips Once [facility] 07/09/25 In Process Every Shift 12:04 Assess Pacemaker [facility] 07/09/25 In Process Function 12:04 *Consult Dr[address] Lyon CONS 07/09/25 Transmitted 12:04 Amiodarone PHA 07/09/25 In Process 450mg/250ml Ae 12:15 Amiodarone PHA 07/09/25 In Process 450mg/250ml Ae 18:15 Magnesium Sulfate PHA 07/09/25 In Process 1gm/100ml 13:00 Drug Screen LAB 07/09/25 In Process 12:30 Cardiac DIET 07/09/25 Transmitted Diet-2gna,Lofat,Lochol Lunch Pantoprazole PHA 07/09/25 In Process (Protonix) 12:45 Sacubitril-Valsartan PHA 07/09/25 In Process (Entresto 24-26 Mg 12:45 Empagliflozin PHA 07/09/25 In Process (Jardiance) 12:45 Metoprolol Xl PHA 07/09/25 In Process Succinate (Toprol Xl) 12:45 Spironolactone PHA 07/10/25 In Process (Aldactone) 10:00 Date of Service: Jul 09, 2025 Billing Provider: ANA PORTER MD Common Visit Codes: 61791-[id number] INP/OBS CARE (HIGH) Secondary Visit Codes: 54310-[id number] CARE PLAN 30 MINUTES SILVIA BUCIO RESIDENT Jul 09, 2025 13:43
[2025-07-09] MEDS ORDERED: DEXTROSE (50%) 50ML SYRG IV PRN (13:45)
[2025-07-09 13:58] LABS: Cannabinoid Screen, Urine Neg (NEGATIVE)
[2025-07-09 14:00] LABS: Amphetamine Screen, Urine Neg (NEGATIVE); Barbiturate Scree,Urine Neg (NEGATIVE); Benzodiazephine Screen, Urine Neg (NEGATIVE); Cocaine Screen, Urine Neg (NEGATIVE); Opiate Scree,Urine Neg (NEGATIVE); Phencyclidine Screen, Urine Neg (NEGATIVE)
[2025-07-09] MEDS: AMIODARONE BOLUS KIT 100 ML IV ONE (14:04)
[2025-07-09] MEDS: EMPAGLIFLOZIN 10 MG TAB PO SCH (14:10)
[2025-07-09] MEDS: SACUBITRIL-VALSARTAN 24mg/26mg TAB PO SCH (14:10)
[2025-07-09] MEDS: PANTOPRAZOLE 40 MG/10 ML VIAL INJ IV SCH (14:10)
[2025-07-09] MEDS: METOPROLOL SUCCINATE XL 50 MG TAB PO SCH (14:11)
[2025-07-09] MEDS: MAGNESIUM SULFATE 1GM/100ML 100 ML IV SCH (14:17)
[2025-07-09] MEDS: ACCU-CHEK COMFORT CURVE STRIP VI SCH (17:24)
[2025-07-09] MEDS: InsuLIN REG 1unit/0.01ml Soln (100units/ml) SC SCH (17:41)
--- NOTE | 2025-07-09 17:59 | DVH ---
CLINICAL HISTORY: Chest pain. TECHNIQUE: Two frontal views of the chest was obtained. COMPARISON: XY CHEST XRAY 1 VIEW on DOS: 04/16/25. FINDINGS: Devices/lines/tubes: Stable left chest AICD with leads followed to and projecting over the expected region of the right atrium, right ventricle, and coronary sinus, respectively. Lungs: Clear. Cardiomediastinal silhouette: Normal in size. Aortic atherosclerosis. Bones: No acute osseous abnormality. Imaged Upper Abdomen: unremarkable. IMPRESSION: NO ACUTE CARDIOPULMONARY PROCESS.
[2025-07-09 19:38] VITALS: PULSE 70; RESP 16; O2SAT 97
[2025-07-09 23:25] VITALS: BP 117/74; PULSE 74; PULSE 75; RESP 18; TEMP 97.7; O2SAT 96; O2SAT 97
[2025-07-10] VITALS (8 sets, daily range): BP systolic 94–126; BP diastolic 54–83; PULSE 64–90; RESP 16–19; TEMP 97.2–99.4; O2SAT 93–99
[2025-07-10] MEDS: NICOTINE 21MG/24 HR TOPICAL PATCH TD ONE (04:09)
[2025-07-10 06:49] LABS: Hematocrit 45.4 % (41.0-53.0); Hemoglobin 15.2 g/dL (13.5-17.5); Mean Corpuscular Hemoglobin 31.0 pg (28.0-32.0); Mean Corpuscular Volume 92.5 fL (80.0-100.0); Nucleated Red Blood Cells % 0.1 %
[2025-07-10 07:02] LABS: Alanine Aminotransferase 12 U/L (7-40); Albumin 4.4 g/dL (3.2-4.8); Alkaline Phosphatase 88 U/L (46-116); Anion Gap 9 (5-15); BUN/Creatinine Ratio 9.5 (10.0-20.0); Bilirubin, Total 0.6 mg/dL (0.2-1.0); Calcium 9.0 mg/dL (8.7-10.4); Carbon Dioxide 30 mmol/L (20-31); Chloride 101 mmol/L (98-107); Magnesium 2.1 mg/dL (1.6-2.6); Potassium 3.6 mmol/L (3.5-5.1); Sodium 140 mmol/L (136-145); Total Protein 7.4 g/dL (5.7-8.2)
[2025-07-10 07:09] LABS: Blood Urea Nitrogen 8 mg/dL (9-23); Glucose 129 mg/dL (74-106)
[2025-07-10] MEDS ORDERED: MORPHINE SULFATE 4 MG/ML SYR/VIAL IV PRN (08:45)
--- NOTE | 2025-07-10 09:29 | DVHINCON2 ---
Date of service: Jul 10, 2025 History of Present Illness HPI Patient is a 69-year-old gentleman who presented to the hospital after ICD discharge. He mentions that he had ICD implanted in April 2025. He mentions that he has not been compliant with medications. He woke up with ICD discharge. Reportedly while coming to the hospital he also had more discharged happening. Does have baseline history of ischemic cardiomyopathy for which had CRTD implanted. Cardiology is involved for cardiac aspects of care. Serial high sensitive troponin has remained negative. Patient has history of cannabis and alcohol abuse. He mentions that he has not been using drugs recently. Denies any chest pains. Home Meds Active Scripts Pantoprazole Sodium Sesquihydr (Protonix) 40 Mg Tab, 40 MG PO DAILY for 15 Days, #15 TAB Prov:MORRO REEDER MD 06/24/25 Ondansetron Odt 4MG Tab (ZOFRAN PO) 4 Mg Tb, 4 MG PO BIDPRN PRN for 3 Days, #6 TAB ODT TAB-DISSOLVE IN MOUTH, THEN SWALLOW Prov:MORRO REEDER MD 06/24/25 Hydrocodone-Acetaminophen (Hydrocodone Bitartrate/AC 5-325 mg) 1 Tab Tab, 1 TAB PO TIDP PRN for 7 Days, #21 TAB 0 Refills Prov:HEBER RAMIREZ MD 04/16/25 Tamsulosin Hcl (Tamsulosin Hcl) 0.4 Mg Cap, 1 CAP PO DAILY, #30 CAP 1 Refill Prov:HEBER RAMIREZ MD 04/16/25 Cephalexin (KEFLEX CAPSULE) 250 Mg Cp, 2 CAP PO BID for 5 Days, #28 CAP 0 Refills Prov:HEBER RAMIREZ MD 04/16/25 Empagliflozin (Jardiance) 10 Mg Tab, 10 MG PO DAILY for 30 Days, #30 TAB 0 Refills Prov:HEBER RAMIREZ MD 04/16/25 Gabapentin (Once-Daily) (Gabapentin) 300 Mg Tab, 300 MG PO BID for 20 Days, #40 TAB Prov:HEBER RAMIREZ MD 04/16/25 Pantoprazole Sodium Sesquihydr (Protonix) 40 Mg Tab, 40 MG PO DAILY for 20 Days, #20 TAB Prov:HEBER RAMIREZ MD 04/16/25 Metformin HCl (Metformin Hydrochloride) 1,000 Mg Tab, 1000 MG PO BID for 20 Days, #40 TAB Prov:HEBER RAMIREZ MD 04/16/25 Aripiprazole (Aripiprazole) 10 Mg Tab, 10 MG PO DAILY for 20 Days, #20 TAB Prov:HEBER RAMIREZ MD 04/16/25 Past Medical History Others Past medical history reportedly includes diabetes mellitus, BPH, neuropathy, hypertension, hyperlipidemia, bipolar disorder, depression/anxiety, gallstones, kidney stones, osteoarthritis, old history of schizoaffective disorder and questionable old history of coronary artery disease. He mentions that he has had stents many years ago. History also includes ischemic cardiomyopathy and HFrEF. Does have baseline history of alcohol and cannabis abuse. Old chart mentions history of atrial fibrillation. Patient himself denies any such official diagnosis. He has not been kept on anticoagulation as outpatient. Patient Family History: Diabetes mellitus G8 MOTHER, FH: bipolar disorder G8 FATHER, FH: cancer G8 FATHER, Smoker: Quit Alocohol: Occassional Drugs: Marijuana Review of Systems Constitutional: No symptom reported Ears, Nose, & Throat: No symptom reported Cardiovascular: Palpitations All Other Systems 14 point review of system was performed. Relevant findings as per above and as per HPI. Otherwise negative. H&P Exam Vital Signs Vital Signs Date Time Temp Pulse Resp B/P (MAP) Pulse Ox O2 Delivery O2 Flow Rate FiO2 07/10/25 05:00 97.4 68 19 126/83 (97) 99 97.4 07/09/25 23:25 Room Air* 0 21 General Appeara: Cachetic, Thin Head Exam: Normal inspection Eye Exam: bilateral eye PERRL Nasal Exam: Normal inspection Mouth: Normal Inspection Pulmonary/Respiratory: Lungs clear Cardiovascular/Chest: Regular rate, Systolic murmur Peripheral Pulses: 2+ carotid (R), 2+ carotid (L), 2+ femoral (R), 2+ femoral (L), 2+ dorsalis pedis (R), 2+ dorsalis pedis (L) Abdominal Exam: Normal bowel sounds, Soft, No hepatospenomegaly Neuro/Mental St: Alert, Oriented Appearance: Appropriate appearance Eye contact/ Speech: Cooperative Labs/Xrays Labs Test 07/10/25 06:29 07/09/25 21:37 07/09/25 13:44 07/09/25 13:27 Range/Units White Blood Count 7.9 4.4-10.8 10^3/uL Red Blood Count 4.90 4.5-5.90 10^6/uL Hemoglobin 15.2 13.5-17.5 g/dL Hematocrit 45.4 # 41.0-53.0 % Mean Corpuscular Volume 92.5 80.0-100.0 fL Mean Corpuscular Hemoglobin 31.0 28.0-32.0 pg Mean Corpuscular Hemoglobin Concent 33.5 32.0-36.0 g/dL Red Cell Distribution Width 13.6 11.8-14.3 % Platelet Count 126 L 140-450 10^3/uL Mean Platelet Volume 9.5 6.9-10.8 fL Neutrophils (%) (Auto) 65.5 37.0-80.0 % Lymphocytes (%) (Auto) 27.5 10.0-50.0 % Monocytes (%) (Auto) 4.8 0.0-12.0 % Eosinophils (%) (Auto) 1.2 0.0-7.0 % Basophils (%) (Auto) 1.0 0.0-2.0 % Neutrophils # (Auto) 5.2 1.6-8.6 10 ^3/uL Lymphocytes # (Auto) 2.2 0.4-5.4 10 ^3/uL Monocytes # (Auto) 0.4 0-1.3 10 ^3/uL Eosinophils # (Auto) 0.1 0-0.8 10 ^3/uL Basophils # (Auto) 0.1 0-0.2 10 ^3/uL Nucleated Red Blood Cells 0.1 % Sodium Level 140 136-145 mmol/L Potassium Level 3.6 3.5-5.1 mmol/L Chloride Level 101 98-107 mmol/L Carbon Dioxide Level 30 20-31 mmol/L Anion Gap 9 5-15 Blood Urea Nitrogen 8 L 9-23 mg/dL Creatinine 0.84 0.700-1.30 mg/dL Glomerular Filtration Rate Calc 93 >90 mL/min BUN/Creatinine Ratio 9.5 L 10.0-20.0 Serum Glucose 129 H 74-106 mg/dL Calcium Level 9.0 8.7-10.4 mg/dL Magnesium Level 2.1 1.6-2.6 mg/dL Total Bilirubin 0.6 0.2-1.0 mg/dL Aspartate Amino Transferase (AST) 22 13-40 U/L Alanine Aminotransferase (ALT) 12 7-40 U/L Alkaline Phosphatase 88 46-116 U/L Total Protein 7.4 5.7-8.2 g/dL Albumin 4.4 3.2-4.8 g/dL POC Glucose 111 H 70-106 mg/dl Troponin I High Sensitivity 22 </=54 ng/L Urine Color Light-yellow Yellow Urine Clarity Clear Clear Urine pH 7.0 5.0-9.0 Urine Specific [place] 1.008 1.001-1.035 Urine Protein Negative Negative Urine Ketones Negative Negative Urine Blood Negative Negative /uL Urine Nitrite Negative Negative Urine Bilirubin Negative Negative Urine Urobilinogen Normal Negative mg/dL Urine Leukocyte Esterase Negative Negative /uL Urine RBC 1 0 - 3 /hpf Urine Microscopic WBC 1 0-3 /HPF Urine Squamous Epithelial Cells Few <5 /hpf Urine Bacteria Few H None Seen /hpf Urine Glucose Normal Normal mg/dL Urine Opiates Screen Neg NEGATIVE Urine Fentanyl Screen Neg NEGATIVE Urine Barbiturates Screen Neg NEGATIVE Urine Phencyclidine Screen Neg NEGATIVE Urine Amphetamines Screen Neg NEGATIVE Urine Benzodiazepines Screen Neg NEGATIVE Urine Cocaine Screen Neg NEGATIVE Urine Cannabinoids Screen Neg NEGATIVE Test 07/09/25 11:46 07/09/25 10:41 Range/Units Direct Bilirubin 0.2 <0.3 mg/dL Hemoglobin A1c 6.0 H <5.7 % A1C Assessment/Plan Plan Patient is a 69-year-old gentleman who presented to the hospital after ICD discharge. He mentions that he had ICD implanted in April 2025. He mentions that he has not been compliant with medications. He woke up with ICD discharge. Reportedly while coming to the hospital he also had more discharged happening. Does have baseline history of ischemic cardiomyopathy for which had ASBESTOS BRAKE LINING FINISHER HELPER-D implanted. Cardiology is involved for cardiac aspects of care. Serial high sensitive troponin has remained negative. Patient has history of cannabis and alcohol abuse. He mentions that he has not been using drugs recently. Denies any chest pains. Patient has followed in our office once. Frail looking gentleman not in acute distress. No JVD. Mucosa is pale and wet. No carotid bruit. No goiter. Lungs are clear to auscultation. Not using accessory muscles of breathing. Cardiac: Regular, no thrill/gallop. Systolic murmur 2/6 in the apex is heard. Abdomen is soft. Bowel sound is positive. There is no gross mass. There was no peripheral edema. Dorsalis pedis is 2+ bilateral. Past medical history reportedly includes diabetes mellitus, BPH, neuropathy, hypertension, hyperlipidemia, bipolar disorder, depression/anxiety, gallstones, kidney stones, osteoarthritis, old history of schizoaffective disorder and questionable old history of coronary artery disease. He mentions that he has had stents many years ago. History also includes ischemic cardiomyopathy and HFrEF. Does have baseline history of alcohol and cannabis abuse. Old chart mentions history of atrial fibrillation. Patient himself denies any such official diagnosis. He has not been kept on anticoagulation as outpatient. Echocardiogram of April 06, 2025 revealed ejection fraction of 30% with mild mitral regurgitation Nuclear stress test of April 08, 2025 revealed no ischemia and ejection fraction of 33% Creatinine: 0.74 - 0.84 Potassium: 3.5 - 3.6 Magnesium: 2.1 Troponin (high sensitive): Urine drug screen was nonrevealing Chest x-ray: IMPRESSION: NO ACUTE CARDIOPULMONARY PROCESS. EKG: Paced rhythm. Another EKG revealed occasions of SVT Tele reveals paced rhythm Patient is a 69-year-old gentleman who presented with reported repeated ICD shock. Reportedly on arrival blood pressure was 185/146 and hypertensive emergency could have contributed clinical picture. There is no available rhythm strip of the episodes. No report/information about any kind of device interrogation is available to review. Has been noncompliant with medications an d followups which could have contributed to the presentation. Does have history of ischemic cardiomyopathy which can be a reason for some type of tachyarrhythmia which could have resulted in the presentation. It is of note that the patient did not lose consciousness. Previous history in the chart mentions history of atrial fibrillation. It is of note that the patient has not been on anticoagulation. Patient himself denies any previous knowledge of atrial fibrillation but also mentions history of arrhythmia. Could this arrhythmia/questionable AFib be related to the presentation? Reported ICD shock Hypertensive Emergency Arrhythmia Ischemic cardiomyopathy HFrEF Diabetes mellitus Neuropathy Hypertension Status post ICD/ASBESTOS BRAKE LINING FINISHER HELPER-D (Biotronik) implantation Medication noncompliance History of substance/alcohol abuse Cardiac suggestion for management: Manage on telemetry Follow-up electrolytes and kidney function tests and correct abnormalities. Keep potassium above 4 and magnesium above 2 Follow-up vital signs and treat hypertension IV amiodarone at this Start oral amiodarone also For now: Metoprolol tartrate: 25 mg t.i.d. Request for official Interrogation of [employer]BE[employer] BRAKE LINING FINISHER HELPER-D Request to repeat Echocardiogram Guideline directed medical therapy for systolic heart failure can be optimized after stability Lifestyle and risk factor modifications Patient was counseled to be compliant with medication and followups and also avoid substance abuse/alcohol abuse Further evaluation and management depends on the above and clinical course Thank you for consultation A total of 75 minutes was spent reviewing the patient record, examining the patient, making a diagnostic and therapeutic plan, discussing this plan with medical personnel, following up on diagnostic studies and following the patient for clinical stability excluding any and all procedures. At least 50% of this time was spent in direct, [id number] contact. Thank you for allowing me to participate in this patient's care. Further recommendations will depend on patient's clinical course. Please do not hesitate to contact me if you have any questions or concerns. This medical document was created using electronic medical record system with [employer] computerized dictation system. Although this document has been carefully reviewed, there may still be some phonetic and typographical errors. These areas are purely typographical due to the imperfection of the software programs, and do not reflect any compromise in the patient's medical care. Plan discussed with: Patient, Other (nurse) LYLE BARRY MD Jul 10, 2025 09:29
[2025-07-10] MEDS: ENOXAPARIN SOD 40 MG/0.4 ML SYRINGE SC SCH (10:00)
[2025-07-10] MEDS: SPIRONOLACTONE 25 MG TAB PO SCH (10:01)
[2025-07-10] MEDS: AMIODARONE HCL 200 MG TAB PO SCH (10:01)
[2025-07-10 10:20] LABS: INR 1.08 (0.9-1.15); Partial Thromboplastin Time 29.8 SEC (24.5-34.5); Prothrombin Time 11.4 sec (9.3-11.8)
[2025-07-10 11:12] LABS: Triglycerides 100.0 mg/dL (< 150)
[2025-07-10 11:14] LABS: Cholesterol 165.0 mg/dL (< 200)
[2025-07-10 11:18] LABS: HDL Cholesterol 75.0 mg/dL (40-59)
[2025-07-10] MEDS: METOPROLOL TARTRATE 25 MG TAB PO SCH (13:49)
--- NOTE | 2025-07-10 15:26 | DVHPNRES ---
Progress Note Date Seen: Jul 10, 2025 Resident Creating Document: ROCKY CORNELIUS Medical Necessity Reason Pt with a Central, PICC or Fol: No Subjective Review of Systems Patient is a 69-year-old male with past medical history of coronary artery disease status post stent placement in the , hypertension, hyperlipidemia, type 2 diabetes mellitus, bipolar disorder, schizophrenia, depression, osteoarthritis, and ischemic cardiomyopathy, presented to [facility] ED with complaint of after experiencing an ICD discharge. He reports a shock around 3:00 a.m. while sleeping and a second episode en route per EMS. Device interrogation confirms one ATP and one shock lasting approximately 11 seconds. Device thresholds are 171 bpm for ATP and 214 bpm for shock. The patient complains of chest and abdominal discomfort afterward, attributing abdominal discomfort mainly to not eating for 24 hours. He recently underwent HOLDER PILE DRIVING-D implantation on April 15, 2025, by Dr. Lyon for symptomatic bradycardia (lowest HR in the 30s), QRS duration of 145 ms, and ischemic cardiomyopathy with an ejection fraction of 30%. The patient reports an unintentional weight loss of 30 pounds over two months. The patient admits to poor medication adherence, stating that he is not currently taking his medications. Past surgical history: Left hip and knee surgeries, back surgery, cataract surgery, HOLDER PILE DRIVING-D placement on April 15. Social History: Lives at home, non-compliant with medications. Recent alcohol use and cannabis detected. No other information available. Home medications: Aripiprazole, Cehphalexin, Divalproex sodium, Empagliflozin, Gabapentin, Hydrocodone-acetaminophen, Metformin, Ondansetron, Protonix, Tamsulosin Allergies: Haloperidol, penicillin, quetiapine. Patient seen and examined at bedside. Patient is alert and oriented to time, place person and responding to all questions. Eyes: No Pain, No Vision change, No Conjunctivae inflammation, No Eyelid inflammation, No Other, No Redness ENT: No Ear pain, No Ear discharge, No Nose pain, No Nose discharge, No Nose congestion, No Mouth pain, No Mouth swelling, No Throat pain, No Throat swelling, No Other Cardiovascular: No Chest Pain, No Palpitations, No Orthopnea, No Paroxysmal No Dyspnea, No Edema, No Lt Headedness, No Other Respiratory: No Cough, No Dry, No Shortness of breath, No SOB with exertion, No Wheezing, No Hemoptysis, No Pleuritic Pain, No Sputum, No Other Gastrointestinal: Nausea, Vomiting, No Abdominal Pain, No Diarrhea, C onstipation, No Melena, No Hematochezia, No Other Genitourinary: No Dysuria, No Frequency, No Incontinence, No Hematuria, No Retention, No Other Musculoskeletal: No other, No neck pain, No shoulder pain, No arm pain, No back pain, No hand pain, No leg pain, No foot pain Skin: No Rash, No Lesions, No Jaundice, No Bruising, No Other Objective vital signs Vital Sign Date Time Temp Pulse Resp B/P (MAP) Pulse Ox O2 Delivery O2 Flow Rate FiO2 07/10/25 13:49 64 100/64 07/10/25 10:00 19 07/10/25 08:00 Room Air* 0 21 07/10/25 05:00 97.4 99 97.4 Total Intake and Output 07/09/25 07/09/25 07/10/25 15:00 23:00 07:00 Intake Total 100 ml 99.98 ml 1040 ml Balance 100 ml 99.98 ml 1040 ml medications Current Medications Medications Dose Ordered Sig/Suma Route Start Time Stop Time Status Last Admin Dose Admin Enoxaparin Sodium 40 mg DAILY SC 07/10/25 10:00 07/10/25 10:00 40 MG Nitroglycerin 0.4 mg Q5MINP PRN SL 07/09/25 12:15 Amiodarone HCl 250 ml @ 16.66 mls/ hr Q15H1M IV 07/09/25 18:15 07/10/25 13:35 16.66 MLS/HR Pantoprazole Sodium 40 mg BID IV 07/09/25 12:45 07/10/25 10:00 40 MG Sacubitril/ Valsartan 1 tab BID PO 07/09/25 12:45 07/09/25 21:24 1 TAB Empaglifozin 10 mg DAILY PO 07/09/25 12:45 07/10/25 10:01 10 MG Spironolactone 25 mg DAILY PO 07/10/25 10:00 07/10/25 10:01 25 MG Aspirin 81 mg DAILY PO 07/10/25 10:00 07/10/25 10:01 81 MG Diagnostic Test (Pha) 1 strip ACHS 07/09/25 17:00 07/10/25 11:14 1 STRIP Insulin Human Regular ACHS SC 07/09/25 17:00 07/10/25 11:22 2 UNITS Dextrose 50 ml UD PRN IV 07/09/25 13:45 Amiodarone HCl 200 mg Q12HR PO 07/10/25 10:00 07/10/25 10:01 200 MG Metoprolol Tartrate 25 mg TID PO 07/10/25 14:00 Morphine Sulfate 2 mg Q30M PRN IV 07/10/25 08:45 Atorvastatin Calcium 40 mg HS PO 07/10/25 22:00 Ondansetron HCl 4 mg Q4HP PRN IV 07/10/25 15:30 Docusate Sodium 100 mg BIDPRN PRN PO 07/10/25 15:30 Examination General Appearance: Cooperative. Cachectic and thin Head Exam: Normal inspection Neck Exam: Normal inspection. Non-tender. Normal alignment Pulmonary/Respiratory: Chest non-tender. Clear bilateral breath sounds, no crackles, no wheezing. Cardiovascular/Chest: Regular rate and rhythm. No murmurs. No JVD. Peripheral Pulses: 2+ Radial (R). 2+ Radial (L). 2+ Pedal (R). 2+ Pedal (L) Abdominal Exam: Normal bowel sounds. Soft. normal abdomen, no visible veins, Nontender. No hepatospenomegaly. No masses Ankle Exam: Negative ankle edema Lower extremities: Negative lower extremity edema. residual lesion following left knee surgery Neuro/Mental Status: A&O x4. Coherent. Thoughts/Psych: Normal thought pattern. Appropriate mood and affect. Good judgement and insight Skin Exam: Normal inspection. Normal color. Warm. Dry laboratory and microbiology Laboratory Tests 07/10/25 06:29 Test 07/10/25 06:29 Range/Units Serum Glucose 129 H 74-106 mg/dL Labs and/or images reviewed: Labs reviewed by me, Image(s) reviewed by me Problem List/Assessment/Plan Problem List/Assessment/Plan #Ventricular tachycardia #Coronary artery disease, status post stent placement in the #Ischemic cardiomyopathy #Acute on chronic, diastolic, congestive heart failure (HFrEF, EF 30%), status post HOLDER PILE DRIVING-D placement Amiodarone IV 16.66 MLS/HR Amiodarone 200 MG PO q12h Aspirin 81 MG PO daily Atorvastatin 40 MG PO hs pain management with Morphine Jardiacne 10 MG PO daily Lovenox 40 MG SC daily Metoprolol 25 MG PO tid Zofran 4 MG IV q3h Entresto 1 TAB PO bid Aldactone 25 MG PO daily Consult Dr. Munoz # Type 2 diabetes mellitus with hyperglycemia D50 Mild sliding scale Accu-check #Bipolar disorder #Schizophrenia #Depression monitor #Seizure disorder Divalproex 250 MG PO bid #Osteoarthritis monitor #Hyperlipidemia monitor #Polysubstance use disorder (marijuana, alcohol) I have counseled the patient on the importance of complete marijuana, alcohol cessation for over 10 minutes. #Medication noncompliance I have counseled the patient on the importance of medication compliance for over 5 minutes. Diet: Cardiac PUD prophylaxis: Protonix 40mg DVT prophylaxis: Lovenox 40mg Goals of care: Full code Plan discussed with patient Plan discussed with Dr. Porter Plan discussed with: Patient, Other (RN) My Orders My Orders Orders - ROCKY CORNELIUS Procedure Category Date Status Time Ondansetron Hcl PHA 07/10/25 In Process (Zofran) 15:30 Docusate Sodium PHA 07/10/25 In Process Capsule (Colace 15:30 Visit Coding STANDARD RES Billing Provider: ANA PORTER MD Date of Service if different f: Jul 10, 2025 Common Visit Codes: [id number] INP/OBS CARE(HIGH) ROCKY CORNELIUS RESIDENT Jul 10, 2025 15:26
[2025-07-10] MEDS: DOCUSATE SOD 100 MG CAP PO PRN (15:46)
[2025-07-10] MEDS: ONDANSETRON HCL 4 MG/2 ML VIAL IV PRN (15:46)
[2025-07-10] MEDS ORDERED: DIVA1TAB58 PO (16:01)
--- NOTE | 2025-07-10 18:06 | DVHSR ---
APPROVED REPORT EXAM: Two-dimensional and M-mode echocardiogram with Doppler and color Doppler. Blood Pressure: 126/83 mmHg INDICATION V-TACH, AND SHOCK Surgery/Intervention Pacemaker: AICD RISK FACTORS Height: 6'4, Weight: 167 DIMENSIONS LVDd 6.2 (3.8-5.7cm) LA (2D) 2.8 (1.9-4.0cm) Aortic Root (2.0-3.7cm) LVDs 5.4 (2.5-4.0cm) LA (MM) (1.9-4.0cm) Aortic Cusp Exc (1.5-2.0cm) EF (%) 25.0 (55-70%) Rt. Atrium 3.1 (1.9-4.0cm) Asc. Aorta cm IVSd 1.0 (0.7-1.1cm) RV (D) 3.6 (1.8-2.4cm) PWd 1.3 (0.7-1.1cm) Mitral Valve Mitral Mitral Stenosis E wave 0.47m/s MV Mean GR. mmHg A wave 0.55m/s MV Peak GR. 76mmHg E/A ratio 0.9 2D MVA cm2 DECEL Time 198ms PRESS 1/2 Time ms Aortic Valve Aortic Valve Aortic Stenosis LVOT Diameter 2.1 (1.8-2.4cm) Doppler ANDERS cm2 Tricuspid Valve TR Velocity 2.42m/s RVSP 24mmHg Other Information Technically limited study due to PT talking and moving Conclusion Left ventricle: Left ventricle was dilated with reduced systolic function. LVEF was 30-35%. Pseudonormal left ventricular diastolic function was observed. Diffuse hypokinesis of left ventricle was seen. Right ventricle was normal-sized with reduced systolic function. Both atria were normal-sized. Pacing wire was seen in right-sided chambers. Aortic valve was not well visualized. There was no aortic stenosis/insufficiency. Mild mitral/tricuspid regurgitation was seen. Pulmonary valve was not well visualized. IVC was dilated. Right ventricular systolic pressure was assessed at 32 mm Hg. There was no pericardial effusion.
[2025-07-10] MEDS: ATORVASTATIN 20 MG TAB PO SCH (20:58)
[2025-07-11 05:00] VITALS: BP 124/66; PULSE 73; RESP 16; TEMP 97.6; O2SAT 98
--- NOTE | 2025-07-11 06:18 | DVHPN2 ---
Progress Note - Dictate Date Seen: Jul 11, 2025 Medical Necessity Reason Pt with a Central, PICC or Fol: No vital signs Vital Sign Date Time Temp Pulse Resp B/P (MAP) Pulse Ox O2 Delivery O2 Flow Rate FiO2 07/11/25 06:14 73 124/66 07/11/25 05:00 97.6 16 98 97.6 07/10/25 20:00 Room Air* 0 21 Total Intake and Output 07/10/25 07/10/25 07/11/25 15:00 23:00 07:00 Intake Total 1600 ml Output Total 2000 ml 900 ml Balance -2000 ml 700 ml medications Current Medications Medications Dose Ordered Sig/Suma Route Start Time Stop Time Status Last Admin Dose Admin Enoxaparin Sodium 40 mg DAILY SC 07/10/25 10:00 07/10/25 10:00 40 MG Nitroglycerin 0.4 mg Q5MINP PRN SL 07/09/25 12:15 Amiodarone HCl 250 ml @ 16.66 mls/ hr Q15H1M IV 07/09/25 18:15 07/11/25 04:58 16.66 MLS/HR Pantoprazole Sodium 40 mg BID IV 07/09/25 12:45 07/10/25 20:54 40 MG Sacubitril/ Valsartan 1 tab BID PO 07/09/25 12:45 07/09/25 21:24 1 TAB Empaglifozin 10 mg DAILY PO 07/09/25 12:45 07/10/25 10:01 10 MG Spironolactone 25 mg DAILY PO 07/10/25 10:00 07/10/25 10:01 25 MG Aspirin 81 mg DAILY PO 07/10/25 10:00 07/10/25 10:01 81 MG Diagnostic Test (Pha) 1 strip ACHS 07/09/25 17:00 07/11/25 05:56 1 STRIP Insulin Human Regular ACHS SC 07/09/25 17:00 07/11/25 05:56 2 UNITS Dextrose 50 ml UD PRN IV 07/09/25 13:45 Amiodarone HCl 200 mg Q12HR PO 07/10/25 10:00 07/10/25 10:01 200 MG Metoprolol Tartrate 25 mg TID PO 07/10/25 14:00 07/11/25 06:14 25 MG Morphine Sulfate 2 mg Q30M PRN IV 07/10/25 08:45 Atorvastatin Calcium 40 mg HS PO 07/10/25 22:00 07/10/25 20:58 40 MG Ondansetron HCl 4 mg Q4HP PRN IV 07/10/25 15:30 07/10/25 15:46 4 MG Docusate Sodium 100 mg BIDPRN PRN PO 07/10/25 15:30 07/11/25 05:48 100 MG Divalproex Sodium 250 mg BID PO 07/10/25 22:00 07/10/25 20:57 250 MG laboratory and microbiology Laboratory Tests 07/10/25 06:29 Test 07/10/25 06:29 Range/Units Serum Glucose 129 H 74-106 mg/dL Assessment/Plan Patient is a 69-year-old gentleman who presented to the hospital after ICD discharge. He mentions that he had ICD implanted in April 2025. He mentions that he has not been compliant with medications. He woke up with ICD discharge. Reportedly while coming to the hospital he also had more discharged happening. 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 Cardiology is involved for cardiac aspects of care. Serial high sensitive troponin has remained negative. Patient has history of cannabis and alcohol abuse. He mentions that he has not been using drugs recently. Denies any chest pains. Patient has followed in our office once. Frail looking gentleman not in acute distress. No JVD. Mucosa is pale and wet. No carotid bruit. No goiter. Lungs are clear to auscultation. Not using accessory muscles of breathing. Cardiac: Regular, no thrill/gallop. Systolic murmur 2/6 in the apex is heard. Abdomen is soft. Bowel sound is positive. There is no gross mass. There was no peripheral edema. Dorsalis pedis is 2+ bilateral. Past medical history reportedly includes diabetes mellitus, BPH, neuropathy, hypertension, hyperlipidemia, bipolar disorder, depression/anxiety, gallstones, kidney stones, osteoarthritis, old history of schizoaffective disorder and questionable old history of coronary artery disease. He mentions that he has had stents many years ago. History also includes ischemic cardiomyopathy and HFrEF. Does have baseline history of alcohol and cannabis abuse. Old chart mentions history of atrial fibrillation. Patient himself denies any such official diagnosis. He has not been kept on anticoagulation as outpatient. Echocardiogram of April 06, 2025 revealed ejection fraction of 30% with mild mitral regurgitation Nuclear stress test of April 08, 2025 revealed no ischemia and ejection fraction of 33% Creatinine: 0.74 - 0.84 - 0.76 Potassium: 3.5 - 3.6 - 3.4 Magnesium: 2.1 Troponin (high sensitive): 20 - 21 - 22 Urine drug screen was nonrevealing Chest x-ray: IMPRESSION: NO ACUTE CARDIOPULMONARY PROCESS. EKG: Paced rhythm. Another EKG revealed occasions of SVT Echocardiogram: revealed Left ventricle: Left ventricle was dilated with reduced systolic function. LVEF was 30-35%. Pseudonormal left ventricular diastolic function was observed. Diffuse hypokinesis of left ventricle was seen. Right ventricle was normal-sized with reduced systolic function. Both atria were normal-sized. Pacing wire was seen in right-sided chambers. Aortic valve was not well visualized. There was no aortic stenosis/insufficiency. Mild mitral/tricuspid regurgitation was seen. Pulmonary valve was not well visualized. IVC was dilated. Right ventricular systolic pressure was assessed at 32 mm Hg. There was no pericardial effusion. Tele reveals paced rhythm Patient is a 69-year-old gentleman who presented with reported repeated ICD shock. Reportedly on arrival blood pressure was 185/146 and hypertensive emergency could have contributed clinical picture. There is no available rhythm strip of the episodes. No report/information about any kind of device interrogation is available to review. Has been noncompliant with medications and followups which could have contributed to the presentation. Does have history of ischemic cardiomyopathy which can be a reason for some type of tachyarrhythmia which could have resulted in the presentation. It is of note that the patient did not lose consciousness. Previous history in the chart mentions history of atrial fibrillation. It is of note that the patient has not been on anticoagulation. Patient himself denies any previous knowledge of atrial fibrillation but also mentions history of arrhythmia. Could this arrhythmia/questionable AFib be related to the presentation? Reported ICD shock Hypertensive Emergency Arrhythmia Ischemic cardiomyopathy HFrEF Diabetes mellitus Neuropathy Hypertension Status post ICD/HOTEL MAINTENANCE WORKER-D (Biotronik) implantation Medication noncompliance History of substance/alcohol abuse Cardiac suggestion for management: Manage on telemetry Follow-up electrolytes and kidney function tests and correct abnormalities. Keep potassium above 4 and magnesium above 2 Follow-up vital signs and treat hypertension IV amiodarone at this Start oral amiodarone also For now: Metoprolol tartrate: 25 mg t.i.d. Guideline directed medical therapy for systolic heart failure can be optimized after stability Lifestyle and risk factor modifications Patient was counseled to be compliant with medication and followups and also avoid substance abuse/alcohol abuse Further evaluation and management depends on the above and clinical course Thank you for consultation A total of 75 minutes was spent reviewing the patient record, examining the patient, making a diagnostic and therapeutic plan, discussing this plan with medical personnel, following up on diagnostic studies and following the patient for clinical stability excluding any and all procedures. At least 50% of this time was spent in direct, [id number] contact. Thank you for allowing me to participate in this patient's care. Further recommendations will depend on patient's clinical course. Please do not hesitate to contact me if you have any questions or concerns. This medical document was created using electronic medical record system with [employer] computerized dictation system. Although this document has been carefully reviewed, there may still be some phonetic and typographical errors. These areas are purely typographical due to the imperfection of the software programs, and do not reflect any compromise in the patient's medical care. Plan discussed with: Patient, Other (nurse) NETTIE ECHEVARRIA Jul 11, 2025 06:18
[2025-07-11 08:03] LABS: Hematocrit 44.2 % (41.0-53.0); Hemoglobin 15.1 g/dL (13.5-17.5); Mean Corpuscular Hemoglobin 31.6 pg (28.0-32.0); Mean Corpuscular Volume 92.3 fL (80.0-100.0); Nucleated Red Blood Cells % 0.1 %
[2025-07-11 08:45] LABS: Anion Gap 10 (5-15); Carbon Dioxide 30 mmol/L (20-31); Sodium 138 mmol/L (136-145)
[2025-07-11 08:46] LABS: Calcium 9.2 mg/dL (8.7-10.4)
[2025-07-11 08:49] LABS: Chloride 98 mmol/L (98-107); Potassium 3.4 mmol/L (3.5-5.1)
[2025-07-11 08:51] LABS: BUN/Creatinine Ratio 9.2 (10.0-20.0); Blood Urea Nitrogen 7 mg/dL (9-23); Glucose 70 mg/dL (74-106)
[2025-07-11 09:00] VITALS: BP 102/77; PULSE 65; RESP 17; TEMP 98.8; O2SAT 99
[2025-07-11] MEDS ORDERED: POLYETHYLENE GLYCOL 17 GM PWDR PO PRN ×2 (10:15)
[2025-07-11] MEDS: POLYETHYLENE GLYCOL 17 GM PWDR PO ONE (10:28)
[2025-07-11] MEDS: POTASSIUM CHL 20 Meq TABLET PO ONE (10:28)
[2025-07-11] MEDS: NICOTINE 14 MG/24HR TOPICAL PATCH TD SCH (10:28)
[2025-07-11 13:00] VITALS: BP 127/78; PULSE 67; RESP 16; TEMP 97.6; O2SAT 99
[2025-07-11] MEDS ORDERED: LACTULOSE 20Gm/30ML SOLN PO PRN (13:00)
[2025-07-11] MEDS: LACTULOSE 20Gm/30ML SOLN PO ONE (13:26)
[2025-07-11] MEDS: METOCLOPRAMIDE HCL 5MG/ml INJ 2ml VIAL IV ONE (13:26)
--- NOTE | 2025-07-11 15:10 | DVHPNRES ---
Progress Note Date Seen: Jul 11, 2025 Resident Creating Document: AKIRA MORALES RESIDENT Medical Necessity Reason Pt with a Central, PICC or Fol: No Subjective Review of Systems Patient was seen today at bedside Labs and chart reviewed Telemetry reviewed Patient complained of constipation Ongoing chest pain since admission, repeat troponin I with a normal limit, reveals troponin I within normal limit Kg No acute EKG changes Ordered urinalysis due to dysuria Tried to reach out to on-call Cardiology to discuss plan of care, no response so far Objective vital signs Vital Sign Date Time Temp Pulse Resp B/P (MAP) Pulse Ox O2 Delivery O2 Flow Rate FiO2 07/11/25 13:27 67 127/78 07/11/25 09:00 98.8 17 99 98.8 07/10/25 20:00 Room Air* 0 21 Total Intake and Output 07/10/25 07/10/25 07/11/25 15:00 23:00 07:00 Intake Total 1600 ml Output Total 2000 ml 900 ml Balance -2000 ml 700 ml medications Current Medications Medications Dose Ordered Sig/Suma Route Start Time Stop Time Status Last Admin Dose Admin Enoxaparin Sodium 40 mg DAILY SC 07/10/25 10:00 07/11/25 09:47 40 MG Nitroglycerin 0.4 mg Q5MINP PRN SL 07/09/25 12:15 Amiodarone HCl 250 ml @ 16.66 mls/ hr Q15H1M IV 07/09/25 18:15 07/11/25 04:58 16.66 MLS/HR Pantoprazole Sodium 40 mg BID IV 07/09/25 12:45 07/11/25 09:47 40 MG Sacubitril/ Valsartan 1 tab BID PO 07/09/25 12:45 07/11/25 09:48 1 TAB Empaglifozin 10 mg DAILY PO 07/09/25 12:45 07/11/25 09:48 10 MG Spironolactone 25 mg DAILY PO 07/10/25 10:00 07/10/25 10:01 25 MG Aspirin 81 mg DAILY PO 07/10/25 10:00 07/11/25 09:47 81 MG Diagnostic Test (Pha) 1 strip ACHS 07/09/25 17:00 07/11/25 12:12 1 STRIP Insulin Human Regular ACHS SC 07/09/25 17:00 07/11/25 12:13 2 UNITS Dextrose 50 ml UD PRN IV 07/09/25 13:45 Amiodarone HCl 200 mg Q12HR PO 07/10/25 10:00 07/11/25 09:48 200 MG Metoprolol Tartrate 25 mg TID PO 07/10/25 14:00 07/11/25 13:27 25 MG Morphine Sulfate 2 mg Q30M PRN IV 07/10/25 08:45 Atorvastatin Calcium 40 mg HS PO 07/10/25 22:00 07/10/25 20:58 40 MG Ondansetron HCl 4 mg Q4HP PRN IV 07/10/25 15:30 07/10/25 15:46 4 MG Docusate Sodium 100 mg BIDPRN PRN PO 07/10/25 15:30 07/11/25 05:48 100 MG Divalproex Sodium 250 mg BID PO 07/10/25 22:00 07/11/25 09:48 250 MG Nicotine 1 patch DAILY TD 07/11/25 10:00 07/11/25 10:28 1 PATCH Polyethylene Glycol 17 gm DAILYPRN PRN PO 07/11/25 10:15 Lactulose 30 ml DAILYPRN PRN PO 07/11/25 13:00 Examination General examination- awake, alert HEENT- PEERLA, no acute nasal discharge Cardiovascular- S1-S2 audible, rate and rhythm regular, no murmur Respiratory- CTAB, no wheeze or rhonchi Gastrointestinal-nontender, bowel sound+. Nondistended Musculoskeletal-no acute joint swelling or tenderness or redness Lower extremity- no leg edema Neurological- cranial nerves intact, no acute dysarthria or dysphagia Psychiatry- denies depression or SI or HI Skin- no acute rash or purpura laboratory and microbiology Laboratory Tests 07/11/25 07:26 Test 07/11/25 07:26 Range/Units Serum Glucose 70 L 74-106 mg/dL Problem List/Assessment/Plan Problem List/Assessment/Plan Problem List/Assessment/Plan #Ventricular tachycardia #Coronary artery disease, status post stent placement in the #Ischemic cardiomyopathy #Acute on chronic, diastolic, congestive heart failure (HFrEF, EF 30%), status post NON LINEAR EDITOR-D placement # acute chest pain likely musculoskeletal, troponin I within normal limit, EKG no acute ST or T wave change Amiodarone IV 16.66 MLS/HR Amiodarone 200 MG PO q12h Aspirin 81 MG PO daily Atorvastatin 40 MG PO hs pain management with Morphine Jardiacne 10 MG PO daily Lovenox 40 MG SC daily Metoprolol 25 MG PO tid Zofran 4 MG IV q3h Entresto 1 TAB PO bid Aldactone 25 MG PO daily Consult Dr. Munoz # Type 2 diabetes mellitus with hyperglycemia Insulin sliding scale as prescribed Accu-check #Bipolar disorder #Schizophrenia #Depression monitor # dysuria -previous urinalysis negative for UTI Ordered repeat EKG # constipation -ordered lactulose #Seizure disorder Divalproex 250 MG PO bid #Osteoarthritis monitor #Hyperlipidemia monitor #Polysubstance use disorder (marijuana, alcohol) I have counseled the patient on the importance of complete marijuana, alcohol cessation for over 10 minutes. #Medication noncompliance I have counseled the patient on the importance of medication compliance for over 5 minutes. Diet: Cardiac PUD prophylaxis: Protonix 40mg DVT prophylaxis: Lovenox 40mg Goals of care: Full code Plan discussed with patient Plan discussed with Dr. Mix Plan discussed with: Patient, Other (RN) Plan discussed with: Patient, Other (RN) My Orders My Orders Orders - AKIRA MORALES Procedure Category Date Status Time Electrocardigram EKG 07/11/25 Logged 10:09 Polyethylene Glycol PHA 07/11/25 In Process 17g Powder (Miralax 10:15 Nicotine 14mg/24hr PHA 07/11/25 In Process (Nicoderm 14mg/24hr) 10:00 Urinalysis LAB 07/11/25 Logged 12:55 Lactulose Oral PHA 07/11/25 In Process 13:00 Visit Coding STANDARD RES Billing Provider: BARRETT MIX MD Date of Service if different f: Jul 11, 2025 Common Visit Codes: [id number] INP/OBS CARE(HIGH) AKIRA MORALES Jul 11, 2025 15:10
--- NOTE | 2025-07-11 16:15 | DVHDSRES ---
Discharge Summary Date of Admission Resident Creating Document: AKIRA MORALES RESIDENT Jul 09, 2025 at 13:06 Date of Discharge: Jul 11, 2025 Admitting Diagnosis reported ICD shock Hypertensive emergency Arrhythmia Labs/Diagnostic Data: Laboratory Results Test 07/11/25 16:04 07/11/25 11:38 07/11/25 07:26 07/10/25 06:29 POC Glucose 147 mg/dl (70-106) White Blood Count 6.9 10^3/uL (4.4-10.8) Red Blood Count 4.79 10^6/uL (4.5-5.90) Hemoglobin 15.1 g/dL (13.5-17.5) Hematocrit 44.2 % (41.0-53.0) Mean Corpuscular Volume 92.3 fL (80.0-100.0) Mean Corpuscular Hemoglobin 31.6 pg (28.0-32.0) Mean Corpuscular Hemoglobin Concent 34.3 g/dL (32.0-36.0) Red Cell Distribution Width 13.7 % (11.8-14.3) Platelet Count 127 10^3/uL (140-450) Mean Platelet Volume 10.2 fL (6.9-10.8) Neutrophils (%) (Auto) 74.2 % (37.0-80.0) Lymphocytes (%) (Auto) 18.2 % (10.0-50.0) Monocytes (%) (Auto) 6.3 % (0.0-12.0) Eosinophils (%) (Auto) 0.5 % (0.0-7.0) Basophils (%) (Auto) 0.8 % (0.0-2.0) Neutrophils # (Auto) 5.1 10 ^3/uL (1.6-8.6) Lymphocytes # (Auto) 1.2 10 ^3/uL (0.4-5.4) Monocytes # (Auto) 0.4 10 ^3/uL (0-1.3) Eosinophils # (Auto) 0 10 ^3/uL (0-0.8) Basophils # (Auto) 0.1 10 ^3/uL (0-0.2) Nucleated Red Blood Cells 0.1 % Sodium Level 138 mmol/L (136-145) Potassium Level 3.4 mmol/L (3.5-5.1) Chloride Level 98 mmol/L (98-107) Carbon Dioxide Level 30 mmol/L (20-31) Anion Gap 10 (5-15) Blood Urea Nitrogen 7 mg/dL (9-23) Creatinine 0.76 mg/dL (0.700-1.30) Glomerular Filtration Rate Calc 96 mL/min (>90) BUN/Creatinine Ratio 9.2 (10.0-20.0) Serum Glucose 70 mg/dL (74-106) Calcium Level 9.2 mg/dL (8.7-10.4) Troponin I High Sensitivity 14 ng/L (</=54) Prothrombin Time 11.4 sec (9.3-11.8) Prothrombin Time INR 1.08 (0.9-1.15) Activated Partial Thromboplast Time 29.8 SEC (24.5-34.5) Phosphorus Level 3.5 mg/dL (2.4-5.1) Magnesium Level 2.1 mg/dL (1.6-2.6) Total Bilirubin 0.6 mg/dL (0.2-1.0) Aspartate Amino Transferase (AST) 22 U/L (13-40) Alanine Aminotransferase (ALT) 12 U/L (7-40) Alkaline Phosphatase 88 U/L (46-116) Total Protein 7.4 g/dL (5.7-8.2) Albumin 4.4 g/dL (3.2-4.8) Triglycerides Level 100 mg/dL (< 150) Cholesterol Level 165 mg/dL (< 200) LDL Cholesterol 69 mg/dL (< 100) HDL Cholesterol 75 mg/dL (40-59) Vitamin B12 Level 369 pg/mL (211-911) Vitamin D 25-Hydroxy 18.3 ng/mL (30.0-100) Thyroid Stimulating Hormone (TSH) 0.66 uIU/mL (0.55-4.78) Test 07/09/25 13:27 07/09/25 11:46 07/09/25 10:41 Urine Opiates Screen Neg (NEGATIVE) Urine Fentanyl Screen Neg (NEGATIVE) Urine Barbiturates Screen Neg (NEGATIVE) Urine Phencyclidine Screen Neg (NEGATIVE) Urine Amphetamines Screen Neg (NEGATIVE) Urine Benzodiazepines Screen Neg (NEGATIVE) Urine Cocaine Screen Neg (NEGATIVE) Urine Cannabinoids Screen Neg (NEGATIVE) Direct Bilirubin 0.2 mg/dL (<0.3) Hemoglobin A1c 6.0 % A1C (<5.7) Other Laboratory Tests 07/11/25 07:26 Brief Hx & Hospital Course: Patient is a 69-year-old male with past medical history of coronary artery disease status post stent placement in the , hypertension, hyperlipidemia, type 2 diabetes mellitus, bipolar disorder, schizophrenia, depression, osteoarthritis, and ischemic cardiomyopathy, presented to [facility] ED with complaint of after experiencing an ICD discharge. He reports a shock around 3:00 a.m. while sleeping and a second episode en route per EMS. Device interrogation confirms one ATP and one shock lasting approximately 11 seconds. Device thresholds are 171 bpm for ATP and 214 bpm for shock. The patient complains of chest and abdominal discomfort afterward, attributing abdominal discomfort mainly to not eating for 24 hours. He recently underwent ADJUSTER AND INSPECTOR-D implantation on April 15, 2025, by Dr. Lyon for symptomatic bradycardia (lowest HR in the 30s), QRS duration of 145 ms, and ischemic cardiomyopathy with an ejection fraction of 30%. The patient reports an unintentional weight loss of 30 pounds over two months. The patient admits to poor medication adherence, stating that he is not currently taking his medications. Patient was treated with the IV amiodarone initially with the oral amiodarone as well. No cardiac arrhythmia noted post discharge. Spoke to Cardiology team New Mcgarry NP , recommended Patient is cleared be discharged on oral amiodarone. Patient is hemodynamically stable on discharge. Patient was advised to follow up with the Cardiology/PCP/DC clinic. All questions were answered General examination-awake alert HEENT- PEERLA, no acute nasal discharge Cardiovascular- S1-S2 audible, rate and rhythm regular, no murmur Respiratory- CTAB, no wheeze or rhonchi Gastrointestinal-nontender, bowel sound+. Nondistended Musculoskeletal-no acute joint swelling or tenderness or redness Lower extremity-no leg edema Neurological- cranial nerves intact, no acute dysarthria or dysphagia Psychiatry- denies depression or SI or HI Skin- no acute rash or purpura Plan of care discussed with Dr. Tang Consults/Reason for consult Patient Name: YONATHAN SANDY Acct: [id number] [facility] Attending Physician: SILVIA BUCIO RESIDENT Loc: [facility] Unit: [id number] CONSULTATION REPORT . ................................................................................ ............................................................................... Date of service: Jul 10, 2025 History of Present Illness HPI Patient is a 69-year-old gentleman who presented to the hospital after ICD discharge. He mentions that he had ICD implanted in April 2025. He mentions that he has not been compliant with medications. He woke up with ICD discharge. Reportedly while coming to the hospital he also had more discharged happening. Does have baseline history of ischemic cardiomyopathy for which had CRTD implanted. Cardiology is involved for cardiac aspects of care. Serial high sensitive troponin has remained negative. Patient has history of cannabis and alcohol abuse. He mentions that he has not been using drugs recently. Denies any chest pains. Home Meds Active Scripts Pantoprazole Sodium Sesquihydr (Protonix) 40 Mg Tab, 40 MG PO DAILY for 15 Days, #15 TAB Prov:MORRO REEDER MD 06/24/25 Ondansetron Odt 4MG Tab (ZOFRAN PO) 4 Mg Tb, 4 MG PO BIDPRN PRN for 3 Days, #6 TAB ODT TAB-DISSOLVE IN MOUTH, THEN SWALLOW Prov:MORRO REEDER MD 06/24/25 Hydrocodone-Acetaminophen (Hydrocodone Bitartrate/AC 5-325 mg) 1 Tab Tab, 1 TAB PO TIDP PRN for 7 Days, #21 TAB 0 Refills Prov:HEBER RAMIREZ MD 04/16/25 Tamsulosin Hcl (Tamsulosin Hcl) 0.4 Mg Cap, 1 CAP PO DAILY, #30 CAP 1 Refill Prov:HEBER RAMIREZ MD 04/16/25 Cephalexin (KEFLEX CAPSULE) 250 Mg Cp, 2 CAP PO BID for 5 Days, #28 CAP 0 Refills Prov:HEBER RAMIREZ MD 04/16/25 Empagliflozin (Jardiance) 10 Mg Tab, 10 MG PO DAILY for 30 Days, #30 TAB 0 Refills Prov:HEBER RAMIREZ MD 04/16/25 Gabapentin (Once-Daily) (Gabapentin) 300 Mg Tab, 300 MG PO BID for 20 Days, #40 TAB Prov:HEBER RAMIREZ MD 04/16/25 Pantoprazole Sodium Sesquihydr (Protonix) 40 Mg Tab, 40 MG PO DAILY for 20 Days, #20 TAB Prov:HEBER RAMIREZ MD 04/16/25 Metformin HCl (Metformin Hydrochloride) 1,000 Mg Tab, 1000 MG PO BID for 20 Days, #40 TAB Prov:HEBER RAMIREZ MD 04/16/25 Aripiprazole (Aripiprazole) 10 Mg Tab, 10 MG PO DAILY for 20 Days, #20 TAB Prov:HEBER RAMIREZ MD 04/16/25 Past Medical History Others Past medical history reportedly includes diabetes mellitus, BPH, neuropathy, hypertension, hyperlipidemia, bipolar disorder, depression/anxiety, gallstones, kidney stones, osteoarthritis, old history of schizoaffective disorder and questionable old history of coronary artery disease. He mentions that he has had stents many years ago. History also includes ischemic cardiomyopathy and HFrEF. Does have baseline history of alcohol and cannabis abuse. Old chart mentions history of atrial fibrillation. Patient himself denies any such official diagnosis. He has not been kept on anticoagulation as outpatient. Patient Family History: Diabetes mellitus G8 MOTHER, FH: bipolar disorder G8 FATHER, FH: cancer G8 FATHER, Smoker: Quit Alocohol: Occassional Drugs: Marijuana Review of Systems Constitutional: No symptom reported Ears, Nose, & Throat: No symptom reported Cardiovascular: Palpitations All Other Systems 14 point review of system was performed. Relevant findings as per above and as per HPI. Otherwise negative. H&P Exam Vital Signs Vital Signs Date Time Temp Pulse Resp B/P (MAP) Pulse Ox O2 Delivery O2 Flow Rate FiO2 07/10/25 05:00 97.4 68 19 126/83 (97) 99 97.4 07/09/25 23:25 Room Air* 0 21 General Appeara: Cachetic, Thin Head Exam: Normal inspection Eye Exam: bilateral eye PERRL Nasal Exam: Normal inspection Mouth: Normal Inspection Pulmonary/Respiratory: Lungs clear Cardiovascular/Chest: Regular rate, Systolic murmur Peripheral Pulses: 2+ carotid (R), 2+ carotid (L), 2+ femoral (R), 2+ femoral (L), 2+ dorsalis pedis (R), 2+ dorsalis pedis (L) Abdominal Exam: Normal bowel sounds, Soft, No hepatospenomegaly Neuro/Mental St: Alert, Oriented Appearance: Appropriate appearance Eye contact/ Speech: Cooperative Labs/Xrays Labs Test 07/10/25 06:29 07/09/25 21:37 07/09/25 13:44 07/09/25 13:27 Range/Units White Blood Count 7.9 4.4-10.8 10^3/uL Red Blood Count 4.90 4.5-5.90 10^6/uL Hemoglobin 15.2 13.5-17.5 g/dL Hematocrit 45.4 # 41.0-53.0 % Mean Corpuscular Volume 92.5 80.0-100.0 fL Mean Corpuscular Hemoglobin 31.0 28.0-32.0 pg Mean Corpuscular Hemoglobin Concent 33.5 32.0-36.0 g/dL Red Cell Distribution Width 13.6 11.8-14.3 % Platelet Count 126 L 140-450 10^3/uL Mean Platelet Volume 9.5 6.9-10.8 fL Neutrophils (%) (Auto) 65.5 37.0-80.0 % Lymphocytes (%) (Auto) 27.5 10.0-50.0 % Monocytes (%) (Auto) 4.8 0.0-12.0 % Eosinophils (%) (Auto) 1.2 0.0-7.0 % Basophils (%) (Auto) 1.0 0.0-2.0 % Neutrophils # (Auto) 5.2 1.6-8.6 10 ^3/uL Lymphocytes # (Auto) 2.2 0.4-5.4 10 ^3/uL Monocytes # (Auto) 0.4 0-1.3 10 ^3/uL Eosinophils # (Auto) 0.1 0-0.8 10 ^3/uL Basophils # (Auto) 0.1 0-0.2 10 ^3/uL Nucleated Red Blood Cells 0.1 % Sodium Level 140 136-145 mmol/L Potassium Level 3.6 3.5-5.1 mmol/L Chloride Level 101 98-107 mmol/L Carbon Dioxide Level 30 20-31 mmol/L Anion Gap 9 5-15 Blood Urea Nitrogen 8 L 9-23 mg/dL Creatinine 0.84 0.700-1.30 mg/dL Glomerular Filtration Rate Calc 93 >90 mL/min BUN/Creatinine Ratio 9.5 L 10.0-20.0 Serum Glucose 129 H 74-106 mg/dL Calcium Level 9.0 8.7-10.4 mg/dL Magnesium Level 2.1 1.6-2.6 mg/dL Total Bilirubin 0.6 0.2-1.0 mg/dL Aspartate Amino Transferase (AST) 22 13-40 U/L Alanine Aminotransferase (ALT) 12 7-40 U/L Alkaline Phosphatase 88 46-116 U/L Total Protein 7.4 5.7-8.2 g/dL Albumin 4.4 3.2-4.8 g/dL POC Glucose 111 H 70-106 mg/dl Troponin I High Sensitivity 22 </=54 ng/L Urine Color Light-yellow Yellow Urine Clarity Clear Clear Urine pH 7.0 5.0-9.0 Urine Specific [place] 1.008 1.001-1.035 Urine Protein Negative Negative Urine Ketones Negative Negative Urine Blood Negative Negative /uL Urine Nitrite Negative Negative Urine Bilirubin Negative Negative Urine Urobilinogen Normal Negative mg/dL Urine Leukocyte Esterase Negative Negative /uL Urine RBC 1 0 - 3 /hpf Urine Microscopic WBC 1 0-3 /HPF Urine Squamous Epithelial Cells Few <5 /hpf Urine Bacteria Few H None Seen /hpf Urine Glucose Normal Normal mg/dL Urine Opiates Screen Neg NEGATIVE Urine Fentanyl Screen Neg NEGATIVE Urine Barbiturates Screen Neg NEGATIVE Urine Phencyclidine Screen Neg NEGATIVE Urine Amphetamines Screen Neg NEGATIVE Urine Benzodiazepines Screen Neg NEGATIVE Urine Cocaine Screen Neg NEGATIVE Urine Cannabinoids Screen Neg NEGATIVE Test 07/09/25 11:46 07/09/25 10:41 Range/Units Direct Bilirubin 0.2 <0.3 mg/dL Hemoglobin A1c 6.0 H <5.7 % A1C Assessment/Plan Plan Patient is a 69-year-old gentleman who presented to the hospital after ICD discharge. He mentions that he had ICD implanted in April 2025. He mentions that he has not been compliant with medications. He woke up with ICD discharge. Reportedly while coming to the hospital he also had more discharged happening. Does have baseline history of ischemic cardiomyopathy for which had ADJUSTER AND INSPECTOR-D implanted. Cardiology is involved for cardiac aspects of care. Serial high sensitive troponin has remained negative. Patient has history of cannabis and alcohol abuse. He mentions that he has not been using drugs recently. Denies any chest pains. Patient has followed in our office once. Frail looking gentleman not in acute distress. No JVD. Mucosa is pale and wet. No carotid bruit. No goiter. Lungs are clear to auscultation. Not using accessory muscles of breathing. Cardiac: Regular, no thrill/gallop. Systolic murmur 2/6 in the apex is heard. Abdomen is soft. Bowel sound is positive. There is no gross mass. There was no peripheral edema. Dorsalis pedis is 2+ bilateral. Past medical history reportedly includes diabetes mellitus, BPH, neuropathy, hypertension, hyperlipidemia, bipolar disorder, depression/anxiety, gallstones, kidney stones, osteoarthritis, old history of schizoaffective disorder and questionable old history of coronary artery disease. He mentions that he has had stents many years ago. History also includes ischemic cardiomyopathy and HFrEF. Does have baseline history of alcohol and cannabis abuse. Old chart mentions history of atrial fibrillation. Patient himself denies any such official diagnosis. He has not been kept on anticoagulation as outpatient. Echocardiogram of April 06, 2025 revealed ejection fraction of 30% with mild mitral regurgitation Nuclear stress test of April 08, 2025 revealed no ischemia and ejection fraction of 33% Creatinine: 0.74 - 0.84 Potassium: 3.5 - 3.6 Magnesium: 2.1 Troponin (high sensitive): 20 - 21 - 22 Urine drug screen was nonrevealing Chest x-ray: IMPRESSION: NO ACUTE CARDIOPULMONARY PROCESS. EKG: Paced rhythm. Another EKG revealed occasions of SVT Tele reveals paced rhythm Patient is a 69-year-old gentleman who presented with reported repeated ICD shock. Reportedly on arrival blood pressure was 185/146 and hypertensive emergency could have contributed clinical picture. There is no available rhythm strip of the episodes. No report/information about any kind of device interrogation is available to review. Has been noncompliant with medications and followups which could have contributed to the presentation. Does have history of ischemic cardiomyopathy which can be a reason for some type of tachyarrhythmia which could have resulted in the presentation. It is of note that the patient did not lose consciousness. Previous history in the chart mentions history of atrial fibrillation. It is of note that the patient has not been on anticoagulation. Patient himself denies any previous knowledge of atrial fibrillation but also mentions history of arrhythmia. Could this arrhythmia/questionable AFib be related to the presentation? Reported ICD shock Hypertensive Emergency Arrhythmia Ischemic cardiomyopathy HFrEF Diabetes mellitus Neuropathy Hypertension Status post ICD/ADJUSTER AND INSPECTOR-D (Biotronik) implantation Medication noncompliance History of substance/alcohol abuse Cardiac suggestion for management: Manage on telemetry Follow-up electrolytes and kidney function tests and correct abnormalities. Keep potassium above 4 and magnesium above 2 Follow-up vital signs and treat hypertension IV amiodarone at this Start oral amiodarone also For now: Metoprolol tartrate: 25 mg t.i.d. Request for official Interrogation of Biotronik ADJUSTER AND INSPECTOR-D Request to repeat Echocardiogram Guideline directed medical therapy for systolic heart failure can be optimized after stability Lifestyle and risk factor modifications Patient was counseled to be compliant with medication and followups and also avoid substance abuse/alcohol abuse Further evaluation and management depends on the above and clinical course Thank you for consultation A total of 75 minutes was spent reviewing the patient record, examining the patient, making a diagnostic and therapeutic plan, discussing this plan with medical personnel, following up on diagnostic studies and following the patient for clinical stability excluding any and all procedures. At least 50% of this time was spent in direct, [id number] contact. Thank you for allowing me to participate in this patient's care. Further recommendations will depend on patient's clinical course. Please do not hesitate to contact me if you have any questions or concerns. This medical document was created using electronic medical record system with [employer] dictation system. Although this document has been carefully reviewed, there may still be some phonetic and typographical errors. These areas are purely typographical due to the imperfection of the software programs, and do not reflect any compromise in the patient's medical care. Plan discussed with: Patient, Other (nurse) LYLE BARRY MD Jul 10, 2025 09:29 DICTATED BY:LYLE BARRY MD DICTATED DATE/TIME:07/10/25928 ELECTRONICALLY SIGNED BY:LYLE BARRY MD 07/10/2529 ELECTRONICALLY CO-SIGNED BY: [facility] [id number] [place] [id number] Ph: [phone] DIAGNOSTIC IMAGING Diagnostic Imaging Report : [id number] Signed PATIENT: YONATHAN SANDY ACCT: [id number] UNIT: [id number] : 1955 LOC: [facility] AGE / SEX: 69 / M ADM STATUS: ADM IN SERVICE 5 ORDERING PHYSICIAN: LYLE BARRY MD PROCEDURE(s): ECIDC - ECHO 2D MODE CARDIAC DOP REASON: V-TACH AND SHOCK ORDER NUMBER(s): [id number], ACCESSION NUMBER(s): [id number] APPROVED REPORT EXAM: Two-dimensional and M-mode echocardiogram with Doppler and color Doppler. Blood Pressure: 126/83 mmHg INDICATION V-TACH, AND SHOCK Surgery/Intervention Pacemaker: AICD RISK FACTORS Height: 6'4, Weight: 167 DIMENSIONS LVDd 6.2 (3.8-5.7cm) LA (2D) 2.8 (1.9-4.0cm) Aortic Root (2.0- 3.7cm) LVDs 5.4 (2.5-4.0cm) LA (MM) (1.9-4.0cm) Aortic Cusp Exc (1.5- 2.0cm) EF (%) 25.0 (55-70%) Rt. Atrium 3.1 (1.9-4.0cm) Asc. Aorta cm IVSd 1.0 (0.7-1.1cm) RV (D) 3.6 (1.8-2.4cm) PWd 1.3 (0.7-1.1cm) Mitral Valve Mitral Mitral Stenosis E wave 0.47m/s MV Mean GR. mmHg A wave 0.55m/s MV Peak GR. 76mmHg E/A ratio 0.9 2D MVA cm2 DECEL Time 198ms PRESS 1/2 Time ms Aortic Valve Aortic Valve Aortic Stenosis LVOT Diameter 2.1 (1.8-2.4cm) Doppler ANDERS cm2 Tricuspid Valve TR Velocity 2.42m/s RVSP 24mmHg Other Information Technically limited study due to PT talking and moving Conclusion Left ventricle: Left ventricle was dilated with reduced systolic function. LVEF was 30-35%. Pseudonormal left ventricular diastolic function was observed. Diffuse hypokinesis of left ventricle was seen. Right ventricle was normal-sized with reduced systolic function. Both atria were normal-sized. Pacing wire was seen in right-sided chambers. Aortic valve was not well visualized. There was no aortic stenosis/insufficiency. Mild mitral/tricuspid regurgitation was seen. Pulmonary valve was not well visualized. IVC was dilated. Right ventricular systolic pressure was assessed at 32 mm Hg. There was no pericardial effusion. SIGNED BY: LYLE BARRY MD SIGNED DATE/TIME: 07/10/25 6625 CC: Condition at Discharge: Stable Final Diagnosis/Problems List Reported ICD shock Hypertensive Emergency Arrhythmia Ischemic cardiomyopathy HFrEF Diabetes mellitus type 2 Osteoarthritis Hyperlipidemia Neuropathy Hypertension Status post ICD/ADJUSTER AND INSPECTOR-D (Biotronik) implantation Medication noncompliance History of substance/alcohol abuse #Ventricular tachycardia #Coronary artery disease, status post stent placement in the #Ischemic cardiomyopathy #Acute on chronic, diastolic, congestive heart failure (HFrEF, EF 30%), status post ADJUSTER AND INSPECTOR-D placement Polysubstance abuse, marijuana, alcohol Seizure disorder Discharge Disposition: Home Discharge Instruct/Medications Diet: Consistent carbohydrate, Cardiac 2g Na,low cholest Activity: No Restrictions, As Tolerated Follow Up/Referral: DC PCP CARDIOLOGY Medications: PRESCRIBED Scheduled Amiodarone HCl (Amiodarone HCl), 200 MG PO BID Aripiprazole (Aripiprazole), 10 MG PO DAILY Cephalexin (Keflex Capsule), 2 CAP PO BID Divalproex Sodium (Divalproex Sodium Dr), 1 TAB PO BID, (Reported) Docusate Sodium (Colace), 1 CAP PO BID Empagliflozin (Jardiance), 10 MG PO DAILY Gabapentin (Once-Daily) (Gabapentin), 300 MG PO BID Metformin HCl (Metformin Hydrochloride), 1,000 MG PO BID Pantoprazole Sodium Sesquihydr (Protonix), 40 MG PO DAILY Pantoprazole Sodium Sesquihydr (Protonix), 40 MG PO DAILY Tamsulosin Hcl (Tamsulosin Hcl), 1 CAP PO DAILY Scheduled PRN Hydrocodone-Acetaminophen (Hydrocodone Bitartrate/AC 5-325 mg), 1 TAB PO TIDP PRN Ondansetron Odt 4MG Tab (Zofran Po), 4 MG PO BIDPRN PRN Discharge Statement: "Patient was advised to return to the ER or call 911 if any headaches, dizziness, shortness of breath, chest pain, abdominal pain, bleeding, fevers, or worsening of medical condition. Patient was counseled about treatment plan, medications, possible side effects, patientverbalized understanding. All questions were answered to the best of my ability. This discharge took greater then 30 minutes in planning, reviewing documentation, counseling the patient, and discussing with other team members." ASSESSMENT ASSESSMENT Assessment Reported ICD shock Hypertensive Emergency Arrhythmia Ischemic cardiomyopathy HFrEF Diabetes mellitus Neuropathy Hypertension Status post ICD/ADJUSTER AND INSPECTOR-D (Biotronik) implantation Medication noncompliance History of substance/alcohol abuse Visit Coding STANDARD RES Billing Provider: BARRETT TANG MD Date of Service if different f: Jul 11, 2025 Common Visit Codes: 23754-DKF/OBS DISCH DAY >30min AKIRA MORALES RESIDENT Jul 11, 2025 16:15
[2025-07-11] MEDS ORDERED: AMIO200T13 PO (16:16)
[2025-07-11] MEDS ORDERED: DOCU-94 PO (16:17)
[2025-07-11 16:22] LABS: Urine Protein, UAD Negative (Negative)
[2025-07-11 17:20] VITALS: BP 123/80; PULSE 77; RESP 17; TEMP 98.5; O2SAT 99
[2025-07-11] MEDS: FLEET ENEMA(ADULT) 135 ML PR ONE (17:20)
--- NOTE | 2025-07-12 13:29 | ECG ---
[facility] Test Date: 2025-07-11 Test Time: 10:16:54 Pat Name: YONATHAN SANDY Department: Respiratoy Room: 0247T B Gender: M Lead Applier: SAJI : 1955 Requested By: AKIRA MORALES Order Number: [id number] Reading MD: Chance Jose Measurements Intervals [place] Rate: 68 P: 0 AL: 197 QRS: 238 QRSD: 124 T: 70 QT: 494 QTc: 526 Interpretive Statements Atrial-ventricular dual-paced complexes No further analysis attempted due to paced rhythm Electronically Signed On 07-16-2025 18:20:35 PST by Chance Jose Please click the below link to view image of tracing.
== END 2025-07-11 20:46 | disposition home or self-care (01) | DRG 308 ==
LOC: ER 10:08 → EDBD 10:08 → EDUNIT# 10:08 → OVERFLOW 12:04 → UNDOADMIN 12:04 → OVERFLOW 13:06 → TELE-EAST 23:00
PROVIDERS: ADMIT Internal Medicine Geriatric Medicine; ATTEND Internal Medicine Geriatric Medicine
DX: I47.20 Ventricular tachycardia, unspecified (principal); I50.33 Acute on chronic diastolic (congestive) heart failure; R57.9 Shock, unspecified; I16.1 Hypertensive emergency; I11.0 Hypertensive heart disease with heart failure; F31.9 Bipolar disorder, unspecified; E11.40 Type 2 diabetes mellitus with diabetic neuropathy, unspecified; I07.1 Rheumatic tricuspid insufficiency; F19.10 Other psychoactive substance abuse, uncomplicated; G40.909 Epilepsy, unspecified, not intractable, without status epilepticus; F41.9 Anxiety disorder, unspecified; E78.5 Hyperlipidemia, unspecified; F25.9 Schizoaffective disorder, unspecified; I25.10 Atherosclerotic heart disease of native coronary artery without angina pectoris; I48.91 Unspecified atrial fibrillation; N40.0 Benign prostatic hyperplasia without lower urinary tract symptoms; R54 Age-related physical debility; F12.90 Cannabis use, unspecified, uncomplicated; I25.5 Ischemic cardiomyopathy; Z79.84 Long term (current) use of oral hypoglycemic drugs; Z79.899 Other long term (current) drug therapy; Z83.3 Family history of diabetes mellitus; Z87.442 Personal history of urinary calculi; Z87.891 Personal history of nicotine dependence; Z88.0 Allergy status to penicillin; Z88.8 Allergy status to other drugs, medicaments and biological substances; Z91.148 Patient's other noncompliance with medication regimen for other reason; Z95.5 Presence of coronary angioplasty implant and graft; Z95.810 Presence of automatic (implantable) cardiac defibrillator
CPT/HCPCS: 36415; 71045; 80048; 80053; 80061; 80076; 80307; 81001; 82306; 82607; 82962; 83036; 83735; 84100; 84443; 84484; 85025; 85610; 85730; 93005; 93306; 96365; 96375; 99291; G0378; J1815; J2405; J2470